=== PATIENT | female | born 1960 | race Caucasian/White ===

== ENCOUNTER 2017-01-19 10:39 | Inpatient (IN) | payer SELFPAY ==
[~2017-01-19] VITALS: Ht 167.6 cm; Wt 91.7 kg
[~2017-01-19 10:39] MED LIST: Z.0.NO CURRENT MEDS
[2017-01-19 10:40] VITALS: BP 148/105; PULSE 121; RESP 20; TEMP 98.6; O2SAT 97
[2017-01-19 11:28] VITALS: PULSE 128; RESP 28; O2SAT 78
[2017-01-19 11:29] VITALS: BP 145/70; PULSE 114; RESP 24; O2SAT 97
[2017-01-19] MEDS ORDERED: VANCOMYCIN INJ 1,000 MG in SODIUM CHLOR 0.9% 250 ML INJ 250 ML IV ONE (11:30)
--- NOTE | 2017-01-19 11:49 | PD ---
HPI Chief Complaint: Edema Time Seen by Provider: 11:43 Travel History International Travel<30 days: No Contact w/Intl Traveler<30days: No Traveled to known affect area: No History of Present Illness HPI 56-year-old female that presents to the ED for evaluation of leg wounds bilaterally. Per patient she's had this wound for about 2 months with her worsening. Patient has been applying antibiotic cream with minimal relief. Patient has yellow oozing especially from the left leg as well as the right leg. More significant infection on the right leg. Patient also has erythema noted on the inner times bilaterally. Per patient is somewhat tender 4 out of 10. She has not seen anybody for this. She states that the only medication she takes is medical marijuana. She somewhat of a poor historian and cannot really give us a good history. She does appear to have a history of smoking and states and some shortness of breath with exertion. She has an allergy to inhalers which she does not know which ones in particular. She denies any chest pain. She states that she's been gaining some weight in the past couple of weeks. Per ED nurse patient was dropped here by some friends were concerned because of her swelling and infection. Patient does have a history of chronic wounds to her legs and she has multiple old wounds that appear to have healed over her legs. PFSH Past Medical History Asthma: Yes Autoimmune Disease: No Cardiovascular Problems: Yes COPD: No Diminished Hearing: No Medical other: Yes (wound BLE) Musculoskeletal: Yes Respiratory: Yes Sleep Apnea: No ?: Not : 4 Para: 4 Past Surgical History Body Medical Devices: BROKE CLAVICLE LAST MONTH Section: Yes Gynecologic Surgery: Yes (C-SECTIONS) Oral Surgery: Yes (JAW SURG) Social History Alcohol Use: Yes (OCCASIONAL) Tobacco Use: Yes (1 PACK/DAY) Substance Use: No (medicinal ,marijuana per pt) Allergies-Medications (Allergen,Severity, Reaction): Uncoded Allergies: SOME ANTI INFLAMMATORY MEDS (Allergy, Severe, Swelling, 05/16/05) INHALERS (Allergy, Intermediate, SOB, 01/07/06) Reported Meds & Prescriptions Reported Meds & Active Scripts Active No Active Prescriptions or Reported Medications Review of Systems Except as stated in HPI: all other systems reviewed are Neg Physical Exam Narrative GENERAL: SKIN: Warm and dry. HEAD: Atraumatic. Normocephalic. EYES: Pupils equal and round. No scleral icterus. No injection or drainage. ENT: No nasal bleeding or discharge. Mucous membranes pink and moist. Tongue is midline. No uvula deviation. NECK: Trachea midline. No JVD. CARDIOVASCULAR: Regular rate and rhythm. No murmurs, S3, S4. RESPIRATORY: No accessory muscle use. Clear to auscultation. Breath sounds equal bilaterally. GASTROINTESTINAL: Abdomen soft, non-tender, nondistended. Hepatic and splenic margins not palpable. MUSCULOSKELETAL: Extremities without clubbing, cyanosis, or edema. No obvious deformities. Full range of motion of the upper and lower extremities bilaterally. Patient does have wounds to both lower legs. 2+ pulses bilaterally. Patient has an oozing wound on the anterior aspect of the left lower leg that is about 20 cm in diameter with yellow crusting and yellow drainage from the wounds. Patient also has a similar wound on the back of the right leg about 10 cm also oozing yellow drainage. Slightly tender. Patient does have an area of erythema on the inner tighs bilaterally. NEUROLOGICAL: Awake and alert. No obvious cranial nerve deficits. Motor grossly within normal limits. Five out of 5 muscle strength in the arms and legs. Normal speech. PSYCHIATRIC: Appropriate mood and affect; insight and judgment normal. Data Data Last Documented VS Vital Signs Date Time Temp Pulse Resp B/P (MAP) Pulse Ox O2 Delivery O2 Flow Rate FiO2 01/19/17 11:29 114 24 145/70 (95) 97 Nasal Cannula 3.00 01/19/17 10:40 98.6 Orders Orders Electrocardiogram (01/19/17 11:28) Complete Blood Count With Diff (01/19/17 11:28) Basic Metabolic Panel (Bmp) (01/19/17 11:28) Prothrombin Time / Inr (Pt) (01/19/17 11:28) Act Partial Throm Time (Ptt) (01/19/17 11:28) Blood Culture (01/19/17 11:28) Magnesium (Mg) (01/19/17 11:28) Wound Culture And Gram Stain (01/19/17 11:28) Chest, Single Ap (01/19/17 11:28) Iv Access Insert/Monitor (01/19/17 11:28) Ecg Monitoring (01/19/17 11:28) Oximetry (01/19/17 11:28) Vancomycin Inj (Vancomycin Inj) (01/19/17 11:30) Us Leg Venous Doppler Bilat (01/19/17 ) B-Type Natriuretic Peptide (01/19/17 11:28) Lactic Acid Sepsis Protocol (01/19/17 11:58) C-Reactive Protein (Crp) (01/19/17 11:58) Tibia/Fibula (Ap/Lat) (01/19/17 ) Sodium Chlorid 0.9% 500 Ml Inj (Ns 500 M (01/19/17 13:00) Piperacil-Tazo 3.375 Gm Premix (Zosyn 3. (01/19/17 13:15) Admit Order (Ed Use Only) (01/19/17 13:24) Labs Laboratory Tests Test 01/19/17 11:35 01/19/17 12:02 White Blood Count 5.7 TH/MM3 Red Blood Count 5.52 MIL/MM3 Hemoglobin 16.5 GM/DL Hematocrit 51.9 % Mean Corpuscular Volume 94.0 FL Mean Corpuscular Hemoglobin 30.0 PG Mean Corpuscular Hemoglobin Concent 31.9 % Red Cell Distribution Width 16.0 % Platelet Count 233 TH/MM3 Mean Platelet Volume 8.4 FL Neutrophils (%) (Auto) 71.2 % Lymphocytes (%) (Auto) 13.5 % Monocytes (%) (Auto) 13.6 % Eosinophils (%) (Auto) 0.9 % Basophils (%) (Auto) 0.8 % Neutrophils # (Auto) 4.1 TH/MM3 Lymphocytes # (Auto) 0.8 TH/MM3 Monocytes # (Auto) 0.8 TH/MM3 Eosinophils # (Auto) 0.1 TH/MM3 Basophils # (Auto) 0.0 TH/MM3 CBC Comment DIFF FINAL Differential Comment Prothrombin Time 12.8 SEC Prothromb Time International Ratio 1.2 RATIO Activated Partial Thromboplast Time 27.5 SEC Blood Urea Nitrogen 16 MG/DL Creatinine 0.67 MG/DL Random Glucose 159 MG/DL Calcium Level 8.8 MG/DL Magnesium Level 1.9 MG/DL Sodium Level 135 MEQ/L Potassium Level 4.0 MEQ/L Chloride Level 97 MEQ/L Carbon Dioxide Level 34.0 MEQ/L Anion Gap 4 MEQ/L Estimat Glomerular Filtration Rate 92 ML/MIN C-Reactive Protein 3.81 MG/DL B-Type Natriuretic Peptide 699 PG/ML Lactic Acid Level 2.5 mmol/L MDM Medical Decision Making Medical Screen Exam Complete: Yes Emergency Medical Condition: Yes Medical Record Reviewed: Yes Interpretation(s) CBC & BMP Diagram 01/19/17 11:35 Calcium Level 8.8, Magnesium Level 1.9 lactic acid of 2.5 CRP elevated BNP elevated Last Impressions Chest X-Ray 01/19/17 1128 Signed Impressions: Service Date/Time: December 11:43 - CONCLUSION: Borderline heart size. No focal infiltrate. Tereso Collier MD Lower Extremity Ultrasound 01/19/17 0000 Signed Impressions: Service Date/Time: , January 19, 2017 11:42 - CONCLUSION: Normal examination. Tereso Collier MD Differential Diagnosis Cellulitis versus wound infection versus impetigo versus osteomyelitis versus COPD Narrative Course 56-year-old female that presents to the ED for evaluation of leg swelling and shortness of breath. Patient was properly examined and was found to have signs and symptoms consistent appears to be some colitis in the lower legs with significant infection especially to the left leg. Labs and imaging were done. Patient is tachycardic on exam but she has no fever. Labs and imaging show elevated CRP, elevated BNP, cardiomegaly, elevated lactic acid. Case discussed in my attending Dr. Champagne who evaluated the patient with me and agrees with plan. Patient was started on antibiotics. Patient was given 500 bolus of fluid secondary to concern for CHF. Patient will require admission for further evaluation and treatment of her symptoms. She agrees and understands this plan. Case discussed with [facility] who recommends admission. Procedures EKG Prior to Arrival: No Sepsis Criteria SIRS Criteria (2 or more): Heart rate over 90 Diagnosis Primary Impression: Cellulitis Qualified Codes: L03.119 - Cellulitis of unspecified part of limb Additional Impressions: CHF (congestive heart failure) Qualified Codes: I50.9 - Heart failure, unspecified Lactic acid acidosis Admitting Information Admitting Physician Requests: Admit Scripts No Active Prescriptions or Reported Meds Amanuel Treadwell Jan 19, 2017 11:49
[2017-01-19 12:08] LABS: AUTOMATED NEUTROPHIL # 4.1 TH/MM3 (1.8-7.7); BASOPHIL % 0.8 % (0.0-2.0); EOSINOPHIL # 0.1 TH/MM3 (0-0.4); EOSINOPHIL % 0.9 % (0.0-4.0); HEMATOCRIT 51.9 % (35.0-46.0); HEMO FLAGS DIFF FINAL; LYMPH % 13.5 % (9.0-44.0); LYMPHOCYTE # 0.8 TH/MM3 (1.0-4.8); MEAN CORPUSCULAR HGB CONC 31.9 % (32.0-36.0); MONO % 13.6 % (0.0-8.0); NEUT % 71.2 % (16.0-70.0); PLATELET COUNT 233 TH/MM3 (150-450); RED BLOOD COUNT 5.52 MIL/MM3 (4.00-5.30); WHITE BLOOD COUNT 5.7 TH/MM3 (4.0-11.0)
--- NOTE | 2017-01-19 12:09 | RADRPT ---
EXAM DATE/TIME: 01/19/2017 11:43 [facility] COMPARISON: No previous studies available for comparison. INDICATIONS : Short of breath MEDICAL HISTORY : None. SURGICAL HISTORY : None. ENCOUNTER: Initial ACUITY: 2 days PAIN SCORE: 0/10 LOCATION: chest FINDINGS: Lungs are focally clear. Cardiac contours are satisfactory with heart size upper limits of normal. Th ere is no evidence of effusion. CONCLUSION: Borderline heart size. No focal infiltrate. Tereso Collier MD on January 19, 2017 at 12:00 Board Certified Radiologist. This report was verified electronically.
[2017-01-19 12:20] LABS: APTT (PATIENT) 27.5 SEC (24.3-30.1); INTERNATIONAL NORMALIZED RATIO 1.2 RATIO; PROTHROMBIN TIME - PATIENT 12.8 SEC (9.8-11.6)
[2017-01-19 12:26] LABS: MAGNESIUM 1.9 MG/DL (1.5-2.5)
--- NOTE | 2017-01-19 12:41 | RADRPT ---
EXAM DATE/TIME: 01/19/2017 11:42 [facility] COMPARISON: No previous studies available for comparison. INDICATIONS : Bilateral leg swelling. MEDICAL HISTORY : Cardiac disorder. Respiratory disorder. SURGICAL HISTORY : section. Jaw surgery. ENCOUNTER: Initial ACUITY: 1 day PAIN SCORE: 6/10 LOCATION: Bilateral legs. .Yes TECHNIQUE: Venous ultrasound of the left and right leg was performed from the inguinal ligament to the proximal calf. Real-time, color Doppler and spectral tracing, compression and augmentation techniques were us ed. FINDINGS: RIGHT LEG: There is normal compressibility of the deep venous system from the inguinal region to the proximal ca lf. No echogenic clot is seen in the lumen of the common femoral, femoral, popliteal, and posterior tibial veins. There is a normal response of the venous system to proximal and distal augmentation an d respiration. LEFT LEG: There is normal compressibility of the deep venous system from the inguinal region to the proximal ca lf. No echogenic clot is seen in the lumen of the common femoral, femoral, popliteal, and posterior tibial veins. There is a normal response of the venous system to proximal and distal augmentation an d respiration. CONCLUSION: Normal examination. Tereso Collier MD on January 19, 2017 at 12:39 Board Certified Radiologist. This report was verified electronically.
[2017-01-19] MEDS ORDERED: SODIUM CHLORID 0.9% 500 ML INJ 500 ML IV ONE (13:00)
[2017-01-19] MEDS ORDERED: NALOXONE HCL 0.4 MG/ML AMP IV PUSH PRN (13:30)
[2017-01-19] MEDS ORDERED: SODIUM CHLORIDE 0.9% FLUSH 10 ML FLUSH IV FLUSH PRN (13:30)
--- NOTE | 2017-01-19 13:32 | RADRPT ---
EXAM DATE/TIME: 01/19/2017 12:43 [facility] COMPARISON: No previous studies available for comparison. INDICATIONS : Left tibia pain, skin abrasion. Denies injury MEDICAL HISTORY : None. Cardiac disorder. Respiratory disorder SURGICAL HISTORY : None. ENCOUNTER: Initial ACUITY: 2 months PAIN SCORE: 8/10 LOCATION: Left Tibia FINDINGS: 3 views of the left tibia and fibula. Bone alignment within normal limits. No evidence of fracture. Anterior soft tissue swelling and focal anterior soft tissue defect or ulceration. CONCLUSION: No evidence of fracture. Ulceration or defect in the anterior soft tissues at the level of the mid ti natalie shaft. Roney Sneed MD on January 19, 2017 at 13:30 Board Certified Radiologist. This report was verified electronically.
[2017-01-19] MEDS ORDERED: ACETAMINOPHEN 325 MG TAB PO PRN (14:00)
[2017-01-19 14:19] LABS: LACTIC ACID GHOST NOT REPORTABLE
[2017-01-19] MEDS ORDERED: Vancomycin Consult Pharmacy 1 EA OTHER SCH (14:30)
--- NOTE | 2017-01-19 14:35 | HHI.HP ---
[facility] No Primary Care Physician Admission Diagnosis lower leg cellulitis bilaterally Diagnoses: Chief Complaint: lower leg infection Travel History International Travel<30 Days: No Contact w/Intl Traveler <30 Da: No Traveled to Known Affected Are: No History of Present Illness This is a 56-year-old homeless female with past medical history of COPD, asthma , and tobacco dependence who presented with bilateral lower extremity edema. Patient is very poor historian. Patient stated that she had a small wound of her lower legs that started about 2-3 months ago and worsened. She stated that she see her because of that. It is very difficult to obtain history from patient. She stated that she is homeless and she does walk barefooted and sometimes worse socks. Patient also smokes filtered cigar cigarettes about 1 pack per day for almost her entire life. Deny any fevers or chills. I also asked patient regards to shortness of breathing since she complained of shortness breathing to the emergency medicine PA. She denied this. She stated that she never complained of shortness of breathing. Denied any chest pain, palpitation, lightheadedness or dizziness. When I asked patient about medication for her COPD/asthma she said that she could not take any inhalers because it increases her shortness of breathing and makes her chest feel tight. When I asked patient what medication that she use if she ever had a COPD or asthma exacerbation. She stated that she just takes deep inspiration it goes away on its own. All other review of system reviewed and negative. Past Family Social History Past Medical History COPD Asthma Past Surgical History jaw surgery Reported Medications Reported Meds & Active Scripts Active No Active Prescriptions or Reported Medications Allergies: Uncoded Allergies: SOME ANTI INFLAMMATORY MEDS (Allergy, Severe, Swelling, 05/16/05) INHALERS (Allergy, Intermediate, SOB, 01/07/06) Active Ordered Medications Current Medications Vancomycin HCl 1000 mg/Sodium Chloride 250 ml @ 250 mls/hr ONCE ONCE IV Last administered on 01/19/17t 12:04; Start 01/19/17 at 11:30; Stop 01/19/17 at 12:29 ; Status DC Sodium Chloride 500 ml @ 500 mls/hr BOLUS ONCE IV Last administered on t 13:05; Start 01/19/17 at 13:00; Stop 01/19/17 at 13:59; Status DC Piperacillin Sod/ Tazobactam Sod 50 ml @ 100 mls/hr ONCE ONCE IV ; Start 01/19 at 15:00; Stop 01/19/17 at 15:29 Sodium Chloride (NS Flush) 2 ml UNSCH PRN IV FLUSH FLUSH AFTER USING IV ACCESS ; Start 01/19/17 at 13:30 Sodium Chloride (NS Flush) 2 ml BID IV FLUSH ; Start 01/19/17 at 21:00 Acetaminophen (Tylenol) 650 mg Q4H PRN PO TEMP > 100.4; Start 01/19/17 at 14:00 Ondansetron HCl (Zofran Inj) 4 mg Q6H PRN IVP NAUSEA OR VOMITING; Start at 15:00 Naloxone HCl (Narcan Inj) 0.4 mg UNSCH PRN IV PUSH SEE LABEL COMMENTS; Start at 13:30 Senna/Docusate Sodium (Mahogany-Colace) 1 tab BID PO ; Start 01/19/17 at 21:00 Magnesium Hydroxide (Milk Of Magnesia Liq) 30 ml Q12HR PRN PO MILD - MODERATE CONSTIPATION; Start 01/19/17 at 21:00 Sennosides (Senokot) 17.2 mg Q12HR PRN PO MODERATE - SEVERE CONSTIPATION; Start 01/19/17 at 15:00 Bisacodyl (Dulcolax Supp) 10 mg DAILY PRN RECTAL SEVERE CONSITIPATION; Start at 15:00 Lactulose (Lactulose Liq) 30 ml DAILY PRN PO SEVERE CONSITIPATION; Start at 15:00 Pharmacy Profile Note 0 ml @ 0 mls/hr UNSCH OTHER ; Start 01/19/17 at 14:30 Piperacillin Sod/ Tazobactam Sod 50 ml @ 100 mls/hr Q6H IV ; Start 01/19/17 at 21:00 Prednisone (Deltasone) 50 mg DAILY PO ; Start 01/19/17 at 14:30; Status UNV Enoxaparin Sodium (Lovenox Inj) 40 mg Q24H SQ ; Start 01/19/17 at 14:30; Status UNV Acetaminophen/ Hydrocodone Bitart ([place] 5-325 Mg) 1 tab Q4H PRN PO pain 1-7; Start 01/19/17 at 14:30; Status UNV Acetaminophen/ Hydrocodone Bitart ([place] 5-325 Mg) 2 tab Q4H PRN PO pain 8-10 ; Start 01/19/17 at 14:30; Status UNV Family History Past family history reviewed and patient stated that she did not know. Social History Patient is homeless. Occasional alcohol use. Positive for tobacco use. Physical Exam Vital Signs Vital Signs Date Time Temp Pulse Resp B/P (MAP) Pulse Ox O2 Delivery O2 Flow Rate FiO2 01/19/17 11:29 114 24 145/70 (95) 97 Nasal Cannula 3.00 01/19/17 11:28 128 28 78 Room Air 01/19/17 10:40 98.6 121 20 148/105 (119) 97 Room Air Physical Exam GENERAL: This is a well-nourished, well-developed patient, in no apparent distress. SKIN: Left Leg Below Knee with ulcering lesions purulent discharge with erythema. right leg + erythema and swelling. bridge of nose with erythematous ulcerating wound. HEAD: Atraumatic. Normocephalic. No temporal or scalp tenderness. EYES: Pupils equal round and reactive. Extraocular motions intact. No scleral icterus. No injection or drainage. ENT: Nose without bleeding, purulent drainage or septal hematoma. Throat without erythema, tonsillar hypertrophy or exudate. Uvula midline. Airway patent. NECK: Trachea midline. No JVD or lymphadenopathy. Supple, nontender, no meningeal signs. CARDIOVASCULAR: Regular rate and rhythm without murmurs, gallops, or rubs. RESPIRATORY: Small amount Bilateral scatter expiratory wheezing. No rhonchi or crackles noted. GASTROINTESTINAL: Abdomen soft, non-tender, nondistended. No hepato-splenomegaly , or palpable masses. No guarding. MUSCULOSKELETAL: Extremities without clubbing, cyanosis, or edema. No joint tenderness, effusion, or edema noted. No calf tenderness. Negative Homans sign bilaterally. faint right DP pulse. difficult to palpate left DP pulse. NEUROLOGICAL: Awake and alert. Cranial nerves II through XII intact. Motor and sensory grossly within normal limits. Five out of 5 muscle strength in all muscle groups. Normal speech. Laboratory Laboratory Tests Test 01/19/17 11:35 01/19/17 12:02 White Blood Count 5.7 Red Blood Count 5.52 Hemoglobin 16.5 Hematocrit 51.9 Mean Corpuscular Volume 94.0 Mean Corpuscular Hemoglobin 30.0 Mean Corpuscular Hemoglobin Concent 31.9 Red Cell Distribution Width 16.0 Platelet Count 233 Mean Platelet Volume 8.4 Neutrophils (%) (Auto) 71.2 Lymphocytes (%) (Auto) 13.5 Monocytes (%) (Auto) 13.6 Eosinophils (%) (Auto) 0.9 Basophils (%) (Auto) 0.8 Neutrophils # (Auto) 4.1 Lymphocytes # (Auto) 0.8 Monocytes # (Auto) 0.8 Eosinophils # (Auto) 0.1 Basophils # (Auto) 0.0 CBC Comment DIFF FINAL Differential Comment Prothrombin Time 12.8 Prothromb Time International Ratio 1.2 Activated Partial Thromboplast Time 27.5 Blood Urea Nitrogen 16 Creatinine 0.67 Random Glucose 159 Calcium Level 8.8 Magnesium Level 1.9 Sodium Level 135 Potassium Level 4.0 Chloride Level 97 Carbon Dioxide Level 34.0 Anion Gap 4 Estimat Glomerular Filtration Rate 92 C-Reactive Protein 3.81 B-Type Natriuretic Peptide 699 Lactic Acid Level 2.5 Date/Time Source Procedure Growth Status 01/19/17 11:50 Blood Peripheral Aerobic Blood Culture Pending Received 01/19/17 11:50 Blood Peripheral Anaerobic Blood Culture Pending Received 01/19/17 11:35 Wound Foot Gram Stain Pending Received 01/19/17 11:35 Wound Foot Wound Culture Pending Received Result Diagram: 01/19/17 1135 01/19/17 1135 Imaging Last Impressions Chest X-Ray 01/19/17 1128 Signed Impressions: Service Date/Time: December 11:43 - CONCLUSION: Borderline heart size. No focal infiltrate. Tereso Collier MD Tibia/Fibula X-Ray 01/19/17 0000 Signed Impressions: Service Date/Time: December 12:43 - CONCLUSION: No evidence of fracture. Ulceration or defect in the anterior soft tissues at the level of the mid tibia shaft. Roney Sneed MD Lower Extremity Ultrasound 01/19/17 0000 Signed Impressions: Service Date/Time: December 11:42 - CONCLUSION: Normal examination. MD Sawyer Domínguez VTE Risk Assessment Caprini VTE Risk Assessment: Mod/High Risk (score >= 2) Caprini Risk Assessment Model Point Value = 1 Point Value = 2 Point Value = 3 Point Value = 5 Age 41-60 Minor surgery BMI > 25 kg/m2 Swollen legs Varicose veins or History of unexplained or recurrent spontaneous Oral contraceptives or hormone replacement Sepsis (< 1 month) Serious lung disease, including pneumonia (< 1 month) Abnormal pulmonary function Acute myocardial infarction Congestive heart failure (< 1 month) History of inflammatory bowel disease Medical patient at bed rest Age 61-74 Arthroscopic surgery Major open surgery (> 45 min) Laparoscopic surgery (> 45 min) Malignancy Confined to bed (> 72 hours) Immobilizing plaster cast Central venous access Age >= 75 History of VTE Family history of VTE Factor V Leiden Prothrombin [id number] Lupus anticoagulant Anticardiolipin antibodies Elevated serum homocysteine Heparin-induced thrombocytopenia Other congenital or acquired thrombophilia Stroke (< 1 month) Elective arthroplasty Hip, pelvis, or leg fracture Acute spinal cord injury (< 1 month) Prophylaxis Regimen Total Risk Factor Score Risk Level Prophylaxis Regimen 0-1 Low Early ambulation 2 Moderate Order ONE of the following: *Sequential Compression Device (SCD) *Heparin 5000 units SQ BID 3-4 Higher Order ONE of the following medications: *Heparin 5000 units SQ TID *Enoxaparin/Lovenox 40 mg SQ daily (WT < 150 kg, CrCl > 30 mL/min) *Enoxaparin/Lovenox 30 mg SQ daily (WT < 150 kg, CrCl > 10-29 mL/min) *Enoxaparin/Lovenox 30 mg SQ BID (WT < 150 kg, CrCl > 30 mL/min) AND/OR *Sequential Compression Device (SCD) 5 or more Highest Order ONE of the following medications: *Heparin 5000 units SQ TID (Preferred with Epidurals) *Enoxaparin/Lovenox 40 mg SQ daily (WT < 150 kg, CrCl > 30 mL/min) *Enoxaparin/Lovenox 30 mg SQ daily (WT < 150 kg, CrCl > 10-29 mL/min) *Enoxaparin/Lovenox 30 mg SQ BID (WT < 150 kg, CrCl > 30 mL/min) AND *Sequential Compression Device (SCD) Assessment and Plan Assessment and Plan This is a 56-year-old homeless female history of COPD, asthma, and tobacco dependence who presented with B/L lower extremity cellulitis Right LL cellulitis and left LL cellulitis/ulcerating wound -Labs obtained reviewed no leukocytosis. X-ray shows defect of left leg soft tissue. Ultrasound negative. Difficult to palpate pulse from the left leg. Positive tobacco use. -Patient given vancomycin and Zosyn in ED. Cultures already obtained in the ED. -Due to severity of infection will need to consult infectious disease. -Will also get a angiogram of her lower extremity to evaluate for circulation. -Continue to monitor clinically pending cultures. -Will also have nurse allow patient to take shower. Respiratory failure with hypoxia -Most likely this is chronic. Patient is homeless and has poor follow-up. She denies clinically that she has any problems breathing. -Chest x-ray negative. BNP mildly elevated. -Patient will be started on steroids. Avoid inhalers secondary to side effects. -Since there is mildly elevated BNP will also get an echo and give Lasix. -Continue to monitor clinically. Supplemental oxygen. COPD/asthma -Patient does have wheezing but she stated that she is asymptomatic. Unable to use inhalers due to worsening of symptoms. -Will try prednisone. -Continue to monitor clinically. Tobacco dependence -Smoking cessation. -Nicotine patch when necessary. DVT prophylaxis -Lovenox. Code Status full Discussed Condition With patient Physician Certification 2 Midnight Certification Type: Admission for Inpatient Services Order for Inpatient Services The services are ordered in accordance with Medicare regulations or non- Medicare payer requirements, as applicable. In the case of services not specified as inpatient-only, they are appropriately provided as inpatient services in accordance with the 2-midnight benchmark. Estimated LOS (days): 5 5 days is the estimated time the patient will need to remain in the hospital, assuming treatment plan goals are met and no additional complications. Post-Hospital Plan: Shayla Bingham MD Jan 19, 2017 14:35
[2017-01-19] MEDS ORDERED: ONDANSETRON HCL 4 MG/2 ML VIAL IVP PRN (15:00)
[2017-01-19] MEDS ORDERED: SENNOSIDES 8.6 MG TAB PO PRN (15:00)
[2017-01-19] MEDS ORDERED: BISACODYL 10 MG SUPP RECTAL PRN (15:00)
[2017-01-19] MEDS ORDERED: PIPERACIL-TAZO 3.375 GM PREMIX 50 ML IV ONE (15:00)
[2017-01-19] MEDS ORDERED: LACTULOSE SYRUP 20 GM/30 ML CUP PO PRN (15:00)
[2017-01-19] MEDS ORDERED: ACETAMINOPHEN/HYDROcodone 325 MG/5 MG TAB PO PRN (16:00)
[2017-01-19] MEDS: ENOXAPARIN SODIUM 40 MG/0.4 ML SYRINGE SQ SCH (17:05)
[2017-01-19] MEDS: FUROSEMIDE 20 MG TAB PO SCH (17:05)
[2017-01-19] MEDS: predniSONE 50 MG TAB PO SCH (17:06)
[2017-01-19 19:06] VITALS: PULSE 90
[2017-01-19 20:00] VITALS: BP 93/56; PULSE 90; RESP 16; TEMP 97.3; O2SAT 92
[2017-01-19] MEDS: PIPERACIL-TAZO 3.375 GM PREMIX 50 ML IV SCH (20:45)
[2017-01-19] MEDS: DOCUSATE SODIUM 50 MG/SENNA 8.6 MG TAB PO SCH ×2 (20:46→21:00)
[2017-01-19] MEDS: SODIUM CHLORIDE 0.9% FLUSH 10 ML FLUSH IV FLUSH SCH (20:51)
[2017-01-19] MEDS ORDERED: MAGNESIUM HYDROXIDE SUSP 30 ML CUP PO PRN (21:00)
[2017-01-19] MEDS ORDERED: IOHEXOL 350 MG/ML 10 ML VIAL (for RAD DIAG) IVCONTRAST ONE (22:05)
[2017-01-19] MEDS: VANCOMYCIN 1,000 MG/NS 250 ML IV SCH ×2 (23:27)
[2017-01-20] VITALS: BP 93/56; PULSE 83; RESP 16; TEMP 97.1; O2SAT 100
[2017-01-20] MEDS: PIPERACIL-TAZO 3.375 GM PREMIX 50 ML IV SCH ×4 (02:10→22:47)
[2017-01-20 08:00] VITALS: BP 96/56; PULSE 98; RESP 16; TEMP 96.7; O2SAT 90
--- NOTE | 2017-01-20 09:20 | RADRPT ---
EXAM DATE/TIME: 01/19/2017 21:49 [place] COMPARISON: No previous studies available for comparison. INDICATIONS : Bilateral lower extremity cellulitis. IV CONTRAST: 99 cc Omnipaque 350 (iohexol) IV RADIATION DOSE: 2.66 CTDIvol (mGy) MEDICAL HISTORY : Cardiovascular disease. SURGICAL HISTORY : section. ENCOUNTER: Initial ACUITY: 1 day PAIN SCALE: 4/10 LOCATION: Bilateral lower extremity TECHNIQUE: Volumetric scanning was performed using a multi-row detector CT scanner. The data was post processed with a variety of visualization algorithms including full volume maximum intensity projection, multi -planar sliding thin slab reformation, curved planar reformation, and surface rendering techniques. Using automated exposure control and adjustment of the mA and/or kV according to patient size, radiat ion dose was kept as low as reasonably achievable to obtain optimal diagnostic quality images. DICO M format image data is available electronically for review and comparison. FINDINGS: AORTA: Moderate distal infrarenal aortic calcified plaque without significant flow-limiting stenosis. No aor tic aneurysm. VISCERAL ARTERIES: Single patent bilateral renal arteries. Severe stenosis of the celiac origin and period SMA and LEXY a re patent. RIGHT LEG: INFLOW: Calcified plaque in the proximal common iliac artery with mild stenosis. Internal and external iliac arteries are patent. Common femoral artery is patent. OUTFLOW: Profunda is patent. Minimal SFA calcified plaque without significant flow-limiting stenosis. Poplitea l artery is patent. RUNOFF: High origin of the anterior tibial artery. Small caliber runoff vessels which appear grossly patent t o the level of the ankles. LEFT LEG: INFLOW: Bulky eccentric calcified plaque throughout the common iliac artery with resultant mild to moderate d iffuse stenosis. Internal iliac artery is patent. External iliac arteries patent. Common femoral adi ry is patent. OUTFLOW: Profunda is patent. SFA is patent. Popliteal artery is patent. RUNOFF: High origin of the anterior tibial artery. Small caliber runoff vessels suboptimally visualized due t o to venous contamination. They appear grossly patent in the proximal calf. GENERAL FINDINGS: Visualized lung bases are clear. Dilation of the abdominal viscera is limited due to arterial phase t echnique. Liver appears slightly heterogeneous with diffusely decreased attenuation. Spleen and adren al glands are grossly unremarkable. Gallbladder is mildly distended but otherwise unremarkable. Pancr eas is grossly unremarkable. There is diffuse anasarca and small amount of ascites. Bowel appears mireille ssly unremarkable. No evidence for obstruction. No gross free air or significant focal drainable flui d collection. Bladder is mildly distended but otherwise unremarkable. Uterus and adnexa are grossly unremarkable. N o abnormal lytic or blastic bony lesions. CONCLUSION: 1. No significant aortic occlusive disease or aortic aneurysm. 2. 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 SMA and LEXY are patent. 3. No significant iliac inflow stenosis on the right. Diffuse mild to moderate stenosis of the left c ommon iliac artery secondary to eccentric calcified plaque. 4. No significant outflow stenosis. 5. Small caliber runoff vessels bilaterally, incompletely evaluated beyond the proximal calf on the l eft. 6. Diffuse soft tissue anasarca and small amount of ascites. Raymond Berry MD on January 20, 2017 at 8:16 Board Certified Radiologist. This report was verified electronically.
--- NOTE | 2017-01-20 10:05 | PD.CONS ---
History of Present Illness Consult Requested By Diagnoses: Past Family Social History Allergies: Uncoded Allergies: SOME ANTI INFLAMMATORY MEDS (Allergy, Severe, Swelling, 05/16/05) INHALERS (Allergy, Intermediate, SOB, 01/07/06) Physical Exam Vital Signs Laboratory Result Diagram: 01/19/17 1135 01/19/17 1135 Assessment and Plan Code Status: Xochilt Long MD Jan 20, 2017 10:05
--- NOTE | 2017-01-20 10:10 | EKG ---
Date Performed: 01/19/2017 Time Performed: 12:19:32 PTAGE: 56 years EKG: SINUS TACHYCARDIA RIGHT ATRIAL ENLARGEMENT LEFT ATRIAL ENLARGEMENT MARKED RIGHT AXIS DEVIAT ION LOW QRS VOLTAGE IN EXTREMITY LEADS INCOMPLETE RIGHT BUNDLE BRANCH BLOCK ABNORMAL ECG PREVIOUS TRACING : 12/07/2005 16.35 Compared to prior tracing no significant change DOCTOR: Jeffry Benítez Interpretating Date/Time 01/20/2017 10:09:06
--- NOTE | 2017-01-20 10:23 | PD.CONS ---
History of Present Illness Service Infectious disease Consult Requested By Dr Jim Moore Reason for Consult Evaluate patient with infected leg wounds Primary Care Physician No Primary Care Physician Diagnoses: History of Present Illness patient seen and examined. Records reviewed. Patient is a very poor historian Patient is a 56-year-old female, reported that she had been homeless in the past , presented to the hospital for further evaluation of her left lower extremity. She stated that she started having wounds in her left leg about a couple months ago. 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 She showed she' s had some fevers but couldn't tell me how high they were. She's had some shortness of breath, and denies any coughing. Denies any chest pain. There's been no nausea or vomiting, diarrhea or any urinary complaints. Patient has not been febrile. Her WBC is normal. She was diagnosed to have some infected wounds in her left leg with cellulitis. Infectious disease consultation has been requested to evaluate the patient. Review of Systems Constitutional: COMPLAINS OF: Fever, Night Sweats Eyes: DENIES: Eye pain Ears, nose, mouth, throat: DENIES: Nasal discharge, Oral lesions, Throat pain, Ear Pain Respiratory: DENIES: Cough, Shortness of breath Cardiovascular: DENIES: Chest pain, Palpitations Gastrointestinal: DENIES: Abdominal pain, Diarrhea, Nausea, Vomiting, Difficulty Swallowing Genitourinary: DENIES: Dysuria Musculoskeletal: COMPLAINS OF: Joint pain, Joint Swelling Integumentary: COMPLAINS OF: Rash Neurologic: DENIES: Headache Psychiatric: DENIES: Hallucinations Past Family Social History Allergies: Uncoded Allergies: SOME ANTI INFLAMMATORY MEDS (Allergy, Severe, Swelling, 05/16/05) INHALERS (Allergy, Intermediate, SOB, 01/07/06) Past Medical History COPD Asthma Past Surgical History jaw surgery Reported Medications Reported Meds & Active Scripts Active No Active Prescriptions or Reported Medications Active Ordered Medications Tylenol prn [place] prn Dulcolax prn Lovenox Lasix Lactulose prn MOM prn Zofran prn Zosyn Prednisone Pericolace Senokot vancomycin Family History Not known Social History Patient is homeless. Though she said she has been staying in a friend's place Occasional alcohol use. Positive for tobacco use, 1 ppd Denies illicit drugs Physical Exam Vital Signs Vital Signs Date Time Temp Pulse Resp B/P (MAP) Pulse Ox O2 Delivery O2 Flow Rate FiO2 01/20/17 08:00 96.7 98 16 96/56 (69) 90 01/20/17 00:00 97.1 83 16 93/56 (68) 100 01/19/17 20:43 92 Nasal Cannula 3.00 01/19/17 20:00 97.3 90 16 93/56 (68) 92 01/19/17 19:06 90 01/19/17 15:58 01/19/17 11:29 114 24 145/70 (95) 97 Nasal Cannula 3.00 01/19/17 11:28 128 28 78 Room Air 01/19/17 10:40 98.6 121 20 148/105 (119) 97 Room Air Physical Exam GENERAL: Patient is a well-nourished, well-developed female, unkempt, not in respiratory distress. SKIN: Warm and dry. No generalized rash, no ecchymoses and no evidence of embolic lesions. Has some superficial dry wound on nose and forehead and one pustular lesion on the R of her forehead. HEAD: Atraumatic. Normocephalic. No temporal wasting, or tenderness. EYES: [place] conjunctiva. No petechia or hemorrhage. Pupils equal, round and reactive to light. Extraocular movements full and intact. No scleral icterus. No injection or drainage. EARS, NOSE AND THROAT: Nose without bleeding or purulent nasal discharge. No sinus tenderness. Mucous membranes dry, and has poor dentition. No oral lesions noted. No exudate. No oral thrush. NECK: Trachea midline. Supple and not tender, no meningeal signs CARDIOVASCULAR: Regular rate and rhythm. No murmurs, rubs or gallops heard RESPIRATORY: Equal breath sounds and has few scattered wheezing. ABDOMEN: Soft, non-tender, nondistended. Bowel sounds present and normoactive. No guarding. No rebound. No organomegaly. EXTREMITIES: No clubbing, cyanosis in BLE. Skin tight in both feet, has some edema. LLE: has superficial ulcers in her L leg down to ankle with some crusting and some odor, and also has cellulitis. LLE is slightly larger compared to her LLE. No calf tenderness. Well perfused and warm. NEUROLOGICAL: Awake and alert. Cranial nerves grossly intact. Motor grossly within normal limits. PSYCHIATRIC: Normal affect, calm and cooperative. LINE: No evidence of infection Laboratory Laboratory Tests Test 01/19/17 11:35 01/19/17 12:02 01/19/17 17:01 01/19/17 21:00 White Blood Count 5.7 Red Blood Count 5.52 Hemoglobin 16.5 Hematocrit 51.9 Mean Corpuscular Volume 94.0 Mean Corpuscular Hemoglobin 30.0 Mean Corpuscular Hemoglobin Concent 31.9 Red Cell Distribution Width 16.0 Platelet Count 233 Mean Platelet Volume 8.4 Neutrophils (%) (Auto) 71.2 Lymphocytes (%) (Auto) 13.5 Monocytes (%) (Auto) 13.6 Eosinophils (%) (Auto) 0.9 Basophils (%) (Auto) 0.8 Neutrophils # (Auto) 4.1 Lymphocytes # (Auto) 0.8 Monocytes # (Auto) 0.8 Eosinophils # (Auto) 0.1 Basophils # (Auto) 0.0 CBC Comment DIFF FINAL Differential Comment Prothrombin Time 12.8 Prothromb Time International Ratio 1.2 Activated Partial Thromboplast Time 27.5 Blood Urea Nitrogen 16 Creatinine 0.67 Random Glucose 159 Calcium Level 8.8 Magnesium Level 1.9 Sodium Level 135 Potassium Level 4.0 Chloride Level 97 Carbon Dioxide Level 34.0 Anion Gap 4 Estimat Glomerular Filtration Rate 92 Troponin I 0.03 0.09 C-Reactive Protein 3.81 B-Type Natriuretic Peptide 699 Lactic Acid Level 2.5 1.3 Test 01/20/17 03:48 Troponin I 0.08 Date/Time Source Procedure Growth Status 01/19/17 11:50 Blood Peripheral Aerobic Blood Culture Pending Received 01/19/17 11:50 Blood Peripheral Anaerobic Blood Culture Pending Received 01/19/17 11:35 Wound Foot Gram Stain - Final Resulted 01/19/17 11:35 Wound Foot Wound Culture Pending Resulted Result Diagram: 01/19/17 1135 01/19/17 1135 Imaging RADIOLOGY STUDIES/FILMS REVIEWED Chest X-Ray 01/19/17 1128 Signed Impressions: Service Date/Time: December 11:43 - CONCLUSION: Borderline heart size. No focal infiltrate. Tereso Collier MD Tibia/Fibula X-Ray 01/19/17 0000 Signed Impressions: Service Date/Time: December 12:43 - CONCLUSION: No evidence of fracture. Ulceration or defect in the anterior soft tissues at the level of the mid tibia shaft. Roney Sneed MD Lower Extremity Ultrasound 01/19/17 Signed Impressions: Service Date/Time: December 11:42 - CONCLUSION: Normal examination. Tereso Collier MD Aorta w/Runoff CTA 01/19/17 Signed Impressions: Service Date/Time: December 21:49 - CONCLUSION: 1. No significant aortic occlusive disease or aortic aneurysm. 2. 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 SMA and LEXY are patent. 3. No significant iliac inflow stenosis on the right. Diffuse mild to moderate stenosis of the left common iliac artery secondary to eccentric calcified plaque. 4. No significant outflow stenosis. 5. Small caliber runoff vessels bilaterally, incompletely evaluated beyond the proximal calf on the left. 6. Diffuse soft tissue anasarca and small amount of ascites. Raymond Berry MD Assessment and Plan Assessment and Plan IMPRESSION Known BLE edema, likely due to venous insufficiency, and has stasis ulcers LLE cellulitis with stasis ulcers Prob has underlying COPD, smoker Homelessness RECOMMENDATION Will consult wound care Continue current empiric Abx: vanco and Zosyn Follow C/S and adjust Abx Monitor progress Will choose oral Abx on D/C when C/S finalized I will follow along with you Thank you for this consultation Discussed Condition With D/W Xochilt Evangelista MD Jan 20, 2017 10:23
[2017-01-20] MEDS: FUROSEMIDE 20 MG TAB PO SCH (10:49)
[2017-01-20] MEDS: DOCUSATE SODIUM 50 MG/SENNA 8.6 MG TAB PO SCH ×2 (10:49→20:12)
[2017-01-20] MEDS: predniSONE 50 MG TAB PO SCH (10:49)
[2017-01-20] MEDS: SODIUM CHLORIDE 0.9% FLUSH 10 ML FLUSH IV FLUSH SCH ×2 (10:50→21:31)
[2017-01-20] MEDS ORDERED: CHLORHEXIDINE GLUCONATE 4% SOLN 120 ML BTL TOPICAL ONE (11:00)
--- NOTE | 2017-01-20 11:05 | HHI.PR ---
Subjective Remarks Follow-up for infection Patient no complaints. She is asking eat. Deny any shortness of breathing or cough. Objective Vitals Vital Signs Date Time Temp Pulse Resp B/P (MAP) Pulse Ox O2 Delivery O2 Flow Rate FiO2 01/20/17 08:00 96.7 98 16 96/56 (69) 90 01/20/17 00:00 97.1 83 16 93/56 (68) 100 01/19/17 20:43 92 Nasal Cannula 3.00 01/19/17 20:00 97.3 90 16 93/56 (68) 92 01/19/17 19:06 90 01/19/17 15:58 01/19/17 11:29 114 24 145/70 (95) 97 Nasal Cannula 3.00 01/19/17 11:28 128 28 78 Room Air I/O 01/19/17 01/19/17 01/19/17 01/20/17 01/20/17 01/20/17 07:00 15:00 23:00 07:00 15:00 23:00 Intake Total 750 ml 100 ml 300 ml Balance 750 ml 100 ml 300 ml Intake IV Total 750 ml 100 ml 300 ml # Voids 3 Result Diagram: 01/19/17 1135 01/19/17 1135 Objective Remarks GENERAL: This is a well-nourished, well-developed patient, in no apparent distress. SKIN: Left Leg Below Knee with ulcering lesions purulent discharge with erythema. right leg + erythema and swelling. bridge of nose with erythematous ulcerating wound. Faint bilateral DP pulses. CARDIOVASCULAR: Regular rate and rhythm without murmurs, gallops, or rubs. RESPIRATORY: Small amount Bilateral scatter expiratory wheezing. No rhonchi or crackles noted. GASTROINTESTINAL: Abdomen soft, non-tender, nondistended. No hepato-splenomegaly , or palpable masses. No guarding. Medications and IVs Current Medications Vancomycin HCl 1000 mg/Sodium Chloride 250 ml @ 250 mls/hr ONCE ONCE IV Last administered on 01/19/17 12:04; Start 01/19/17 at 11:30; Stop 01/19/17 at 12:29 ; Status DC Sodium Chloride 500 ml @ 500 mls/hr BOLUS ONCE IV Last administered on 13:05; Start 01/19/17 at 13:00; Stop 01/19/17 at 13:59; Status DC Piperacillin Sod/ Tazobactam Sod 50 ml @ 100 mls/hr ONCE ONCE IV Last administered on 01/19/17 15:18; Start 01/19/17 at 15:00; Stop 01/19/17 at 15:29 ; Status DC Sodium Chloride (NS Flush) 2 ml UNSCH PRN IV FLUSH FLUSH AFTER USING IV ACCESS ; Start 01/19/17 at 13:30 Sodium Chloride (NS Flush) 2 ml BID IV FLUSH Last administered on 01/20/17 10: 50; Start 01/19/17 at 21:00 Acetaminophen (Tylenol) 650 mg Q4H PRN PO TEMP > 100.4; Start 01/19/17 at 14:00 Ondansetron HCl (Zofran Inj) 4 mg Q6H PRN IVP NAUSEA OR VOMITING; Start at 15:00 Naloxone HCl (Narcan Inj) 0.4 mg UNSCH PRN IV PUSH SEE LABEL COMMENTS; Start at 13:30 Senna/Docusate Sodium ([place]-Colace) 1 tab BID PO Last administered on 10:49; Start 01/19/17 at 21:00 Magnesium Hydroxide (Milk Of Magnesia Liq) 30 ml Q12HR PRN PO MILD - MODERATE CONSTIPATION; Start 01/19/17 at 21:00 Sennosides (Senokot) 17.2 mg Q12HR PRN PO MODERATE - SEVERE CONSTIPATION; Start 01/19/17 at 15:00 Bisacodyl (Dulcolax Supp) 10 mg DAILY PRN RECTAL SEVERE CONSITIPATION; Start at 15:00 Lactulose (Lactulose Liq) 30 ml DAILY PRN PO SEVERE CONSITIPATION; Start at 15:00 Pharmacy Profile Note 0 ml @ 0 mls/hr UNSCH OTHER ; Start 01/19/17 at 14:30 Piperacillin Sod/ Tazobactam Sod 50 ml @ 100 mls/hr Q6H IV Last administered on 01/20/17 10:50; Start 01/19/17 at 21:00 Prednisone (Deltasone) 50 mg DAILY PO Last administered on 01/20/17 10:49; Start 01/19/17 at 16:00 Enoxaparin Sodium (Lovenox Inj) 40 mg Q24H SQ Last administered on 01/19/17 17 :05; Start 01/19/17 at 16:00 Acetaminophen/ Hydrocodone Bitart ([place] 5-325 Mg) 1 tab Q4H PRN PO pain 1-7 Last administered on 01/19/17 17:28; Start 01/19/17 at 16:00 Acetaminophen/ Hydrocodone Bitart ([place] 5-325 Mg) 2 tab Q4H PRN PO pain 8-10 ; Start 01/19/17 at 16:00 Vancomycin HCl 1000 mg/Sodium Chloride 250 ml @ 250 mls/hr Q12H IV Last administered on 01/19/17 23:27; Start 01/20/17 at 00:00 Miscellaneous Information SPECIFIC LAB TO BE ... ONCE ONCE .XX ; Start 01/20 at 23:45; Stop 01/20/17 at 23:46 Furosemide (Lasix) 20 mg DAILY PO Last administered on 01/20/17 10:49; Start 01/19/17 at 16:00 Iohexol (Omnipaque 350 Inj) 99 ml STK-MED ONCE IVCONTRAST Last administered on 01/19/17 22:05; Start 01/19/17 at 22:05; Stop 01/19/17 at 22:06; Status DC Chlorhexidine Gluconate (Hibiclens 4% Top Soln) 1 applic ONCE ONCE TOPICAL ; Start 01/20/17 at 11:00; Stop 01/20/17 at 11:01 A/P Assessment and Plan This is a 56-year-old homeless female history of COPD, asthma, and tobacco dependence who presented with B/L lower extremity cellulitis Right LL cellulitis and left LL cellulitis/ulcerating wound -Labs obtained reviewed no leukocytosis. X-ray shows defect of left leg soft tissue. Ultrasound negative. Positive tobacco use. -Continue vancomycin and Zosyn pending cultures. -Appreciate infectious disease recommendation continue management per infectious disease. -CTA of lower extremity shows peripheral vascular disease no occlusion. Peripheral vascular disease -Education given on smoking cessation. -Start aspirin. Respiratory failure with hypoxia -Most likely this is chronic. Patient is homeless and has poor follow-up. She denies clinically that she has any problems breathing. -Chest x-ray negative. BNP mildly elevated. -Patient will be started on steroids. Avoid inhalers secondary to side effects. -Pending echo and continue with Lasix. -Continue to monitor clinically. Supplemental oxygen. COPD/asthma -Patient does have wheezing but she stated that she is asymptomatic. Unable to use inhalers due to worsening of symptoms. -Continue prednisone. -Continue to monitor clinically. Tobacco dependence -Smoking cessation. -Nicotine patch when necessary. DVT prophylaxis -Lovenox. Shayla Moore MD Jan 20, 2017 11:05
[2017-01-20 12:00] VITALS: BP 100/63; PULSE 91; RESP 16; TEMP 95.3; O2SAT 96
--- NOTE | 2017-01-20 12:40 | ECHRPT ---
Indication: heart failure CONCLUSIONS Normal left ventricular size. Wall thickness is measured at the upper limits of normal. The left ventricular systolic function is low normal with an estimated ejection fraction of 50%. There is a flattened septum in systole and diastole consistent with right ventricle pressure and vol ume overload. The right ventricle is moderately to severely dilated with moderately reduced systolic function. The right atrial size is moderately dilated. Structurally normal mitral valve. Trace mitral valve regurgitation. There is mild to moderate tricuspid valve regurgitation. Questionable small, mobile, 1 x 4 mm echodensity on ventricular surface of the tricuspid leaflet, difficult to rule out a vegetation. BP: / HR: Rhythm: MEASUREMENTS (Male / Female) Normal Values Technical Quality: 2D ECHO LV Diastolic Diameter PLAX 4.3 cm 4.2 - 5.9 / 3.9 - 5.3 cm LV Systolic Diameter PLAX 3.6 cm IVS Diastolic Thickness 1.0 cm 0.6 - 1.0 / 0.6 - 0.9 cm LVPW Diastolic Thickness 0.9 cm 0.6 - 1.0 / 0.6 - 0.9 cm LV Relative Wall Thickness 0.4 RV Internal Dim ED PLAX 3.8 cm M-MODE Aortic Root Diameter MM 2.7 cm LA Systolic Diameter MM 3.2 cm LA Ao Ratio MM 1.2 AV Cusp Separation MM 1.4 cm DOPPLER Mitral E Point Velocity 42.0 cm/s Mitral A Point Velocity 62.7 cm/s Mitral E to A Ratio 0.7 LV E' Lateral Velocity 6.7 cm/s Mitral E to LV E' Lateral Ratio 6.2 LV E' Septal Velocity 9.6 cm/s Mitral E to LV E' Septal Ratio 4.4 TR Peak Velocity 269.0 cm/s TR Peak Gradient 28.9 mmHg Right Atrial Pressure 10.0 mmHg Pulmonary Artery Systolic Pressu 38.9 mmHg Right Ventricular Systolic Press 38.9 mmHg FINDINGS LEFT VENTRICLE Normal left ventricular size. Wall thickness is measured at the upper limits of normal. The left ventricular systolic function is low normal with an estimated ejection fraction of 50%. There is a flattened septum in systole and diastole consistent with right ventricle pressure and vol ume overload. RIGHT VENTRICLE The right ventricle is moderately to severely dilated with moderately reduced systolic function. LEFT ATRIUM The left atrial size is normal. RIGHT ATRIUM The right atrial size is moderately dilated. ATRIAL SEPTUM Normal atrial septal thickness without atrial level shunting by limited color doppler interrogation. AORTA The aortic root and proximal ascending aorta are normal in size on limited imaging. MITRAL VALVE Structurally normal mitral valve. Trace mitral valve regurgitation. AORTIC VALVE Trileaflet aortic valve. No aortic valve regurgitation. No aortic valve stenosis. TRICUSPID VALVE There is mild to moderate tricuspid valve regurgitation. Questionable small, mobile, 1 x 4 mm echodensity on ventricular surface of the tricuspid leaflet, difficult to rule out a vegetation. PULMONARY VALVE No pulmonary valve regurgitation or stenosis. VESSELS The inferior vena cava is normal in size. PERICARDIUM No pericardial effusion. Ronnell Vences MD (Electronically Signed) Final Date:20 January 2017 12:39
[2017-01-20] MEDS: VANCOMYCIN 1,000 MG/NS 250 ML IV SCH ×2 (13:28)
[2017-01-20] MEDS: NICOTINE 14 MG/24 HR PATCH T-DERMAL SCH (13:29)
--- NOTE | 2017-01-20 14:51 | PD.WCN.NOT ---
Wound Consult Description: Received consult for wound management of LLE from Doctor Canales Communicated with: [facility] [address] [place] [address] and Call placed to Shayla Moore for orders Recommendation: Please cleanse LLE wound with normal saline or wound cleanser and pat dry. Cover wound with Optifoam [employer] gentle and secure with rolled gauze and tape. Change dressing every other day or PRN if saturated or dislodged. Additional Information: Patient seen on for evaluation of wound LLE. Patient is a homeless female and poor historian. Patient states,"I scratched my leg and it it got bigger". Removed rolled gauze and ABD pads in place on LLE to reveal wound. Wound presents with ~60% pink tissue and ~40% thin yellow tissue. Wound is draining yellow/sero-sanguinous drainage is that moderate and with out foul odor. Wound has uneven and poorly defined wound margins and measures ~20cm x~ 10cm Covers all of the anterior aspect of L joyner . Cleansed wound with normal saline and applied two ABD pads secured with rolled gauze and tape. BLE with with trace non pitting edema. RLE presents with dry intact scaly skin. Nia Sanchez [facility] Jan 20, 2017 14:51
[2017-01-20 16:00] VITALS: BP 99/57; PULSE 107; RESP 16; TEMP 98.2; O2SAT 91
[2017-01-20] MEDS: ENOXAPARIN SODIUM 40 MG/0.4 ML SYRINGE SQ SCH (18:13)
[2017-01-20 20:00] VITALS: BP 110/64; PULSE 112; RESP 22; TEMP 97.8; O2SAT 91
[2017-01-20] MEDS: ACETAMINOPHEN/HYDROcodone 325 MG/5 MG TAB PO PRN (20:26)
[2017-01-20 21:00] VITALS: PULSE 99
[2017-01-20] MEDS: REMOVE OLD PATCH T-DERMAL SCH (21:00)
[2017-01-20] MEDS ORDERED: PHARMACY ORDERED LAB ONE (23:45)
[2017-01-21] VITALS: BP 101/59; PULSE 103; RESP 18; TEMP 98.1; O2SAT 92
[2017-01-21] MEDS: VANCOMYCIN 1,000 MG/NS 250 ML IV SCH ×6 (00:06→23:53)
[2017-01-21] MEDS: PIPERACIL-TAZO 3.375 GM PREMIX 50 ML IV SCH ×4 (03:03→21:14)
[2017-01-21 04:00] VITALS: BP 94/55; PULSE 93; RESP 16; TEMP 98.4; O2SAT 92
[2017-01-21 06:54] LABS: HEMATOCRIT 41.8 % (35.0-46.0); MEAN CELL VOLUME 93.2 FL (80.0-100.0); MEAN CORPUSCULAR HEMOGLOBIN 29.6 PG (27.0-34.0); MEAN CORPUSCULAR HGB CONC 31.8 % (32.0-36.0); PLATELET COUNT 192 TH/MM3 (150-450); RED BLOOD COUNT 4.49 MIL/MM3 (4.00-5.30); RED CELL DISTRIBUTION WIDTH 15.5 % (11.6-17.2); REVIEW FLAG FINAL
[2017-01-21 07:18] LABS: BICARBONATE 35.7 MEQ/L (21.0-32.0)
[2017-01-21 07:20] LABS: POTASSIUM 4.9 MEQ/L (3.5-5.1)
[2017-01-21 08:00] VITALS: BP 101/55; PULSE 96; RESP 17; TEMP 96.1; O2SAT 92
[2017-01-21] MEDS: ASPIRIN EC 81 MG TABEC PO SCH (09:03)
[2017-01-21] MEDS: DOCUSATE SODIUM 50 MG/SENNA 8.6 MG TAB PO SCH ×2 (09:03→21:00)
[2017-01-21] MEDS: SODIUM CHLORIDE 0.9% FLUSH 10 ML FLUSH IV FLUSH SCH ×2 (09:03→21:00)
[2017-01-21] MEDS: FUROSEMIDE 20 MG TAB PO SCH (09:03)
[2017-01-21] MEDS: predniSONE 50 MG TAB PO SCH (09:03)
[2017-01-21] MEDS: NICOTINE 14 MG/24 HR PATCH T-DERMAL SCH (09:04)
[2017-01-21] MEDS: ACETAMINOPHEN/HYDROcodone 325 MG/5 MG TAB PO PRN (09:10)
[2017-01-21 12:00] VITALS: BP 116/59; PULSE 60; RESP 16; TEMP 97.1; O2SAT 96
--- NOTE | 2017-01-21 13:12 | HHI.PR ---
Subjective Remarks Follow-up for infection Patient complaining about having decaf coffee and wants to know if she can have caffeinated coffee. Otherwise denies any shortness of breathing, chest pain, palpitation, lightheadedness or dizziness. Patient remains afebrile. Objective Vitals Vital Signs Date Time Temp Pulse Resp B/P (MAP) Pulse Ox O2 Delivery O2 Flow Rate FiO2 01/21/17 08:00 96.1 96 17 101/55 (70) 92 01/21/17 08:00 96 01/21/17 04:00 98.4 93 16 94/55 (68) 92 01/21/17 00:00 98.1 103 18 101/59 (73) 92 01/20/17 21:00 99 01/20/17 20:12 91 Nasal Cannula 3.00 01/20/17 20:00 97.8 112 22 110/64 (79) 91 01/20/17 16:00 98.2 107 16 99/57 (71) 91 I/O 01/20/17 01/20/17 01/20/17 01/21/17 01/21/17 01/21/17 07:00 15:00 23:00 07:00 15:00 23:00 Intake Total 300 ml 400 ml 300 ml 470 ml 50 ml Balance 300 ml 400 ml 300 ml 470 ml 50 ml Intake Oral 300 ml 120 ml IV Total 300 ml 400 ml 350 ml 50 ml # Voids 3 4 1 # Bowel Movements 0 0 Result Diagram: 01/21/17 0617 01/21/17 0617 Objective Remarks GENERAL: This is a well-nourished, well-developed patient, in no apparent distress. SKIN: Left Leg Below Knee with ulcering lesions purulent discharge with erythema. right leg + erythema and swelling. bridge of nose with erythematous ulcerating wound. Faint bilateral DP pulses. CARDIOVASCULAR: Regular rate and rhythm without murmurs, gallops, or rubs. RESPIRATORY: Small amount Bilateral scatter expiratory wheezing. No rhonchi or crackles noted. GASTROINTESTINAL: Abdomen soft, non-tender, nondistended. No hepato-splenomegaly , or palpable masses. No guarding. Medications and IVs Current Medications Vancomycin HCl 1000 mg/Sodium Chloride 250 ml @ 250 mls/hr ONCE ONCE IV Last administered on 01/19/17t 12:04; Start 01/19/17 at 11:30; Stop 01/19/17 at 12:29 ; Status DC Sodium Chloride 500 ml @ 500 mls/hr BOLUS ONCE IV Last administered on 13:05; Start 01/19/17 at 13:00; Stop 01/19/17 at 13:59; Status DC Piperacillin Sod/ Tazobactam Sod 50 ml @ 100 mls/hr ONCE ONCE IV Last administered on 01/19/17 15:18; Start 01/19/17 at 15:00; Stop 01/19/17 at 15:29 ; Status DC Sodium Chloride (NS Flush) 2 ml UNSCH PRN IV FLUSH FLUSH AFTER USING IV ACCESS ; Start 01/19/17 at 13:30 Sodium Chloride (NS Flush) 2 ml BID IV FLUSH Last administered on 01/21/17 09: 03; Start 01/19/17 at 21:00 Acetaminophen (Tylenol) 650 mg Q4H PRN PO TEMP > 100.4; Start 01/19/17 at 14:00 Ondansetron HCl (Zofran Inj) 4 mg Q6H PRN IVP NAUSEA OR VOMITING; Start at 15:00 Naloxone HCl (Narcan Inj) 0.4 mg UNSCH PRN IV PUSH SEE LABEL COMMENTS; Start at 13:30 Senna/Docusate Sodium ([place]-Colace) 1 tab BID PO Last administered on 09:03; Start 01/19/17 at 21:00 Magnesium Hydroxide (Milk Of Magnesia Liq) 30 ml Q12HR PRN PO MILD - MODERATE CONSTIPATION; Start 01/19/17 at 21:00 Sennosides (Senokot) 17.2 mg Q12HR PRN PO MODERATE - SEVERE CONSTIPATION; Start 01/19/17 at 15:00 Bisacodyl (Dulcolax Supp) 10 mg DAILY PRN RECTAL SEVERE CONSITIPATION; Start at 15:00 Lactulose (Lactulose Liq) 30 ml DAILY PRN PO SEVERE CONSITIPATION; Start at 15:00 Pharmacy Profile Note 0 ml @ 0 mls/hr UNSCH OTHER ; Start 01/19/17 at 14:30 Piperacillin Sod/ Tazobactam Sod 50 ml @ 100 mls/hr Q6H IV Last administered on 01/21/17 09:03; Start 01/19/17 at 21:00 Prednisone (Deltasone) 50 mg DAILY PO Last administered on 01/21/17 09:03; Start 01/19/17 at 16:00 Enoxaparin Sodium (Lovenox Inj) 40 mg Q24H SQ Last administered on 01/20/17 18 :13; Start 01/19/17 at 16:00 Acetaminophen/ Hydrocodone Bitart ([place] 5-325 Mg) 1 tab Q4H PRN PO pain 1-7 Last administered on 01/19/17 17:28; Start 01/19/17 at 16:00 Acetaminophen/ Hydrocodone Bitart ([place] 5-325 Mg) 2 tab Q4H PRN PO pain 8-10 Last administered on 01/21/17 09:10; Start 01/19/17 at 16:00 Vancomycin HCl 1000 mg/Sodium Chloride 250 ml @ 250 mls/hr Q12H IV Last administered on 01/21/17 12:56; Start 01/20/17 at 00:00 Miscellaneous Information SPECIFIC LAB TO BE ... ONCE ONCE .XX Last administered on 01/20/17 23:45; Start 01/20/17 at 23:45; Stop 01/20/17 at 23:46 ; Status DC Furosemide (Lasix) 20 mg DAILY PO Last administered on 01/21/17 09:03; Start 01/19/17 at 16:00 Iohexol (Omnipaque 350 Inj) 99 ml STK-MED ONCE IVCONTRAST Last administered on 01/19/17 22:05; Start 01/19/17 at 22:05; Stop 01/19/17 at 22:06; Status DC Chlorhexidine Gluconate (Hibiclens 4% Top Soln) 1 applic ONCE ONCE TOPICAL ; Start 01/20/17 at 11:00; Stop 01/20/17 at 11:01; Status DC Aspirin (Ecotrin Ec) 81 mg DAILY PO Last administered on 01/21/17 09:03; Start 01/21/17 at 09:00 Nicotine (Habitrol 14 Mg Patch.24 Hr) 1 patch DAILY T-DERMAL Last administered on 01/21/17 09:04; Start 9/29/17 at 12:00 Miscellaneous Information 1 HS T-DERMAL Last administered on 01/20/17t 21:00; Start 01/20/17 at 21:00 A/P Assessment and Plan This is a 56-year-old homeless female history of COPD, asthma, and tobacco dependence who presented with B/L lower extremity cellulitis Right LL cellulitis and left LL cellulitis/ulcerating wound -Labs obtained reviewed no leukocytosis. X-ray shows defect of left leg soft tissue. Ultrasound negative. Positive tobacco use. -CTA of lower extremity shows peripheral vascular disease no occlusion. -Wound cultures grew MRSA and Pseudomonas pending sensitivity. Continue with vancomycin and Zosyn. -Appreciate infectious disease recommendations. -Wound care also consulted appreciate recommendation. Peripheral vascular disease -Education given on smoking cessation. -on aspirin. Respiratory failure with hypoxia -Most likely this is chronic. Patient is homeless and has poor follow-up. She denies clinically that she has any problems breathing. -Chest x-ray negative. BNP mildly elevated. -Avoid inhalers secondary to side effects. -continue with Lasix. -Echo reviewed and significant for EF of 50% and possible vegetation. Will consult payable representative for MAXWELL to rule out vegetation. -Continue to monitor clinically. Supplemental oxygen. COPD/asthma -Unable to use inhalers due to worsening of symptoms. -Wheezing has resolved. Only give a burst of prednisone 5 days. -Continue to monitor clinically. Tobacco dependence -Smoking cessation. -Nicotine patch when necessary. DVT prophylaxis -Lovenox. Shayla Moore MD Jan 21, 2017 13:12
[2017-01-21] MEDS: ENOXAPARIN SODIUM 40 MG/0.4 ML SYRINGE SQ SCH (15:47)
--- NOTE | 2017-01-21 15:59 | MB ---
cc: FREEDOM DAO MD DATE OF CONSULTATION: 01/21/2017. REASON FOR CONSULTATION: For MAXWELL/ possible endocarditis. HISTORY OF PRESENT ILLNESS: The patient is a pleasant 56-year-old woman who is homeless and presented with a foot infection. She is a very poor historian and has a small wound on her lower legs which has worsened. Her history is very difficult. She had Pseudomonas and MRSA from the wound grown. Thus far, blood cultures are negative. An echocardiogram could not exclude a small tricuspid valve vegetation; thus I was consulted for a transesophageal echocardiogram. The patient denies any cardiac symptoms such as chest pain, shortness of breath, lightheadedness, dizziness or syncope but again she is vague and difficult to get answers from. She does admit to marijuana use but denies any IV drug use or amphetamine use. PAST MEDICAL HISTORY: 1. COPD. 2. Asthma. 3. Tobacco abuse. CURRENT MEDICATIONS: 1. Aspirin 81 milligrams daily. 2. Nicotine patch. 3. Vancomycin. 4. Lovenox 40 milligrams subcutaneous q. 24. 5. Prednisone. 6. Zosyn. ALLERGIES: 1. INHALERS. 2. "SOME ANTIINFLAMMATORY MEDICATIONS". PHYSICAL EXAMINATION: VITAL SIGNS: Afebrile, pulse 60, respiratory rate 16, blood pressure 115/59, satting 96% on room air. GENERAL: A pleasant disheveled woman appearing much older than her stated age. NECK: No jugular venous distention. LUNGS: Clear to auscultation bilaterally. CARDIOVASCULAR: Regular rate and rhythm. No murmurs appreciated. ABDOMEN: Benign. EXTREMITIES: No edema. LABORATORY DATA: White count 5.0, hematocrit 41.8, platelets 192,000. Sodium 136, potassium 4.9, chloride 100, bicarbonate 35.7, BUN 20, creatinine 0.5. Troponins are 0.09, 0.08. BNP was slightly elevated at 699. Echocardiogram shows a low normal ejection fraction of 50% with mild to moderate tricuspid regurgitation with small echo density on the tricuspid valve and vegetation was not excluded. EKG shows sinus tachycardia with nonspecific S-T changes. IMPRESSION: 1. Abnormal echocardiogram. The patient's echocardiogram could not exclude a subtle vegetation on tricuspid valve. I think it is fairly low-risk for endocarditis given her blood cultures have thus far been negative. However, I did offer a transesophageal echocardiogram to exclude this more formally. The patient has a very difficult time providing an answer one way or the other. I am tentatively scheduling the procedure for tomorrow and provided all the information I could regarding the procedure but the patient still has not made a decision. She will make a final decision when the nurse attempts to obtain consent. I will keep her NPO past midnight on the presumption that she will end up agreeing to the procedure; if not, then it will be cancelled. 2. Indeterminate troponins. The patient's troponins are at an indeterminate level and not consistent with acute coronary syndrome. Her EKG is nonischemic. I will have her undergo a nuclear stress test to exclude ischemia but unless major ischemia is seen, I think medical management will be most appropriate. Thus I do not feel that an ischemic work up is warranted at this time primarily due to her lack of ischemic symptoms and lack of an ischemic EKG. Furthermore, it is unclear why troponins were drawn to begin with. Further recommendations will be based on her clinical course and presumptively her transesophageal echocardiogram tomorrow, if she agrees to proceed with it. Thank you again for the opportunity to participate in this patient's care. MD CASSIDY Olsen/SLIME /2:42 PM /3:38 PM
[2017-01-21 16:00] VITALS: BP 102/65; PULSE 83; RESP 17; TEMP 97.5; O2SAT 94
[2017-01-21 20:22] VITALS: BP 112/60; PULSE 69; RESP 17; TEMP 97.6; O2SAT 96
[2017-01-21] MEDS: REMOVE OLD PATCH T-DERMAL SCH (21:00)
[2017-01-22] VITALS (8 sets, daily range): BP systolic 103–119; BP diastolic 61–72; PULSE 64–82; RESP 16–18; TEMP 96.5–98.4; O2SAT 92–100
[2017-01-22] MEDS: PIPERACIL-TAZO 3.375 GM PREMIX 50 ML IV SCH ×4 (03:09→20:51)
[2017-01-22] MEDS: predniSONE 50 MG TAB PO SCH (08:57)
[2017-01-22] MEDS: FUROSEMIDE 20 MG TAB PO SCH (08:57)
[2017-01-22] MEDS: ASPIRIN EC 81 MG TABEC PO SCH (08:57)
[2017-01-22] MEDS: DOCUSATE SODIUM 50 MG/SENNA 8.6 MG TAB PO SCH ×2 (08:57→20:52)
[2017-01-22] MEDS: NICOTINE 14 MG/24 HR PATCH T-DERMAL SCH (08:57)
[2017-01-22] MEDS: SODIUM CHLORIDE 0.9% FLUSH 10 ML FLUSH IV FLUSH SCH ×2 (08:58→20:51)
[2017-01-22] MEDS ORDERED: REGADENOSON INJ 0.4 MG/5 ML SYR ONE (12:34)
[2017-01-22] MEDS: VANCOMYCIN 1,000 MG/NS 250 ML IV SCH ×2 (13:32)
--- NOTE | 2017-01-22 13:32 | RADRPT ---
EXAM DATE/TIME: 01/22/2017 11:23 [facility] COMPARISON: No previous studies available for comparison. INDICATIONS : Midsternal chest pain. Angina. DOSE: 25.9 mCi Tc99m Myoview at stress. 8.2 mCi Tc99m Myoview at rest. 0.4 mg Lexiscan STRESS SYMPTOMS: Short of breath. EJECTION FRACTION: 43% MEDICAL HISTORY : Chronic obstructive pulmonary disease. Hypertension. SURGICAL HISTORY : section. ENCOUNTER: Initial ACUITY: 1 day PAIN SCALE: 2/10 LOCATION: Midsternal chest TECHNIQUE: The patient underwent pharmacologic stress with infusion of prescribed dose. Continuous ECG tracing was monitored during stress. Gated SPECT imaging was performed after stress and conventional SPECT i maging was performed at rest. The examination was performed on a SPECT/CT scanner, both attenuation and non-corrected datasets were reviewed. FINDINGS: DISTRIBUTION: The maximum perfused segment at stress is in the <mid anterolateral> wall. PERFUSION STUDY: The pattern of perfusion at stress shows decreased perfusion to the septum. GATED STUDY: There is thickening without dyskinetic segments. Some hypokinesis of the septum CONCLUSION: Overall decreased perfusion to the septum with a low EF of 43%. No definite ischemia but overall decr eased perfusion. RISK CATEGORY: Intermediate (1-3% Annual Mortality Rate) Edu Olivier MD on January 22, 2017 at 13:28 Board Certified Radiologist. This report was verified electronically.
[2017-01-22] MEDS: ENOXAPARIN SODIUM 40 MG/0.4 ML SYRINGE SQ SCH (15:34)
--- NOTE | 2017-01-22 19:42 | HHI.PR ---
Subjective Remarks She denies chest pain or short of breath Denies fevers or chills Feels sore in the lower extremities Denies diarrhea. Objective Vitals Vital Signs Date Time Temp Pulse Resp B/P (MAP) Pulse Ox O2 Delivery O2 Flow Rate FiO2 01/22/17 16:00 96.9 82 17 118/72 (87) 94 01/22/17 15:49 92 Nasal Cannula 3.00 01/22/17 12:00 97.2 78 16 115/70 (85) 94 01/22/17 08:00 92 Nasal Cannula 2.00 01/22/17 08:00 98.4 64 16 119/61 (80) 100 01/22/17 08:00 64 01/22/17 04:00 96.5 79 18 103/62 (76) 96 01/22/17 00:23 97.5 81 18 104/63 (77) 97 01/21/17 20:22 97.6 69 17 112/60 (77) 96 I/O 01/21/17 01/21/17 01/21/17 01/22/17 01/22/17 01/22/17 07:00 15:00 23:00 07:00 15:00 23:00 Intake Total 470 ml 50 ml 1500 ml 1060 ml 1200 ml Output Total 500 ml Balance 470 ml 50 ml 1500 ml 1060 ml 700 ml Intake Oral 120 ml 1200 ml 760 ml 1200 ml IV Total 350 ml 50 ml 300 ml 300 ml Output Urine Total 500 ml # Voids 1 3 4 # Bowel Movements 0 2 2 2 Result Diagram: 01/21/17 0617 01/21/17 0617 Imaging Last Impressions Chest X-Ray 01/19/17 1128 Signed Impressions: Service Date/Time: December 11:43 - CONCLUSION: Borderline heart size. No focal infiltrate. Tereso Collier MD Tibia/Fibula X-Ray 01/19/17 0000 Signed Impressions: Service Date/Time: December 12:43 - CONCLUSION: No evidence of fracture. Ulceration or defect in the anterior soft tissues at the level of the mid tibia shaft. Roney Sneed MD Lower Extremity Ultrasound 01/19/17 0000 Signed Impressions: Service Date/Time: December 11:42 - CONCLUSION: Normal examination. Tereso Collier MD Aorta w/Runoff CTA 01/19/17 0000 Signed Impressions: Service Date/Time: December 21:49 - CONCLUSION: 1. No significant aortic occlusive disease or aortic aneurysm. 2. 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 SMA and LEXY are patent. 3. No significant iliac inflow stenosis on the right. Diffuse mild to moderate stenosis of the left common iliac artery secondary to eccentric calcified plaque. 4. No significant outflow stenosis. 5. Small caliber runoff vessels bilaterally, incompletely evaluated beyond the proximal calf on the left. 6. Diffuse soft tissue anasarca and small amount of ascites. Raymond Berry MD Objective Remarks GENERAL: This is a well-nourished, well-developed patient, in no apparent distress. SKIN: Left leg and right leg are covered by dressing which is C/D/I. bridge of nose with erythematous ulcerating wound. Faint bilateral DP pulses. CARDIOVASCULAR: Regular rate and rhythm without murmurs, gallops, or rubs. RESPIRATORY: Small amount Bilateral scatter expiratory wheezing. No rhonchi or crackles noted. GASTROINTESTINAL: Abdomen soft, non-tender, nondistended. No hepato-splenomegaly , or palpable masses. No guarding. Medications and IVs Current Medications Medications (Trade) Dose Ordered Sig/Dianelys Route Start Time Stop Time Status Last Admin (NS Flush) 2 ml UNSCH PRN IV FLUSH 01/19/17 13:30 (NS Flush) 2 ml BID IV FLUSH 01/19/17 21:00 01/22/17 08:58 (Tylenol) 650 mg Q4H PRN PO 01/19/17 14:00 (Zofran Inj) 4 mg Q6H PRN IVP 01/19/17 15:00 (Narcan Inj) 0.4 mg UNSCH PRN IV PUSH 01/19/17 13:30 (Mahogany-Colace) 1 tab BID PO 01/19/17 21:00 01/21/17 09:03 (Milk Of Magnesia Liq) 30 ml Q12HR PRN PO 01/19/17 21:00 (Senokot) 17.2 mg Q12HR PRN PO 01/19/17 15:00 (Dulcolax Supp) 10 mg DAILY PRN RECTAL 01/19/17 15:00 (Lactulose Liq) 30 ml DAILY PRN PO 01/19/17 15:00 Pharmacy Profile Note 0 ml @ 0 mls/hr UNSCH OTHER 01/19/17 14:30 Piperacillin Sod/ Tazobactam Sod 50 ml @ 100 mls/hr Q6H IV 01/19/17 21:00 01/22/17 15:34 (Deltasone) 50 mg DAILY PO 01/19/17 16:00 01/22/17 08:57 (Lovenox Inj) 40 mg Q24H SQ 01/19/17 16:00 01/22/17 15:34 ([place] 5-325 Mg) 1 tab Q4H PRN PO 01/19/17 16:00 01/19/17 17:28 ([place] 5-325 Mg) 2 tab Q4H PRN PO 01/19/17 16:00 01/21/17 09:10 Vancomycin HCl 1000 mg/Sodium Chloride 250 ml @ 250 mls/hr Q12H IV 01/20/17 00:00 01/22/17 13:32 (Lasix) 20 mg DAILY PO 01/19/17 16:00 01/22/17 08:57 (Ecotrin Ec) 81 mg DAILY PO 01/21/17 09:00 01/21/17 09:03 (Habitrol 14 Mg Patch.24 Hr) 1 patch DAILY T-DERMAL 01/20/17 12:00 01/22/17 08:57 Miscellaneous Information 1 HS T-DERMAL 01/20/17 21:00 01/21/17 21:00 Urinary Catheter: No Vascular Central Line Catheter: No A/P Problem List: (1) Cellulitis ICD Code: L03.90 - Cellulitis, unspecified Status: Acute Plan: Patient with right and left lower extremity cellulitis/ulcerating wound. X-ray show defect of left leg soft tissue. Ultrasound negative. Positive tobacco use. CT of the lower extremity shows peripheral vascular disease but no occlusion. Wound cultures grew MRSA and Pseudomonas pending sensitivities. Patient started on IV Zosyn and IV vancomycin. Continue antibiotics per infectious disease. Continue wound care. (2) Acute hypoxemic respiratory failure ICD Code: J96.01 - Acute respiratory failure with hypoxia Status: Acute Plan: Possibly chronic restored failure. The patient is homeless and has poor follow-up. Chest x-ray negative. BNP mildly elevated. I would inhaler secondary to side effects. Continue with Lasix as patient has an echocardiogram with an EF of 50% a possible vegetation. Etiology was consulted for MAXWELL, possible MAXWELL in a.m. Continue supplemental oxygen to keep oxygen saturation more than 92%. (3) Acute diastolic (congestive) heart failure ICD Code: I50.31 - Acute diastolic (congestive) heart failure Plan: EF of 50%. Patient with shortness of breath and mildly elevated BNP. Continue diuretics and continue to provide supplemental oxygen to keep oxygen saturation more than 92%. (4) COPD (chronic obstructive pulmonary disease) ICD Code: J44.9 - Chronic obstructive pulmonary disease, unspecified Plan: Patient is unable to use inhalers due to worsening of symptoms. Seems to be stable. On prednisone 5 days. (5) Tobacco dependence ICD Code: F17.200 - Nicotine dependence, unspecified, uncomplicated Plan: Advised smoking cessation. Nicotine patch when necessary. Assessment and Plan DVT prophylaxis: Lovenox. Problem Qualifiers (1) Cellulitis: Qualified Codes: L03.119 - Cellulitis of unspecified part of limb (2) COPD (chronic obstructive pulmonary disease): Qualified Codes: J42 - Unspecified chronic bronchitis Elijah Young MD Jan 22, 2017 19:41
[2017-01-22] MEDS: REMOVE OLD PATCH T-DERMAL SCH (20:52)
[2017-01-23] VITALS (7 sets, daily range): BP systolic 101–118; BP diastolic 55–72; PULSE 78–87; RESP 16–20; TEMP 97.1–97.9; O2SAT 92–96
[2017-01-23] MEDS: VANCOMYCIN 1,000 MG/NS 250 ML IV SCH ×2 (00:07)
[2017-01-23] MEDS: PIPERACIL-TAZO 3.375 GM PREMIX 50 ML IV SCH ×2 (03:31→09:56)
[2017-01-23] MEDS: ASPIRIN EC 81 MG TABEC PO SCH (09:57)
[2017-01-23] MEDS: NICOTINE 14 MG/24 HR PATCH T-DERMAL SCH (09:57)
[2017-01-23] MEDS: SODIUM CHLORIDE 0.9% FLUSH 10 ML FLUSH IV FLUSH SCH ×2 (09:57→20:16)
[2017-01-23] MEDS: FUROSEMIDE 20 MG TAB PO SCH (09:57)
[2017-01-23] MEDS: DOCUSATE SODIUM 50 MG/SENNA 8.6 MG TAB PO SCH ×2 (09:57→20:19)
[2017-01-23] MEDS: predniSONE 50 MG TAB PO SCH (09:57)
--- NOTE | 2017-01-23 12:44 | HHI.IDPN ---
Subjective Subjective Remarks Patient is a 56-year-old female, reported that she had been homeless in the past , presented to the hospital for further evaluation of her left lower extremity. She stated that she started having wounds in her left leg about a couple months ago. 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 She showed she' s had some fevers but couldn't tell me how high they were. She's had some shortness of breath, and denies any coughing. Denies any chest pain. There's been no nausea or vomiting, diarrhea or any urinary complaints. Patient has not been febrile. Her WBC is normal. She was diagnosed to have some infected wounds in her left leg with cellulitis. Infectious disease consultation has been requested to evaluate the patient. Notes reviewed Temps ok Wound C/S with PSAE and MRSA WBC normal TTE with ?vegetation in TV Refused MAXWELL BC are negative Antibiotics Vancomycin Zosyn Lines PIV Past Medical History COPD Asthma jaw surgery Allergies: Uncoded Allergies: SOME ANTI INFLAMMATORY MEDS (Allergy, Severe, Swelling, 05/16/05) INHALERS (Allergy, Intermediate, SOB, 01/07/06) Objective . Vital Signs Date Time Temp Pulse Resp B/P (MAP) Pulse Ox O2 Delivery O2 Flow Rate FiO2 01/23/17 11:10 92 Room Air 01/23/17 09:55 78 01/23/17 09:55 Nasal Cannula 2.00 95 01/23/17 08:00 97.7 78 19 109/69 (82) 95 01/23/17 04:56 97.2 80 16 104/55 (71) 96 01/23/17 00:17 97.5 85 16 104/65 (78) 96 01/22/17 20:39 98.3 74 17 108/68 (81) 94 01/22/17 20:00 Nasal Cannula 2.00 01/22/17 20:00 80 01/22/17 16:00 96.9 82 17 118/72 (87) 94 01/22/17 15:49 92 Nasal Cannula 3.00 01/23/17 01/23/17 01/24/17 15:00 23:00 07:00 Intake Total 120 ml Balance 120 ml Intake Oral 120 ml . Laboratory Tests Test 01/23/17 06:50 Creatinine 0.50 MG/DL Estimat Glomerular Filtration Rate 129 ML/MIN Imaging Myocardial Perfusion Scan Nuc Med 01/22/17 0000 Signed Impressions: Service Date/Time: Sunday, January 22, 2017 11:23 - CONCLUSION: Overall decreased perfusion to the septum with a low EF of 43%%. No definite ischemia but overall decreased perfusion. RISK CATEGORY: Intermediate (1-3%% Annual Mortality Rate) Edu Olivier MD Chest X-Ray 01/19/17 1128 Signed Impressions: Service Date/Time: December 11:43 - CONCLUSION: Borderline heart size. No focal infiltrate. Tereso Collier MD Tibia/Fibula X-Ray 01/19/17 0000 Signed Impressions: Service Date/Time: December 12:43 - CONCLUSION: No evidence of fracture. Ulceration or defect in the anterior soft tissues at the level of the mid tibia shaft. Roney Sneed MD Lower Extremity Ultrasound 01/19/17 0000 Signed Impressions: Service Date/Time: December 11:42 - CONCLUSION: Normal examination. Tereso Collier MD Aorta w/Runoff CTA 01/19/17 0000 Signed Impressions: Service Date/Time: December 21:49 - CONCLUSION: 1. No significant aortic occlusive disease or aortic aneurysm. 2. 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 SMA and LEXY are patent. 3. No significant iliac inflow stenosis on the right. Diffuse mild to moderate stenosis of the left common iliac artery secondary to eccentric calcified plaque. 4. No significant outflow stenosis. 5. Small caliber runoff vessels bilaterally, incompletely evaluated beyond the proximal calf on the left. 6. Diffuse soft tissue anasarca and small amount of ascites. Raymond Berry MD Physical Exam GENERAL: Awake and alert, not in respiratory distress. SKIN: Warm and dry. No generalized rash. Has healing superficial dry wound on nose and forehead and one pustular lesion on the R of her forehead. HEAD: Atraumatic. Normocephalic. No temporal wasting, or tenderness. EYES: [place] conjunctiva. No petechia or hemorrhage. Pupils equal, round and reactive to light. Extraocular movements full and intact. No scleral icterus. No injection or drainage. EARS, NOSE AND THROAT: Nose without bleeding or purulent nasal discharge. No sinus tenderness. Mucous membranes dry, and has poor dentition. No oral lesions noted. No exudate. No oral thrush. NECK: Trachea midline. Supple and not tender, no meningeal signs CARDIOVASCULAR: Regular rate and rhythm. No murmurs, rubs or gallops heard RESPIRATORY: Equal breath sounds and has few scattered wheezing. ABDOMEN: Soft, non-tender, nondistended. Bowel sounds present and normoactive. No guarding. No rebound. No organomegaly. EXTREMITIES: No clubbing, cyanosis in BLE. Skin tight in both feet, has some edema. LLE: has superficial ulcers in her L leg down to ankle with some crusting and some odor, and improving cellulitis. No calf tenderness. Well perfused and warm. NEUROLOGICAL: Non-focal PSYCHIATRIC: Normal affect, calm and cooperative. LINE: No evidence of infection Assessment & Plan Remarks IMPRESSION Known BLE edema, likely due to venous insufficiency, and has stasis ulcers LLE cellulitis with stasis ulcers, improving - C/S MRSA and PSAE (+) TTE - clinically has no evidence of endocarditis Prob has underlying COPD, smoker Homelessness RECOMMENDATION Continue wound care Change to oral Abx - Doxycycline and Cipro - will need CM assistance to obtain her Abx on D/S She is clinically stable from ID standpoint for D/C I will be available prn Please reconsult if with any new ID issue or question Xochilt Canales MD Jan 23, 2017 12:44
--- NOTE | 2017-01-23 15:56 | HHI.PR ---
Subjective Remarks patient c/o of sob denies fevers or chills denies cp 02 sat lower Objective Vitals Vital Signs Date Time Temp Pulse Resp B/P (MAP) Pulse Ox O2 Delivery O2 Flow Rate FiO2 01/23/17 12:00 97.4 80 20 108/60 (76) 92 01/23/17 11:10 92 Room Air 01/23/17 09:55 78 01/23/17 09:55 Nasal Cannula 2.00 95 01/23/17 08:00 97.7 78 19 109/69 (82) 95 01/23/17 04:56 97.2 80 16 104/55 (71) 96 01/23/17 00:17 97.5 85 16 104/65 (78) 96 01/22/17 20:39 98.3 74 17 108/68 (81) 94 01/22/17 20:00 Nasal Cannula 2.00 01/22/17 20:00 80 01/22/17 16:00 96.9 82 17 118/72 (87) 94 01/22/17 15:49 92 Nasal Cannula 3.00 I/O 01/22/17 01/22/17 01/22/17 01/23/17 01/23/17 01/23/17 07:00 15:00 23:00 07:00 15:00 23:00 Intake Total 1060 ml 1250 ml 1080 ml 120 ml Output Total 500 ml Balance 1060 ml 750 ml 1080 ml 120 ml Intake Oral 760 ml 1200 ml 780 ml 120 ml IV Total 300 ml 50 ml 300 ml Output Urine Total 500 ml # Voids 4 3 # Bowel Movements 2 2 Result Diagram: 01/21/17 0617 01/23/17 0650 Imaging Last Impressions Myocardial Perfusion Scan Nuc Med 01/22/17 0000 Signed Impressions: Service Date/Time: Sunday, January 22, 2017 11:23 - CONCLUSION: Overall decreased perfusion to the septum with a low EF of 43%%. No definite ischemia but overall decreased perfusion. RISK CATEGORY: Intermediate (1-3%% Annual Mortality Rate) Edu Olivier MD Chest X-Ray 01/19/17 1128 Signed Impressions: Service Date/Time: December 11:43 - CONCLUSION: Borderline heart size. No focal infiltrate. Tereso Collier MD Tibia/Fibula X-Ray 01/19/17 0000 Signed Impressions: Service Date/Time: December 12:43 - CONCLUSION: No evidence of fracture. Ulceration or defect in the anterior soft tissues at the level of the mid tibia shaft. Roney Sneed MD Lower Extremity Ultrasound 01/19/17 0000 Signed Impressions: Service Date/Time: December 11:42 - CONCLUSION: Normal examination. Tereso Collier MD Aorta w/Runoff CTA 01/19/17 0000 Signed Impressions: Service Date/Time: December 21:49 - CONCLUSION: 1. No significant aortic occlusive disease or aortic aneurysm. 2. 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 SMA and LEXY are patent. 3. No significant iliac inflow stenosis on the right. Diffuse mild to moderate stenosis of the left common iliac artery secondary to eccentric calcified plaque. 4. No significant outflow stenosis. 5. Small caliber runoff vessels bilaterally, incompletely evaluated beyond the proximal calf on the left. 6. Diffuse soft tissue anasarca and small amount of ascites. Raymond Berry MD Objective Remarks GENERAL: This is a well-nourished, well-developed patient, in no apparent distress. SKIN: Left leg and right leg are covered by dressing which is C/D/I. bridge of nose with erythematous ulcerating wound. Faint bilateral DP pulses. CARDIOVASCULAR: Regular rate and rhythm without murmurs, gallops, or rubs. RESPIRATORY: Small amount Bilateral scatter expiratory wheezing. No rhonchi or crackles noted. GASTROINTESTINAL: Abdomen soft, non-tender, nondistended. No hepato-splenomegaly , or palpable masses. No guarding. Medications and IVs Current Medications Medications (Trade) Dose Ordered Sig/Dianelys Route Start Time Stop Time Status Last Admin (NS Flush) 2 ml UNSCH PRN IV FLUSH 01/19/17 13:30 (NS Flush) 2 ml BID IV FLUSH 01/19/17 21:00 01/23/17 09:57 (Tylenol) 650 mg Q4H PRN PO 01/19/17 14:00 (Zofran Inj) 4 mg Q6H PRN IVP 01/19/17 15:00 (Narcan Inj) 0.4 mg UNSCH PRN IV PUSH 01/19/17 13:30 ([place]ogany-Colace) 1 tab BID PO 01/19/17 21:00 01/23/17 09:57 (Milk Of Magnesia Liq) 30 ml Q12HR PRN PO 01/19/17 21:00 (Senokot) 17.2 mg Q12HR PRN PO 01/19/17 15:00 (Dulcolax Supp) 10 mg DAILY PRN RECTAL 01/19/17 15:00 (Lactulose Liq) 30 ml DAILY PRN PO 01/19/17 15:00 (Deltasone) 50 mg DAILY PO 01/19/17 16:00 01/23/17 09:57 (Lovenox Inj) 40 mg Q24H SQ 01/19/17 16:00 01/22/17 15:34 ([place] 5-325 Mg) 1 tab Q4H PRN PO 01/19/17 16:00 01/19/17 17:28 ([place] 5-325 Mg) 2 tab Q4H PRN PO 01/19/17 16:00 01/21/17 09:10 (Lasix) 20 mg DAILY PO 01/19/17 16:00 01/23/17 09:57 (Ecotrin Ec) 81 mg DAILY PO 01/21/17 09:00 01/23/17 09:57 (Habitrol 14 Mg Patch.24 Hr) 1 patch DAILY T-DERMAL 01/20/17 12:00 01/23/17 09:57 Miscellaneous Information 1 HS T-DERMAL 01/20/17 21:00 01/22/17 20:52 (Vibratab) 100 mg Q12HR PO 01/23/17 12:45 01/30/17 12:44 A/P Problem List: (1) Cellulitis ICD Code: L03.90 - Cellulitis, unspecified Status: Acute Plan: Patient with right and left lower extremity cellulitis/ulcerating wound. X-ray show defect of left leg soft tissue. Ultrasound negative. Positive tobacco use. CT of the lower extremity shows peripheral vascular disease but no occlusion. Wound cultures grew MRSA and Pseudomonas pending sensitivities. Patient started on IV Zosyn and IV vancomycin. Continue wound care. 01/23 antibiotics changed to oral. Doxycycline and ciprofloxacin. Cleared to be discharged by ID. (2) Acute hypoxemic respiratory failure ICD Code: J96.01 - Acute respiratory failure with hypoxia Status: Acute Plan: Possibly chronic restored failure. The patient is homeless and has poor follow-up. Chest x-ray negative. BNP mildly elevated. I would inhaler secondary to side effects. Continue with Lasix as patient has an echocardiogram with an EF of 50% a possible vegetation. Cardiology consulted for MAXWELL. Patient refused MAXWELL. Continue supplemental oxygen to keep oxygen saturation more than 92%. 01/23 the patient has mild wheezing on exam. Suspect COPD exacerbation. Continue prednisone. (3) Acute diastolic (congestive) heart failure ICD Code: I50.31 - Acute diastolic (congestive) heart failure Plan: EF of 50%. Patient with shortness of breath and mildly elevated BNP. Continue diuretics and continue to provide supplemental oxygen to keep oxygen saturation more than 92%. Etiology consulted. Patient underwent a nuclear stress test which shows an overall decreased perfusion to the septum with a low EF of 40%. No definite ischemia but overall decreased perfusion. (4) COPD (chronic obstructive pulmonary disease) ICD Code: J44.9 - Chronic obstructive pulmonary disease, unspecified Plan: Patient is unable to use inhalers due to worsening of symptoms. Seems to be stable. Prednisone 50 minutes by mouth daily. I will discharge on a taper. I will order a respiratory walk test physical therapy consultation. (5) Tobacco dependence ICD Code: F17.200 - Nicotine dependence, unspecified, uncomplicated Plan: Advised smoking cessation. Nicotine patch when necessary. Assessment and Plan DVT prophylaxis: Lovenox. Discharge Planning Pending PT evaluation and respiratory walk test. Also pending cardiology clearance. Problem Qualifiers (1) Cellulitis: Qualified Codes: L03.119 - Cellulitis of unspecified part of limb (2) COPD (chronic obstructive pulmonary disease): Qualified Codes: J42 - Unspecified chronic bronchitis Elijah Young MD Jan 23, 2017 15:55
[2017-01-23] MEDS: ENOXAPARIN SODIUM 40 MG/0.4 ML SYRINGE SQ SCH (18:09)
[2017-01-23] MEDS: DOXYCYCLINE HYCLATE 100 MG TAB PO SCH ×2 (18:11→20:18)
[2017-01-23] MEDS: REMOVE OLD PATCH T-DERMAL SCH (20:20)
[2017-01-24] VITALS (9 sets, daily range): BP systolic 97–121; BP diastolic 55–71; PULSE 72–86; RESP 16–20; TEMP 96.8–98.7; O2SAT 93–97
[2017-01-24] MEDS: DOXYCYCLINE HYCLATE 100 MG TAB PO SCH ×2 (09:15→21:01)
[2017-01-24] MEDS: NICOTINE 14 MG/24 HR PATCH T-DERMAL SCH (09:15)
[2017-01-24] MEDS: DOCUSATE SODIUM 50 MG/SENNA 8.6 MG TAB PO SCH ×2 (09:16→21:00)
[2017-01-24] MEDS: FUROSEMIDE 20 MG TAB PO SCH (09:16)
[2017-01-24] MEDS: SODIUM CHLORIDE 0.9% FLUSH 10 ML FLUSH IV FLUSH SCH ×2 (09:16→21:01)
[2017-01-24] MEDS: ASPIRIN EC 81 MG TABEC PO SCH (09:16)
[2017-01-24] MEDS: predniSONE 50 MG TAB PO SCH (09:23)
--- NOTE | 2017-01-24 16:14 | HHI.PR ---
Subjective Remarks Patient is wondering when she could be discharged. denies cp/sob Objective Vitals Vital Signs Date Time Temp Pulse Resp B/P (MAP) Pulse Ox O2 Delivery O2 Flow Rate FiO2 01/24/17 12:00 98.7 75 20 113/69 (84) 96 01/24/17 11:00 3.00 01/24/17 08:00 97.7 78 19 107/68 (81) 95 01/24/17 04:00 98.4 80 17 97/63 (74) 96 01/24/17 01:48 93 Nasal Cannula 3.00 01/24/17 00:00 96.8 82 17 116/71 (86) 93 01/23/17 20:09 Nasal Cannula 2.00 01/23/17 20:00 97.1 87 17 118/72 (87) 92 I/O 01/23/17 01/23/17 01/23/17 01/24/17 01/24/17 01/24/17 06:59 14:59 22:59 06:59 14:59 22:59 Intake Total 1080 ml 170 ml 1200 ml 240 ml Output Total 1300 ml 2 ml Balance 1080 ml 170 ml -100 ml -2 ml 240 ml Intake Oral 780 ml 120 ml 1200 ml 240 ml IV Total 300 ml 50 ml Output Urine Total 1300 ml Stool Total 2 ml # Voids 3 2 # Bowel Movements 3 Result Diagram: 01/21/17 0617 01/23/17 0650 Objective Remarks GENERAL: This is a well-nourished, well-developed patient, in no apparent distress. SKIN: Left leg and right leg are covered by dressing which is C/D/I. bridge of nose with erythematous ulcerating wound. Faint bilateral DP pulses. CARDIOVASCULAR: Regular rate and rhythm without murmurs, gallops, or rubs. RESPIRATORY: Decreased breath sounds on BL lung chaves. No rhonchi or crackles noted. GASTROINTESTINAL: Abdomen soft, non-tender, nondistended. No hepato-splenomegaly , or palpable masses. No guarding. A/P Problem List: (1) Cellulitis ICD Code: L03.90 - Cellulitis, unspecified Status: Acute Plan: Patient with right and left lower extremity cellulitis/ulcerating wound. X-ray show defect of left leg soft tissue. Ultrasound negative. Positive tobacco use. CT of the lower extremity shows peripheral vascular disease but no occlusion. Wound cultures grew MRSA and Pseudomonas pending sensitivities. Patient started on IV Zosyn and IV vancomycin. Continue wound care. 01/23 antibiotics changed to oral. Doxycycline and ciprofloxacin. Cleared to be discharged by ID. (2) Acute hypoxemic respiratory failure ICD Code: J96.01 - Acute respiratory failure with hypoxia Status: Acute Plan: Possibly chronic restored failure. The patient is homeless and has poor follow-up. Chest x-ray negative. BNP mildly elevated. I would inhaler secondary to side effects. Continue with Lasix as patient has an echocardiogram with an EF of 50% a possible vegetation. Cardiology consulted for MAXWELL. Patient refused MAXWELL. Continue supplemental oxygen to keep oxygen saturation more than 92%. 01/23 the patient has mild wheezing on exam. Suspect COPD exacerbation. Continue prednisone. 01/24 Needs home o2, COPD exacerbation improving slowly. (3) Acute diastolic (congestive) heart failure ICD Code: I50.31 - Acute diastolic (congestive) heart failure Plan: EF of 50%. Patient with shortness of breath and mildly elevated BNP. Continue diuretics and continue to provide supplemental oxygen to keep oxygen saturation more than 92%. Etiology consulted. Patient underwent a nuclear stress test which shows an overall decreased perfusion to the septum with a low EF of 40%. No definite ischemia but overall decreased perfusion. (4) COPD (chronic obstructive pulmonary disease) ICD Code: J44.9 - Chronic obstructive pulmonary disease, unspecified Plan: Patient is unable to use inhalers due to worsening of symptoms. Seems to be stable. Prednisone 50 minutes by mouth daily. I will discharge on a taper. PT evaluated patient - no home PT recommended. (5) Tobacco dependence ICD Code: F17.200 - Nicotine dependence, unspecified, uncomplicated Plan: Advised smoking cessation. Nicotine patch when necessary. Assessment and Plan DVT prophylaxis: Lovenox. Discharge Planning Not a safe discharge - patient needs home o2 and is self pay. Continue to monitor in the medical floor. Problem Qualifiers (1) Cellulitis: Qualified Codes: L03.119 - Cellulitis of unspecified part of limb (2) COPD (chronic obstructive pulmonary disease): Qualified Codes: J42 - Unspecified chronic bronchitis Elijah Young MD Jan 24, 2017 16:13
[2017-01-24] MEDS: ENOXAPARIN SODIUM 40 MG/0.4 ML SYRINGE SQ SCH (16:26)
[2017-01-24] MEDS: REMOVE OLD PATCH T-DERMAL SCH (21:00)
[2017-01-25] VITALS (8 sets, daily range): BP systolic 113–124; BP diastolic 61–72; PULSE 73–85; RESP 16–18; TEMP 97.1–98.8; O2SAT 94–98
[2017-01-25] MEDS: predniSONE 50 MG TAB PO SCH (10:19)
[2017-01-25] MEDS: DOXYCYCLINE HYCLATE 100 MG TAB PO SCH ×2 (10:19→21:34)
[2017-01-25] MEDS: ASPIRIN EC 81 MG TABEC PO SCH (10:19)
[2017-01-25] MEDS: DOCUSATE SODIUM 50 MG/SENNA 8.6 MG TAB PO SCH ×2 (10:19→21:00)
[2017-01-25] MEDS: NICOTINE 14 MG/24 HR PATCH T-DERMAL SCH (10:20)
[2017-01-25] MEDS: FUROSEMIDE 20 MG TAB PO SCH (10:20)
[2017-01-25] MEDS: SODIUM CHLORIDE 0.9% FLUSH 10 ML FLUSH IV FLUSH SCH ×2 (10:20→21:38)
--- NOTE | 2017-01-25 13:19 | HHI.PR ---
Subjective Remarks patient states sob is much improved denies cough denies cp 02 sats improving - down to 2 liters nasal canula Objective Vitals Vital Signs Date Time Temp Pulse Resp B/P (MAP) Pulse Ox O2 Delivery O2 Flow Rate FiO2 01/25/17 12:00 97.6 75 18 117/69 (85) 98 01/25/17 08:00 98.5 73 18 113/72 (86) 97 01/25/17 04:00 98.8 77 16 124/71 (88) 96 01/25/17 00:35 97.7 85 16 118/71 (87) 96 01/24/17 20:57 74 01/24/17 20:57 Nasal Cannula 2.00 01/24/17 20:47 97 Nasal Cannula 3.00 01/24/17 20:00 96.9 78 16 107/55 (72) 95 01/24/17 16:00 98.6 86 19 121/68 (85) 95 I/O 01/24/17 01/24/17 01/24/17 01/25/17 01/25/17 01/25/17 07:00 15:00 23:00 07:00 15:00 23:00 Intake Total 240 ml 1200 ml Output Total 2 ml 900 ml Balance -2 ml 240 ml 300 ml Intake Oral 240 ml 1200 ml Output Urine Total 900 ml Stool Total 2 ml # Voids 2 3 # Bowel Movements 6 3 Result Diagram: 01/21/17 0617 01/23/17 0650 Imaging Last Impressions Myocardial Perfusion Scan Nuc Med 01/22/17 0000 Signed Impressions: Service Date/Time: Sunday, January 22, 2017 11:23 - CONCLUSION: Overall decreased perfusion to the septum with a low EF of 43%%. No definite ischemia but overall decreased perfusion. RISK CATEGORY: Intermediate (1-3%% Annual Mortality Rate) Edu Olivier MD Chest X-Ray 01/19/17 1128 Signed Impressions: Service Date/Time: December 11:43 - CONCLUSION: Borderline heart size. No focal infiltrate. Tereso Collier MD Tibia/Fibula X-Ray 01/19/17 0000 Signed Impressions: Service Date/Time: December 12:43 - CONCLUSION: No evidence of fracture. Ulceration or defect in the anterior soft tissues at the level of the mid tibia shaft. Roney Sneed MD Lower Extremity Ultrasound 01/19/17 0000 Signed Impressions: Service Date/Time: December 11:42 - CONCLUSION: Normal examination. Tereso Collier MD Aorta w/Runoff CTA 01/19/17 0000 Signed Impressions: Service Date/Time: December 21:49 - CONCLUSION: 1. No significant aortic occlusive disease or aortic aneurysm. 2. 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 SMA and LEXY are patent. 3. No significant iliac inflow stenosis on the right. Diffuse mild to moderate stenosis of the left common iliac artery secondary to eccentric calcified plaque. 4. No significant outflow stenosis. 5. Small caliber runoff vessels bilaterally, incompletely evaluated beyond the proximal calf on the left. 6. Diffuse soft tissue anasarca and small amount of ascites. Raymond Berry MD Objective Remarks GENERAL: This is a well-nourished, well-developed patient, in no apparent distress. SKIN: Left leg and right leg are covered by dressing which is C/D/I. bridge of nose with erythematous ulcerating wound. Faint bilateral DP pulses. CARDIOVASCULAR: Regular rate and rhythm without murmurs, gallops, or rubs. RESPIRATORY: Decreased breath sounds on BL lung chaves. No rhonchi or crackles noted. GASTROINTESTINAL: Abdomen soft, non-tender, nondistended. No hepato-splenomegaly , or palpable masses. No guarding. Medications and IVs Current Medications Medications (Trade) Dose Ordered Sig/Dianelys Route Start Time Stop Time Status Last Admin (NS Flush) 2 ml UNSCH PRN IV FLUSH 01/19/17 13:30 (NS Flush) 2 ml BID IV FLUSH 01/19/17 21:00 01/25/17 10:20 (Tylenol) 650 mg Q4H PRN PO 01/19/17 14:00 (Zofran Inj) 4 mg Q6H PRN IVP 01/19/17 15:00 (Narcan Inj) 0.4 mg UNSCH PRN IV PUSH 01/19/17 13:30 ([place]-Colace) 1 tab BID PO 01/19/17 21:00 01/25/17 10:19 (Milk Of Magnesia Liq) 30 ml Q12HR PRN PO 01/19/17 21:00 (Senokot) 17.2 mg Q12HR PRN PO 01/19/17 15:00 (Dulcolax Supp) 10 mg DAILY PRN RECTAL 01/19/17 15:00 (Lactulose Liq) 30 ml DAILY PRN PO 01/19/17 15:00 (Deltasone) 50 mg DAILY PO 01/19/17 16:00 01/25/17 10:19 (Lovenox Inj) 40 mg Q24H SQ 01/19/17 16:00 01/25/17 15:27 ([place] 5-325 Mg) 1 tab Q4H PRN PO 01/19/17 16:00 01/19/17 17:28 ([place] 5-325 Mg) 2 tab Q4H PRN PO 01/19/17 16:00 01/21/17 09:10 (Lasix) 20 mg DAILY PO 01/19/17 16:00 01/25/17 10:20 (Ecotrin Ec) 81 mg DAILY PO 01/21/17 09:00 01/25/17 10:19 (Habitrol 14 Mg Patch.24 Hr) 1 patch DAILY T-DERMAL 01/20/17 12:00 01/25/17 10:20 Miscellaneous Information 1 HS T-DERMAL 01/20/17 21:00 01/24/17 21:00 (Vibratab) 100 mg Q12HR PO 01/23/17 12:45 01/30/17 12:44 01/25/17 10:19 A/P Problem List: (1) Cellulitis ICD Code: L03.90 - Cellulitis, unspecified Status: Acute Plan: Patient with right and left lower extremity cellulitis/ulcerating wound. X-ray show defect of left leg soft tissue. Ultrasound negative. Positive tobacco use. CT of the lower extremity shows peripheral vascular disease but no occlusion. Wound cultures grew MRSA and Pseudomonas pending sensitivities. Patient started on IV Zosyn and IV vancomycin. Continue wound care. 01/23 antibiotics changed to oral. Doxycycline and ciprofloxacin. Cleared to be discharged by ID. (2) Acute hypoxemic respiratory failure ICD Code: J96.01 - Acute respiratory failure with hypoxia Status: Acute Plan: Possibly chronic restored failure. The patient is homeless and has poor follow-up. Chest x-ray negative. BNP mildly elevated. I would inhaler secondary to side effects. Continue with Lasix as patient has an echocardiogram with an EF of 50% a possible vegetation. Cardiology consulted for MAXWELL. Patient refused MAXWELL. Continue supplemental oxygen to keep oxygen saturation more than 92%. 01/23 the patient has mild wheezing on exam. Suspect COPD exacerbation. Continue prednisone. 01/24 Needs home o2, COPD exacerbation improving slowly. (3) Acute diastolic (congestive) heart failure ICD Code: I50.31 - Acute diastolic (congestive) heart failure Plan: EF of 50%. Patient with shortness of breath and mildly elevated BNP. Continue diuretics and continue to provide supplemental oxygen to keep oxygen saturation more than 92%. Etiology consulted. Patient underwent a nuclear stress test which shows an overall decreased perfusion to the septum with a low EF of 40%. No definite ischemia but overall decreased perfusion. (4) COPD (chronic obstructive pulmonary disease) ICD Code: J44.9 - Chronic obstructive pulmonary disease, unspecified Plan: Patient is unable to use inhalers due to worsening of symptoms. Seems to be stable. Prednisone 50 minutes by mouth daily. I will discharge on a taper. PT evaluated patient - no home PT recommended. 01/25 repeat walk test. (5) Tobacco dependence ICD Code: F17.200 - Nicotine dependence, unspecified, uncomplicated Plan: Advised smoking cessation. Nicotine patch when necessary. Assessment and Plan DVT prophylaxis: Lovenox. Discharge Planning Not a safe discharge - patient needs home o2 and is self pay. Continue to monitor in the medical floor. Problem Qualifiers (1) Cellulitis: Qualified Codes: L03.119 - Cellulitis of unspecified part of limb (2) COPD (chronic obstructive pulmonary disease): Qualified Codes: J42 - Unspecified chronic bronchitis Elijah Young MD Jan 25, 2017 13:19
[2017-01-25] MEDS: ENOXAPARIN SODIUM 40 MG/0.4 ML SYRINGE SQ SCH (15:27)
[2017-01-25] MEDS: REMOVE OLD PATCH T-DERMAL SCH (21:00)
[2017-01-26] VITALS (8 sets, daily range): BP systolic 105–119; BP diastolic 56–72; PULSE 70–93; RESP 17–24; TEMP 96.4–98.2; O2SAT 90–98
[2017-01-26] MEDS: DOCUSATE SODIUM 50 MG/SENNA 8.6 MG TAB PO SCH ×2 (09:00→21:00)
[2017-01-26] MEDS: SODIUM CHLORIDE 0.9% FLUSH 10 ML FLUSH IV FLUSH SCH ×2 (11:13→21:34)
[2017-01-26] MEDS: DOXYCYCLINE HYCLATE 100 MG TAB PO SCH ×2 (11:14→21:33)
[2017-01-26] MEDS: predniSONE 50 MG TAB PO SCH (11:14)
[2017-01-26] MEDS: FUROSEMIDE 20 MG TAB PO SCH (11:14)
[2017-01-26] MEDS: ASPIRIN EC 81 MG TABEC PO SCH (11:14)
[2017-01-26] MEDS: NICOTINE 14 MG/24 HR PATCH T-DERMAL SCH (11:19)
--- NOTE | 2017-01-26 13:01 | HHI.PR ---
Subjective Remarks patient states breathing is slowly improving denies cough, cp sating 96% on 2 liters Objective Vitals Vital Signs Date Time Temp Pulse Resp B/P (MAP) Pulse Ox O2 Delivery O2 Flow Rate FiO2 01/26/17 12:00 96.6 93 19 115/61 (79) 91 01/26/17 08:00 98.2 75 19 115/68 (84) 96 01/26/17 04:39 97.2 72 18 119/69 (86) 97 01/26/17 01:39 75 01/26/17 01:34 Nasal Cannula 2.00 01/26/17 00:41 97.5 70 18 118/68 (85) 98 01/25/17 21:25 94 Nasal Cannula 2.00 01/25/17 20:00 97.1 80 18 122/61 (81) 94 01/25/17 17:46 3.00 01/25/17 16:00 98.2 76 18 119/70 (86) 94 I/O 01/25/17 01/25/17 01/25/17 01/26/17 01/26/17 01/26/17 07:00 15:00 23:00 07:00 15:00 23:00 Intake Total 1266 ml Balance 1266 ml Intake Oral 1266 ml # Voids 3 5 3 # Bowel Movements 3 4 1 Result Diagram: 01/23/17 0650 Objective Remarks GENERAL: This is a well-nourished, well-developed patient, in no apparent distress. SKIN: Left leg and right leg are covered by dressing which is C/D/I. bridge of nose with erythematous ulcerating wound. Faint bilateral DP pulses. CARDIOVASCULAR: Regular rate and rhythm without murmurs, gallops, or rubs. RESPIRATORY: Decreased breath sounds on BL lung chaves. No rhonchi or crackles noted. GASTROINTESTINAL: Abdomen soft, non-tender, nondistended. No hepato-splenomegaly , or palpable masses. No guarding. A/P Problem List: (1) Cellulitis ICD Code: L03.90 - Cellulitis, unspecified Status: Acute (2) Acute hypoxemic respiratory failure ICD Code: J96.01 - Acute respiratory failure with hypoxia Status: Acute (3) Acute diastolic (congestive) heart failure ICD Code: I50.31 - Acute diastolic (congestive) heart failure (4) COPD (chronic obstructive pulmonary disease) ICD Code: J44.9 - Chronic obstructive pulmonary disease, unspecified (5) Tobacco dependence ICD Code: F17.200 - Nicotine dependence, unspecified, uncomplicated Assessment and Plan (1) Cellulitis Plan: Patient with right and left lower extremity cellulitis/ulcerating wound. X-ray show defect of left leg soft tissue. Ultrasound negative. Positive tobacco use. CT of the lower extremity shows peripheral vascular disease but no occlusion. Wound cultures grew MRSA and Pseudomonas pending sensitivities. Patient started on IV Zosyn and IV vancomycin. Continue wound care. 01/23 antibiotics changed to oral. Doxycycline and ciprofloxacin. Cleared to be discharged by ID. (2) Acute hypoxemic respiratory failure Plan: Possibly chronic restored failure. The patient is homeless and has poor follow-up. Chest x-ray negative. BNP mildly elevated. I would inhaler secondary to side effects. Continue with Lasix as patient has an echocardiogram with an EF of 50% a possible vegetation. Cardiology consulted for MAXWELL. Patient refused MAXWELL. Continue supplemental oxygen to keep oxygen saturation more than 92%. 01/23 the patient has mild wheezing on exam. Suspect COPD exacerbation. Continue prednisone. 01/24 Needs home o2, COPD exacerbation improving slowly. 01/26 Will Dc prednisone and start on IV Solumedroi and oral lasix. (3) Acute diastolic (congestive) heart failure Plan: EF of 50%. Patient with shortness of breath and mildly elevated BNP. Continue diuretics and continue to provide supplemental oxygen to keep oxygen saturation more than 92%. Etiology consulted. Patient underwent a nuclear stress test which shows an overall decreased perfusion to the septum with a low EF of 40%. No definite ischemia but overall decreased perfusion. 01/26 increase lasix dose to 40 mg. (4) COPD (chronic obstructive pulmonary disease) ICD Code: J44.9 - Chronic obstructive pulmonary disease, unspecified Plan: Patient is unable to use inhalers due to worsening of symptoms. Seems to be stable. Prednisone 50 minutes by mouth daily. I will discharge on a taper. PT evaluated patient - no home PT recommended. 01/25 repeat walk test. 04/28 failed repeat O2 test - still needs home O2 (5) Tobacco dependence ICD Code: F17.200 - Nicotine dependence, unspecified, uncomplicated Plan: Advised smoking cessation. Nicotine patch when necessary. DVT prophylaxis: Lovenox. Discharge Planning Not a safe discharge - patient needs home o2 and is self pay. Continue to monitor in the medical floor. Problem Qualifiers (1) Cellulitis: Qualified Codes: L03.119 - Cellulitis of unspecified part of limb (2) COPD (chronic obstructive pulmonary disease): Qualified Codes: J42 - Unspecified chronic bronchitis Elijah Young MD Jan 26, 2017 13:01
[2017-01-26] MEDS: ENOXAPARIN SODIUM 40 MG/0.4 ML SYRINGE SQ SCH (18:10)
[2017-01-26] MEDS: methylPREDNISolone SOD SUCC 40 MG/1 ML VIAL IV PUSH SCH (18:11)
[2017-01-26] MEDS: REMOVE OLD PATCH T-DERMAL SCH (21:00)
[2017-01-27] VITALS (8 sets, daily range): BP systolic 109–125; BP diastolic 63–76; PULSE 67–87; RESP 16–22; TEMP 96.4–97.6; O2SAT 93–96
[2017-01-27] MEDS: methylPREDNISolone SOD SUCC 40 MG/1 ML VIAL IV PUSH SCH ×4 (00:20→17:27)
[2017-01-27] MEDS: ASPIRIN EC 81 MG TABEC PO SCH (08:25)
[2017-01-27] MEDS: SODIUM CHLORIDE 0.9% FLUSH 10 ML FLUSH IV FLUSH SCH ×2 (08:25→21:13)
[2017-01-27] MEDS: DOXYCYCLINE HYCLATE 100 MG TAB PO SCH ×2 (08:25→21:14)
[2017-01-27] MEDS: FUROSEMIDE 20 MG TAB PO SCH (08:26)
[2017-01-27] MEDS: NICOTINE 14 MG/24 HR PATCH T-DERMAL SCH (08:26)
[2017-01-27] MEDS: DOCUSATE SODIUM 50 MG/SENNA 8.6 MG TAB PO SCH ×2 (08:26→21:00)
[2017-01-27] MEDS: ENOXAPARIN SODIUM 40 MG/0.4 ML SYRINGE SQ SCH (16:00)
[2017-01-27] MEDS: REMOVE OLD PATCH T-DERMAL SCH (21:16)
[2017-01-28] VITALS: BP 118/67; PULSE 70; RESP 22; TEMP 96.1; O2SAT 95
[2017-01-28] MEDS: methylPREDNISolone SOD SUCC 40 MG/1 ML VIAL IV PUSH SCH
--- NOTE | 2017-01-28 03:15 | HHI.PR ---
Subjective Remarks late entry - patient seen on 01/27/17 at 14:20 Patient is concerned about getting Solumedrol denies cp, states sob is better Patient prefers not to get steroids Objective Vitals Vital Signs Date Time Temp Pulse Resp B/P (MAP) Pulse Ox O2 Delivery O2 Flow Rate FiO2 01/28/17 00:00 96.1 70 22 118/67 (84) 95 01/27/17 21:02 87 01/27/17 21:02 Nasal Cannula 1.00 01/27/17 20:00 96.4 80 22 125/73 (90) 93 01/27/17 16:00 97.3 77 18 124/69 (87) 94 01/27/17 12:00 96.9 79 16 109/66 (80) 93 01/27/17 10:00 77 01/27/17 08:25 Nasal Cannula 2.00 01/27/17 08:00 97.6 70 17 121/63 (82) 95 01/27/17 04:00 96.8 70 22 117/76 (90) 96 I/O 01/27/17 01/27/17 01/27/17 01/28/17 01/28/17 01/28/17 06:59 14:59 22:59 06:59 14:59 22:59 Intake Total 680 ml 1015 ml Balance 680 ml 1015 ml Intake Oral 680 ml 1015 ml # Voids 3 7 # Bowel Movements 1 2 Objective Remarks GENERAL: This is a well-nourished, well-developed patient, in no apparent distress. SKIN: Left leg and right leg are covered by dressing which is C/D/I. bridge of nose with erythematous ulcerating wound. Faint bilateral DP pulses. CARDIOVASCULAR: Regular rate and rhythm without murmurs, gallops, or rubs. RESPIRATORY: Decreased breath sounds on BL lung chaves. No rhonchi or crackles noted. GASTROINTESTINAL: Abdomen soft, non-tender, nondistended. No hepato-splenomegaly , or palpable masses. No guarding. A/P Problem List: (1) Cellulitis ICD Code: L03.90 - Cellulitis, unspecified Status: Acute (2) Acute hypoxemic respiratory failure ICD Code: J96.01 - Acute respiratory failure with hypoxia Status: Acute (3) Acute diastolic (congestive) heart failure ICD Code: I50.31 - Acute diastolic (congestive) heart failure (4) COPD (chronic obstructive pulmonary disease) ICD Code: J44.9 - Chronic obstructive pulmonary disease, unspecified (5) Tobacco dependence ICD Code: F17.200 - Nicotine dependence, unspecified, uncomplicated Assessment and Plan (1) Cellulitis Plan: Patient with right and left lower extremity cellulitis/ulcerating wound. X-ray show defect of left leg soft tissue. Ultrasound negative. Positive tobacco use. CT of the lower extremity shows peripheral vascular disease but no occlusion. Wound cultures grew MRSA and Pseudomonas pending sensitivities. Patient started on IV Zosyn and IV vancomycin. Continue wound care. 01/23 antibiotics changed to oral. Doxycycline and ciprofloxacin. Cleared to be discharged by ID. (2) Acute hypoxemic respiratory failure Plan: Possibly chronic restored failure. The patient is homeless and has poor follow-up. Chest x-ray negative. BNP mildly elevated. I would inhaler secondary to side effects. Continue with Lasix as patient has an echocardiogram with an EF of 50% a possible vegetation. Cardiology consulted for MAXWELL. Patient refused MAXWELL. Continue supplemental oxygen to keep oxygen saturation more than 92%. 01/23 the patient has mild wheezing on exam. Suspect COPD exacerbation. Continue prednisone. 01/24 Needs home o2, COPD exacerbation improving slowly. 01/26 Will Dc prednisone and start on IV Solumedroi and oral lasix. 01/27 Will Dc solumedrol as patient concerned and start prednisone. Seems to have improved air movement. (3) Acute diastolic (congestive) heart failure Plan: EF of 50%. Patient with shortness of breath and mildly elevated BNP. Continue diuretics and continue to provide supplemental oxygen to keep oxygen saturation more than 92%. Etiology consulted. Patient underwent a nuclear stress test which shows an overall decreased perfusion to the septum with a low EF of 40%. No definite ischemia but overall decreased perfusion. 01/26 increase lasix dose to 40 mg. 01/27 Continue Lasix 40 mg po daily. (4) COPD (chronic obstructive pulmonary disease) ICD Code: J44.9 - Chronic obstructive pulmonary disease, unspecified Plan: Patient is unable to use inhalers due to worsening of symptoms. Seems to be stable. Prednisone 50 minutes by mouth daily. I will discharge on a taper. PT evaluated patient - no home PT recommended. 01/25 repeat walk test. 01/26 failed repeat O2 test - still needs home O2 10/6 repeat walk test in am. (5) Tobacco dependence ICD Code: F17.200 - Nicotine dependence, unspecified, uncomplicated Plan: Advised smoking cessation. Nicotine patch when necessary. DVT prophylaxis: Lovenox. Discharge Planning Not a safe discharge - patient needs home o2 and is self pay. Continue to monitor in the medical floor. Dc in am if patient passes walk test and clinically stable. Problem Qualifiers (1) Cellulitis: Qualified Codes: L03.119 - Cellulitis of unspecified part of limb (2) COPD (chronic obstructive pulmonary disease): Qualified Codes: J42 - Unspecified chronic bronchitis Elijah Young MD Jan 28, 2017 03:15
[2017-01-28 04:00] VITALS: BP 118/64; PULSE 77; RESP 22; TEMP 96.1; O2SAT 95
[2017-01-28 06:05] LABS: AUTOMATED NEUTROPHIL # 7.9 TH/MM3 (1.8-7.7); BASOPHIL % 0.2 % (0.0-2.0); HEMATOCRIT 47.5 % (35.0-46.0); HEMO FLAGS DIFF FINAL; LYMPH % 7.7 % (9.0-44.0); LYMPHOCYTE # 0.7 TH/MM3 (1.0-4.8); MEAN CELL VOLUME 92.6 FL (80.0-100.0); MEAN CORPUSCULAR HEMOGLOBIN 29.3 PG (27.0-34.0); MEAN CORPUSCULAR HGB CONC 31.7 % (32.0-36.0); MONO % 7.7 % (0.0-8.0); NEUT % 84.4 % (16.0-70.0); PLATELET COUNT 231 TH/MM3 (150-450); RED BLOOD COUNT 5.12 MIL/MM3 (4.00-5.30); RED CELL DISTRIBUTION WIDTH 15.4 % (11.6-17.2); WHITE BLOOD COUNT 9.3 TH/MM3 (4.0-11.0)
[2017-01-28 06:16] LABS: ANION GAP 2 MEQ/L (5-15); AST (GOT) 43 U/L (15-37); BICARBONATE 38.2 MEQ/L (21.0-32.0); BLOOD UREA NITROGEN 19 MG/DL (7-18); CHLORIDE 95 MEQ/L (98-107); GLOMERULAR FILTRATION RATE 132 ML/MIN (>89); MAGNESIUM 1.9 MG/DL (1.5-2.5); POTASSIUM 4.2 MEQ/L (3.5-5.1); SODIUM (NA) 135 MEQ/L (136-145)
[2017-01-28 06:18] LABS: ALT (GPT) 48 U/L (10-53)
[2017-01-28 06:20] LABS: ALKALINE PHOSPHATASE 95 U/L (45-117); TOTAL BILIRUBIN ADULT 0.5 MG/DL (0.2-1.0)
[2017-01-28 08:00] VITALS: BP 113/62; PULSE 70; RESP 16; TEMP 97.4; O2SAT 94
--- NOTE | 2017-01-28 08:32 | HHI.PR ---
Subjective Remarks This is a pleasant 56 y/o Female, Homeless in the past, who came to ER with left lower extremity wounds for the last two months, complaint of some Fever, SOB, WBC normal, diagnosed with left leg cellulitis, Seen by ID specialist recommended Wound care, and oral antibiotics, Doxycycline and Cipro, she has stasis ulcers, Culture MRSA and PSAE TTE clinically has no evidence of Endocarditis. 01/28: Seen in her bedroom in the presence of nurse Miss Taylor, no nausea, vomit or diarrhea. on no oxygen and having a BM at this time. Objective Vital Signs Date Time Temp Pulse Resp B/P (MAP) Pulse Ox O2 Delivery O2 Flow Rate FiO2 01/28/17 04:00 96.1 77 22 118/64 (82) 95 01/28/17 00:00 96.1 70 22 118/67 (84) 95 01/27/17 21:02 87 01/27/17 21:02 Nasal Cannula 1.00 01/27/17 20:00 96.4 80 22 125/73 (90) 93 01/27/17 16:00 97.3 77 18 124/69 (87) 94 01/27/17 12:00 96.9 79 16 109/66 (80) 93 01/27/17 10:00 77 I/O 01/27/17 01/27/17 01/27/17 01/28/17 01/28/17 01/28/17 07:00 15:00 23:00 07:00 15:00 23:00 Intake Total 680 ml 1015 ml 480 ml Balance 680 ml 1015 ml 480 ml Intake Oral 680 ml 1015 ml 480 ml # Voids 3 7 4 # Bowel Movements 1 2 2 Result Diagram: 01/28/17 0530 01/28/17 0530 Imaging Last Impressions Myocardial Perfusion Scan Nuc Med 01/22/17 0000 Signed Impressions: Service Date/Time: Sunday, January 22, 2017 11:23 - CONCLUSION: Overall decreased perfusion to the septum with a low EF of 43%%. No definite ischemia but overall decreased perfusion. RISK CATEGORY: Intermediate (1-3%% Annual Mortality Rate) Edu Olivier MD Chest X-Ray 01/19/17 1128 Signed Impressions: Service Date/Time: December 11:43 - CONCLUSION: Borderline heart size. No focal infiltrate. Tereso Collier MD Tibia/Fibula X-Ray 01/19/17 0000 Signed Impressions: Service Date/Time: December 12:43 - CONCLUSION: No evidence of fracture. Ulceration or defect in the anterior soft tissues at the level of the mid tibia shaft. Roney Sneed MD Lower Extremity Ultrasound 01/19/17 0000 Signed Impressions: Service Date/Time: December 11:42 - CONCLUSION: Normal examination. Tereso Collier MD Aorta w/Runoff CTA 01/19/17 0000 Signed Impressions: Service Date/Time: December 21:49 - CONCLUSION: 1. No significant aortic occlusive disease or aortic aneurysm. 2. 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 SMA and LEXY are patent. 3. No significant iliac inflow stenosis on the right. Diffuse mild to moderate stenosis of the left common iliac artery secondary to eccentric calcified plaque. 4. No significant outflow stenosis. 5. Small caliber runoff vessels bilaterally, incompletely evaluated beyond the proximal calf on the left. 6. Diffuse soft tissue anasarca and small amount of ascites. Raymond Berry MD Procedures None Other Results Laboratory Tests Test 01/19/17 11:35 01/19/17 17:01 01/20/17 03:48 01/20/17 23:45 Prothrombin Time 12.8 SEC Prothromb Time International Ratio 1.2 RATIO Activated Partial Thromboplast Time 27.5 SEC C-Reactive Protein 3.81 MG/DL B-Type Natriuretic Peptide 699 PG/ML Lactic Acid Level 1.3 mmol/L Troponin I 0.08 NG/ML Vancomycin Level Trough 11.2 MCG/ML Test 01/28/17 05:30 White Blood Count 9.3 TH/MM3 Red Blood Count 5.12 MIL/MM3 Hemoglobin 15.0 GM/DL Hematocrit 47.5 % Mean Corpuscular Volume 92.6 FL Mean Corpuscular Hemoglobin 29.3 PG Mean Corpuscular Hemoglobin Concent 31.7 % Red Cell Distribution Width 15.4 % Platelet Count 231 TH/MM3 Mean Platelet Volume 8.3 FL Neutrophils (%) (Auto) 84.4 % Lymphocytes (%) (Auto) 7.7 % Monocytes (%) (Auto) 7.7 % Eosinophils (%) (Auto) 0.0 % Basophils (%) (Auto) 0.2 % Neutrophils # (Auto) 7.9 TH/MM3 Lymphocytes # (Auto) 0.7 TH/MM3 Monocytes # (Auto) 0.7 TH/MM3 Eosinophils # (Auto) 0.0 TH/MM3 Basophils # (Auto) 0.0 TH/MM3 CBC Comment DIFF FINAL Differential Comment Blood Urea Nitrogen 19 MG/DL Creatinine 0.49 MG/DL Random Glucose 141 MG/DL Total Protein 7.0 GM/DL Albumin 2.7 GM/DL Calcium Level 9.0 MG/DL Phosphorus Level 2.3 MG/DL Magnesium Level 1.9 MG/DL Alkaline Phosphatase 95 U/L Aspartate Amino Transf (AST/SGOT) 43 U/L Alanine Aminotransferase (ALT/SGPT) 48 U/L Total Bilirubin 0.5 MG/DL Sodium Level 135 MEQ/L Potassium Level 4.2 MEQ/L Chloride Level 95 MEQ/L Carbon Dioxide Level 38.2 MEQ/L Anion Gap 2 MEQ/L Estimat Glomerular Filtration Rate 132 ML/MIN Objective Remarks GENERAL: Well developed in no acute distress. SKIN: Left leg and right leg are covered by dressing which is C/D/I. bridge of nose with erythematous ulcerating wound. Faint bilateral DP pulses. HEAD: Atraumatic. Normocephalic. EYES: Pupils equal and round. No scleral icterus. No injection or drainage. ENT: No nasal bleeding or discharge. Mucous membranes pink and moist. NECK: Trachea midline. No JVD. CARDIOVASCULAR: Regular rate and rhythm. RESPIRATORY: Decreased breath sounds, no wheezing or crackles. GASTROINTESTINAL: Abdomen soft, non-tender, nondistended. Hepatic and splenic margins not palpable. MUSCULOSKELETAL: Extremities without clubbing, cyanosis, or edema. No obvious deformities. NEUROLOGICAL: Awake and alert. No obvious cranial nerve deficits. PSYCHIATRIC: Appropriate mood and affect; insight and judgment normal. Medications and IVs Current Medications Medications (Trade) Dose Ordered Sig/Dianelys Route Start Time Stop Time Status Last Admin (NS Flush) 2 ml UNSCH PRN IV FLUSH 01/19/17 13:30 (NS Flush) 2 ml BID IV FLUSH 01/19/17 21:00 01/27/17 21:13 (Tylenol) 650 mg Q4H PRN PO 01/19/17 14:00 (Zofran Inj) 4 mg Q6H PRN IVP 01/19/17 15:00 (Narcan Inj) 0.4 mg UNSCH PRN IV PUSH 01/19/17 13:30 (Mahogany-Colace) 1 tab BID PO 01/19/17 21:00 01/27/17 08:26 (Milk Of Magnesia Liq) 30 ml Q12HR PRN PO 01/19/17 21:00 (Senokot) 17.2 mg Q12HR PRN PO 01/19/17 15:00 (Dulcolax Supp) 10 mg DAILY PRN RECTAL 01/19/17 15:00 (Lactulose Liq) 30 ml DAILY PRN PO 01/19/17 15:00 (Lovenox Inj) 40 mg Q24H SQ 01/19/17 16:00 01/26/17 18:10 ([place] 5-325 Mg) 1 tab Q4H PRN PO 01/19/17 16:00 01/19/17 17:28 ([place] 5-325 Mg) 2 tab Q4H PRN PO 01/19/17 16:00 01/21/17 09:10 (Ecotrin Ec) 81 mg DAILY PO 01/21/17 09:00 01/27/17 08:25 (Habitrol 14 Mg Patch.24 Hr) 1 patch DAILY T-DERMAL 01/20/17 12:00 01/27/17 08:26 Miscellaneous Information 1 HS T-DERMAL 01/20/17 21:00 01/27/17 21:16 (Vibratab) 100 mg Q12HR PO 01/23/17 12:45 01/30/17 12:44 01/27/17 21:14 (Lasix) 40 mg DAILY PO 01/27/17 09:00 01/27/17 08:26 (Deltasone) 20 mg BID PO 01/28/17 09:00 A/P Assessment and Plan 1. Cellulitis, Right and left lower extremity cellulitis ulcerating wound, X ray showed defect on left leg soft tissue, Ultrasound negative, CT of the lower extremity shows peripheral vascular disease but no occlusion. Wound cultures grew MRSA and Pseudomonas pending sensitivities. Patient started on IV Zosyn and IV vancomycin. Continue wound care. 01/23 antibiotics changed to oral. Doxycycline and ciprofloxacin. Cleared to be discharged by ID. 2. Acute Hypoxemic respiratory failure, Chest x-ray negative. BNP mildly elevated. on Diuretics, Echocardiogram showed EF 50% and possible vegetation Cardiology consulted for MAXWELL. Patient refused MAXWELL. Continue supplemental oxygen to keep oxygen saturation more than 92%. 01/23 the patient has mild wheezing on exam. Suspect COPD exacerbation. Continue prednisone. 01/24 Needs home o2, COPD exacerbation improving slowly. 01/26 Will Dc prednisone and start on IV Solumedroi and oral lasix. 01/27 Will Dc solumedrol as patient concerned and start prednisone and continue 20 mg daily for five days. 3. Acute Diastolic heart failure EF of 50%. Patient with shortness of breath and mildly elevated BNP. Continue diuretics and continue to provide supplemental oxygen to keep oxygen saturation more than 92%. Etiology consulted. Patient underwent a nuclear stress test which shows an overall decreased perfusion to the septum with a low EF of 40%. 01/26 increase lasix dose to 40 mg. 01/27 Continue Lasix 40 mg po daily. will continue as outpatient. 4. Chronic obstructive pulmonary disease, unspecified Patient is unable to use inhalers due to worsening of symptoms. PT evaluated patient - no home PT recommended. 01/25 repeat walk test. 01/26 failed repeat O2 test - still needs home O2 01/27 repeat walk test in am. 5. Tobacco dependence strongly recommended to stop smoking. Awaiting for Walk test for discharge. Discussed with Patient and nurse Miss Taylor in the room all questions answered to the best of my abilities. DVT prophylaxis: Lovenox. Discharge Planning Discharge after Walk test today patient stable. Bill Sharma MD Jan 28, 2017 08:32
[2017-01-28] MEDS: FUROSEMIDE 20 MG TAB PO SCH (08:55)
[2017-01-28] MEDS: SODIUM CHLORIDE 0.9% FLUSH 10 ML FLUSH IV FLUSH SCH (08:56)
[2017-01-28] MEDS: NICOTINE 14 MG/24 HR PATCH T-DERMAL SCH (08:56)
[2017-01-28] MEDS: DOCUSATE SODIUM 50 MG/SENNA 8.6 MG TAB PO SCH (08:56)
[2017-01-28] MEDS: DOXYCYCLINE HYCLATE 100 MG TAB PO SCH (08:56)
[2017-01-28] MEDS: ASPIRIN EC 81 MG TABEC PO SCH (08:56)
[2017-01-28] MEDS ORDERED: predniSONE 20 MG TAB PO SCH (09:00)
[2017-01-28 10:35] VITALS: O2SAT 94
[2017-01-28] MEDS ORDERED: NICO14DI23 T-DERMAL (11:19)
[2017-01-28] MEDS ORDERED: FURO20TA PO (11:19)
[2017-01-28] MEDS ORDERED: PRED20 PO (11:19)
[2017-01-28] MEDS ORDERED: DOXY100T PO (11:19)
[2017-01-28] MEDS ORDERED: ASPI-99 PO (11:19)
--- NOTE | 2017-01-28 11:21 | HHI.DS ---
Discharge Summary Admission Date Jan 19, 2017 at 13:26 Discharge Date: Jan 28, 2017 Admitting Diagnosis lower leg cellulitis bilaterally (1) Cellulitis ICD Code: L03.90 - Cellulitis, unspecified Diagnosis: Principal Status: Acute (2) Acute hypoxemic respiratory failure ICD Code: J96.01 - Acute respiratory failure with hypoxia Diagnosis: Principal Status: Acute (3) Acute diastolic (congestive) heart failure ICD Code: I50.31 - Acute diastolic (congestive) heart failure Diagnosis: Principal (4) COPD (chronic obstructive pulmonary disease) ICD Code: J44.9 - Chronic obstructive pulmonary disease, unspecified Diagnosis: Principal (5) Tobacco dependence ICD Code: F17.200 - Nicotine dependence, unspecified, uncomplicated Diagnosis: Principal Procedures None Brief History - From Admission This is a 56-year-old homeless female with past medical history of COPD, asthma , and tobacco dependence who presented with bilateral lower extremity edema. Patient is very poor historian. Patient stated that she had a small wound of her lower legs that started about 2-3 months ago and worsened. She stated that she see her because of that. It is very difficult to obtain history from patient. She stated that she is homeless and she does walk barefooted and sometimes worse socks. Patient also smokes filtered cigar cigarettes about 1 pack per day for almost her entire life. Deny any fevers or chills. I also asked patient regards to shortness of breathing since she complained of shortness breathing to the emergency medicine PA. She denied this. She stated that she never complained of shortness of breathing. Denied any chest pain, palpitation, lightheadedness or dizziness. When I asked patient about medication for her COPD/asthma she said that she could not take any inhalers because it increases her shortness of breathing and makes her chest feel tight. When I asked patient what medication that she use if she ever had a COPD or asthma exacerbation. She stated that she just takes deep inspiration it goes away on its own. All other review of system reviewed and negative. CBC/BMP: 01/28/17 0530 01/28/17 0530 Significant Findings Laboratory Tests Test 01/28/17 05:30 Hematocrit 47.5 % (35.0-46.0) Mean Corpuscular Hemoglobin Concent 31.7 % (32.0-36.0) Neutrophils (%) (Auto) 84.4 % (16.0-70.0) Lymphocytes (%) (Auto) 7.7 % (9.0-44.0) Neutrophils # (Auto) 7.9 TH/MM3 (1.8-7.7) Lymphocytes # (Auto) 0.7 TH/MM3 (1.0-4.8) Blood Urea Nitrogen 19 MG/DL (7-18) Creatinine 0.49 MG/DL (0.50-1.00) Random Glucose 141 MG/DL (74-106) Albumin 2.7 GM/DL (3.4-5.0) Phosphorus Level 2.3 MG/DL (2.5-4.9) Aspartate Amino Transf (AST/SGOT) 43 U/L (15-37) Sodium Level 135 MEQ/L (136-145) Chloride Level 95 MEQ/L (98-107) Carbon Dioxide Level 38.2 MEQ/L (21.0-32.0) Anion Gap 2 MEQ/L (5-15) Imaging Last Impressions Myocardial Perfusion Scan Nuc Med 01/22/17 0000 Signed Impressions: Service Date/Time: Sunday, January 22, 2017 11:23 - CONCLUSION: Overall decreased perfusion to the septum with a low EF of 43%%. No definite ischemia but overall decreased perfusion. RISK CATEGORY: Intermediate (1-3%% Annual Mortality Rate) Edu Olivier MD Chest X-Ray 01/19/17 1128 Signed Impressions: Service Date/Time: December 11:43 - CONCLUSION: Borderline heart size. No focal infiltrate. Tereso Collier MD Tibia/Fibula X-Ray 01/19/17 0000 Signed Impressions: Service Date/Time: December 12:43 - CONCLUSION: No evidence of fracture. Ulceration or defect in the anterior soft tissues at the level of the mid tibia shaft. Roney Sneed MD Lower Extremity Ultrasound 01/19/17 0000 Signed Impressions: Service Date/Time: December 11:42 - CONCLUSION: Normal examination. Tereso Collier MD Aorta w/Runoff CTA 01/19/17 0000 Signed Impressions: Service Date/Time: December 21:49 - CONCLUSION: 1. No significant aortic occlusive disease or aortic aneurysm. 2. 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 SMA and LEXY are patent. 3. No significant iliac inflow stenosis on the right. Diffuse mild to moderate stenosis of the left common iliac artery secondary to eccentric calcified plaque. 4. No significant outflow stenosis. 5. Small caliber runoff vessels bilaterally, incompletely evaluated beyond the proximal calf on the left. 6. Diffuse soft tissue anasarca and small amount of ascites. Raymond Berry MD PE at Discharge GENERAL: Well developed in no acute distress. SKIN: Left leg and right leg are covered by dressing which is C/D/I. bridge of nose with erythematous ulcerating wound. Faint bilateral DP pulses. HEAD: Atraumatic. Normocephalic. EYES: Pupils equal and round. No scleral icterus. No injection or drainage. ENT: No nasal bleeding or discharge. Mucous membranes pink and moist. NECK: Trachea midline. No JVD. CARDIOVASCULAR: Regular rate and rhythm. RESPIRATORY: Decreased breath sounds, no wheezing or crackles. GASTROINTESTINAL: Abdomen soft, non-tender, nondistended. Hepatic and splenic margins not palpable. MUSCULOSKELETAL: Extremities without clubbing, cyanosis, or edema. No obvious deformities. NEUROLOGICAL: Awake and alert. No obvious cranial nerve deficits. PSYCHIATRIC: Appropriate mood and affect; insight and judgment normal. Hospital Course This is a pleasant 56 y/o Female, Homeless in the past, who came to ER with left lower extremity wounds for the last two months, complaint of some Fever, SOB, WBC normal, diagnosed with left leg cellulitis, Seen by ID specialist recommended Wound care, and oral antibiotics, Doxycycline and Cipro, she has stasis ulcers, Culture MRSA and PSAE TTE clinically has no evidence of Endocarditis. 01/28: Seen in her bedroom in the presence of nurse Miss Taylor, no nausea, vomit or diarrhea. on no oxygen and having a BM at this time. Assessment and Plan 1. Cellulitis, Right and left lower extremity cellulitis ulcerating wound, X ray showed defect on left leg soft tissue, Ultrasound negative, CT of the lower extremity shows peripheral vascular disease but no occlusion. Wound cultures grew MRSA and Pseudomonas pending sensitivities. Patient started on IV Zosyn and IV vancomycin. Continue wound care. 01/23 antibiotics changed to oral. Doxycycline and ciprofloxacin. Cleared to be discharged by ID. 2. Acute Hypoxemic respiratory failure, Chest x-ray negative. BNP mildly elevated. on Diuretics, Echocardiogram showed EF 50% and possible vegetation Cardiology consulted for MAXWELL. Patient refused MAXWELL. Continue supplemental oxygen to keep oxygen saturation more than 92%. 01/23 the patient has mild wheezing on exam. Suspect COPD exacerbation. Continue prednisone. 01/24 Needs home o2, COPD exacerbation improving slowly. 01/26 Will Dc prednisone and start on IV Solumedroi and oral lasix. 01/27 Will Dc solumedrol as patient concerned and start prednisone and continue 20 mg daily for five days. 3. Acute Diastolic heart failure EF of 50%. Patient with shortness of breath and mildly elevated BNP. Continue diuretics and continue to provide supplemental oxygen to keep oxygen saturation more than 92%. Etiology consulted. Patient underwent a nuclear stress test which shows an overall decreased perfusion to the septum with a low EF of 40%. 01/26 increase lasix dose to 40 mg. 01/27 Continue Lasix 40 mg po daily. will continue as outpatient. 4. Chronic obstructive pulmonary disease, unspecified Patient is unable to use inhalers due to worsening of symptoms. PT evaluated patient - no home PT recommended. 01/25 repeat walk test. 01/26 failed repeat O2 test - still needs home O2 01/27 repeat walk test in am. 5. Tobacco dependence strongly recommended to stop smoking. Awaiting for Walk test for discharge. Discussed with Patient and nurse Miss Taylor in the room all questions answered to the best of my abilities. DVT prophylaxis: Lovenox. Discharge Planning Walk test negative no need for oxygen. Pt Condition on Discharge: Good Discharge Disposition: Discharge Home Discharge Time: > 30 minutes Discharge Instructions DIET: Follow Instructions for: Heart Healthy Diet Activities you can perform: Regular-No Restrictions Bill Sharma MD Jan 28, 2017 11:21
[2017-01-28 12:00] VITALS: BP 119/68; PULSE 99; RESP 16; TEMP 98.5; O2SAT 94
[2017-01-28] MEDS: ENOXAPARIN SODIUM 40 MG/0.4 ML SYRINGE SQ SCH (16:00)
[2017-01-29] MEDS ORDERED: predniSONE 20 MG TAB PO SCH (09:00)
== END 2017-01-28 18:07 | disposition home or self-care (01) | DRG 291 ==
LOC: NEPC 10:39 → NEDA 13:26 → N07B 15:40
PROVIDERS: ADMIT Internal Medicine; ATTEND Internal Medicine
DX: I50.31 Acute diastolic (congestive) heart failure (principal); J96.21 Acute and chronic respiratory failure with hypoxia; E87.2 Acidosis; L03.115 Cellulitis of right lower limb; J44.1 Chronic obstructive pulmonary disease with (acute) exacerbation; L03.116 Cellulitis of left lower limb; L97.819 Non-pressure chronic ulcer of other part of right lower leg with unspecified severity; L97.829 Non-pressure chronic ulcer of other part of left lower leg with unspecified severity; F17.210 Nicotine dependence, cigarettes, uncomplicated; I07.1 Rheumatic tricuspid insufficiency; I87.2 Venous insufficiency (chronic) (peripheral); B96.5 Pseudomonas (aeruginosa) (mallei) (pseudomallei) as the cause of diseases classified elsewhere; I73.9 Peripheral vascular disease, unspecified; Z22.322 Carrier or suspected carrier of Methicillin resistant Staphylococcus aureus; Z59.0 Homelessness
CPT/HCPCS: 71010; 73590; 75635; 78452; 80048; 80053; 80202; 82565; 83605; 83735; 83880; 84100; 84484; 85025; 85027; 85610; 85730; 86140; 86403; 87040; 87070; 87077; 87147; 87186; 87205; 93005; 93017; 93306; 93970; 94620; 96365; A9502; J1650; J2543; J2785; J2920; J3370; J7040; J7050; J7512; Q9967

== ENCOUNTER 2017-08-06 14:15 | Inpatient (IN) | payer OTHER ==
[~2017-08-06] VITALS: Ht 167.6 cm; Wt 58.4 kg
[2017-08-06] VITALS (8 sets, daily range): BP systolic 116–122; BP diastolic 67–79; PULSE 77–101; RESP 18–22; TEMP 98.2–98.6; O2SAT 62–97
[~2017-08-06 14:15] MED LIST changes: +ASPI1TAB56 PO; +DOXY100T PO; +FURO20TA PO; +NICO14DI23 T-DERMAL; +PRED20 PO; -Z.0.NO CURRENT MEDS
[2017-08-06] MEDS: RESP: ALBUTEROL 2.5 MG/IPRATROPIUM 0.5 MG NEB (SCH) INH ×2 (14:45→15:00)
--- NOTE | 2017-08-06 15:00 | RADRPT ---
EXAM DATE/TIME: 08/06/2017 14:44 [facility] COMPARISON: CHEST SINGLE AP, January 19, 2017, 11:43. INDICATIONS : Shortness of breath. MEDICAL HISTORY : None. SURGICAL HISTORY : None. ENCOUNTER: Initial ACUITY: 1 day PAIN SCORE: 0/10 LOCATION: Bilateral chest FINDINGS: There is a irregular radiodensity overlying the lateral left midlung region which may be external to the patient. Parenchymal nodule is not entirely excluded. CONCLUSION: Nodular density overlying the lateral left chest Tereso Collier MD on August 06, 2017 at 14:57 Board Certified Radiologist. This report was verified electronically.
--- NOTE | 2017-08-06 15:27 | PD ---
HPI Chief Complaint: Respiratory Symptoms Time Seen by Provider: 14:20 Travel History International Travel<30 days: No Contact w/Intl Traveler<30days: No Traveled to known affect area: No History of Present Illness HPI 57-year-old female who presents to the ED for evaluation of shortness of breath. History is very difficult to obtain from the patient as she is not really a good historian. She has a history of this in the past. Apparently [facility] was contacted because patient had diarrhea. She also had weakness. She was found to be very hypoxic per ambulance she had an O2 sat of 60s and 70s. She does not complain of shortness of breath until the ambulance showed up. She was put on oxygen and her O2 came back to the 80s and 90s. She states that she takes no medications and she is currently homeless. During my examination she appears to be more concerned about the bags that she came with right to her medical illness. She denies any diarrhea. Per patient she does feel short of breath. She continues to smoke. When asked if she takes any medications she tells me that they were stolen. She does appear to have lower leg edema and edema to the cheeks bilaterally. She denies any chest pain. PFSH Past Medical History Asthma: Yes Autoimmune Disease: No Cardiovascular Problems: Yes COPD: Yes (unknown if o2 dependent) Diminished Hearing: No Musculoskeletal: Yes Respiratory: Yes Sleep Apnea: No ?: Not : 4 Para: 4 Past Surgical History Body Medical Devices: BROKE CLAVICLE LAST MONTH Section: Yes Gynecologic Surgery: Yes (C-SECTIONS) Oral Surgery: Yes (jaw surgery) Other Surgery: Yes Social History Alcohol Use: Yes (OCCASIONAL) Tobacco Use: Yes (1 PACK/DAY) Substance Use: Yes (medical marijuana) Allergies-Medications (Allergen,Severity, Reaction): Uncoded Allergies: SOME ANTI INFLAMMATORY MEDS (Allergy, Severe, Swelling, 05/16/05) INHALERS (Allergy, Intermediate, SOB, 01/07/06) Reported Meds & Prescriptions Reported Meds & Active Scripts Active Review of Systems ROS Limitations: Poor Historian Except as stated in HPI: all other systems reviewed are Neg Physical Exam Exam Limitations: Poor Historian Narrative GENERAL: SKIN: Warm and dry. HEAD: Atraumatic. Normocephalic. EYES: Pupils equal and round. No scleral icterus. No injection or drainage. ENT: No nasal bleeding or discharge. Mucous membranes pink and moist. Tongue is midline. no uvula deviation. NECK: Trachea midline. No JVD. CARDIOVASCULAR: Regular rate and rhythm. No murmurs, S3, S4. RESPIRATORY: No accessory muscle use. Clear to auscultation. Breath sounds equal bilaterally. GASTROINTESTINAL: Abdomen soft, non-tender, nondistended. Hepatic and splenic margins not palpable. MUSCULOSKELETAL: Extremities without clubbing, cyanosis, or edema. No obvious deformities. Full range of motion of the upper and lower extremities bilaterally. 2+ pulses bilaterally. Patient does have what appears to be 1+ pitting edema in the lower extremities. Patient also has what appears to be edema to the lower eyelids bilaterally. NEUROLOGICAL: Awake and alert. No obvious cranial nerve deficits. Motor grossly within normal limits. Five out of 5 muscle strength in the arms and legs. Normal speech. PSYCHIATRIC: Appropriate mood and affect; insight and judgment normal. Data Data Last Documented VS Vital Signs Date Time Temp Pulse Resp B/P (MAP) Pulse Ox O2 Delivery O2 Flow Rate FiO2 08/06/17 16:47 90 18 116/79 (91) 96 Nasal Cannula 4.00 08/06/17 14:31 98.6 Orders Orders Electrocardiogram (08/06/17 14:38) Complete Blood Count With Diff (08/06/17 14:38) Comprehensive Metabolic Panel (08/06/17 14:38) Ckmb (Isoenzyme) Profile (08/06/17 14:38) Troponin I (08/06/17 14:38) B-Type Natriuretic Peptide (08/06/17 14:38) Prothrombin Time / Inr (Pt) (08/06/17 14:38) Act Partial Throm Time (Ptt) (08/06/17 14:38) Urinalysis - C+S If Indicated (08/06/17 14:38) Magnesium (Mg) (08/06/17 14:38) Thyroid Stimulating Hormone (08/06/17 14:38) Chest, Single Ap (08/06/17 14:38) Iv Access Insert/Monitor (08/06/17 14:38) Ecg Monitoring (08/06/17 14:38) Oxygen Administration (08/06/17 14:38) Oximetry (08/06/17 14:38) Albuterol-Ipratropium Neb (Duoneb Neb) (08/06/17 14:45) Furosemide Inj (Lasix Inj) (08/06/17 16:45) CKMB (08/06/17 15:55) CKMB% (08/06/17 15:55) Aspirin (Aspirin) (08/06/17 16:45) Nitroglycerin 2% Oint (Nitroglycerin 2% (08/06/17 17:00) Heparin-D5w 25,000 U/250 Ml (Heparin-D5w (08/06/17 17:00) Act Partial Throm Time (Ptt) (08/06/17 16:53) Prothrombin Time / Inr (Pt) (08/06/17 16:53) Cbc No Diff, Includes Plts (08/06/17 16:53) Cbc No Diff, Includes Plts (08/09/17 06:00) Act Partial Throm Time (Ptt) (08/06/17 23:53) Occult Blood (Hemoccult) Stool (08/06/17 16:53) Admit Order (Ed Use Only) (08/06/17 17:05) Labs Laboratory Tests Test 08/06/17 15:55 08/06/17 16:13 White Blood Count 4.4 TH/MM3 Red Blood Count 5.24 MIL/MM3 Hemoglobin 16.2 GM/DL Hematocrit 49.8 % Mean Corpuscular Volume 95.0 FL Mean Corpuscular Hemoglobin 30.8 PG Mean Corpuscular Hemoglobin Concent 32.4 % Red Cell Distribution Width 14.7 % Platelet Count 164 TH/MM3 Mean Platelet Volume 9.2 FL CBC Comment AUTO DIFF Prothrombin Time 12.1 SEC Prothromb Time International Ratio 1.2 RATIO Activated Partial Thromboplast Time 25.0 SEC Blood Urea Nitrogen 24 MG/DL Creatinine 0.72 MG/DL Random Glucose 142 MG/DL Total Protein 6.8 GM/DL Albumin 2.9 GM/DL Calcium Level 8.3 MG/DL Magnesium Level 2.0 MG/DL Alkaline Phosphatase 95 U/L Aspartate Amino Transf (AST/SGOT) 42 U/L Alanine Aminotransferase (ALT/SGPT) 22 U/L Total Bilirubin 0.9 MG/DL Sodium Level 142 MEQ/L Potassium Level 4.5 MEQ/L Chloride Level 100 MEQ/L Carbon Dioxide Level 36.5 MEQ/L Anion Gap 6 MEQ/L Estimat Glomerular Filtration Rate 84 ML/MIN Total Creatine Kinase 121 U/L Creatine Kinase MB 9.5 NG/ML Troponin I 1.17 NG/ML B-Type Natriuretic Peptide 1705 PG/ML Thyroid Stimulating Hormone 3rd Gen 1.370 uIU/ML Urine Color DARK-YELLOW Urine Turbidity CLEAR Urine pH 6.0 Urine Specific [place] 1.028 Urine Protein 300 mg/dL Urine Glucose (UA) NEG mg/dL Urine Ketones NEG mg/dL Urine Occult Blood TRACE Urine Nitrite NEG Urine Bilirubin NEG Urine Urobilinogen 4.0 MG/DL Urine Leukocyte Esterase NEG Urine RBC 2 /hpf Urine WBC 2 /hpf Urine Squamous Epithelial Cells 3 /hpf Urine Hyaline Casts 13 /lpf Urine Mucus FEW /lpf Microscopic Urinalysis Comment CULT NOT INDICATED MDM Medical Decision Making Medical Screen Exam Complete: Yes Emergency Medical Condition: Yes Medical Record Reviewed: Yes Interpretation(s) CBC & BMP Diagram 08/06/17 15:55 Total Protein 6.8, Albumin 2.9 L, Calcium Level 8.3 L, Magnesium Level 2.0, Alkaline Phosphatase 95, Aspartate Amino Transf (AST/SGOT) 42 H, Alanine Aminotransferase (ALT/SGPT) 22, Total Bilirubin 0.9 troponin elevated of 1.17 BNP in the 1700s Last Impressions Chest X-Ray 08/06/17 1438 Signed Impressions: Service Date/Time: Sunday, August 06, 2017 14:44 - CONCLUSION: Nodular density overlying the lateral left chest Tereso Collier MD EKG shows sinus rhythm with no sign of acute ischemia or arrhythmia and attending. Differential Diagnosis CHF exacerbation versus COPD versus sepsis versus cellulitis versus respiratory failure Narrative Course 57-year-old female that presents to the ED for evaluation of shortness of breath. Patient was properly examined and was found to have signs and symptoms consistent appears to be likely CHF exacerbation of COPD. Labs and imaging order. He actually him familiar with this patient as I evaluated her last year. She has similar presentation to last time. She was a poor historian that she appears to be a poor historian now. She appears to be more concerned about her belongings rather than her medical illness. She does appear to be severely hypoxic without oxygen. Breathing treatments were recommended but patient refused. Labs and imaging showed positive troponin, elevated BNP. This time this appears to be more CHF exacerbation but this patient is not a good historian and cannot really get a good history as well as she is noncompliant with admission for further eval. She is also hypoxic without oxygen. He will likely need placement. Patient was started on heparin drip. Case discussed with Dr. Espinoza who evaluated the patient and agrees with plan. Case was discussed with Dr. Drake who agrees to admission. Diagnosis Primary Impression: CHF (congestive heart failure) Qualified Codes: I50.9 - Heart failure, unspecified Additional Impressions: NSTEMI (non-ST elevated myocardial infarction) Hypoxia Admitting Information Admitting Physician Requests: Admit Amanuel Treadwell Aug 06, 2017 15:27
[2017-08-06 16:17] LABS: INTERNATIONAL NORMALIZED RATIO 1.2 RATIO; PROTHROMBIN TIME - PATIENT 12.1 SEC (9.8-11.6)
[2017-08-06 16:18] LABS: HEMATOCRIT 49.8 % (35.0-46.0); HEMOGLOBIN 16.2 GM/DL (11.6-15.3); MEAN CORPUSCULAR HEMOGLOBIN 30.8 PG (27.0-34.0); MEAN CORPUSCULAR HGB CONC 32.4 % (32.0-36.0); MEAN PLATELET VOLUME 9.2 FL (7.0-11.0); PLATELET COUNT 164 TH/MM3 (150-450); RED BLOOD COUNT 5.24 MIL/MM3 (4.00-5.30); RED CELL DISTRIBUTION WIDTH 14.7 % (11.6-17.2); WHITE BLOOD COUNT 4.4 TH/MM3 (4.0-11.0)
[2017-08-06 16:38] LABS: ALBUMIN 2.9 GM/DL (3.4-5.0); ALKALINE PHOSPHATASE 95 U/L (45-117); ALT (GPT) 22 U/L (10-53); AST (GOT) 42 U/L (15-37); BICARBONATE 36.5 MEQ/L (21.0-32.0); BLOOD UREA NITROGEN 24 MG/DL (7-18); CALCIUM 8.3 MG/DL (8.5-10.1); CHLORIDE 100 MEQ/L (98-107); CREATININE 0.72 MG/DL (0.50-1.00); GLOMERULAR FILTRATION RATE 84 ML/MIN (>89); GLUCOSE,RANDOM 142 MG/DL (74-106); SODIUM (NA) 142 MEQ/L (136-145); TOTAL BILIRUBIN ADULT 0.9 MG/DL (0.2-1.0); TOTAL PROTEIN 6.8 GM/DL (6.4-8.2)
[2017-08-06 16:41] LABS: BLOOD, URINE TRACE (NEG); GLUCOSE,URINE NEG (NEG); HYALINE CAST, URINE 13 /lpf (RARE); KETONE, URINE NEG (NEG); MUCUS URINE FEW /lpf (OCC); NITRITE,URINE NEG (NEG); SQUAMOUS EPITHELIAL CELL URINE 3 /hpf (0-5); URINE COLOR DARK-YELLOW (YELLW/STRAW); URINE LEUKOCYTE ESTERASE NEG (NEG)
[2017-08-06 16:42] LABS: TROPONIN I 1.17 NG/ML (0.02-0.05)
[2017-08-06 16:43] LABS: BILIRUBIN, URINE NEG (NEG)
[2017-08-06] MEDS ORDERED: ASPIRIN 325 MG TAB PO ONE (16:45)
[2017-08-06] MEDS ORDERED: FUROSEMIDE 40 MG/4 ML VIAL IV PUSH ONE (16:45)
--- NOTE | 2017-08-06 16:59 | PD ---
Physical Exam Narrative I, Dr. Espinoza, have reviewed the advance practice practitioner's documentation and am in agreement, met with the patient face to face, made the diagnosis, and the medical decision making was done by me. *My assessment and Findings: Patient is a 57 year old female who is brought in for SOB. She is a poor historian and offers very little history. She at first refused treatment, but was eventually convinced to allow us to treat her. Lungs show diffuse wheezing and she is hypoxic on room air. Data Data Last Documented VS Orders Orders Electrocardiogram (08/06/17 14:38) Complete Blood Count With Diff (08/06/17 14:38) Comprehensive Metabolic Panel (08/06/17 14:38) Ckmb (Isoenzyme) Profile (08/06/17 14:38) Troponin I (08/06/17 14:38) B-Type Natriuretic Peptide (08/06/17 14:38) Prothrombin Time / Inr (Pt) (08/06/17 14:38) Act Partial Throm Time (Ptt) (08/06/17 14:38) Urinalysis - C+S If Indicated (08/06/17 14:38) Magnesium (Mg) (08/06/17 14:38) Thyroid Stimulating Hormone (08/06/17 14:38) Chest, Single Ap (08/06/17 14:38) Iv Access Insert/Monitor (08/06/17 14:38) Ecg Monitoring (08/06/17 14:38) Oxygen Administration (08/06/17 14:38) Oximetry (08/06/17 14:38) Albuterol-Ipratropium Neb (Duoneb Neb) (08/06/17 14:45) Furosemide Inj (Lasix Inj) (08/06/17 16:45) CKMB (08/06/17 15:55) CKMB% (08/06/17 15:55) Aspirin (Aspirin) (08/06/17 16:45) Nitroglycerin 2% Oint (Nitroglycerin 2% (08/06/17 17:00) Heparin-D5w 25,000 U/250 Ml (Heparin-D5w (08/06/17 17:00) Act Partial Throm Time (Ptt) (08/06/17 23:53) Admit Order (Ed Use Only) (08/06/17 17:05) Labs Laboratory Tests Test 08/06/17 15:55 08/06/17 16:13 White Blood Count 4.4 TH/MM3 Red Blood Count 5.24 MIL/MM3 Hemoglobin 16.2 GM/DL Hematocrit 49.8 % Mean Corpuscular Volume 95.0 FL Mean Corpuscular Hemoglobin 30.8 PG Mean Corpuscular Hemoglobin Concent 32.4 % Red Cell Distribution Width 14.7 % Platelet Count 164 TH/MM3 Mean Platelet Volume 9.2 FL CBC Comment AUTO DIFF Differential Total Cells Counted 100 Neutrophils % (Manual) 66 % Band Neutrophils % 1 % Lymphocytes % 18 % Monocytes % 11 % Eosinophils % 1 % Basophils % 1 % Neutrophils # (Manual) 3.0 TH/MM3 Metamyelocytes 2 % Differential Comment FINAL DIFF MANUAL Platelet Estimate NORMAL Platelet Morphology Comment ENLARGED Prothrombin Time 12.1 SEC Prothromb Time International Ratio 1.2 RATIO Activated Partial Thromboplast Time 25.0 SEC Blood Urea Nitrogen 24 MG/DL Creatinine 0.72 MG/DL Random Glucose 142 MG/DL Total Protein 6.8 GM/DL Albumin 2.9 GM/DL Calcium Level 8.3 MG/DL Magnesium Level 2.0 MG/DL Alkaline Phosphatase 95 U/L Aspartate Amino Transf (AST/SGOT) 42 U/L Alanine Aminotransferase (ALT/SGPT) 22 U/L Total Bilirubin 0.9 MG/DL Sodium Level 142 MEQ/L Potassium Level 4.5 MEQ/L Chloride Level 100 MEQ/L Carbon Dioxide Level 36.5 MEQ/L Anion Gap 6 MEQ/L Estimat Glomerular Filtration Rate 84 ML/MIN Total Creatine Kinase 121 U/L Creatine Kinase MB 9.5 NG/ML Troponin I 1.17 NG/ML B-Type Natriuretic Peptide 1705 PG/ML Thyroid Stimulating Hormone 3rd Gen 1.370 uIU/ML Urine Color DARK-YELLOW Urine Turbidity CLEAR Urine pH 6.0 Urine Specific [place] 1.028 Urine Protein 300 mg/dL Urine Glucose (UA) NEG mg/dL Urine Ketones NEG mg/dL Urine Occult Blood TRACE Urine Nitrite NEG Urine Bilirubin NEG Urine Urobilinogen 4.0 MG/DL Urine Leukocyte Esterase NEG Urine RBC 2 /hpf Urine WBC 2 /hpf Urine Squamous Epithelial Cells 3 /hpf Urine Hyaline Casts 13 /lpf Urine Mucus FEW /lpf Microscopic Urinalysis Comment CULT NOT INDICATED Urine Opiates Screen NEG Urine Barbiturates Screen NEG Urine Amphetamines Screen NEG Urine Benzodiazepines Screen NEG Urine Cocaine Screen NEG Urine Cannabinoids Screen POS MDM Supervised Visit with JOHN: Yes Narrative Course Troponin found to be elevated. She was started on a Heparin drip and admitted for further management. Diagnosis Primary Impression: NSTEMI (non-ST elevated myocardial infarction) Additional Impression: Acute hypoxemic respiratory failure Admitting Information Admitting Physician Requests: Admit Kenia Espinoza MD Aug 06, 2017 16:59
[2017-08-06] MEDS ORDERED: NITROGLYCERIN 2% OINT 1 GM PACKET TOPICAL ONE (17:00)
[2017-08-06] MEDS: HEPARIN-D5W 25,000 U/250 ML 250 ML IV PRN (17:07)
[2017-08-06 17:20] LABS: BANDS 1 % (0-6); BASOPHILS 1 % (0-2); LYMPHOCYTES 18 % (9-44); METAMYELOCYTES 2 % (0-1); MONOCYTES 11 % (0-8); POLYS (SEG NEUTROPHILS) 66 % (16-70)
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
[2017-08-06] MEDS ORDERED: ONDANSETRON HCL 4 MG/2 ML VIAL IVP PRN (17:45)
[2017-08-06] MEDS ORDERED: NALOXONE HCL 0.4 MG/ML AMP IV PUSH PRN (17:45)
[2017-08-06] MEDS ORDERED: BISACODYL 10 MG SUPP RECTAL PRN (17:45)
[2017-08-06] MEDS ORDERED: LACTULOSE SYRUP 20 GM/30 ML CUP PO PRN (17:45)
[2017-08-06] MEDS ORDERED: SODIUM CHLORIDE 0.9% FLUSH 10 ML FLUSH IV FLUSH PRN (17:45)
[2017-08-06] MEDS ORDERED: ACETAMINOPHEN 325 MG TAB PO PRN (17:45)
[2017-08-06] MEDS ORDERED: SENNOSIDES 8.6 MG TAB PO PRN (17:45)
[2017-08-06] MEDS: FUROSEMIDE 40 MG/4 ML VIAL IV PUSH SCH (18:00)
[2017-08-06] MEDS ORDERED: GLUCAGON 1 MG/ML VIAL OTHER PRN (18:00)
[2017-08-06] MEDS ORDERED: DEXTROSE 50% IN WATER 50 ML VIAL(D50) IV PUSH PRN (18:00)
[2017-08-06] MEDS: methylPREDNISolone SOD SUCC 40 MG/1 ML VIAL IV PUSH SCH (18:44)
[2017-08-06] MEDS ORDERED: IOHEXOL 350 MG/ML 10 ML VIAL (for RAD DIAG) IVCONTRAST ONE (19:10)
--- NOTE | 2017-08-06 19:47 | RADRPT ---
EXAM DATE/TIME: 08/06/2017 19:07 [place] COMPARISON: CHEST SINGLE AP, August 06, 2017, 14:44. MYOCARDIAL PERF PHARM SPECT, GATED W/EF, January 22, 2017, 1 1:23. INDICATIONS : Abnormal chest x-ray. RADIATION DOSE: 5.4 CTDIvol (mGy) MEDICAL HISTORY : Cardiovascular disease. SURGICAL HISTORY : jaw surgery ENCOUNTER: Initial ACUITY: 1 day PAIN SCALE: 0/10 LOCATION: Bilateral chest TECHNIQUE: Volumetric scanning of the chest was performed. Using automated exposure control and adjustment of t he mA and/or kV according to patient size, radiation dose was kept as low as reasonably achievable to obtain optimal diagnostic quality images. DICOM format image data is available electronically for review and comparison. Follow-up recommendations for detected pulmonary nodules are based at a minimum on nodule size and pa tient risk factors according to Fleischner Society Guidelines. FINDINGS: LUNGS: There is minimal increased density at the right middle lobe and left lingula likely related to minima l atelectasis or consolidation. There is interstitial disease seen in the upper lungs bilaterally. PLEURA: There is no pleural thickening or pleural effusion. MEDIASTINUM: The heart and great vessels demonstrate no acute abnormality. There is no mediastinal or hilar lymph adenopathy. AXILLAE: Within normal limits. No lymphadenopathy. SKELETAL: Within normal limits for patient age. MISCELLANEOUS: The visualized upper abdominal organs demonstrate no acute abnormality. The density seen on the chest x-ray is not identified. It may represent something on the patient. CONCLUSION: 1. No lung mass is seen. 2. Interstitial disease in the upper lungs. 3. Minimal atelectasis or consolidation the right middle lobe and left lingula. Tereso Baez MD on August 06, 2017 at 19:41 Board Certified Radiologist. This report was verified electronically.
[2017-08-06] MEDS: RESP: ALBUTEROL 2.5 MG/IPRATROPIUM 0.5 MG NEB (SCH) NEB ×2 (20:00→21:03)
[2017-08-06] MEDS: SODIUM CHLORIDE 0.9% FLUSH 10 ML FLUSH IV FLUSH SCH (20:11)
[2017-08-06] MEDS: DOCUSATE SODIUM 50 MG/SENNA 8.6 MG TAB PO SCH (21:31)
[2017-08-06] MEDS: INSULIN ASPART SUPPLEMENTAL SCALE SQ SCH (21:41)
[2017-08-07] VITALS (28 sets, daily range): BP systolic 100–127; BP diastolic 64–76; PULSE 68–94; RESP 16–18; TEMP 97.5–98.8; O2SAT 93–97
[2017-08-07] MEDS: methylPREDNISolone SOD SUCC 40 MG/1 ML VIAL IV PUSH SCH ×4 (00:23→17:55)
[2017-08-07 00:56] LABS: TROPONIN I 1.74 NG/ML (0.02-0.05)
[2017-08-07 06:22] LABS: AUTOMATED NEUTROPHIL # 2.7 TH/MM3 (1.8-7.7); BASOPHIL % 0.3 % (0.0-2.0); HEMATOCRIT 53.5 % (35.0-46.0); HEMOGLOBIN 16.9 GM/DL (11.6-15.3); LYMPH % 10.3 % (9.0-44.0); LYMPHOCYTE # 0.3 TH/MM3 (1.0-4.8); MEAN CELL VOLUME 96.3 FL (80.0-100.0); MEAN CORPUSCULAR HEMOGLOBIN 30.4 PG (27.0-34.0); MEAN CORPUSCULAR HGB CONC 31.6 % (32.0-36.0); MONO % 2.3 % (0.0-8.0); MONOCYTE # 0.1 TH/MM3 (0-0.9); NEUT % 87.1 % (16.0-70.0); PLATELET COUNT 159 TH/MM3 (150-450); RED BLOOD COUNT 5.56 MIL/MM3 (4.00-5.30); RED CELL DISTRIBUTION WIDTH 14.1 % (11.6-17.2); WHITE BLOOD COUNT 3.1 TH/MM3 (4.0-11.0)
[2017-08-07 06:48] LABS: ALBUMIN 2.6 GM/DL (3.4-5.0); ALT (GPT) 20 U/L (10-53); AST (GOT) 42 U/L (15-37); BICARBONATE 38.7 MEQ/L (21.0-32.0); BLOOD UREA NITROGEN 24 MG/DL (7-18); CALCIUM 8.2 MG/DL (8.5-10.1); CHLORIDE 95 MEQ/L (98-107); CHOLESTEROL 137 MG/DL (120-200); GLOMERULAR FILTRATION RATE 74 ML/MIN (>89); GLUCOSE,RANDOM 142 MG/DL (74-106); SODIUM (NA) 140 MEQ/L (136-145); TRIGLYCERIDES 68 MG/DL (42-150)
[2017-08-07 06:53] LABS: ALKALINE PHOSPHATASE 91 U/L (45-117); CHOLESTEROL/ HDL RATIO 4.17 RATIO; HDL CHOLESTEROL 32.8 MG/DL (40.0-60.0); LDL CHOLESTEROL 91 MG/DL (0-99); TOTAL BILIRUBIN ADULT 0.8 MG/DL (0.2-1.0); TOTAL PROTEIN 6.3 GM/DL (6.4-8.2)
[2017-08-07 06:59] LABS: TROPONIN I 1.51 NG/ML (0.02-0.05)
[2017-08-07] MEDS: RESP: ALBUTEROL 2.5 MG/IPRATROPIUM 0.5 MG NEB (SCH) NEB ×4 (08:00→20:00)
[2017-08-07] MEDS: INSULIN ASPART SUPPLEMENTAL SCALE SQ SCH ×4 (08:00→20:42)
[2017-08-07] MEDS: DOCUSATE SODIUM 50 MG/SENNA 8.6 MG TAB PO SCH ×2 (09:00→20:41)
[2017-08-07] MEDS: FUROSEMIDE 40 MG/4 ML VIAL IV PUSH SCH ×2 (10:19→17:55)
[2017-08-07] MEDS: SODIUM CHLORIDE 0.9% FLUSH 10 ML FLUSH IV FLUSH SCH ×2 (10:20→20:41)
[2017-08-07] MEDS ORDERED: RESP: ALBUTEROL 2.5 MG/IPRATROPIUM 0.5 MG NEB (PRN) NEB (10:30)
[2017-08-07 15:21] LABS: HEMOGLOBIN A1C 7.2 % (4.3-6.0)
--- NOTE | 2017-08-07 17:12 | EKG ---
Date Performed: 08/07/2017 Time Performed: 03:55:00 PTAGE: 57 years EKG: Sinus rhythm Possible left atrial abnormality Severe right axis deviation rSr'(V1) - probable normal variant Poor R wave progression - cannot rule out anteroseptal infarct Lateral T wave changes may be due to myoca rdial ischemia Low QRS voltages in limb leads Since the previous tracing, no significant change noted Abnormal ECG PREVIOUS TRACING : 08/06/2017 21.19 DOCTOR: Jeffry Benítez Interpretating Date/Time 08/07/2017 17:10:35
--- NOTE | 2017-08-07 17:12 | EKG ---
Date Performed: 08/06/2017 Time Performed: 21:19:15 PTAGE: 57 years EKG: Sinus rhythm POSSIBLE RIGHT ATRIAL ENLARGEMENT LEFT ATRIAL ENLARGEMENT PATTERN CONSISTENT WITH PULMONARY DISEASE INCOMPLETE RIGHT BUNDLE BRANCH BLOCK RIGHT VENTRICULAR HYPERTROPHY NONSPECIFIC ST & T-WAVE ABNORMALIT Y Since the previous tracing, no significant change noted ABNORMAL ECG PREVIOUS TRACING : 08/06/2017 16.04 DOCTOR: Jeffry Benítez Interpretating Date/Time 08/07/2017 17:10:52
--- NOTE | 2017-08-07 17:13 | EKG ---
Date Performed: 08/06/2017 Time Performed: 16:04:39 PTAGE: 57 years EKG: Sinus rhythm POSSIBLE RIGHT ATRIAL ENLARGEMENT LEFT ATRIAL ENLARGEMENT PATTERN CONSISTENT WITH PULMONARY DISEASE INCOMPLETE RIGHT BUNDLE BRANCH BLOCK RIGHT VENTRICULAR HYPERTROPHY Since the previous tracing, no sig nificant change noted ABNORMAL ECG PREVIOUS TRACING : 01/19/2017 12.19 DOCTOR: Jeffry Benítez Interpretating Date/Time 08/07/2017 17:11:01
[2017-08-07] MEDS: HEPARIN-D5W 25,000 U/250 ML 250 ML IV PRN (19:29)
--- NOTE | 2017-08-07 19:44 | ECHRPT ---
Indication: HEART FAILURE CONCLUSIONS The left ventricular systolic function is normal with an estimated ejection fraction in the range of 60-65%. There is a flattened septum in diastole consistent with right ventricle volume overload. The right ventricle is severely dilated. Trace mitral valve regurgitation. There is mild tricuspid valve regurgitation. There is estimated mild pulmonary hypertension present (range 40-50 mmHg). BP: 106 / 67 HR: 72 Rhythm: Sinus MEASUREMENTS (Male / Female) Normal Values Technical Quality:Fair 2D ECHO LV Diastolic Diameter PLAX 4.3 cm 4.2 - 5.9 / 3.9 - 5.3 cm LV Systolic Diameter PLAX 3.0 cm IVS Diastolic Thickness 0.7 cm 0.6 - 1.0 / 0.6 - 0.9 cm LVPW Diastolic Thickness 0.7 cm 0.6 - 1.0 / 0.6 - 0.9 cm LV Relative Wall Thickness 0.3 RV Internal Dim ED PLAX 4.4 cm LVOT Diameter 1.6 cm Aortic Root Diameter 3.1 cm LA Systolic Diameter LX 3.5 cm 3.0 - 4.0 / 2.7 - 3.8 cm M-MODE AV Cusp Separation MM 2.0 cm DOPPLER AV Peak Velocity 100.0 cm/s AV Peak Gradient 4.0 mmHg AV Mean Gradient 2.0 mmHg AV Velocity Time Integral 17.4 cm LVOT Peak Velocity 68.4 cm/s LVOT Peak Gradient 1.9 mmHg LVOT Velocity Time Integral 12.2 cm AV Area Cont Eq vti 1.4 cm AV Area Cont Eq pk 1.4 cm Mitral E Point Velocity 35.0 cm/s Mitral A Point Velocity 68.1 cm/s Mitral E to A Ratio 0.5 LV E' Lateral Velocity 5.4 cm/s Mitral E to LV E' Lateral Ratio 6.5 LV E' Septal Velocity 3.5 cm/s Mitral E to LV E' Septal Ratio 10.0 TR Peak Velocity 315.0 cm/s TR Peak Gradient 39.7 mmHg Right Atrial Pressure 20.0 mmHg Pulmonary Artery Systolic Pressu 59.7 mmHg Right Ventricular Systolic Press 59.7 mmHg PV Peak Velocity 54.9 cm/s PV Peak Gradient 1.2 mmHg FINDINGS LEFT VENTRICLE Normal left ventricular size. Wall thickness is normal. The left ventricular systolic function is normal with an estimated ejection fraction in the range of 60-65%. There is a flattened septum in diastole consistent with right ventricle volume overload. RIGHT VENTRICLE The right ventricle is severely dilated. The right ventricular systoilc function is mildly decreased. LEFT ATRIUM The left atrial size is mildly dilated. RIGHT ATRIUM The right atrial size is [id number] dilated. ATRIAL SEPTUM No atrial level shunt is demonstrated by color flow Doppler interrogation. AORTA The aortic root and proximal ascending aorta are normal in size on limited imaging. MITRAL VALVE Structurally normal mitral valve. No mitral valve stenosis. Trace mitral valve regurgitation. AORTIC VALVE Trileaflet aortic valve. No aortic valve stenosis or regurgitation. TRICUSPID VALVE Structurally normal tricuspid valve. There is mild tricuspid valve regurgitation. The estimated pulmonary arterial pressure is 59.7 mmHg. There is estimated mild pulmonary hypertension present (range 40-50 mmHg). PULMONARY VALVE No pulmonary valve regurgitation or stenosis. VESSELS The inferior vena cava is normal in size. PERICARDIUM There is no pericardial effusion. Pasha Champagne DO (Electronically Signed) Final Date:07 August 2017 19:43
--- NOTE | 2017-08-07 20:15 | HHI.PR ---
Subjective Remarks Patient states that she is feeling a little better, breathing a little better. She denies chest pain. Her affect is overall flat and she remains a fairly poor historian. Objective Vitals Vital Signs Date Time Temp Pulse Resp B/P (MAP) Pulse Ox O2 Delivery O2 Flow Rate FiO2 08/07/17 18:00 88 08/07/17 17:00 86 08/07/17 16:00 88 08/07/17 15:00 90 08/07/17 15:00 98.8 92 18 127/74 (91) 95 08/07/17 14:00 90 08/07/17 13:00 82 08/07/17 11:30 97.6 88 18 111/76 (88) 93 08/07/17 11:00 86 08/07/17 10:00 80 08/07/17 09:00 78 08/07/17 08:41 97 Nasal Cannula 4.00 08/07/17 08:00 74 08/07/17 07:30 97.5 78 16 100/66 (77) 95 08/07/17 07:00 86 08/07/17 06:02 72 08/07/17 05:18 71 08/07/17 04:16 79 08/07/17 03:02 97.6 73 18 106/67 (80) 96 08/07/17 03:00 74 08/07/17 02:28 70 08/07/17 01:00 76 08/07/17 00:00 78 08/06/17 23:22 77 08/06/17 23:00 98.2 82 20 122/79 (93) 93 08/06/17 22:29 I/O 08/06/17 08/06/17 08/06/17 08/07/17 08/07/17 08/07/17 07:00 15:00 23:00 07:00 15:00 23:00 Intake Total 460 ml 740 ml Output Total 900 ml Balance 460 ml -160 ml Intake Oral 460 ml 740 ml Output Urine Total 900 ml # Voids 1 # Bowel Movements 2 Result Diagram: 08/07/17 0455 08/07/17 0455 Objective Remarks GENERAL: Well-nourished, flat affect, poor historian SKIN: Warm and dry. HEAD: Normocephalic. EYES: No scleral icterus. No injection or drainage. NECK: Supple, trachea midline. No JVD or lymphadenopathy. CARDIOVASCULAR: Regular rate and rhythm without murmurs, gallops, or rubs. RESPIRATORY: Breath sounds equal bilaterally. No accessory muscle use. GASTROINTESTINAL: Abdomen soft, non-tender, nondistended. EXTREMITIES: No cyanosis, or edema. NEUROLOGICAL: Awake, alert, and oriented x 3. Non-focal. A/P Assessment and Plan 57-year-old female with past medical history significant for COPD, ongoing tobaccoism and congestive heart failure admitted with CHF exacerbation and elevated troponins. NSTEMI Troponin on arrival was 1.1 thousand and elevated to 1.74 overnight Continue on telemetry Continue heparin drip Appreciate cardiology consult Hypoxemia with respiratory distress Secondary to NSTEMI, CHF and COPD exacerbation Maintaining the 90s on supplemental oxygen Systolic and diastolic CHF exacerbation Echocardiogram 01/08 showed EF 50%, 1 x 4 mm echodensity on ventricular surface of the tricuspid leaflet, difficult to rule out a vegetation. - review of the medical record that patient was seen in consultation by Dr. Rivera who offered the patient a MAXWELL but appears patient did not consent for procedure. BNP 1705 COPD exacerbation Ongoing tobaccoism Continue IV Solu-Medrol Anemia DuoNeb as needed Nasal cannula oxygen Recommend smoking cessation AMS/hypoxic encephalopathy Toxicology screen only revealed marijuana Patient uses medical marijuana Hyperglycemia Hemoglobin A1c was 7.2 Accu-Cheks and sliding scale insulin coverage DVT prophylaxis Heparin Felix Holder MD Aug 07, 2017 20:15
[2017-08-08] VITALS (22 sets, daily range): BP systolic 104–123; BP diastolic 62–74; PULSE 73–96; RESP 14–19; TEMP 97.6–98.6; O2SAT 94–99
[2017-08-08] MEDS: methylPREDNISolone SOD SUCC 40 MG/1 ML VIAL IV PUSH SCH ×4 (00:45→18:14)
[2017-08-08] MEDS: INSULIN ASPART SUPPLEMENTAL SCALE SQ SCH ×4 (08:00→21:00)
[2017-08-08] MEDS: RESP: ALBUTEROL 2.5 MG/IPRATROPIUM 0.5 MG NEB (SCH) NEB ×3 (08:00→16:00)
[2017-08-08] MEDS: DOCUSATE SODIUM 50 MG/SENNA 8.6 MG TAB PO SCH ×2 (09:00→21:00)
[2017-08-08] MEDS: FUROSEMIDE 40 MG/4 ML VIAL IV PUSH SCH ×2 (09:00→18:15)
[2017-08-08] MEDS: SODIUM CHLORIDE 0.9% FLUSH 10 ML FLUSH IV FLUSH SCH ×2 (09:00→21:00)
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
--- NOTE | 2017-08-08 12:02 | PD.CARD.PN ---
Subjective Subjective Remarks No events overnight Breathing better today, no chest pain Objective Medications Current Medications Medications (Trade) Dose Ordered Sig/Dianelys Route Start Time Stop Time Status Last Admin Heparin Sodium/ Dextrose 250 ml @ 8 mls/hr TITRATE PRN IV 08/06/17 17:00 08/07/17 19:29 (NS Flush) 2 ml UNSCH PRN IV FLUSH 08/06/17 17:45 (NS Flush) 2 ml BID IV FLUSH 08/06/17 21:00 08/08/17 09:00 (Tylenol) 650 mg Q4H PRN PO 08/06/17 17:45 (Zofran Inj) 4 mg Q6H PRN IVP 08/06/17 17:45 (Narcan Inj) 0.4 mg UNSCH PRN IV PUSH 08/06/17 17:45 (Mahogany-Colace) 1 tab BID PO 08/06/17 21:00 (Milk Of Magnesia Liq) 30 ml Q12H PRN PO 08/06/17 17:45 (Senokot) 17.2 mg Q12H PRN PO 08/06/17 17:45 (Dulcolax Supp) 10 mg DAILY PRN RECTAL 08/06/17 17:45 (Lactulose Liq) 30 ml DAILY PRN PO 08/06/17 17:45 (Lasix Inj) 40 mg BID@,18 IV PUSH 08/06/17 18:00 08/08/17 09:00 (Duoneb Neb) 1 ampule Q4HR WHILE AWAKE NEB NEB 08/06/17 20:00 (SoluMEDROL INJ) 40 mg Q6HR IV PUSH 08/06/17 18:00 08/08/17 05:46 (D50w (Vial) Inj) 50 ml UNSCH PRN IV PUSH 08/06/17 18:00 (Glucagon Inj) 1 mg UNSCH PRN OTHER 08/06/17 18:00 (NovoLOG SUPPLEMENTAL SCALE) 1 ACHS SLIDING SCALE SQ 08/06/17 21:00 08/07/17 17:56 (Duoneb Neb) 1 ampule Q4HR NEB PRN NEB 08/07/17 10:30 Vital Signs / I&O Vital Signs Date Time Temp Pulse Resp B/P (MAP) Pulse Ox O2 Delivery O2 Flow Rate FiO2 08/08/17 11:00 98.0 78 16 107/74 (85) 97 08/08/17 11:00 76 08/08/17 11:00 97 Nasal Cannula 3.00 08/08/17 10:00 75 08/08/17 09:04 96 Nasal Cannula 4.00 08/08/17 09:00 78 08/08/17 08:00 79 08/08/17 08:00 97.9 77 14 106/66 (79) 99 08/08/17 07:00 77 08/08/17 07:00 99 Nasal Cannula 4.00 08/08/17 06:00 78 08/08/17 04:11 97.7 86 15 104/67 (79) 95 08/08/17 04:00 84 08/08/17 04:00 78 08/08/17 03:00 80 08/08/17 02:00 80 08/08/17 01:00 80 08/08/17 00:43 97.6 84 16 105/66 (79) 97 08/08/17 00:00 76 08/08/17 00:00 76 08/07/17 23:00 84 08/07/17 22:00 94 08/07/17 21:00 86 08/07/17 20:32 97.6 83 16 109/64 (79) 97 08/07/17 20:32 89 08/07/17 20:00 95 Nasal Cannula 4.00 08/07/17 20:00 82 08/07/17 19:00 94 08/07/17 18:00 88 08/07/17 17:00 86 08/07/17 16:00 88 08/07/17 15:00 90 08/07/17 15:00 98.8 92 18 127/74 (91) 95 08/07/17 14:00 90 08/07/17 13:00 82 I/O 08/07/17 08/07/17 08/07/17 08/08/17 08/08/17 08/08/17 07:00 15:00 23:00 07:00 15:00 23:00 Intake Total 460 ml 740 ml 819 ml Output Total 900 ml 500 ml Balance 460 ml -160 ml 319 ml Intake Oral 460 ml 740 ml 720 ml IV Total 99 ml Output Urine Total 900 ml 500 ml # Voids 1 # Bowel Movements 2 1 Physical Exam GENERAL: NAD, AAOX3 SKIN: Warm and dry. HEAD: Atraumatic. Normocephalic. EYES: Pupils equal and round. No scleral icterus. No injection or drainage. ENT: No nasal bleeding or discharge. Mucous membranes pink and moist. NECK: Trachea midline. No JVD. CARDIOVASCULAR: Regular rate and rhythm. RESPIRATORY: Decreased breath sounds bilaterally GASTROINTESTINAL: Abdomen soft, non-tender, nondistended. Hepatic and splenic margins not palpable. MUSCULOSKELETAL: Extremities without clubbing, cyanosis, or edema. No obvious deformities. NEUROLOGICAL: Awake and alert. No obvious cranial nerve deficits. Motor grossly within normal limits. Five out of 5 muscle strength in the arms and legs. Normal speech. PSYCHIATRIC: Appropriate mood and affect; insight and judgment normal. Laboratory Laboratory Tests Test 08/08/17 04:48 Activated Partial Thromboplast Time 39.3 SEC Assessment and Plan Problem List: (1) CHF (congestive heart failure) ICD Codes: I50.9 - Heart failure, unspecified Status: Acute (2) NSTEMI (non-ST elevated myocardial infarction) ICD Codes: I21.4 - Non-ST elevation (NSTEMI) myocardial infarction Status: Acute (3) Hypoxia ICD Codes: R09.02 - Hypoxemia Status: Acute (4) Acute hypoxemic respiratory failure ICD Codes: J96.01 - Acute respiratory failure with hypoxia Status: Acute (5) Acute diastolic (congestive) heart failure ICD Codes: I50.31 - Acute diastolic (congestive) heart failure (6) Tobacco dependence ICD Codes: F17.200 - Nicotine dependence, unspecified, uncomplicated (7) COPD (chronic obstructive pulmonary disease) ICD Codes: J44.9 - Chronic obstructive pulmonary disease, unspecified Assessment and Plan 1) Elevated troponin Possible Type 1 vs Type 2, suspect Type 2 due to hypoxemia Offered cardiac catheterization, specifically RHC/LHC due to elevated trop and RV dilatation Refuses cath, so will continue medical management 2) Hypoxemia Possible CHF, but more likely due to elevated pulmonary pressures RV dilated and hypokinetic, same as before, most likely chronic disease Does not want RHC Will suggest pulmonary consultation to help as possible 3) EF normal, RV dilated and hypokinetic No change from baseline 4) Tobacco cessation 5) Con't diuresis 6) Stop heparin drip Problem Qualifiers (1) CHF (congestive heart failure): Qualified Codes: I50.9 - Heart failure, unspecified Champagne,Vincent G DO Aug 08, 2017 12:02
--- NOTE | 2017-08-08 16:43 | HHI.PR ---
Subjective Remarks Patient has no specific complaints today, she denies chest pain. She has been unwilling to undergo a cardiac catheterization to determine whether or not she has coronary artery disease. Objective Vitals Vital Signs Date Time Temp Pulse Resp B/P (MAP) Pulse Ox O2 Delivery O2 Flow Rate FiO2 08/08/17 16:00 85 08/08/17 15:00 98 Nasal Cannula 2.00 08/08/17 15:00 89 08/08/17 15:00 98.6 89 18 105/62 (76) 98 08/08/17 14:00 84 08/08/17 13:00 86 08/08/17 12:00 85 08/08/17 11:00 98.0 78 16 107/74 (85) 97 08/08/17 11:00 76 08/08/17 11:00 97 Nasal Cannula 3.00 08/08/17 10:00 75 08/08/17 09:04 96 Nasal Cannula 4.00 08/08/17 09:00 78 08/08/17 08:00 79 08/08/17 08:00 97.9 77 14 106/66 (79) 99 08/08/17 07:00 77 08/08/17 07:00 99 Nasal Cannula 4.00 08/08/17 06:00 78 08/08/17 04:11 97.7 86 15 104/67 (79) 95 08/08/17 04:00 84 08/08/17 04:00 78 08/08/17 03:00 80 08/08/17 02:00 80 08/08/17 01:00 80 08/08/17 00:43 97.6 84 16 105/66 (79) 97 08/08/17 00:00 76 08/08/17 00:00 76 08/07/17 23:00 84 08/07/17 22:00 94 08/07/17 21:00 86 08/07/17 20:32 97.6 83 16 109/64 (79) 97 08/07/17 20:32 89 08/07/17 20:00 95 Nasal Cannula 4.00 08/07/17 20:00 82 08/07/17 19:00 94 08/07/17 18:00 88 08/07/17 17:00 86 I/O 08/07/17 08/07/17 08/07/17 08/08/17/17/18 4/17/18 07:00 15:00 23:00 07:00 15:00 23:00 Intake Total 460 ml 740 ml 819 ml Output Total 900 ml 500 ml Balance 460 ml -160 ml 319 ml Intake Oral 460 ml 740 ml 720 ml IV Total 99 ml Output Urine Total 900 ml 500 ml # Voids 1 # Bowel Movements 2 1 Result Diagram: 08/07/17 0455 08/07/17 0455 Objective Remarks GENERAL: Well-nourished, flat affect, poor historian SKIN: Warm and dry. HEAD: Normocephalic. EYES: No scleral icterus. No injection or drainage. NECK: Supple, trachea midline. No JVD or lymphadenopathy. CARDIOVASCULAR: Regular rate and rhythm without murmurs, gallops, or rubs. RESPIRATORY: Breath sounds equal bilaterally. No accessory muscle use. GASTROINTESTINAL: Abdomen soft, non-tender, nondistended. EXTREMITIES: No cyanosis, or edema. NEUROLOGICAL: Awake, alert, and oriented x 3. Non-focal. A/P Assessment and Plan 57-year-old female with past medical history significant for COPD, ongoing tobaccoism and congestive heart failure admitted with CHF exacerbation and elevated troponins. NSTEMI Troponin on arrival was 1.1 thousand and elevated to 1.74 Patient has refused two offers for heart catheterization Continue heparin drip Following on telemetry Appreciate cardiology consult Hypoxemia with respiratory distress Secondary to NSTEMI, CHF and COPD exacerbation Continue supportive care for COPD Maintaining the 90s on supplemental oxygen Systolic and diastolic CHF exacerbation Echocardiogram 01/08 showed EF 50%, 1 x 4 mm echodensity on ventricular surface of the tricuspid leaflet, difficult to rule out a vegetation Dr. Rivera offered the patient a MAXWELL in the past, but appears patient did not consent for procedure. BNP 1705, will recheck level AMS/hypoxic encephalopathy Toxicology screen only revealed marijuana Patient uses medical marijuana Hyperglycemia Hemoglobin A1c was 7.2 Accu-Cheks and sliding scale insulin coverage DVT prophylaxis Heparin drip Discharge Planning Patient is still recovering from COPD and CHF elements, but is stable to be transferred out of [facility] Felix Drake MD Aug 08, 2017 16:43
[2017-08-08] MEDS: MAGNESIUM HYDROXIDE SUSP 30 ML CUP PO PRN (21:54)
[2017-08-09] VITALS (9 sets, daily range): BP systolic 99–125; BP diastolic 54–67; PULSE 63–107; RESP 17–21; TEMP 97.4–98.3; O2SAT 90–96
[2017-08-09] MEDS: methylPREDNISolone SOD SUCC 40 MG/1 ML VIAL IV PUSH SCH ×5 (05:35→23:00)
[2017-08-09] MEDS: INSULIN ASPART SUPPLEMENTAL SCALE SQ SCH ×4 (08:00→21:59)
[2017-08-09] MEDS: RESP: ALBUTEROL 2.5 MG/IPRATROPIUM 0.5 MG NEB (SCH) NEB ×3 (08:00→19:48)
[2017-08-09] MEDS: DOCUSATE SODIUM 50 MG/SENNA 8.6 MG TAB PO SCH ×2 (08:44→21:00)
[2017-08-09] MEDS: FUROSEMIDE 40 MG/4 ML VIAL IV PUSH SCH ×2 (08:44→18:00)
[2017-08-09] MEDS: ASPIRIN 81 MG CHEW TAB CHEW SCH (08:44)
[2017-08-09] MEDS: SODIUM CHLORIDE 0.9% FLUSH 10 ML FLUSH IV FLUSH SCH ×2 (08:45→21:58)
--- NOTE | 2017-08-09 15:06 | PD.CARD.PN ---
Subjective Subjective Remarks No events overnight Breathing better today, no chest pain Objective Medications Current Medications Medications (Trade) Dose Ordered Sig/Dianelys Route Start Time Stop Time Status Last Admin (NS Flush) 2 ml UNSCH PRN IV FLUSH 08/06/17 17:45 (NS Flush) 2 ml BID IV FLUSH 08/06/17 21:00 08/09/17 08:45 (Tylenol) 650 mg Q4H PRN PO 08/06/17 17:45 (Zofran Inj) 4 mg Q6H PRN IVP 08/06/17 17:45 (Narcan Inj) 0.4 mg UNSCH PRN IV PUSH 08/06/17 17:45 (Mahogany-Colace) 1 tab BID PO 08/06/17 21:00 08/09/17 08:44 (Milk Of Magnesia Liq) 30 ml Q12H PRN PO 08/06/17 17:45 08/08/17 21:54 (Senokot) 17.2 mg Q12H PRN PO 08/06/17 17:45 (Dulcolax Supp) 10 mg DAILY PRN RECTAL 08/06/17 17:45 (Lactulose Liq) 30 ml DAILY PRN PO 08/06/17 17:45 (Lasix Inj) 40 mg BID@,18 IV PUSH 08/06/17 18:00 08/09/17 08:44 (Duoneb Neb) 1 ampule Q4HR WHILE AWAKE NEB NEB 08/06/17 20:00 (SoluMEDROL INJ) 40 mg Q6HR IV PUSH 08/06/17 18:00 08/09/17 12:40 (D50w (Vial) Inj) 50 ml UNSCH PRN IV PUSH 08/06/17 18:00 (Glucagon Inj) 1 mg UNSCH PRN OTHER 08/06/17 18:00 (NovoLOG SUPPLEMENTAL SCALE) 1 ACHS SLIDING SCALE SQ 08/06/17 21:00 08/09/17 12:00 (Duoneb Neb) 1 ampule Q4HR NEB PRN NEB 08/07/17 10:30 (Aspirin Chew) 81 mg DAILY CHEW 08/09/17 09:00 08/09/17 08:44 Vital Signs / I&O Vital Signs Date Time Temp Pulse Resp B/P (MAP) Pulse Ox O2 Delivery O2 Flow Rate FiO2 08/09/17 12:00 97.8 107 17 125/60 (81) 90 08/09/17 08:16 96 Nasal Cannula 2.00 08/09/17 08:00 97.7 63 18 99/57 (71) 96 08/09/17 08:00 81 08/09/17 06:39 97.4 76 21 112/62 (79) 91 08/09/17 01:09 Nasal Cannula 2.00 08/09/17 00:00 98 08/09/17 00:00 97.7 89 18 119/67 (84) 93 08/08/17 20:00 96 08/08/17 20:00 Nasal Cannula 2.00 08/08/17 20:00 98.0 81 19 123/65 (84) 94 08/08/17 17:00 84 08/08/17 16:00 85 I/O 08/08/17 08/08/17 08/08/17 08/09/17 08/09/17 08/09/17 07:00 15:00 23:00 07:00 15:00 23:00 Intake Total 819 ml 840 ml Output Total 500 ml 1300 ml Balance 319 ml -460 ml Intake Oral 720 ml 840 ml IV Total 99 ml Output Urine Total 500 ml 1300 ml # Voids 2 # Bowel Movements 1 1 Physical Exam GENERAL: NAD, AAOX3 SKIN: Warm and dry. HEAD: Atraumatic. Normocephalic. EYES: Pupils equal and round. No scleral icterus. No injection or drainage. ENT: No nasal bleeding or discharge. Mucous membranes pink and moist. NECK: Trachea midline. No JVD. CARDIOVASCULAR: Regular rate and rhythm. RESPIRATORY: Decreased breath sounds bilaterally GASTROINTESTINAL: Abdomen soft, non-tender, nondistended. Hepatic and splenic margins not palpable. MUSCULOSKELETAL: Extremities without clubbing, cyanosis, or edema. No obvious deformities. NEUROLOGICAL: Awake and alert. No obvious cranial nerve deficits. Motor grossly within normal limits. Five out of 5 muscle strength in the arms and legs. Normal speech. PSYCHIATRIC: Appropriate mood and affect; insight and judgment normal. Laboratory Laboratory Tests Test 08/09/17 04:05 Activated Partial Thromboplast Time 25.7 SEC Assessment and Plan Problem List: (1) CHF (congestive heart failure) ICD Codes: I50.9 - Heart failure, unspecified Status: Acute (2) NSTEMI (non-ST elevated myocardial infarction) ICD Codes: I21.4 - Non-ST elevation (NSTEMI) myocardial infarction Status: Acute (3) Hypoxia ICD Codes: R09.02 - Hypoxemia Status: Acute (4) Acute hypoxemic respiratory failure ICD Codes: J96.01 - Acute respiratory failure with hypoxia Status: Acute (5) Acute diastolic (congestive) heart failure ICD Codes: I50.31 - Acute diastolic (congestive) heart failure (6) Tobacco dependence ICD Codes: F17.200 - Nicotine dependence, unspecified, uncomplicated (7) COPD (chronic obstructive pulmonary disease) ICD Codes: J44.9 - Chronic obstructive pulmonary disease, unspecified Assessment and Plan 1) Elevated troponin Possible Type 1 vs Type 2, suspect Type 2 due to hypoxemia Offered cardiac catheterization, specifically RHC/LHC due to elevated trop and RV dilatation Discussed once again, still does not want cath, so will continue medical management 2) Hypoxemia Possible CHF, but more likely due to elevated pulmonary pressures RV dilated and hypokinetic, same as before, most likely chronic disease Does not want RHC Will suggest pulmonary consultation to help as possible, awaiting consultation 3) EF normal, RV dilated and hypokinetic No change from baseline 4) Tobacco cessation 5) Con't diuresis 6) Stop heparin drip Problem Qualifiers (1) CHF (congestive heart failure): Qualified Codes: I50.9 - Heart failure, unspecified Pasha Champagne DO Aug 09, 2017 15:06
--- NOTE | 2017-08-09 17:28 | MB ---
cc: Sanchez Bradford MD DATE: 08/09/2017 REASON FOR CONSULTATION: COPD, pulmonary hypertension. HISTORY OF PRESENT ILLNESS: Mrs. Cohen is a 57-year-old female with a known history of COPD, admitted with severe hypoxemia improved with oxygen therapy. The patient's echocardiogram reveals evidence of a dilated, right ventricle and pulmonary hypertension. There was a question of a vegetation in the right atrium in the past and the patient is followed for same by Cardiology. The patient is on oxygen therapy at present, has shortness of breath. She does not complain of significant shortness of breath at rest, only with exertion. No cough, no expectoration. No fever, no chills, no hemoptysis. PAST MEDICAL HISTORY: COPD, diastolic congestive heart failure, TIA, cellulitis lower extremities. PAST SURGICAL HISTORY: and jaw surgery. SOCIAL HISTORY: Long heavy smoking history, continues to smoke. Drinks alcohol on rare occasion. Smokes marijuana; however, denies history of IV drug use. The patient is homeless. FAMILY HISTORY: Noncontributory. MEDICATIONS: Include: 1. Aspirin. 2. Albuterol. 3. Ipratropium nebulizers. 4. Solu-Medrol. ALLERGIES: NONE KNOWN TO PATIENT. REVIEW OF SYSTEMS: A 12-point review of systems as per HPI and Past History, otherwise negative. PHYSICAL EXAMINATION: GENERAL: The patient is alert. VITAL SIGNS: Temperature 98, pulse 90, respirations 18, blood pressure 120/60, oxygen saturation 92% on 2 liters oxygen per nasal cannula. HEENT: Exam unremarkable. Eyes without icterus. NECK: Without adenopathy, thyroid enlargement. Central trachea. CHEST: Few scattered rhonchi at bases. CARDIAC: PMI not appreciated. S1, S2 audible. A 2/6 ejection systolic murmur at left sternal border. ABDOMEN: Lax. Audible bowel sounds. SKIN: Normal. EXTREMITIES: No clubbing, 1+ edema. LABORATORY DATA: White count 3.1, hemoglobin 16, hematocrit 53, platelets 159,000. Sodium 140, potassium 4.0, BUN 24, creatinine 0.8. IMAGING STUDIES: CT scan of the chest with minimal atelectatic change of the right middle lobe and lingula. No mass lesions identified. Chest x-ray on 08/06/2017 with question nodular density. However, CT scan is reported as above. Arterial blood gas: PH 7.035, PCO2 72, pO2 77. IMPRESSION: 1. Hypoxic and hypercapnic respiratory failure. 2. History of chronic obstructive pulmonary disease. 3. Diastolic heart failure. 4. Pulmonary hypertension. 5. Tobacco abuse. PLAN: The patient is on bronchodilator therapy at present for underlying chronic obstructive pulmonary disease. Her pulmonary hypertension needs further evaluation; however, the patient had declined cardiac catheterization or at least a right heart catheterization. Would continue her bronchodilator therapy, obtain pulmonary function studies to assess severity of chronic obstructive pulmonary disease. Will obtain a CT angiogram as well to assess the possibility of pulmonary embolization on long-term basis to account for the elevated pulmonary artery pressure and dilated right ventricle. I do thank you for asking me to partake in Mrs. Cohen's care. Sanchez Bradford MD WWW/HAWA , 04:51 PM , 05:27 PM
--- NOTE | 2017-08-09 19:06 | HHI.PR ---
Subjective Remarks The patient was seen earlier today. She is at the margin of the bed. Says she feels a little bit improved. Still with shortness of breath. No nausea vomiting no diarrhea or constipation. Cardiology recommends pulmonology consult Objective Vitals Vital Signs Date Time Temp Pulse Resp B/P (MAP) Pulse Ox O2 Delivery O2 Flow Rate FiO2 08/09/17 16:00 97.5 84 19 119/64 (82) 93 08/09/17 12:00 97.8 107 17 125/60 (81) 90 08/09/17 08:16 96 Nasal Cannula 2.00 08/09/17 08:00 97.7 63 18 99/57 (71) 96 08/09/17 08:00 81 08/09/17 06:39 97.4 76 21 112/62 (79) 91 08/09/17 01:09 Nasal Cannula 2.00 08/09/17 00:00 98 08/09/17 00:00 97.7 89 18 119/67 (84) 93 08/08/17 20:00 96 08/08/17 20:00 Nasal Cannula 2.00 08/08/17 20:00 98.0 81 19 123/65 (84) 94 I/O 08/08/17 08/08/17 08/08/17 08/09/17 08/09/17 08/09/17 07:00 15:00 23:00 07:00 15:00 23:00 Intake Total 819 ml 840 ml Output Total 500 ml 1300 ml Balance 319 ml -460 ml Intake Oral 720 ml 840 ml IV Total 99 ml Output Urine Total 500 ml 1300 ml # Voids 2 # Bowel Movements 1 1 Result Diagram: 08/07/17 0455 08/07/17 0455 Imaging Last Impressions Chest X-Ray 08/06/17 1438 Signed Impressions: Service Date/Time: Sunday, August 06, 2017 14:44 - CONCLUSION: Nodular density overlying the lateral left chest Tereso Collier MD Chest CT 08/06/17 0000 Signed Impressions: Service Date/Time: Sunday, August 06, 2017 19:07 - CONCLUSION: 1. No lung mass is seen. 2. Interstitial disease in the upper lungs. 3. Minimal atelectasis or consolidation the right middle lobe and left lingula. Tereso Baez MD Objective Remarks GENERAL: Well-nourished, flat affect, poor historian SKIN: Warm and dry. HEAD: Normocephalic. EYES: No scleral icterus. No injection or drainage. NECK: Supple, trachea midline. No JVD or lymphadenopathy. CARDIOVASCULAR: Regular rate and rhythm without murmurs, gallops, or rubs. RESPIRATORY: Breath sounds equal bilaterally. No accessory muscle use. GASTROINTESTINAL: Abdomen soft, non-tender, nondistended. EXTREMITIES: No cyanosis, or edema. NEUROLOGICAL: Awake, alert, and oriented x 3. Non-focal. Plan A/P Assessment and Plan 57-year-old female with past medical history significant for COPD, ongoing tobaccoism and congestive heart failure admitted with CHF exacerbation and elevated troponins. NSTEMI Troponin on arrival was 1.1 thousand and elevated to 1.74 Patient has refused two offers for heart catheterization Continue heparin drip Following on telemetry Appreciate cardiology consult Hypoxemia with respiratory distress Secondary to NSTEMI, CHF and COPD exacerbation Continue supportive care for COPD Maintaining the 90s on supplemental oxygen Systolic and diastolic CHF exacerbation Echocardiogram 01/08 showed EF 50%, 1 x 4 mm echodensity on ventricular surface of the tricuspid leaflet, difficult to rule out a vegetation Dr. Rivera offered the patient a MAXWELL in the past, but appears patient did not consent for procedure. BNP 1705, will recheck level AMS/hypoxic encephalopathy Toxicology screen only revealed marijuana Patient uses medical marijuana Hyperglycemia Hemoglobin A1c was 7.2 Accu-Cheks and sliding scale insulin coverage DVT prophylaxis Heparin drip Discharge Planning Patient is still recovering from COPD and CHF . Patient was refusing any intervention. Cardiology recommended pulmonology consult. Ivy Castillo MD Aug 09, 2017 19:06
[2017-08-10] VITALS (12 sets, daily range): BP systolic 93–122; BP diastolic 53–69; PULSE 70–91; RESP 17–18; TEMP 97.3–98.5; O2SAT 90–96
[2017-08-10] MEDS: methylPREDNISolone SOD SUCC 40 MG/1 ML VIAL IV PUSH SCH ×4 (05:18→22:53)
[2017-08-10] MEDS: INSULIN ASPART SUPPLEMENTAL SCALE SQ SCH ×4 (08:00→21:33)
[2017-08-10] MEDS: ASPIRIN 81 MG CHEW TAB CHEW SCH (09:12)
[2017-08-10] MEDS: FUROSEMIDE 40 MG/4 ML VIAL IV PUSH SCH ×2 (09:12→16:44)
[2017-08-10] MEDS: SODIUM CHLORIDE 0.9% FLUSH 10 ML FLUSH IV FLUSH SCH ×2 (09:12→21:33)
[2017-08-10] MEDS: DOCUSATE SODIUM 50 MG/SENNA 8.6 MG TAB PO SCH ×2 (09:13→21:00)
--- NOTE | 2017-08-10 11:25 | HHI.PR ---
Subjective Remarks In nad. Eating With sob on O2 No chest pain at this time. Refusing work up Objective Vitals Vital Signs Date Time Temp Pulse Resp B/P (MAP) Pulse Ox O2 Delivery O2 Flow Rate FiO2 08/10/17 10:54 91 Nasal Cannula 2.00 08/10/17 08:27 91 Nasal Cannula 2.50 08/10/17 08:06 97.8 77 18 122/69 (86) 91 08/10/17 08:00 75 08/10/17 04:00 97.3 79 17 93/53 (66) 94 08/10/17 04:00 70 08/10/17 03:59 Nasal Cannula 2.00 08/10/17 00:00 97.8 75 17 114/60 (78) 94 08/10/17 00:00 85 08/10/17 00:00 Nasal Cannula 2.00 08/09/17 21:49 98.3 66 115/54 (74) 94 08/09/17 20:00 Nasal Cannula 2.00 08/09/17 20:00 76 08/09/17 19:49 93 Nasal Cannula 2.00 08/09/17 16:00 97.5 84 19 119/64 (82) 93 08/09/17 16:00 76 08/09/17 12:00 95 08/09/17 12:00 97.8 107 17 125/60 (81) 90 I/O 08/09/17 08/09/17 08/09/17 08/10/17 08/10/17 08/10/17 06:59 14:59 22:59 06:59 14:59 22:59 Intake Total 960 ml 240 ml Balance 960 ml 240 ml Intake Oral 960 ml 240 ml # Voids 2 4 3 # Bowel Movements 1 3 2 Result Diagram: 08/07/17 0455 08/07/17 0455 Objective Remarks GENERAL: Well-nourished, flat affect, poor historian SKIN: Warm and dry. HEAD: Normocephalic. EYES: No scleral icterus. No injection or drainage. NECK: Supple, trachea midline. No JVD or lymphadenopathy. CARDIOVASCULAR: Regular rate and rhythm without murmurs, gallops, or rubs. RESPIRATORY: Breath sounds equal bilaterally. No accessory muscle use. GASTROINTESTINAL: Abdomen soft, non-tender, nondistended. EXTREMITIES: No cyanosis, or edema. NEUROLOGICAL: Awake, alert, and oriented x 3. Non-focal. A/P Assessment and Plan 57-year-old female with past medical history significant for COPD, ongoing tobaccoism and congestive heart failure admitted with CHF exacerbation and elevated troponins. NSTEMI Troponin on arrival was 1.1 thousand and elevated to 1.74 Patient has refused two offers for heart catheterization Continue heparin drip Following on telemetry Appreciate cardiology consult Hypoxemia with respiratory distress Secondary to NSTEMI, CHF and COPD exacerbation Continue supportive care for COPD Maintaining the 90s on supplemental oxygen Systolic and diastolic CHF exacerbation Echocardiogram 01/08 showed EF 50%, 1 x 4 mm echodensity on ventricular surface of the tricuspid leaflet, difficult to rule out a vegetation Dr. Rivera offered the patient a MAXWELL in the past, but appears patient did not consent for procedure. BNP 1705, will recheck level AMS/hypoxic encephalopathy Toxicology screen only revealed marijuana Patient uses medical marijuana Hyperglycemia Hemoglobin A1c was 7.2 Accu-Cheks and sliding scale insulin coverage DVT prophylaxis Heparin drip Discharge Planning Patient is still recovering from COPD and CHF . Patient was refusing any intervention. Cardiology recommended pulmonology consult. Needs O2 at DC . CM ff Discussed with the pt, nurse, Ivy Israel MD Aug 10, 2017 11:25
[2017-08-10] MEDS: MAGNESIUM HYDROXIDE SUSP 30 ML CUP PO PRN (12:30)
[2017-08-10] MEDS: RESP: ALBUTEROL 2.5 MG/IPRATROPIUM 0.5 MG NEB (SCH) NEB ×2 (15:28→19:36)
--- NOTE | 2017-08-10 16:56 | HHI.PR ---
Subjective Remarks ALERT NO SOB AT REST Objective Vital Signs Date Time Temp Pulse Resp B/P (MAP) Pulse Ox O2 Delivery O2 Flow Rate FiO2 08/10/17 15:28 93 Nasal Cannula 2.50 08/10/17 15:27 93 Nasal Cannula 2.00 08/10/17 12:27 91 Nasal Cannula 2.00 08/10/17 12:17 2.50 08/10/17 12:06 97.8 84 18 107/63 (78) 90 08/10/17 10:54 91 Nasal Cannula 2.00 08/10/17 08:27 91 Nasal Cannula 2.50 08/10/17 08:06 97.8 77 18 122/69 (86) 91 08/10/17 08:00 75 08/10/17 04:00 97.3 79 17 93/53 (66) 94 08/10/17 04:00 70 08/10/17 03:59 Nasal Cannula 2.00 08/10/17 00:00 97.8 75 17 114/60 (78) 94 08/10/17 00:00 85 08/10/17 00:00 Nasal Cannula 2.00 08/09/17 21:49 98.3 66 115/54 (74) 94 08/09/17 20:00 Nasal Cannula 2.00 08/09/17 20:00 76 08/09/17 19:49 93 Nasal Cannula 2.00 I/O 08/09/17 08/09/17 08/09/17 08/10/17 08/10/17 08/10/17 07:00 15:00 23:00 07:00 15:00 23:00 Intake Total 960 ml 240 ml Balance 960 ml 240 ml Intake Oral 960 ml 240 ml # Voids 2 4 3 # Bowel Movements 1 3 2 Result Diagram: 08/07/17 0455 08/07/17 0455 Objective Remarks GENERAL: SKIN: Warm and dry. HEAD: Atraumatic. Normocephalic. EYES: Pupils equal and round. No scleral icterus. No injection or drainage. ENT: No nasal bleeding or discharge. Mucous membranes pink and moist. NECK: Trachea midline. No JVD. CARDIOVASCULAR: Regular rate and rhythm. RESPIRATORY: No accessory muscle use. Clear to auscultation. Breath sounds equal bilaterally. GASTROINTESTINAL: Abdomen soft, non-tender, nondistended. Hepatic and splenic margins not palpable. MUSCULOSKELETAL: Extremities without clubbing, cyanosis, or edema. No obvious deformities. NEUROLOGICAL: Awake and alert. No obvious cranial nerve deficits. Motor grossly within normal limits. Five out of 5 muscle strength in the arms and legs. Normal speech. PSYCHIATRIC: Appropriate mood and affect; insight and judgment normal. Assessment and Plan Assessment and Plan IMPRESSION COPD PULM HTN DIASTOLIC HEART FAILURE HYPOXIC, HYPERCAPNIC RESPIRATORY FAILURE PLAN O2 NEEDED BRONCHODILATOR THERAPY. CHECK PFT Sanchez Bradford MD Aug 10, 2017 16:56
--- NOTE | 2017-08-10 18:40 | PD.CARD.PN ---
Subjective Subjective Remarks Patient was seen earlier today, late entry note No events overnight Breathing better today, no chest pain Off oxygen Objective Medications Current Medications Medications (Trade) Dose Ordered Sig/Dianelys Route Start Time Stop Time Status Last Admin (NS Flush) 2 ml UNSCH PRN IV FLUSH 08/06/17 17:45 (NS Flush) 2 ml BID IV FLUSH 08/06/17 21:00 08/10/17 09:12 (Tylenol) 650 mg Q4H PRN PO 08/06/17 17:45 (Zofran Inj) 4 mg Q6H PRN IVP 08/06/17 17:45 (Narcan Inj) 0.4 mg UNSCH PRN IV PUSH 08/06/17 17:45 (Mahogany-Colace) 1 tab BID PO 08/06/17 21:00 08/10/17 09:13 (Milk Of Magnesia Liq) 30 ml Q12H PRN PO 08/06/17 17:45 08/10/17 12:30 (Senokot) 17.2 mg Q12H PRN PO 08/06/17 17:45 (Dulcolax Supp) 10 mg DAILY PRN RECTAL 08/06/17 17:45 (Lactulose Liq) 30 ml DAILY PRN PO 08/06/17 17:45 (Lasix Inj) 40 mg BID@,18 IV PUSH 08/06/17 18:00 08/10/17 16:44 (Duoneb Neb) 1 ampule Q4HR WHILE AWAKE NEB NEB 08/06/17 20:00 (SoluMEDROL INJ) 40 mg Q6HR IV PUSH 08/06/17 18:00 08/10/17 16:43 (D50w (Vial) Inj) 50 ml UNSCH PRN IV PUSH 08/06/17 18:00 (Glucagon Inj) 1 mg UNSCH PRN OTHER 08/06/17 18:00 (NovoLOG SUPPLEMENTAL SCALE) 1 ACHS SLIDING SCALE SQ 08/06/17 21:00 08/10/17 16:44 (Duoneb Neb) 1 ampule Q4HR NEB PRN NEB 08/07/17 10:30 (Aspirin Chew) 81 mg DAILY CHEW 08/09/17 09:00 08/10/17 09:12 Vital Signs / I&O Vital Signs Date Time Temp Pulse Resp B/P (MAP) Pulse Ox O2 Delivery O2 Flow Rate FiO2 08/10/17 16:06 98.5 82 18 106/68 (81) 95 08/10/17 15:28 93 Nasal Cannula 2.50 08/10/17 15:27 93 Nasal Cannula 2.00 08/10/17 12:27 91 Nasal Cannula 2.00 08/10/17 12:17 2.50 08/10/17 12:06 97.8 84 18 107/63 (78) 90 08/10/17 10:54 91 Nasal Cannula 2.00 08/10/17 08:27 91 Nasal Cannula 2.50 08/10/17 08:06 97.8 77 18 122/69 (86) 91 08/10/17 08:00 75 08/10/17 04:00 97.3 79 17 93/53 (66) 94 08/10/17 04:00 70 08/10/17 03:59 Nasal Cannula 2.00 08/10/17 00:00 97.8 75 17 114/60 (78) 94 08/10/17 00:00 85 08/10/17 00:00 Nasal Cannula 2.00 08/09/17 21:49 98.3 66 115/54 (74) 94 08/09/17 20:00 Nasal Cannula 2.00 08/09/17 20:00 76 08/09/17 19:49 93 Nasal Cannula 2.00 I/O 08/09/17 08/09/17 08/09/17 08/10/17 08/10/17 08/10/17 07:00 15:00 23:00 07:00 15:00 23:00 Intake Total 960 ml 240 ml Balance 960 ml 240 ml Intake Oral 960 ml 240 ml # Voids 2 4 3 # Bowel Movements 1 3 2 Physical Exam GENERAL: NAD, AAOX3 SKIN: Warm and dry. HEAD: Atraumatic. Normocephalic. EYES: Pupils equal and round. No scleral icterus. No injection or drainage. ENT: No nasal bleeding or discharge. Mucous membranes pink and moist. NECK: Trachea midline. No JVD. CARDIOVASCULAR: Regular rate and rhythm. RESPIRATORY: Decreased breath sounds bilaterally GASTROINTESTINAL: Abdomen soft, non-tender, nondistended. Hepatic and splenic margins not palpable. MUSCULOSKELETAL: Extremities without clubbing, cyanosis, or edema. No obvious deformities. NEUROLOGICAL: Awake and alert. No obvious cranial nerve deficits. Motor grossly within normal limits. Five out of 5 muscle strength in the arms and legs. Normal speech. PSYCHIATRIC: Appropriate mood and affect; insight and judgment normal. Laboratory Laboratory Tests Test 08/10/17 04:45 Activated Partial Thromboplast Time 25.2 SEC Assessment and Plan Problem List: (1) CHF (congestive heart failure) ICD Codes: I50.9 - Heart failure, unspecified Status: Acute (2) NSTEMI (non-ST elevated myocardial infarction) ICD Codes: I21.4 - Non-ST elevation (NSTEMI) myocardial infarction Status: Acute (3) Hypoxia ICD Codes: R09.02 - Hypoxemia Status: Acute (4) Acute hypoxemic respiratory failure ICD Codes: J96.01 - Acute respiratory failure with hypoxia Status: Acute (5) Acute diastolic (congestive) heart failure ICD Codes: I50.31 - Acute diastolic (congestive) heart failure (6) Tobacco dependence ICD Codes: F17.200 - Nicotine dependence, unspecified, uncomplicated (7) COPD (chronic obstructive pulmonary disease) ICD Codes: J44.9 - Chronic obstructive pulmonary disease, unspecified Assessment and Plan 1) Elevated troponin Possible Type 1 vs Type 2, suspect Type 2 due to hypoxemia Offered cardiac catheterization, specifically RHC/LHC due to elevated trop and RV dilatation Discussed once again, still does not want cath, so will continue medical management 2) Hypoxemia Possible CHF, but more likely due to elevated pulmonary pressures RV dilated and hypokinetic, same as before, most likely chronic disease Does not want RHC Pulmonary following 3) EF normal, RV dilated and hypokinetic No change from baseline 4) Tobacco cessation 5) Con't diuresis 6) No further cardiovascular work up at this time Problem Qualifiers (1) CHF (congestive heart failure): Qualified Codes: I50.9 - Heart failure, unspecified Pasha Champagne DO Aug 10, 2017 18:40
[2017-08-11] VITALS (12 sets, daily range): BP systolic 115–135; BP diastolic 57–80; PULSE 69–86; RESP 18–20; TEMP 97.3–98.3; O2SAT 95–99
[2017-08-11] MEDS: methylPREDNISolone SOD SUCC 40 MG/1 ML VIAL IV PUSH SCH ×3 (05:14→18:02)
[2017-08-11] MEDS: DOCUSATE SODIUM 50 MG/SENNA 8.6 MG TAB PO SCH ×2 (08:31→20:18)
[2017-08-11] MEDS: ASPIRIN 81 MG CHEW TAB CHEW SCH (08:32)
[2017-08-11] MEDS: FUROSEMIDE 40 MG/4 ML VIAL IV PUSH SCH ×2 (08:32→18:00)
[2017-08-11] MEDS: SODIUM CHLORIDE 0.9% FLUSH 10 ML FLUSH IV FLUSH SCH ×2 (08:33→20:18)
[2017-08-11] MEDS ORDERED: NALOXONE HCL 0.4 MG/ML AMP IV PUSH PRN (08:45)
--- NOTE | 2017-08-11 08:51 | HHI.PR ---
Subjective Remarks Without CP. The patient is refusing a cardiac workup. She denies any chest pain. She is requiring oxygen. She is desaturating 84 while not on oxygen. She will need oxygen at home however she is homeless. ABG reviewed patient may need BiPAP as needed. She also appears in not acute distress at this time. CO2 might be at her baseline. Objective Vitals Vital Signs Date Time Temp Pulse Resp B/P (MAP) Pulse Ox O2 Delivery O2 Flow Rate FiO2 08/11/17 05:15 98.0 69 18 120/72 (88) 95 08/11/17 04:00 Nasal Cannula 2.00 08/11/17 04:00 72 08/11/17 00:06 98.3 78 18 127/71 (89) 96 08/11/17 00:00 Nasal Cannula 2.00 08/11/17 00:00 72 08/10/17 21:49 98.3 77 18 118/66 (83) 96 08/10/17 20:00 Nasal Cannula 2.00 08/10/17 20:00 78 08/10/17 16:06 98.5 82 18 106/68 (81) 95 08/10/17 16:00 91 08/10/17 15:28 93 Nasal Cannula 2.50 08/10/17 15:27 93 Nasal Cannula 2.00 08/10/17 12:27 91 Nasal Cannula 2.00 08/10/17 12:17 2.50 08/10/17 12:06 97.8 84 18 107/63 (78) 90 08/10/17 12:00 88 08/10/17 10:54 91 Nasal Cannula 2.00 I/O 08/10/17 08/10/17 08/10/17 08/11/17 08/11/17 08/11/17 07:00 15:00 23:00 07:00 15:00 23:00 Intake Total 240 ml 840 ml 480 ml Balance 240 ml 840 ml 480 ml Intake Oral 240 ml 840 ml 480 ml # Voids 3 3 4 # Bowel Movements 2 2 1 Result Diagram: 08/07/17 0455 08/07/17 0455 Imaging Last Impressions Chest X-Ray 08/06/17 1438 Signed Impressions: Service Date/Time: Sunday, August 06, 2017 14:44 - CONCLUSION: Nodular density overlying the lateral left chest Tereso Collier MD Chest CT 08/06/17 0000 Signed Impressions: Service Date/Time: Sunday, August 06, 2017 19:07 - CONCLUSION: 1. No lung mass is seen. 2. Interstitial disease in the upper lungs. 3. Minimal atelectasis or consolidation the right middle lobe and left lingula. Tereso Baez MD Objective Remarks GENERAL: Well-nourished, flat affect, poor historian SKIN: Warm and dry. HEAD: Normocephalic. EYES: No scleral icterus. No injection or drainage. NECK: Supple, trachea midline. No JVD or lymphadenopathy. CARDIOVASCULAR: Regular rate and rhythm without murmurs, gallops, or rubs. RESPIRATORY: Breath sounds equal bilaterally. No accessory muscle use. GASTROINTESTINAL: Abdomen soft, non-tender, nondistended. EXTREMITIES: No cyanosis, or edema. NEUROLOGICAL: Awake, alert, and oriented x 3. Non-focal. A/P Assessment and Plan 57-year-old female with past medical history significant for COPD, ongoing tobaccoism and congestive heart failure admitted with CHF exacerbation and elevated troponins. NSTEMI Troponin on arrival was 1.1 thousand and elevated to 1.74 Patient has refused two offers for heart catheterization Continue heparin drip Following on telemetry Appreciate cardiology consult Hypoxemia with respiratory distress Acute respiratory failure patient is requiring oxygen. Secondary to NSTEMI, CHF and COPD exacerbation Continue supportive care for COPD Maintaining the 90s on supplemental oxygen Systolic and diastolic CHF exacerbation Echocardiogram 01/08 showed EF 50%, 1 x 4 mm echodensity on ventricular surface of the tricuspid leaflet, difficult to rule out a vegetation Dr. Rivera offered the patient a MAXWELL in the past, but appears patient did not consent for procedure. BNP 1705, will recheck level AMS/hypoxic encephalopathy Toxicology screen only revealed marijuana Patient uses medical marijuana Hyperglycemia Hemoglobin A1c was 7.2 Accu-Cheks and sliding scale insulin coverage DVT prophylaxis Heparin drip Discharge Planning Patient is still recovering from COPD and CHF . Patient was refusing any intervention. Cardiology recommended pulmonology consult. Pul ff , needs PFT and Trilogy per pulm. PFT can be done as OP. Patient needs O2 at DC She will need oxygen at home however she is homeless. CM ff ABG reviewed patient may need BiPAP as needed. CO2 might be at her baseline. Discussed with the patient, cardiology Dr. Champagne, Dr. Segovia pulmonology, nurse, and case management. Ivy Castillo MD Aug 11, 2017 08:51
--- NOTE | 2017-08-11 10:27 | HHI.PR ---
Subjective Remarks ALERT NO SOB AT REST Objective Vital Signs Date Time Temp Pulse Resp B/P (MAP) Pulse Ox O2 Delivery O2 Flow Rate FiO2 08/11/17 07:30 97.3 80 18 126/77 (93) 99 08/11/17 05:15 98.0 69 18 120/72 (88) 95 08/11/17 04:00 Nasal Cannula 2.00 08/11/17 04:00 72 08/11/17 00:06 98.3 78 18 127/71 (89) 96 08/11/17 00:00 Nasal Cannula 2.00 08/11/17 00:00 72 08/10/17 21:49 98.3 77 18 118/66 (83) 96 08/10/17 20:00 Nasal Cannula 2.00 08/10/17 20:00 78 08/10/17 16:06 98.5 82 18 106/68 (81) 95 08/10/17 16:00 91 08/10/17 15:28 93 Nasal Cannula 2.50 08/10/17 15:27 93 Nasal Cannula 2.00 08/10/17 12:27 91 Nasal Cannula 2.00 08/10/17 12:17 2.50 08/10/17 12:06 97.8 84 18 107/63 (78) 90 08/10/17 12:00 88 08/10/17 10:54 91 Nasal Cannula 2.00 I/O 08/10/17 08/10/17 08/10/17 08/11/17 08/11/17 08/11/17 07:00 15:00 23:00 07:00 15:00 23:00 Intake Total 240 ml 840 ml 480 ml Balance 240 ml 840 ml 480 ml Intake Oral 240 ml 840 ml 480 ml # Voids 3 3 4 # Bowel Movements 2 2 1 Result Diagram: 08/07/17 0455 08/07/17 0455 Objective Remarks GENERAL: SKIN: Warm and dry. HEAD: Atraumatic. Normocephalic. EYES: Pupils equal and round. No scleral icterus. No injection or drainage. ENT: No nasal bleeding or discharge. Mucous membranes pink and moist. NECK: Trachea midline. No JVD. CARDIOVASCULAR: Regular rate and rhythm. RESPIRATORY: No accessory muscle use. Clear to auscultation. Breath sounds equal bilaterally. GASTROINTESTINAL: Abdomen soft, non-tender, nondistended. Hepatic and splenic margins not palpable. MUSCULOSKELETAL: Extremities without clubbing, cyanosis, or edema. No obvious deformities. NEUROLOGICAL: Awake and alert. No obvious cranial nerve deficits. Motor grossly within normal limits. Five out of 5 muscle strength in the arms and legs. Normal speech. PSYCHIATRIC: Appropriate mood and affect; insight and judgment normal. Assessment and Plan Assessment and Plan IMPRESSION COPD PULM HTN DIASTOLIC HEART FAILURE HYPOXIC, HYPERCAPNIC RESPIRATORY FAILURE PLAN O2 NEEDED BRONCHODILATOR THERAPY. CHECK PFT CHECK ABG WILL NEED TRELOGY AT HOME Sanchez Bradford MD Aug 11, 2017 10:27
[2017-08-11] MEDS: INSULIN ASPART SUPPLEMENTAL SCALE SQ SCH ×4 (13:36→20:20)
--- NOTE | 2017-08-11 13:36 | PD.CARD.PN ---
Subjective Subjective Remarks No events overnight Breathing better today, no chest pain Off oxygen Objective Medications Current Medications Medications (Trade) Dose Ordered Sig/Dianelys Route Start Time Stop Time Status Last Admin (NS Flush) 2 ml UNSCH PRN IV FLUSH 08/06/17 17:45 (NS Flush) 2 ml BID IV FLUSH 08/06/17 21:00 08/11/17 08:33 (Tylenol) 650 mg Q4H PRN PO 08/06/17 17:45 (Zofran Inj) 4 mg Q6H PRN IVP 08/06/17 17:45 (Narcan Inj) 0.4 mg UNSCH PRN IV PUSH 08/06/17 17:45 (Mahogany-Colace) 1 tab BID PO 08/06/17 21:00 08/11/17 08:31 (Milk Of Magnesia Liq) 30 ml Q12H PRN PO 08/06/17 17:45 08/10/17 12:30 (Senokot) 17.2 mg Q12H PRN PO 08/06/17 17:45 (Dulcolax Supp) 10 mg DAILY PRN RECTAL 08/06/17 17:45 (Lactulose Liq) 30 ml DAILY PRN PO 08/06/17 17:45 (Lasix Inj) 40 mg BID@,18 IV PUSH 08/06/17 18:00 08/11/17 08:32 (SoluMEDROL INJ) 40 mg Q6HR IV PUSH 08/06/17 18:00 08/10/17 22:53 (D50w (Vial) Inj) 50 ml UNSCH PRN IV PUSH 08/06/17 18:00 (Glucagon Inj) 1 mg UNSCH PRN OTHER 08/06/17 18:00 (NovoLOG SUPPLEMENTAL SCALE) 1 ACHS SLIDING SCALE SQ 08/06/17 21:00 08/10/17 21:33 (Duoneb Neb) 1 ampule Q4HR NEB PRN NEB 08/07/17 10:30 (Aspirin Chew) 81 mg DAILY CHEW 08/09/17 09:00 08/11/17 08:32 (Narcan Inj) 0.4 mg UNSCH PRN IV PUSH 08/11/17 08:45 Vital Signs / I&O Vital Signs Date Time Temp Pulse Resp B/P (MAP) Pulse Ox O2 Delivery O2 Flow Rate FiO2 08/11/17 08:00 69 08/11/17 07:30 97.3 80 18 126/77 (93) 99 08/11/17 05:15 98.0 69 18 120/72 (88) 95 08/11/17 04:00 Nasal Cannula 2.00 08/11/17 04:00 72 08/11/17 00:06 98.3 78 18 127/71 (89) 96 08/11/17 00:00 Nasal Cannula 2.00 08/11/17 00:00 72 08/10/17 21:49 98.3 77 18 118/66 (83) 96 08/10/17 20:00 Nasal Cannula 2.00 08/10/17 20:00 78 08/10/17 16:06 98.5 82 18 106/68 (81) 95 08/10/17 16:00 91 08/10/17 15:28 93 Nasal Cannula 2.50 08/10/17 15:27 93 Nasal Cannula 2.00 I/O 08/10/17 08/10/17 08/10/17 08/11/17 08/11/17 08/11/17 07:00 15:00 23:00 07:00 15:00 23:00 Intake Total 240 ml 840 ml 480 ml Balance 240 ml 840 ml 480 ml Intake Oral 240 ml 840 ml 480 ml # Voids 3 3 4 # Bowel Movements 2 2 1 Physical Exam GENERAL: NAD, AAOX3 SKIN: Warm and dry. HEAD: Atraumatic. Normocephalic. EYES: Pupils equal and round. No scleral icterus. No injection or drainage. ENT: No nasal bleeding or discharge. Mucous membranes pink and moist. NECK: Trachea midline. No JVD. CARDIOVASCULAR: Regular rate and rhythm. RESPIRATORY: Decreased breath sounds bilaterally GASTROINTESTINAL: Abdomen soft, non-tender, nondistended. Hepatic and splenic margins not palpable. MUSCULOSKELETAL: Extremities without clubbing, cyanosis, or edema. No obvious deformities. NEUROLOGICAL: Awake and alert. No obvious cranial nerve deficits. Motor grossly within normal limits. Five out of 5 muscle strength in the arms and legs. Normal speech. PSYCHIATRIC: Appropriate mood and affect; insight and judgment normal. Laboratory Laboratory Tests Test 08/11/17 03:54 08/11/17 11:50 Activated Partial Thromboplast Time 24.7 SEC Blood Gas Puncture Site RT RADIAL Blood Gas Patient Temperature 98.6 Blood Gas HCO3 51 mmol/L Blood Gas Base Excess 24.5 mmol/L Blood Gas Oxygen Saturation 87 % Arterial Blood pH 7.45 Arterial Blood Partial Pressure CO2 75 mmHg Arterial Blood Partial Pressure O2 58 mmHg Arterial Blood Oxygen Content 21.0 Vol % Arterial Blood Carboxyhemoglobin 1.7 % Arterial Blood Methemoglobin 0.7 % Blood Gas Hemoglobin 17.2 G/DL Blood Gas Inspired Oxygen 21 % Assessment and Plan Problem List: (1) CHF (congestive heart failure) ICD Codes: I50.9 - Heart failure, unspecified Status: Acute (2) NSTEMI (non-ST elevated myocardial infarction) ICD Codes: I21.4 - Non-ST elevation (NSTEMI) myocardial infarction Status: Acute (3) Hypoxia ICD Codes: R09.02 - Hypoxemia Status: Acute (4) Acute hypoxemic respiratory failure ICD Codes: J96.01 - Acute respiratory failure with hypoxia Status: Acute (5) Acute diastolic (congestive) heart failure ICD Codes: I50.31 - Acute diastolic (congestive) heart failure (6) Tobacco dependence ICD Codes: F17.200 - Nicotine dependence, unspecified, uncomplicated (7) COPD (chronic obstructive pulmonary disease) ICD Codes: J44.9 - Chronic obstructive pulmonary disease, unspecified Assessment and Plan 1) Elevated troponin Possible Type 1 vs Type 2, suspect Type 2 due to hypoxemia Offered cardiac catheterization, specifically RHC/LHC due to elevated trop and RV dilatation Discussed once again, still does not want cath, so will continue medical management 2) Hypoxemia Possible CHF, but more likely due to elevated pulmonary pressures RV dilated and hypokinetic, same as before, most likely chronic disease Does not want RHC Pulmonary following 3) EF normal, RV dilated and hypokinetic No change from baseline 4) Tobacco cessation 5) Con't diuresis 6) No further cardiovascular work up at this time Will see PRN, call with questions Problem Qualifiers (1) CHF (congestive heart failure): Qualified Codes: I50.9 - Heart failure, unspecified Pasha Champagne DO Aug 11, 2017 13:36
[2017-08-12] VITALS (9 sets, daily range): BP systolic 116–133; BP diastolic 61–81; PULSE 49–88; RESP 16–20; TEMP 97.4–98.2; O2SAT 87–99
[2017-08-12] MEDS: methylPREDNISolone SOD SUCC 40 MG/1 ML VIAL IV PUSH SCH ×4 (00:08→23:00)
[2017-08-12] MEDS: INSULIN ASPART SUPPLEMENTAL SCALE SQ SCH ×4 (08:00→21:00)
[2017-08-12] MEDS: FUROSEMIDE 40 MG/4 ML VIAL IV PUSH SCH (08:36)
[2017-08-12] MEDS: SODIUM CHLORIDE 0.9% FLUSH 10 ML FLUSH IV FLUSH SCH ×2 (08:36→21:00)
[2017-08-12] MEDS: DOCUSATE SODIUM 50 MG/SENNA 8.6 MG TAB PO SCH ×2 (08:36→21:51)
[2017-08-12] MEDS: ASPIRIN 81 MG CHEW TAB CHEW SCH (08:37)
[2017-08-12 08:51] LABS: HEMOGLOBIN 17.6 GM/DL (11.6-15.3); MEAN CELL VOLUME 94.5 FL (80.0-100.0); MEAN CORPUSCULAR HEMOGLOBIN 30.3 PG (27.0-34.0); MEAN PLATELET VOLUME 8.9 FL (7.0-11.0); PLATELET COUNT 156 TH/MM3 (150-450); RED BLOOD COUNT 5.82 MIL/MM3 (4.00-5.30); RED CELL DISTRIBUTION WIDTH 14.2 % (11.6-17.2); WHITE BLOOD COUNT 6.4 TH/MM3 (4.0-11.0)
--- NOTE | 2017-08-12 13:11 | HHI.PR ---
Subjective Remarks Patient is lying in bed in NAD. Afebrile. Objective Vital Signs Vital Signs Date Time Temp Pulse Resp B/P (MAP) Pulse Ox O2 Delivery O2 Flow Rate FiO2 08/12/17 12:17 92 Nasal Cannula 3.00 08/12/17 12:17 Nasal Cannula 2.00 08/12/17 09:29 Nasal Cannula 2.00 08/12/17 08:00 97.8 58 20 121/76 (91) 98 08/12/17 08:00 59 08/12/17 05:55 97.4 67 18 119/65 (83) 99 08/12/17 04:00 49 08/12/17 00:18 98.2 69 18 121/61 (81) 96 08/12/17 00:00 74 08/11/17 22:20 97.6 70 18 117/57 (77) 97 08/11/17 20:40 Nasal Cannula 2.00 08/11/17 20:00 82 08/11/17 17:02 77 08/11/17 15:58 98.0 78 18 135/80 (98) 98 08/11/17 15:23 96 Nasal Cannula 2.00 I/O 08/11/17 08/11/17 08/11/17 08/12/17 08/12/17 08/12/17 07:00 15:00 23:00 07:00 15:00 23:00 Intake Total 480 ml 960 ml 720 ml Balance 480 ml 960 ml 720 ml Intake Oral 480 ml 960 ml 720 ml # Voids 4 3 5 # Bowel Movements 1 0 Result Diagram: 08/12/17 0802 Other Results Last Impressions Chest X-Ray 08/06/17 1438 Signed Impressions: Service Date/Time: Sunday, August 06, 2017 14:44 - CONCLUSION: Nodular density overlying the lateral left chest Tereso Collier MD Chest CT 08/06/17 0000 Signed Impressions: Service Date/Time: Sunday, August 06, 2017 19:07 - CONCLUSION: 1. No lung mass is seen. 2. Interstitial disease in the upper lungs. 3. Minimal atelectasis or consolidation the right middle lobe and left lingula. Tereso Baez MD Objective Remarks GENERAL: Patient is 57 yo lying in bed in NAD SKIN: Warm and dry. HEAD: Normocephalic. EYES: No scleral icterus. No injection or drainage. NECK: Supple, trachea midline. No JVD or lymphadenopathy. CARDIOVASCULAR: Regular rate and rhythm without murmurs, gallops, or rubs. RESPIRATORY: Breath sounds equal bilaterally. No accessory muscle use. GASTROINTESTINAL: Abdomen soft, non-tender, nondistended. MUSCULOSKELETAL: No cyanosis, or edema. Neuro: Awake and alert A/P Assessment and Plan 1)Resp Insuff 2)COPD 3)Pulmonary HTN 4)CHF- Diastolic 5)NSTEMI PLAN Oxygen PRN keep sats >92% Bronchodilators Taper steroids- decrease solumederol 40mg Q12 Check PFT Patient is refusing cardiac cath, cards is following. Continue Lasix 40mg BID GI/DVT prophylaxis per primary team Continue treatment plan Sonia Grace MD Aug 12, 2017 13:11
--- NOTE | 2017-08-12 15:32 | HHI.PR ---
Subjective Remarks Pt seen and examined. VS reviewed. Reports breathing is improving some. Denies CP, abdominal pain, N/V. Tolerating PO. Ambulating. Objective Vital Signs Date Time Temp Pulse Resp B/P (MAP) Pulse Ox O2 Delivery O2 Flow Rate FiO2 08/12/17 12:17 92 Nasal Cannula 3.00 08/12/17 12:17 Nasal Cannula 2.00 08/12/17 12:00 79 08/12/17 09:29 Nasal Cannula 2.00 08/12/17 08:00 97.8 58 20 121/76 (91) 98 08/12/17 08:00 59 08/12/17 05:55 97.4 67 18 119/65 (83) 99 08/12/17 04:00 49 08/12/17 00:18 98.2 69 18 121/61 (81) 96 08/12/17 00:00 74 08/11/17 22:20 97.6 70 18 117/57 (77) 97 08/11/17 20:40 Nasal Cannula 2.00 08/11/17 20:00 82 08/11/17 17:02 77 08/11/17 15:58 98.0 78 18 135/80 (98) 98 I/O 08/11/17 08/11/17 08/11/17 08/12/17 08/12/17 08/12/17 07:00 15:00 23:00 07:00 15:00 23:00 Intake Total 480 ml 960 ml 720 ml Balance 480 ml 960 ml 720 ml Intake Oral 480 ml 960 ml 720 ml # Voids 4 3 5 # Bowel Movements 1 0 Result Diagram: 08/12/17801 Objective Remarks GENERAL: female sitting on side of bed in NAD. SKIN: Warm and dry. HEENT: AT/NC. Pupils equal and round. MMM. NECK: Supple no tender LAD or JVD. HEART: RRR no m/r/g. LUNGS: Bilateral wheezing throughout. No crackles. ABDOMEN: +BS, soft, NT, ND. EXTREMITIES: No LE edema. 2+ pedal pulses. NEURO: Awake and alert. Nonfocal. PSYCH: Appropriate mood and affect. A/P Assessment and Plan 57-year-old female with past medical history significant for COPD, tobacco abuse , and congestive heart failure admitted with CHF exacerbation and elevated troponins. 1. NSTEMI - Troponin on arrival was 1.11 and peaked 1.74, questionable elevation from demand ischemia given CHF and elevated pulmonary pressures - Cardiology consulted but patient refusing heart cath; no further work-up and has signed off - Heparin gtt discontinued - Continue ASA - Hesitant to add BB given COPD/asthma - Telemetry 2. Hypoxemia - Likely secondary to elevated pulmonary pressures as RV dilated and hypokinetic on echo but patient refusing RHC - Supplemental O2; wean to maintain sats 90-92% - Bronchodilators - Taper steroids and plan to transition to PO tomorrow in preparation for discharge 3. CHF exacerbation - BNP >1000 on admission - Euvolemic - Change Lasix to PO - Monitor potassium 4. DM - Hemoglobin A1c was 7.2 - Accu-Cheks and sliding scale insulin coverage - Plan to D/C on metformin 5. Tobacco abuse - Nicotine patch DVT prophylaxis: Lovenox Discharge Planning Anticipate D/C in next couple days, will need home O2 walk test. CM assisting as patient is uninsured and homeless Mi Esparza MD Aug 12, 2017 15:32
[2017-08-12] MEDS: ENOXAPARIN SODIUM 40 MG/0.4 ML SYRINGE SQ SCH (17:00)
[2017-08-12] MEDS: REMOVE OLD PATCH T-DERMAL SCH (21:00)
[2017-08-13] VITALS (9 sets, daily range): BP systolic 114–139; BP diastolic 69–96; PULSE 52–97; RESP 16–20; TEMP 97.3–97.9; O2SAT 93–97
[2017-08-13 06:57] LABS: BICARBONATE 40.8 MEQ/L (21.0-32.0); CALCIUM 8.6 MG/DL (8.5-10.1); CREATININE 0.71 MG/DL (0.50-1.00)
[2017-08-13] MEDS: INSULIN ASPART SUPPLEMENTAL SCALE SQ SCH ×4 (08:00→22:45)
[2017-08-13] MEDS: DOCUSATE SODIUM 50 MG/SENNA 8.6 MG TAB PO SCH ×2 (08:10→22:45)
[2017-08-13] MEDS: ASPIRIN 81 MG CHEW TAB CHEW SCH (08:10)
[2017-08-13] MEDS: FUROSEMIDE 40 MG TAB PO SCH (08:10)
[2017-08-13] MEDS: SODIUM CHLORIDE 0.9% FLUSH 10 ML FLUSH IV FLUSH SCH ×2 (08:10→22:45)
[2017-08-13] MEDS: NICOTINE 21 MG/24 HR PATCH T-DERMAL SCH (08:10)
--- NOTE | 2017-08-13 10:35 | HHI.PR ---
Subjective Remarks Patient is lying in bed in NAD. Afebrile. On 2L oxygen Objective Vital Signs Vital Signs Date Time Temp Pulse Resp B/P (MAP) Pulse Ox O2 Delivery O2 Flow Rate FiO2 08/13/17 09:42 Nasal Cannula 2.00 08/13/17 08:00 97.3 59 20 119/78 (92) 96 08/13/17 08:00 52 08/13/17 04:00 97.5 68 16 139/96 (110) 97 08/13/17 00:00 97.6 59 16 134/81 (98) 97 08/12/17 21:30 Nasal Cannula 2.00 08/12/17 20:40 Nasal Cannula 2.00 08/12/17 20:00 98.1 78 16 121/77 (92) 95 08/12/17 17:23 Nasal Cannula 2.00 08/12/17 16:00 72 08/12/17 16:00 97.9 88 20 133/81 (98) 87 08/12/17 12:17 92 Nasal Cannula 3.00 08/12/17 12:17 Nasal Cannula 2.00 08/12/17 12:00 79 08/12/17 12:00 97.9 75 20 116/67 (83) 94 I/O 08/12/17 08/12/17 08/12/17 08/13/17 08/13/17 08/13/17 06:59 14:59 22:59 06:59 14:59 22:59 Intake Total 720 ml 960 ml 480 ml Balance 720 ml 960 ml 480 ml Intake Oral 720 ml 960 ml 480 ml # Voids 5 3 4 # Bowel Movements 0 3 2 Result Diagram: 08/12/17 0802 08/13/17 0545 Other Results Last Impressions Chest X-Ray 08/06/17 1438 Signed Impressions: Service Date/Time: Sunday, August 06, 2017 14:44 - CONCLUSION: Nodular density overlying the lateral left chest Tereso Collier MD Chest CT 08/06/17 0000 Signed Impressions: Service Date/Time: Sunday, August 06, 2017 19:07 - CONCLUSION: 1. No lung mass is seen. 2. Interstitial disease in the upper lungs. 3. Minimal atelectasis or consolidation the right middle lobe and left lingula. Tereso Baez MD Objective Remarks GENERAL: Patient is 57 yo lying in bed in NAD SKIN: Warm and dry. HEAD: Normocephalic. EYES: No scleral icterus. No injection or drainage. NECK: Supple, trachea midline. No JVD or lymphadenopathy. CARDIOVASCULAR: Regular rate and rhythm without murmurs, gallops, or rubs. RESPIRATORY: Breath sounds equal bilaterally. No accessory muscle use. GASTROINTESTINAL: Abdomen soft, non-tender, nondistended. MUSCULOSKELETAL: No cyanosis, or edema. Neuro: Awake and alert A/P Assessment and Plan 1)Resp Insuff 2)COPD 3)Pulmonary HTN 4)CHF- Diastolic 5)NSTEMI PLAN Continue with oxygen keep sats >92% Bronchodilators Taper steroids- solumederol 40mg Q12 Check PFT Patient is refusing cardiac cath, cards is following. On Lasix 40mg daily GI/DVT prophylaxis per primary team Continue treatment plan Sonia Grace MD Aug 13, 2017 10:35
[2017-08-13] MEDS: methylPREDNISolone SOD SUCC 40 MG/1 ML VIAL IV PUSH SCH (11:00)
--- NOTE | 2017-08-13 14:02 | HHI.PR ---
Subjective Remarks Pt seen and examined. VS reviewed. Reports breathing has improved. Denies CP, abdominal pain, N/V. Tolerating PO. Ambulating. She refuses any more IV Solumedrol as she wants a more "natural" approach but states she is willing to take PO prednisone. Per nursing she is also refusing Lovenox and when I discussed with patient the need for DVT prophylaxis she informs me that her blood is flowing just fine. She is hoping to go home tomorrow. Objective Vital Signs Date Time Temp Pulse Resp B/P (MAP) Pulse Ox O2 Delivery O2 Flow Rate FiO2 08/13/17 12:22 Nasal Cannula 2.00 08/13/17 12:00 97 08/13/17 09:42 Nasal Cannula 2.00 08/13/17 08:00 97.3 59 20 119/78 (92) 96 08/13/17 08:00 52 08/13/17 04:00 97.5 68 16 139/96 (110) 97 08/13/17 00:00 97.6 59 16 134/81 (98) 97 08/12/17 21:30 Nasal Cannula 2.00 08/12/17 20:40 Nasal Cannula 2.00 08/12/17 20:00 98.1 78 16 121/77 (92) 95 08/12/17 17:23 Nasal Cannula 2.00 08/12/17 16:00 72 08/12/17 16:00 97.9 88 20 133/81 (98) 87 I/O 08/12/17 08/12/17 08/12/17 08/13/17 08/13/17 08/13/17 07:00 15:00 23:00 07:00 15:00 23:00 Intake Total 720 ml 960 ml 480 ml Balance 720 ml 960 ml 480 ml Intake Oral 720 ml 960 ml 480 ml # Voids 5 3 4 # Bowel Movements 0 3 2 Result Diagram: 08/12/1702 08/13/17 0545 Objective Remarks GENERAL: female sitting on side of bed in NAD. SKIN: Warm and dry. HEENT: AT/NC. Pupils equal and round. MMM. NECK: Supple no tender LAD or JVD. HEART: RRR no m/r/g. LUNGS: Poor respiratory effort with diminished breath sounds and occasional expiratory wheezing. ABDOMEN: +BS, soft, NT, ND. EXTREMITIES: Chronic venous stasis changes. NEURO: Awake and alert. Nonfocal. A/P Assessment and Plan 57-year-old female with past medical history significant for COPD, tobacco abuse , and congestive heart failure admitted with CHF exacerbation and elevated troponins. 1. NSTEMI - Troponin on arrival was 1.11 and peaked 1.74, questionable elevation from demand ischemia given CHF and elevated pulmonary pressures - Cardiology consulted but patient refusing heart cath; no further work-up and has signed off - Heparin gtt discontinued - Continue ASA - Hesitant to add BB given COPD - Telemetry 2. COPD exacerbation with hypoxemia - Pt with elevated pulmonary pressures as RV dilated and hypokinetic on echo but patient refusing RHC - Supplemental O2; wean to maintain sats 90-92% - Bronchodilators - Transition to PO prednisone and plan to D/C home on a taper 3. CHF exacerbation - BNP >1000 on admission - Euvolemic - Lasix 40 mg PO daily - Monitor potassium 4. DM - Hemoglobin A1c was 7.2 - Accu-Cheks and sliding scale insulin coverage - Plan to D/C on metformin 5. Tobacco abuse - Nicotine patch DVT prophylaxis: Lovenox Discharge Planning Anticipate D/C tomorrow, CM assisting with D/C needs as patient is homeless Mi Esparza MD Aug 13, 2017 14:02
[2017-08-13] MEDS: predniSONE 50 MG TAB PO SCH (15:05)
[2017-08-13] MEDS: ENOXAPARIN SODIUM 40 MG/0.4 ML SYRINGE SQ SCH (15:07)
[2017-08-13] MEDS: REMOVE OLD PATCH T-DERMAL SCH (22:46)
[2017-08-14] VITALS (12 sets, daily range): BP systolic 108–133; BP diastolic 62–82; PULSE 51–88; RESP 18–20; TEMP 96.5–98.5; O2SAT 94–95
[2017-08-14] MEDS: INSULIN ASPART SUPPLEMENTAL SCALE SQ SCH ×4 (08:00→20:47)
[2017-08-14] MEDS: NICOTINE 21 MG/24 HR PATCH T-DERMAL SCH (08:14)
[2017-08-14] MEDS: DOCUSATE SODIUM 50 MG/SENNA 8.6 MG TAB PO SCH ×2 (08:14→20:47)
[2017-08-14] MEDS: ASPIRIN 81 MG CHEW TAB CHEW SCH (08:14)
[2017-08-14] MEDS: predniSONE 50 MG TAB PO SCH (08:14)
[2017-08-14] MEDS: FUROSEMIDE 40 MG TAB PO SCH (08:14)
[2017-08-14] MEDS: SODIUM CHLORIDE 0.9% FLUSH 10 ML FLUSH IV FLUSH SCH ×2 (08:15→20:48)
--- NOTE | 2017-08-14 11:33 | HHI.PR ---
Subjective Remarks Pt seen and examined. VS reviewed. Reports breathing has improved. Denies CP, abdominal pain, N/V. Tolerating PO. Ambulating. She is currently homeless but talking with a friend about staying with them. She cannot elaborate on when that will be finalized. Objective Vital Signs Date Time Temp Pulse Resp B/P (MAP) Pulse Ox O2 Delivery O2 Flow Rate FiO2 08/14/17 08:00 Nasal Cannula 2.00 08/14/17 08:00 61 08/14/17 07:25 97.6 71 20 133/65 (87) 94 08/14/17 04:00 98.0 88 19 120/80 (93) 95 08/14/17 04:00 Nasal Cannula 2.00 08/14/17 03:47 51 08/14/17 00:00 96.5 63 18 116/66 (83) 95 08/14/17 00:00 Nasal Cannula 2.00 08/13/17 23:17 80 08/13/17 20:00 Nasal Cannula 2.00 08/13/17 20:00 97.5 83 18 125/71 (89) 93 08/13/17 19:46 87 08/13/17 17:28 93 Nasal Cannula 2.00 08/13/17 17:27 2.00 08/13/17 16:12 Nasal Cannula 2.00 08/13/17 16:00 87 08/13/17 16:00 97.8 76 20 114/69 (84) 95 08/13/17 12:22 Nasal Cannula 2.00 08/13/17 12:00 97.9 85 20 119/80 (93) 96 08/13/17 12:00 97 I/O 08/13/17 08/13/17 08/13/17 08/14/17 08/14/17 08/14/17 07:00 15:00 23:00 07:00 15:00 23:00 Intake Total 480 ml 960 ml 1000 ml Output Total 950 ml Balance 480 ml 960 ml 50 ml Intake Oral 480 ml 960 ml 1000 ml Output Urine Total 950 ml # Voids 4 5 # Bowel Movements 2 3 0 Result Diagram: 08/12/17 0802 08/13/17 0545 Objective Remarks GENERAL: female sitting on side of bed in NAD. SKIN: Warm and dry. HEENT: AT/NC. Pupils equal and round. MMM. HEART: RRR no m/r/g. LUNGS: Poor respiratory effort with diminished breath sounds but otherwise clear. ABDOMEN: +BS, soft, NT, ND. EXTREMITIES: Chronic venous stasis changes. NEURO: Awake and alert. Nonfocal. A/P Assessment and Plan 57-year-old female with past medical history significant for COPD, tobacco abuse , and congestive heart failure admitted with CHF exacerbation and elevated troponins. 1. NSTEMI - Troponin on arrival was 1.11 and peaked 1.74, questionable elevation from demand ischemia given CHF and elevated pulmonary pressures - Cardiology consulted but patient refusing heart cath; no further work-up and has signed off - Heparin gtt discontinued - Continue ASA - Add low-dose Carvedilol to maximize medical therapy - Telemetry 2. COPD exacerbation with hypoxemia - Pt with elevated pulmonary pressures as RV dilated and hypokinetic on echo but patient refusing RHC - Supplemental O2; failed O2 walk test and will need oxygen on discharge - Bronchodilators - Prednisone 50 mg daily, decrease to 40 mg tomorrow 3. CHF exacerbation - BNP >1000 on admission - Euvolemic - Lasix 40 mg PO daily - Monitor potassium 4. DM - Hemoglobin A1c was 7.2 - Accu-Cheks and sliding scale insulin coverage - Pt never been diagnosed with DM - Plan to D/C on metformin 5. Tobacco abuse - Nicotine patch DVT prophylaxis: Lovenox Discharge Planning Clear for discharge but patient homeless, uninsured, and still requiring O2 ( failed O2 walk test), CM assisting with D/C needs Mi Esparza MD Aug 14, 2017 11:33
[2017-08-14] MEDS: ENOXAPARIN SODIUM 40 MG/0.4 ML SYRINGE SQ SCH (16:51)
--- NOTE | 2017-08-14 18:36 | HHI.PR ---
Subjective Remarks ALERT NO SOB AT REST Objective Vital Signs Date Time Temp Pulse Resp B/P (MAP) Pulse Ox O2 Delivery O2 Flow Rate FiO2 08/14/17 16:00 83 08/14/17 15:55 98.5 64 18 121/65 (83) 95 08/14/17 15:34 2.00 08/14/17 13:00 80 08/14/17 12:20 98.1 74 20 108/62 (77) 95 08/14/17 08:00 Nasal Cannula 2.00 08/14/17 08:00 61 08/14/17 07:25 97.6 71 20 133/65 (87) 94 08/14/17 04:00 98.0 88 19 120/80 (93) 95 08/14/17 04:00 Nasal Cannula 2.00 08/14/17 03:47 51 08/14/17 00:00 96.5 63 18 116/66 (83) 95 08/14/17 00:00 Nasal Cannula 2.00 08/13/17 23:17 80 08/13/17 20:00 Nasal Cannula 2.00 08/13/17 20:00 97.5 83 18 125/71 (89) 93 08/13/17 19:46 87 I/O 08/13/17 08/13/17 08/13/17 08/14/17 08/14/17 08/14/17 07:00 15:00 23:00 07:00 15:00 23:00 Intake Total 480 ml 960 ml 1000 ml Output Total 950 ml Balance 480 ml 960 ml 50 ml Intake Oral 480 ml 960 ml 1000 ml Output Urine Total 950 ml # Voids 4 5 # Bowel Movements 2 3 0 Result Diagram: 08/12/17 0802 08/13/17 0545 Objective Remarks GENERAL: SKIN: Warm and dry. HEAD: Atraumatic. Normocephalic. EYES: Pupils equal and round. No scleral icterus. No injection or drainage. ENT: No nasal bleeding or discharge. Mucous membranes pink and moist. NECK: Trachea midline. No JVD. CARDIOVASCULAR: Regular rate and rhythm. RESPIRATORY: No accessory muscle use. Clear to auscultation. Breath sounds equal bilaterally. GASTROINTESTINAL: Abdomen soft, non-tender, nondistended. Hepatic and splenic margins not palpable. MUSCULOSKELETAL: Extremities without clubbing, cyanosis, or edema. No obvious deformities. NEUROLOGICAL: Awake and alert. No obvious cranial nerve deficits. Motor grossly within normal limits. Five out of 5 muscle strength in the arms and legs. Normal speech. PSYCHIATRIC: Appropriate mood and affect; insight and judgment normal. Assessment and Plan Assessment and Plan IMPRESSION COPD PULM HTN DIASTOLIC HEART FAILURE HYPOXIC, HYPERCAPNIC RESPIRATORY FAILURE PLAN O2 NEEDED BRONCHODILATOR THERAPY. CHECK PFT CHECK ABG WILL NEED TRELOGY AT HOME Sanchez Bradford MD Aug 14, 2017 18:36
[2017-08-14] MEDS: CARVEDILOL 3.125 MG TAB PO SCH (20:49)
[2017-08-14] MEDS: REMOVE OLD PATCH T-DERMAL SCH (20:49)
[2017-08-15] VITALS (12 sets, daily range): BP systolic 100–137; BP diastolic 66–87; PULSE 60–94; RESP 17–20; TEMP 97.4–98.1; O2SAT 91–98
[2017-08-15 06:32] LABS: HEMATOCRIT 52.3 % (35.0-46.0); HEMOGLOBIN 16.9 GM/DL (11.6-15.3); MEAN CELL VOLUME 94.3 FL (80.0-100.0); MEAN CORPUSCULAR HEMOGLOBIN 30.5 PG (27.0-34.0); MEAN CORPUSCULAR HGB CONC 32.4 % (32.0-36.0); MEAN PLATELET VOLUME 8.5 FL (7.0-11.0); PLATELET COUNT 145 TH/MM3 (150-450); RED BLOOD COUNT 5.54 MIL/MM3 (4.00-5.30); RED CELL DISTRIBUTION WIDTH 14.1 % (11.6-17.2); WHITE BLOOD COUNT 6.6 TH/MM3 (4.0-11.0)
--- NOTE | 2017-08-15 08:58 | HHI.PR ---
Subjective Remarks ALERT NO SOB AT REST Objective Vital Signs Date Time Temp Pulse Resp B/P (MAP) Pulse Ox O2 Delivery O2 Flow Rate FiO2 08/15/17 08:00 97.9 71 20 100/66 (77) 93 08/15/17 04:00 97.4 72 17 134/73 (93) 92 08/15/17 03:50 75 08/15/17 00:00 Nasal Cannula 2.00 08/15/17 00:00 97.4 60 18 130/87 (101) 94 08/14/17 23:51 54 08/14/17 22:11 Nasal Cannula 2.00 08/14/17 20:50 Nasal Cannula 2.00 08/14/17 20:00 98.0 72 18 114/82 (93) 94 08/14/17 19:50 76 08/14/17 16:00 83 08/14/17 15:55 98.5 64 18 121/65 (83) 95 08/14/17 15:34 2.00 08/14/17 13:00 80 08/14/17 12:20 98.1 74 20 108/62 (77) 95 I/O 08/14/17 08/14/17 08/14/17 08/15/17 08/15/17 08/15/17 07:00 15:00 23:00 07:00 15:00 23:00 Intake Total 1000 ml 600 ml 240 ml Output Total 950 ml 400 ml Balance 50 ml 200 ml 240 ml Intake Oral 1000 ml 600 ml 240 ml Output Urine Total 950 ml 400 ml # Voids 3 # Bowel Movements 0 1 1 Result Diagram: 08/15/17 0505 08/13/17 0545 Objective Remarks GENERAL: SKIN: Warm and dry. HEAD: Atraumatic. Normocephalic. EYES: Pupils equal and round. No scleral icterus. No injection or drainage. ENT: No nasal bleeding or discharge. Mucous membranes pink and moist. NECK: Trachea midline. No JVD. CARDIOVASCULAR: Regular rate and rhythm. RESPIRATORY: No accessory muscle use. Clear to auscultation. Breath sounds equal bilaterally. GASTROINTESTINAL: Abdomen soft, non-tender, nondistended. Hepatic and splenic margins not palpable. MUSCULOSKELETAL: Extremities without clubbing, cyanosis, or edema. No obvious deformities. NEUROLOGICAL: Awake and alert. No obvious cranial nerve deficits. Motor grossly within normal limits. Five out of 5 muscle strength in the arms and legs. Normal speech. PSYCHIATRIC: Appropriate mood and affect; insight and judgment normal. Medications and IVs GENERAL: SKIN: Warm and dry. HEAD: Atraumatic. Normocephalic. EYES: Pupils equal and round. No scleral icterus. No injection or drainage. ENT: No nasal bleeding or discharge. Mucous membranes pink and moist. NECK: Trachea midline. No JVD. CARDIOVASCULAR: Regular rate and rhythm. RESPIRATORY: No accessory muscle use. Clear to auscultation. Breath sounds equal bilaterally. GASTROINTESTINAL: Abdomen soft, non-tender, nondistended. Hepatic and splenic margins not palpable. MUSCULOSKELETAL: Extremities without clubbing, cyanosis, or edema. No obvious deformities. NEUROLOGICAL: Awake and alert. No obvious cranial nerve deficits. Motor grossly within normal limits. Five out of 5 muscle strength in the arms and legs. Normal speech. PSYCHIATRIC: Appropriate mood and affect; insight and judgment normal. Assessment and Plan Assessment and Plan IMPRESSION COPD PULM HTN DIASTOLIC HEART FAILURE HYPOXIC, HYPERCAPNIC RESPIRATORY FAILURE PLAN O2 NEEDED BRONCHODILATOR THERAPY. CHECK ABG Sanchez Bradford MD Aug 15, 2017 08:58
[2017-08-15] MEDS: FUROSEMIDE 40 MG TAB PO SCH (09:00)
[2017-08-15] MEDS: NICOTINE 21 MG/24 HR PATCH T-DERMAL SCH (09:00)
[2017-08-15] MEDS: CARVEDILOL 3.125 MG TAB PO SCH ×2 (09:00→21:00)
[2017-08-15] MEDS: INSULIN ASPART SUPPLEMENTAL SCALE SQ SCH ×4 (09:25→22:10)
[2017-08-15] MEDS: SODIUM CHLORIDE 0.9% FLUSH 10 ML FLUSH IV FLUSH SCH ×2 (09:26→22:11)
[2017-08-15] MEDS: ASPIRIN 81 MG CHEW TAB CHEW SCH (09:26)
[2017-08-15] MEDS: predniSONE 20 MG TAB PO SCH (09:27)
[2017-08-15] MEDS: DOCUSATE SODIUM 50 MG/SENNA 8.6 MG TAB PO SCH ×2 (09:27→21:00)
--- NOTE | 2017-08-15 15:21 | HHI.PR ---
Subjective Remarks Follow-up COPD, respiratory failure and CT. States she is doing okay denies chest pain, palpitations and shortness of breath. Was on [facility] ? 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 Vital Signs Date Time Temp Pulse Resp B/P (MAP) Pulse Ox O2 Delivery O2 Flow Rate FiO2 08/15/17 12:20 97.9 63 18 102/67 (79) 96 08/15/17 09:00 98 Nasal Cannula 2.00 08/15/17 08:00 97.9 71 20 100/66 (77) 93 08/15/17 04:00 97.4 72 17 134/73 (93) 92 08/15/17 03:50 75 08/15/17 00:00 Nasal Cannula 2.00 08/15/17 00:00 97.4 60 18 130/87 (101) 94 08/14/17 23:51 54 08/14/17 22:11 Nasal Cannula 2.00 08/14/17 20:50 Nasal Cannula 2.00 08/14/17 20:00 98.0 72 18 114/82 (93) 94 08/14/17 19:50 76 08/14/17 16:00 83 08/14/17 15:55 98.5 64 18 121/65 (83) 95 08/14/17 15:34 2.00 I/O 08/14/17 08/14/17 08/14/17 08/15/17 08/15/17 08/15/17 07:00 15:00 23:00 07:00 15:00 23:00 Intake Total 1000 ml 600 ml 240 ml Output Total 950 ml 400 ml Balance 50 ml 200 ml 240 ml Intake Oral 1000 ml 600 ml 240 ml Output Urine Total 950 ml 400 ml # Voids 3 # Bowel Movements 0 1 1 Result Diagram: 08/15/17 0505 08/13/17 0545 Imaging Last Impressions Chest X-Ray 08/06/17 1438 Signed Impressions: Service Date/Time: Sunday, August 06, 2017 14:44 - CONCLUSION: Nodular density overlying the lateral left chest Tereso Collier MD Chest CT 08/06/17 0000 Signed Impressions: Service Date/Time: Sunday, August 06, 2017 19:07 - CONCLUSION: 1. No lung mass is seen. 2. Interstitial disease in the upper lungs. 3. Minimal atelectasis or consolidation the right middle lobe and left lingula. Tereso Baez MD Objective Remarks GENERAL: female sitting on side of bed in NAD. SKIN: Warm and dry. HEENT: AT/NC. Pupils equal and round. MMM. HEART: RRR no m/r/g. LUNGS: Poor respiratory effort with diminished breath sounds but otherwise clear. ABDOMEN: +BS, soft, NT, ND. EXTREMITIES: Chronic venous stasis changes. NEURO: Awake and alert. Nonfocal. Procedures none A/P Problem List: (1) Hypoxia ICD Code: R09.02 - Hypoxemia Status: Acute (2) NSTEMI (non-ST elevated myocardial infarction) ICD Code: I21.4 - Non-ST elevation (NSTEMI) myocardial infarction Status: Acute (3) CHF (congestive heart failure) ICD Code: I50.9 - Heart failure, unspecified Status: Acute (4) COPD (chronic obstructive pulmonary disease) ICD Code: J44.9 - Chronic obstructive pulmonary disease, unspecified (5) Acute diastolic (congestive) heart failure ICD Code: I50.31 - Acute diastolic (congestive) heart failure (6) Tobacco dependence ICD Code: F17.200 - Nicotine dependence, unspecified, uncomplicated Assessment and Plan 57-year-old female with past medical history significant for COPD, tobacco abuse , and congestive heart failure admitted with CHF exacerbation and elevated troponins. 1. NSTEMI - Troponin on arrival was 1.11 and peaked 1.74, questionable elevation from demand ischemia given CHF and elevated pulmonary pressures - Cardiology consulted but patient refusing heart cath; no further work-up and has signed off - Heparin gtt discontinued - Continue ASA - Add low-dose Carvedilol to maximize medical therapy. Add statin dw pt she agrees - Telemetry 2. COPD exacerbation with hypoxemia - Pt with elevated pulmonary pressures as RV dilated and hypokinetic on echo but patient refusing RHC - Supplemental O2; failed O2 walk test and will need oxygen on discharge - Bronchodilators - Prednisone 50 mg daily, decrease to 40 mg QD til 08/19 3. CHF exacerbation - BNP >1000 on admission - Euvolemic - Lasix 40 mg PO daily - Monitor potassium 4. DM - Hemoglobin A1c was 7.2 - Accu-Cheks and sliding scale insulin coverage - Pt never been diagnosed with DM - Start metformin 5. Tobacco abuse - Nicotine patch DVT prophylaxis: Lovenox Consult palliative care to clarify goals of care Discharge Planning Clear for discharge but patient homeless, uninsured, and still requiring O2 ( failed O2 walk test), CM assisting with D/C needs Problem Qualifiers (1) CHF (congestive heart failure): Qualified Codes: I50.9 - Heart failure, unspecified Contreras Sol MD Aug 15, 2017 15:21
[2017-08-15] MEDS ORDERED: CARV3.125 PO (15:23)
[2017-08-15] MEDS ORDERED: ATOR20TA15 PO (15:23)
[2017-08-15] MEDS ORDERED: ASPI81 CHEW (15:23)
[2017-08-15] MEDS ORDERED: FURO40TA PO (15:23)
[2017-08-15] MEDS ORDERED: METF500 PO (15:23)
--- NOTE | 2017-08-15 15:24 | HHI.DCPOC ---
Discharge Care Plan Diagnosis: (1) Acute diastolic (congestive) heart failure Your Health Problems Are: Difficulty with ADL Exercise Tolerance Goals to Promote Your Health * To prevent worsening of your condition and complications * To maintain your health at the optimal level Directions to Meet Your Goals Take your medications as prescribed Follow your dietary instruction Follow activity as directed Keep your appointments as scheduled Take your immunizations and boosters as scheduled If your symptoms worsen call your PCP, if no PCP go to Urgent Care Center or Emergency Room Smoking is Dangerous to Your Health. Avoid second hand smoke Call the 24-hour hour crisis hotline for domestic abuse at Contreras Sol MD Aug 15, 2017 15:24
[2017-08-15] MEDS ORDERED: WHEEMIS3 (15:26)
[2017-08-15] MEDS ORDERED: WALKER WHEELS/F1 MIS (15:26)
[2017-08-15] MEDS ORDERED: OXYGENDME NAS.CANULA (15:26)
[2017-08-15] MEDS: ENOXAPARIN SODIUM 40 MG/0.4 ML SYRINGE SQ SCH (17:00)
[2017-08-15] MEDS: metFORMIN HCL 500 MG TAB PO SCH (17:42)
[2017-08-15] MEDS: REMOVE OLD PATCH T-DERMAL SCH (21:00)
[2017-08-15] MEDS: ATORVASTATIN 20 MG TAB PO SCH (22:09)
[2017-08-16] VITALS (9 sets, daily range): BP systolic 93–129; BP diastolic 60–76; PULSE 59–96; RESP 18–20; TEMP 97.4–98.2; O2SAT 94–98
[2017-08-16] MEDS: INSULIN ASPART SUPPLEMENTAL SCALE SQ SCH ×4 (08:00→22:31)
[2017-08-16] MEDS: ASPIRIN 81 MG CHEW TAB CHEW SCH (08:28)
[2017-08-16] MEDS: predniSONE 20 MG TAB PO SCH (08:29)
[2017-08-16] MEDS: CARVEDILOL 3.125 MG TAB PO SCH ×2 (08:29→22:31)
[2017-08-16] MEDS: SODIUM CHLORIDE 0.9% FLUSH 10 ML FLUSH IV FLUSH SCH ×2 (08:29→22:31)
[2017-08-16] MEDS: metFORMIN HCL 500 MG TAB PO SCH ×2 (08:29→17:32)
[2017-08-16] MEDS: NICOTINE 21 MG/24 HR PATCH T-DERMAL SCH (08:30)
[2017-08-16] MEDS: DOCUSATE SODIUM 50 MG/SENNA 8.6 MG TAB PO SCH ×2 (08:30→22:31)
[2017-08-16] MEDS: FUROSEMIDE 40 MG TAB PO SCH (08:30)
--- NOTE | 2017-08-16 11:03 | HHI.PR ---
Subjective Remarks Follow-up COPD. She is doing okay denies shortness of breath. Resting oxygen saturation at room air is 92%. Discussed with nursing will obtain walk test. Objective Vitals Vital Signs Date Time Temp Pulse Resp B/P (MAP) Pulse Ox O2 Delivery O2 Flow Rate FiO2 08/16/17 09:55 95 Nasal Cannula 2.00 08/16/17 08:00 97.9 59 19 105/71 (82) 94 08/16/17 08:00 60 08/16/17 04:19 97.4 66 18 93/62 (72) 98 08/16/17 04:00 Nasal Cannula 2.00 08/16/17 00:53 98.1 72 18 120/60 (80) 95 08/16/17 00:00 Nasal Cannula 2.00 08/15/17 23:43 71 08/15/17 22:10 Nasal Cannula 2.00 08/15/17 20:08 98.1 75 18 118/79 (92) 98 08/15/17 20:00 72 08/15/17 17:18 91 Nasal Cannula 2.00 08/15/17 16:00 97.4 91 18 137/66 (89) 91 08/15/17 16:00 78 08/15/17 12:20 97.9 63 18 102/67 (79) 96 08/15/17 12:00 94 I/O 08/15/17 08/15/17 08/15/17 08/16/17 08/16/17 08/16/17 07:00 15:00 23:00 07:00 15:00 23:00 Intake Total 240 ml 480 ml Balance 240 ml 480 ml Intake Oral 240 ml 480 ml # Voids 3 3 # Bowel Movements 1 0 Result Diagram: 08/15/17 0505 08/13/17 0545 Imaging Last Impressions Chest X-Ray 08/06/17 1438 Signed Impressions: Service Date/Time: Sunday, August 06, 2017 14:44 - CONCLUSION: Nodular density overlying the lateral left chest Tereso Collier MD Chest CT 08/06/17 0000 Signed Impressions: Service Date/Time: Sunday, August 06, 2017 19:07 - CONCLUSION: 1. No lung mass is seen. 2. Interstitial disease in the upper lungs. 3. Minimal atelectasis or consolidation the right middle lobe and left lingula. Tereso Baez MD Objective Remarks GENERAL: female sitting on side of bed in NAD. SKIN: Warm and dry. HEENT: AT/NC. Pupils equal and round. MMM. HEART: RRR no m/r/g. LUNGS: Poor respiratory effort with diminished breath sounds but otherwise clear. ABDOMEN: +BS, soft, NT, ND. EXTREMITIES: Chronic venous stasis changes. NEURO: Awake and alert. Nonfocal. Oriented 3 denies hallucinations Procedures none A/P Problem List: (1) Hypoxia ICD Code: R09.02 - Hypoxemia Status: Acute (2) NSTEMI (non-ST elevated myocardial infarction) ICD Code: I21.4 - Non-ST elevation (NSTEMI) myocardial infarction Status: Acute (3) CHF (congestive heart failure) ICD Code: I50.9 - Heart failure, unspecified Status: Acute (4) COPD (chronic obstructive pulmonary disease) ICD Code: J44.9 - Chronic obstructive pulmonary disease, unspecified (5) Acute diastolic (congestive) heart failure ICD Code: I50.31 - Acute diastolic (congestive) heart failure (6) Tobacco dependence ICD Code: F17.200 - Nicotine dependence, unspecified, uncomplicated Assessment and Plan 57-year-old female with past medical history significant for COPD, tobacco abuse , and congestive heart failure admitted with CHF exacerbation and elevated troponins. 1. NSTEMI - Troponin on arrival was 1.11 and peaked 1.74, questionable elevation from demand ischemia given CHF and elevated pulmonary pressures - Cardiology consulted but patient refusing heart cath; no further work-up and has signed off - Heparin gtt discontinued - Continue ASA, Coreg and statin - Telemetry 2. COPD exacerbation with hypoxemia - Pt with elevated pulmonary pressures as RV dilated and hypokinetic on echo but patient refusing RHC - Supplemental O2; failed O2 walk test and will need oxygen on discharge. Improving hypoxia will repeat walk test - Bronchodilators - Prednisone 50 mg daily, decreased to 40 mg QD til 08/19 3. CHF exacerbation - BNP >1000 on admission - Euvolemic - Lasix 40 mg PO daily - Monitor potassium 4. DM - Hemoglobin A1c was 7.2 - Accu-Cheks and sliding scale insulin coverage - Pt never been diagnosed with DM - Start metformin 5. Tobacco abuse - Nicotine patch DVT prophylaxis: Lovenox Consulted palliative care to clarify goals of care Discharge Planning Clear for discharge but patient homeless, uninsured, and still requiring O2 ( failed O2 walk test), CM assisting with D/C needs Problem Qualifiers (1) CHF (congestive heart failure): Qualified Codes: I50.9 - Heart failure, unspecified Contreras Sol MD Aug 16, 2017 11:03
--- NOTE | 2017-08-16 12:13 | PD.CONS ---
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 complaints of dyspnea. Appears breathing has overall improved post diuresis, nebulizers. She has intermittently refused to some interventions though other times is more cooperative. Pulmonology following. Cardiology following. Patient with underlying COPD as well as NSTEMI this admission. Likely cardiac and pulmonary are both contributing to ongoing respiratory issues, as well as homelessness in the outpatient setting which limits her ability to adhere to recommended treatments. --Pain-patient denies any pain today. --Poor appetite-patient endorses poor appetite prior to admission though unable to qualify why. Appears this may also be lack of ability to obtain food because she tells me that once she is eating that she is hungry and wants to keep eating. No specific GI complaints, abdominal exam benign. Per documentation eating 100% of most meals here. No recommendations at this time continue to monitor. * Palliative care will continue to follow during hospital course as condition evolves, to assist patient/decision-maker with understanding of medical conditions, weighing benefits/burdens of treatment options, for clarification of goals of treatment. Additionally will assist with any symptoms of palliative concern Time Spent Total Floor Time (mins): 70 (chart review, d/w nurse, meeting w pt, PE) Thank you for the opportunity to participate in the care of Ms. Cohen. Attestation To help prompt me to consider important information that might be impacting today's encounter and assessment, information from prior notes written by myself or my colleagues may have been "brought forward" into today's note. My signature on this note, however, is an attestation that I personally performed the exam, history, and/or decision-making noted today, and, unless otherwise indicated, the interactions with patient, family, and staff as well as the review of records all occurred today. I also attest that the listed assessment and stated plan reflect my best clinical judgment today based on the combination of historical information, prior notes, and today's exam/ interactions. When time spent is documented, it refers only to time spent today by the signer, or if indicated, combined time spent today by collaborating physician/nurse practitioner. Marisol Leon Aug 16, 2017 12:13
[2017-08-16] MEDS: ENOXAPARIN SODIUM 40 MG/0.4 ML SYRINGE SQ SCH (17:00)
--- NOTE | 2017-08-16 19:19 | HHI.PR ---
Subjective Remarks ALERT NO SOB AT REST Objective Vital Signs Date Time Temp Pulse Resp B/P (MAP) Pulse Ox O2 Delivery O2 Flow Rate FiO2 08/16/17 17:57 96 08/16/17 16:00 97.8 82 19 107/69 (82) 95 08/16/17 15:14 94 Nasal Cannula 2.00 08/16/17 12:00 91 08/16/17 12:00 97.8 89 19 108/71 (83) 94 08/16/17 11:05 94 Nasal Cannula 2.00 08/16/17 09:55 95 Nasal Cannula 2.00 08/16/17 08:00 97.9 59 19 105/71 (82) 94 08/16/17 08:00 60 08/16/17 04:19 97.4 66 18 93/62 (72) 98 08/16/17 04:00 Nasal Cannula 2.00 08/16/17 00:53 98.1 72 18 120/60 (80) 95 08/16/17 00:00 Nasal Cannula 2.00 08/15/17 23:43 71 08/15/17 22:10 Nasal Cannula 2.00 08/15/17 20:08 98.1 75 18 118/79 (92) 98 08/15/17 20:00 72 I/O 08/15/17 08/15/17 08/15/17 08/16/17 08/16/17 08/16/17 07:00 15:00 23:00 07:00 15:00 23:00 Intake Total 240 ml 480 ml 1200 ml Balance 240 ml 480 ml 1200 ml Intake Oral 240 ml 480 ml 1200 ml # Voids 3 3 # Bowel Movements 1 0 Result Diagram: 08/15/17 0505 08/13/17 0545 Objective Remarks GENERAL: SKIN: Warm and dry. HEAD: Atraumatic. Normocephalic. EYES: Pupils equal and round. No scleral icterus. No injection or drainage. ENT: No nasal bleeding or discharge. Mucous membranes pink and moist. NECK: Trachea midline. No JVD. CARDIOVASCULAR: Regular rate and rhythm. RESPIRATORY: No accessory muscle use. Clear to auscultation. Breath sounds equal bilaterally. GASTROINTESTINAL: Abdomen soft, non-tender, nondistended. Hepatic and splenic margins not palpable. MUSCULOSKELETAL: Extremities without clubbing, cyanosis, or edema. No obvious deformities. NEUROLOGICAL: Awake and alert. No obvious cranial nerve deficits. Motor grossly within normal limits. Five out of 5 muscle strength in the arms and legs. Normal speech. PSYCHIATRIC: Appropriate mood and affect; insight and judgment normal. Assessment and Plan Assessment and Plan IMPRESSION COPD PULM HTN DIASTOLIC HEART FAILURE HYPOXIC, HYPERCAPNIC RESPIRATORY FAILURE PLAN O2 NEEDED BRONCHODILATOR THERAPY. Sanchez Bradford MD Aug 16, 2017 19:19
[2017-08-16] MEDS: REMOVE OLD PATCH T-DERMAL SCH (21:00)
[2017-08-16] MEDS: ATORVASTATIN 20 MG TAB PO SCH (22:31)
[2017-08-17] VITALS (8 sets, daily range): BP systolic 100–129; BP diastolic 58–84; PULSE 53–84; RESP 14–20; TEMP 97.2–98.1; O2SAT 93–100
[2017-08-17] MEDS: INSULIN ASPART SUPPLEMENTAL SCALE SQ SCH ×3 (07:45→17:41)
--- NOTE | 2017-08-17 08:54 | HHI.PR ---
Subjective Remarks ALERT NO SOB AT REST Objective Vital Signs Date Time Temp Pulse Resp B/P (MAP) Pulse Ox O2 Delivery O2 Flow Rate FiO2 08/17/17 04:31 Nasal Cannula 2.00 08/17/17 04:31 97.6 74 18 101/67 (78) 98 08/17/17 03:58 72 08/17/17 00:23 98.1 72 18 129/78 (95) 100 08/17/17 00:23 Nasal Cannula 2.00 08/17/17 00:18 82 08/16/17 20:19 81 08/16/17 20:16 Nasal Cannula 2.00 08/16/17 20:16 98.2 79 20 129/76 (93) 97 08/16/17 17:57 96 08/16/17 16:00 97.8 82 19 107/69 (82) 95 08/16/17 15:14 94 Nasal Cannula 2.00 08/16/17 12:00 91 08/16/17 12:00 97.8 89 19 108/71 (83) 94 08/16/17 11:05 94 Nasal Cannula 2.00 08/16/17 09:55 95 Nasal Cannula 2.00 I/O 08/16/17 08/16/17 08/16/17 08/17/17 08/17/17 08/17/17 07:00 15:00 23:00 07:00 15:00 23:00 Intake Total 1200 ml 810 ml Balance 1200 ml 810 ml Intake Oral 1200 ml 810 ml # Voids 5 # Bowel Movements 2 Result Diagram: 08/15/17 0505 08/13/17 0545 Objective Remarks GENERAL: SKIN: Warm and dry. HEAD: Atraumatic. Normocephalic. EYES: Pupils equal and round. No scleral icterus. No injection or drainage. ENT: No nasal bleeding or discharge. Mucous membranes pink and moist. NECK: Trachea midline. No JVD. CARDIOVASCULAR: Regular rate and rhythm. RESPIRATORY: No accessory muscle use. Clear to auscultation. Breath sounds equal bilaterally. GASTROINTESTINAL: Abdomen soft, non-tender, nondistended. Hepatic and splenic margins not palpable. MUSCULOSKELETAL: Extremities without clubbing, cyanosis, or edema. No obvious deformities. NEUROLOGICAL: Awake and alert. No obvious cranial nerve deficits. Motor grossly within normal limits. Five out of 5 muscle strength in the arms and legs. Normal speech. PSYCHIATRIC: Appropriate mood and affect; insight and judgment normal. Assessment and Plan Assessment and Plan IMPRESSION COPD PULM HTN DIASTOLIC HEART FAILURE HYPOXIC, HYPERCAPNIC RESPIRATORY FAILURE PLAN O2 NEEDED BRONCHODILATOR THERAPY. ARRANGEMENT FOR DISCHARGE UNDERWAY , PATIENT NOT SURE WERE SHE IS COIGN TO E Sanchez Ellison MD Aug 17, 2017 08:54
[2017-08-17] MEDS: FUROSEMIDE 40 MG TAB PO SCH (09:00)
[2017-08-17] MEDS: DOCUSATE SODIUM 50 MG/SENNA 8.6 MG TAB PO SCH (09:00)
[2017-08-17] MEDS: metFORMIN HCL 500 MG TAB PO SCH ×3 (09:00→17:40)
[2017-08-17] MEDS: CARVEDILOL 3.125 MG TAB PO SCH (09:00)
[2017-08-17] MEDS: predniSONE 20 MG TAB PO SCH (09:07)
[2017-08-17] MEDS: ASPIRIN 81 MG CHEW TAB CHEW SCH (09:08)
[2017-08-17] MEDS: SODIUM CHLORIDE 0.9% FLUSH 10 ML FLUSH IV FLUSH SCH (09:08)
[2017-08-17] MEDS: NICOTINE 21 MG/24 HR PATCH T-DERMAL SCH (09:09)
--- NOTE | 2017-08-17 09:58 | HHI.HCPN ---
Left message for friend, Zoraida Davis to obtain additional history. Awaiting return call. Requested [employer] search to attempt to locate 4 children. . Nell Gunn Aug 17, 2017 09:58
--- NOTE | 2017-08-17 14:15 | HHI.PR ---
Subjective Remarks Follow-up COPD and hypoxia. Denies shortness of breath. She passed walk test. Discussed with nursing and psychiatry, patient at this time is capacitated continues to refuse cardiac catheterization Objective Vitals Vital Signs Date Time Temp Pulse Resp B/P (MAP) Pulse Ox O2 Delivery O2 Flow Rate FiO2 08/17/17 12:45 93 Nasal Cannula 2.00 08/17/17 12:00 84 08/17/17 11:00 Room Air 08/17/17 08:00 98.0 53 14 100/58 (72) 100 08/17/17 08:00 Nasal Cannula 2.00 08/17/17 07:00 56 08/17/17 04:31 Nasal Cannula 2.00 08/17/17 04:31 97.6 74 18 101/67 (78) 98 08/17/17 03:58 72 08/17/17 00:23 98.1 72 18 129/78 (95) 100 08/17/17 00:23 Nasal Cannula 2.00 08/17/17 00:18 82 08/16/17 20:19 81 08/16/17 20:16 Nasal Cannula 2.00 08/16/17 20:16 98.2 79 20 129/76 (93) 97 08/16/17 17:57 96 08/16/17 16:00 97.8 82 19 107/69 (82) 95 08/16/17 15:14 94 Nasal Cannula 2.00 I/O 08/16/17 08/16/17 08/16/17 08/17/17 08/17/17 08/17/17 07:00 15:00 23:00 07:00 15:00 23:00 Intake Total 1200 ml 810 ml Balance 1200 ml 810 ml Intake Oral 1200 ml 810 ml # Voids 5 # Bowel Movements 2 Result Diagram: 08/15/17 0505 08/13/17 0545 Imaging Last Impressions Chest X-Ray 08/06/17 1438 Signed Impressions: Service Date/Time: Sunday, August 06, 2017 14:44 - CONCLUSION: Nodular density overlying the lateral left chest Tereso Collier MD Chest CT 08/06/17 0000 Signed Impressions: Service Date/Time: Sunday, August 06, 2017 19:07 - CONCLUSION: 1. No lung mass is seen. 2. Interstitial disease in the upper lungs. 3. Minimal atelectasis or consolidation the right middle lobe and left lingula. Tereso Baez MD Objective Remarks female sitting on side of bed in NAD. SKIN: Warm and dry. HEART: RRR no m/r/g. LUNGS: Poor respiratory effort with diminished breath sounds but otherwise clear. ABDOMEN: +BS, soft, NT, ND. EXTREMITIES: Chronic venous stasis changes. NEURO: Awake and alert. Nonfocal. Oriented 3 denies hallucinations Procedures none A/P Problem List: (1) Hypoxia ICD Code: R09.02 - Hypoxemia Status: Acute (2) NSTEMI (non-ST elevated myocardial infarction) ICD Code: I21.4 - Non-ST elevation (NSTEMI) myocardial infarction Status: Acute (3) CHF (congestive heart failure) ICD Code: I50.9 - Heart failure, unspecified Status: Acute (4) COPD (chronic obstructive pulmonary disease) ICD Code: J44.9 - Chronic obstructive pulmonary disease, unspecified (5) Acute diastolic (congestive) heart failure ICD Code: I50.31 - Acute diastolic (congestive) heart failure (6) Tobacco dependence ICD Code: F17.200 - Nicotine dependence, unspecified, uncomplicated Assessment and Plan 57-year-old female with past medical history significant for COPD, tobacco abuse , and congestive heart failure admitted with CHF exacerbation and elevated troponins. 1. NSTEMI - Troponin on arrival was 1.11 and peaked 1.74, questionable elevation from demand ischemia given CHF and elevated pulmonary pressures - Cardiology consulted but patient refusing heart cath; no further work-up and has signed off - Heparin gtt discontinued - Continue ASA, Coreg and statin - Telemetry 2. COPD exacerbation with hypoxemia - Pt with elevated pulmonary pressures as RV dilated and hypokinetic on echo but patient refusing RHC - Supplemental O2; Improving hypoxia she passed repeat walk test - Bronchodilators - Prednisone 50 mg daily, decreased to 40 mg QD til 08/19 3. Acute diastolic CHF exacerbation. Resolved - BNP >1000 on admission - Euvolemic - Lasix 40 mg PO daily - Monitor potassium 4. DM - Hemoglobin A1c was 7.2 - Accu-Cheks and sliding scale insulin coverage - Pt never been diagnosed with DM - Start metformin 5. Tobacco abuse - Nicotine patch DVT prophylaxis: Lovenox Consulted palliative care to clarify goals of care Discharge Planning Clear for discharge but patient homeless, uninsured, and still requiring O2 ( failed O2 walk test), CM assisting with D/C needs Problem Qualifiers (1) CHF (congestive heart failure): Qualified Codes: I50.9 - Heart failure, unspecified Contreras Sol MD Aug 17, 2017 14:15
--- NOTE | 2017-08-17 14:46 | HHI.HCPN ---
Reason for visit a. To assist with evaluation and management of symptoms including: dyspnea. b. To assist medical decision maker(s) with: better understanding of current medical conditions; weighing benefits/burdens of medical treatment options; making medical treatment decisions. . Subjective/Interval History Patient seen in room. Also present Verenice Cruz LCSW. Discussed with Dr. Sol and nurse. Patient up ambulating in room. Denies pain or shortness of breath. She is getting ready to eat her lunch, upset her salad did not arrive on tray. Assisted her to call to dietary to order her salad. Psych has reportedly deemed patient capacitated to make her own health care decisions. She is being DC later today per Dr. Sol. Conversation with patient regarding designation of health care surrogate, she indicates again she would want her friend, Zoraida Davis to serve as HCS. She is considering other people to list as an alternate however cannot think of anyone during this visit. I spoke with Zoraida Davis who indicates she is trying to find the patient as place to live (a hotel) upon DC. She is happy to serve as HCS as she seems to be the only support person in her life. She makes sure she has a place to live, food, etc. Advised patient has been given the original designation of HCS form, sent to HIM to be scanned into EMR also. Zoraida is very appreciative of the medical update provided. Reviewed patient has been refusing cardiac catheterization and how health conditions will likely worsen leaving her in a position to make difficult decisions in the future, she verbalizes understanding. . Family/friend interactions See interval note. Advance Directives Living Will: Never completed Health Care Surrogate: Never completed Durable Power of Applications System Analyst: Never completed Advance Directive Specifics Health Care Surrogate(s): Patient was deemed capacitated to make her own decision per psych evaluation. Completed designation of health care surrogate, patient designated her friend, Zoraida Davis to serve as primary HCS, no alternate elected. . Significant change in goals: FULL CODE. Patient anxious for DC, declines cardiac cath. Completed designation of HCS. Patient was deemed capacitated to make her own decision per psych evaluation. Completed designation of health care surrogate, patient designated her friend, Zoraida Davis to serve as primary HCS, no alternate elected. . Objective Vital Signs Date Time Temp Pulse Resp B/P (MAP) Pulse Ox O2 Delivery O2 Flow Rate FiO2 4/26/18 12:45 93 Nasal Cannula 2.00 08/17/17 12:00 84 08/17/17 11:00 Room Air 08/17/17 08:00 98.0 53 14 100/58 (72) 100 08/17/17 08:00 Nasal Cannula 2.00 08/17/17 07:00 56 08/17/17 04:31 Nasal Cannula 2.00 08/17/17 04:31 97.6 74 18 101/67 (78) 98 08/17/17 03:58 72 08/17/17 00:23 98.1 72 18 129/78 (95) 100 08/17/17 00:23 Nasal Cannula 2.00 08/17/17 00:18 82 08/16/17 20:19 81 08/16/17 20:16 Nasal Cannula 2.00 08/16/17 20:16 98.2 79 20 129/76 (93) 97 08/16/17 17:57 96 08/16/17 16:00 97.8 82 19 107/69 (82) 95 08/16/17 15:14 94 Nasal Cannula 2.00 Intake & Output 08/17/17 08/17/17 07:00 19:00 Intake Total 810 ml Balance 810 ml Intake Oral 810 ml # Voids 5 # Bowel Movements 2 Physical Exam CONSTITUTIONAL/GENERAL: This is an adequately nourished patient, no apparent distress. TUBES/LINES/DRAINS: PIV SKIN: No jaundice, rashes, or lesions. several areas Ecchymoses on upper extremities. No wounds seen anteriorly. Skin warm/dry EYES: Pupils equal and round and reactive. ENT: Poor dentition- Upper edentulous, lowers with a few broken teeth CARDIOVASCULAR: Regular rate and rhythm, no murmur. No pedal edema. Skin to BLE thickened, chronic vascular discoloration RESPIRATORY/CHEST: Symmetric, unlabored respirations. GASTROINTESTINAL: Abdomen nondistended. GENITOURINARY: Without palpable bladder distension. MUSCULOSKELETAL: Extremities without edema. NEUROLOGICAL: Awake and alert, oriented x3. PSYCHIATRIC: No obvious anxiety/depression. . Diagnostic Tests Laboratory Laboratory Tests Test 08/15/17 05:05 08/15/17 10:15 White Blood Count 6.6 TH/MM3 (4.0-11.0) Red Blood Count 5.54 MIL/MM3 (4.00-5.30) Hemoglobin 16.9 GM/DL (11.6-15.3) Hematocrit 52.3 % (35.0-46.0) Mean Corpuscular Volume 94.3 FL (80.0-100.0) Mean Corpuscular Hemoglobin 30.5 PG (27.0-34.0) Mean Corpuscular Hemoglobin Concent 32.4 % (32.0-36.0) Red Cell Distribution Width 14.1 % (11.6-17.2) Platelet Count 145 TH/MM3 (150-450) Mean Platelet Volume 8.5 FL (7.0-11.0) Activated Partial Thromboplast Time 23.6 SEC (24.3-30.1) Blood Gas Puncture Site R Blood Gas Patient Temperature 98.6 Blood Gas HCO3 41 mmol/L (22-26) Blood Gas Base Excess 15.4 mmol/L (-2-2) Blood Gas Oxygen Saturation 85 % (90-100) Arterial Blood pH 7.41 (7.380-7.420) Arterial Blood Partial Pressure CO2 66 mmHg (38-42) Arterial Blood Partial Pressure O2 55 mmHg (61-120) Arterial Blood Oxygen Content 20.4 Vol % (12.0-20.0) Arterial Blood Carboxyhemoglobin 2.3 % (0-4) Arterial Blood Methemoglobin 0.7 % (0-2) Blood Gas Hemoglobin 17.0 G/DL (12.0-16.0) Oxygen Delivery Device RA Blood Gas Inspired Oxygen 21 % Result Diagram: 08/15/17 0505 08/13/17 0545 Imaging Last Impressions Chest X-Ray 08/06/17 1438 Signed Impressions: Service Date/Time: Sunday, August 06, 2017 14:44 - CONCLUSION: Nodular density overlying the lateral left chest Tereso Collier MD Chest CT 08/06/17 0000 Signed Impressions: Service Date/Time: Sunday, August 06, 2017 19:07 - CONCLUSION: 1. No lung mass is seen. 2. Interstitial disease in the upper lungs. 3. Minimal atelectasis or consolidation the right middle lobe and left lingula. Tereso Baez MD . Assessment and Plan Disease Oriented Problem List: (1) NSTEMI (non-ST elevated myocardial infarction) (2) Tobacco dependence (3) Acute hypoxemic respiratory failure (4) COPD (chronic obstructive pulmonary disease) (5) Acute diastolic (congestive) heart failure Symptom Scale: (1) Dyspnea 0-10 Scale: Unable to quantify (2) Malnutrition 0-10 Scale: Unable to quantify Comment: Patient reports poor appetite Pertinent Non-Medical Issues Psychosocial: . Has 4 estranged children. Spiritual: Attends a local adventist. Legal: Patient was deemed capacitated to make her own decision per psych evaluation. Completed designation of health care surrogate, patient designated her friend, Zoraida Davis to serve as primary HCS, no alternate elected. Ethical issues impacting care: No ethical issues identified . Important Contacts Friend Zoraida Davis [phone] . Prognosis Patient was admitted for complaints of shortness of breath. She has underlying cardiac and pulmonary disease. Conditions appear stable at this time, EF 60%, though the patient has refused further cardiac evaluation including cardiac catheterization. She is expected to survive current acute hospitalization and likely with ongoing aggressive medical management, conditions should remain stable /well-managed. Social difficulties including homelessness and poor food access likely hinder her ability to care for her conditions. . Code Status: Full Code Plan * Legal decision maker: Patient was deemed capacitated to make her own decision per psych evaluation. Completed designation of health care surrogate, patient designated her friend, Zoriada Davis to serve as primary HCS, no alternate elected. Original given to patient and sent to HIM to be scanned into EMR. * FULL CODE. * Goals: Patient declines heart cath and wants to go home. Her friend/ HCS: Zoraida Davis is currently looking for a hotel for patient to live in upon DC. * SYMPTOMS: -- Dyspnea-presented with complaints of dyspnea. Appears breathing has overall improved post diuresis, nebulizers. She has intermittently refused to some interventions though other times is more cooperative. Pulmonology following. Cardiology following. Patient with underlying COPD as well as NSTEMI this admission. Likely cardiac and pulmonary are both contributing to ongoing respiratory issues, as well as homelessness in the outpatient setting which limits her ability to adhere to recommended treatments. Denies dyspnea . -- Pain - patient denies any pain 08/17/17. -- Poor appetite - Per documentation eating 100% of most meals here. No recommendations at this time continue to monitor. * Palliative care will continue to follow during hospital course as condition evolves, to assist patient/decision-maker with understanding of medical conditions, weighing benefits/burdens of treatment options, for clarification of goals of treatment. Additionally will assist with any symptoms of palliative concern Attestation To help prompt me to consider important information that might be impacting today's encounter and assessment, information from prior notes written by myself or my colleagues may have been "brought forward" into today's note. My signature on this note, however, is an attestation that I personally performed the exam, history, and/or decision-making noted today, and, unless otherwise indicated, the interactions with patient, family, and staff as well as the review of records all occurred today. I also attest that the listed assessment and stated plan reflect my best clinical judgment today based on the combination of historical information, prior notes, and today's exam/ interactions. When time spent is documented, it refers only to time spent today by the signer, or if indicated, combined time spent today by collaborating physician/nurse practitioner. Nell Gunn Aug 17, 2017 14:46
--- NOTE | 2017-08-17 15:05 | PD.PSY.CON ---
Provisional Diagnosis Admission Date Aug 11, 2017 at 08:51 [place] I. Psychological factors affecting medical condition [place] II. Deferred History of Present Illness Service Psychiatry Consult Requested By Medical team Reason for Consult To assess decision-making depressed Primary Care Physician Unknown HPI The patient is a 57-year-old woman, domiciled in [facility], single, unemployed, supported by Social Security, she denies previous psychiatric history, denies psychiatric hospitalizations, denies suicidal attempts, she denies the use of illegal drugs and alcohol, with past medical history significant for COPD, tobacco abuse, and congestive heart failure admitted with CHF exacerbation and elevated troponins. Admitted with NSTEMI. Troponin on arrival was 1.11 and peaked 1.74, questionable elevation from demand ischemia given CHF and elevated pulmonary pressures. Also with COPD exacerbation with hypoxemia. Consulted to psychiatry for decision-making capacity. On psychiatric evaluation today the patient is calm, cooperative. The patient reports that at times during the hospitalization she has been confused, but she does feel much better. She denies distress, denies pain. She says that she feels much better now. She is fully oriented 3. The patient reports that she has been compliant with medications, at times she has been kind of concerned about the side effects of steroid "but I know that I need them". The patient is logical, coherent and relevant. She is able to verbalize the choice of continuing taking her medications and follow medical recommendations. Patient is able to verbalize a good understanding and appreciation of current medical conditions. Review of Systems Constitutional: DENIES: Diaphoretic episodes, Fatigue, Fever, Weight gain, Weight loss, Chills, Dizziness, Change in appetite, Night Sweats Endocrine: DENIES: Abnorml menstrual pattern, Heat/cold intolerance, Polydipsia , Polyuria, Polyphagia Eyes: DENIES: Blurred vision, Diplopia, Eye inflammation, Eye pain, Vision loss , Photosensitivity, Double Vision Ears, nose, mouth, throat: DENIES: Tinnitus, Hearing loss, Vertigo, Nasal discharge, Oral lesions, Throat pain, Hoarseness, Ear Pain, Running Nose, Epistaxis, Sinus Pain, Toothache, Odynophagia Respiratory: DENIES: Apneas, Cough, Snoring, Wheezing, Hemoptysis, Sputum production, Shortness of breath Cardiovascular: DENIES: Chest pain, Palpitations, Syncope, Dyspnea on Exertion , PND, Lower Extremity Edema, Orthopnea, Claudication Gastrointestinal: DENIES: Abdominal pain, Black stools, Bloody stools, Constipation, Diarrhea, Nausea, Vomiting, Difficulty Swallowing, Anorexia Genitourinary: DENIES: Abnormal vaginal bleeding, Dysmenorrhea, Dyspareunia, Sexual dysfunction, Urinary frequency, Urinary incontinence, Urgency, Hematuria , Dysuria, Nocturia, Vaginal discharge Musculoskeletal: DENIES: Joint pain, Muscle aches, Stiffness, Joint Swelling, Back pain, Neck pain Integumentary: DENIES: Abnormal pigmentation, Pruritus, Rash, Nail changes, Breast masses, Breast skin changes, Nipple discharge Hematologic/lymphatic: DENIES: Bruising, Lymphadenopathy Immunologic/allergic: DENIES: Eczema, Urticaria Neurologic: DENIES: Abnormal gait, Headache, Localized weakness, Paresthesias, Seizures, Speech Problems, Tremor, Poor Balance Psychiatric: DENIES: Anxiety, Confusion, Mood changes, Depression, Hallucinations, Agitation, Suicidal Ideation, Homicidal Ideation, Delusions Past Family Social History Uncoded Allergies: SOME ANTI INFLAMMATORY MEDS (Allergy, Severe, Swelling, 05/16/05) INHALERS (Allergy, Intermediate, SOB, 01/07/06) Active Scripts Metformin (Glucophage) 500 Mg Tab, 500 MG PO BIDPC for Blood Sugar Management, # 60 TAB Prov:Contreras Sol MD 08/15/17 Furosemide (Furosemide) 40 Mg Tab, 40 MG PO DAILY for Prevent Heart Failure, # 30 TAB Prov:Contreras Sol MD 08/15/17 Aspirin (Tgt Aspirin) 81 Mg Chw, 81 MG CHEW DAILY for Prevent Blood Clot, #30 EA Prov:Contreras Sol MD 08/15/17 Carvedilol (Coreg) 3.125 Mg Tab, 3.125 MG PO Q12HR for Regulate Heart Beat, #60 TAB Prov:Contreras Sol MD 08/15/17 Atorvastatin (Atorvastatin) 20 Mg Tab, 20 MG PO HS for Cholesterol Management, # 30 TAB Prov:Contreras Sol MD 08/15/17 Current Medications Medications (Trade) Dose Ordered Sig/Dianelys Route Start Time Stop Time Status Last Admin (NS Flush) 2 ml UNSCH PRN IV FLUSH 08/06/17 17:45 (NS Flush) 2 ml BID IV FLUSH 08/06/17 21:00 08/17/17 09:08 (Tylenol) 650 mg Q4H PRN PO 08/06/17 17:45 08/15/17 22:10 (Zofran Inj) 4 mg Q6H PRN IVP 08/06/17 17:45 (Mahogany-Colace) 1 tab BID PO 08/06/17 21:00 08/16/17 22:31 (Milk Of Magnesia Liq) 30 ml Q12H PRN PO 08/06/17 17:45 08/10/17 12:30 (Senokot) 17.2 mg Q12H PRN PO 08/06/17 17:45 (Dulcolax Supp) 10 mg DAILY PRN RECTAL 08/06/17 17:45 (Lactulose Liq) 30 ml DAILY PRN PO 08/06/17 17:45 (D50w (Vial) Inj) 50 ml UNSCH PRN IV PUSH 08/06/17 18:00 (Glucagon Inj) 1 mg UNSCH PRN OTHER 08/06/17 18:00 (NovoLOG SUPPLEMENTAL SCALE) 1 ACHS SLIDING SCALE SQ 08/06/17 21:00 08/17/17 12:58 (Duoneb Neb) 1 ampule Q4HR NEB PRN NEB 08/07/17 10:30 (Aspirin Chew) 81 mg DAILY CHEW 08/09/17 09:00 08/17/17 09:08 (Narcan Inj) 0.4 mg UNSCH PRN IV PUSH 08/11/17 08:45 (Lovenox Inj) 40 mg Q24H SQ 08/12/17 17:00 (Lasix) 40 mg DAILY PO 08/13/17 09:00 08/16/17 08:30 (Habitrol 21 Mg Patch.24 Hr) 1 patch DAILY T-DERMAL 08/13/17 09:00 08/17/17 09:09 Miscellaneous Information 1 HS T-DERMAL 08/12/17 21:00 08/16/17 21:00 (Coreg) 3.125 mg Q12HR PO 08/14/17 21:00 08/16/17 22:31 (Deltasone) 40 mg DAILY PO 08/15/17 09:00 08/19/17 08:59 08/17/17 09:07 (Lipitor) 20 mg HS PO 08/15/17 21:00 08/16/17 22:31 (Glucophage) 500 mg BIDPC PO 08/15/17 18:00 08/16/17 17:32 Family Psych History Patient denies family psychiatric history Social History The patient was born and raised in [place], she lives in different motels , at times with friends, no family members, single, supported by [facility] Patient's Strengths (min. 2) No psychiatric history Physical Exam Vital Signs Vital Signs Date Time Temp Pulse Resp B/P (MAP) Pulse Ox O2 Delivery O2 Flow Rate FiO2 08/17/17 12:45 93 Nasal Cannula 2.00 08/17/17 12:00 84 08/17/17 08:00 98.0 14 100/58 (72) I/O 08/17/17 08/17/17 08/18/17 08:00 16:00 00:00 Intake Total 810 ml Balance 810 ml Mental Status Examination Appearance: Appropriate Consciousness: Alert Orientation: x4 Motor Activity: Normal gait Speech: Unremarkable Language: Adequate Fund of Knowledge: Adequate Attention and Concentration: Adequate Memory: Unremarkable Mood: Appropriate Affect: Appropriate Thought Process & Associations: Intact Thought Content: Appropriate Hallucination Type: None Delusion Type: None Suicidal Ideation: No Suicidal Plan: No Suicidal Intention: No Homicidal Ideation: No Homicidal Plan: No Homicidal Intention: No Insight: Adequate Judgment: Adequate Assessment & Plan Problem List: (1) Psychological factors affecting medical condition ICD Codes: F54 - Psychological and behavioral factors associated with disorders or diseases classified elsewhere Assessment & Plan: On psychiatric evaluation today the patient does not present any neuropsychiatric symptoms that required an immediate psychiatric intervention. The patient denies depression, denies anxiety, denies consuelo and psychosis. She denies suicidal enemas ideation, she denies visual and auditory hallucinations. Patient is logical, coherent and relevant, oriented 3. Able to verbalize a fair understanding of medical conditions and a rational choice regarding her medical care. Patient does have decision-making capacity to participate in medical decision at this moment. Extensive support, motivation and psychoeducation provided (2) COPD (chronic obstructive pulmonary disease) ICD Codes: J44.9 - Chronic obstructive pulmonary disease, unspecified (3) CHF (congestive heart failure) ICD Codes: I50.9 - Heart failure, unspecified Status: Acute Assessment & Plan Estimated LOS: days Problem Qualifiers (1) CHF (congestive heart failure): Qualified Codes: I50.9 - Heart failure, unspecified Gilmer Baig MD Aug 17, 2017 15:05
[2017-08-17] MEDS ORDERED: PRED20 PO (15:52)
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
[2017-08-17] MEDS: ENOXAPARIN SODIUM 40 MG/0.4 ML SYRINGE SQ SCH (17:00)
== END 2017-08-17 18:10 | disposition home or self-care (01) | DRG 280 ==
LOC: NEPE 14:15 → NEDA 17:07 → INTOOBSV 17:07 → HCIS 22:16 → N04B 08-08 19:09 → OBSVTOIN 08-11 08:51
PROVIDERS: ADMIT Internal Medicine; ATTEND Internal Medicine
DX: I50.43 Acute on chronic combined systolic (congestive) and diastolic (congestive) heart failure (principal); I21.4 Non-ST elevation (NSTEMI) myocardial infarction; J96.01 Acute respiratory failure with hypoxia; J96.02 Acute respiratory failure with hypercapnia; E46 Unspecified protein-calorie malnutrition; J44.1 Chronic obstructive pulmonary disease with (acute) exacerbation; E11.65 Type 2 diabetes mellitus with hyperglycemia; R30.0 Dysuria; I27.20 Pulmonary hypertension, unspecified; F12.90 Cannabis use, unspecified, uncomplicated; F17.210 Nicotine dependence, cigarettes, uncomplicated; Z51.5 Encounter for palliative care; Z59.0 Homelessness; Z86.14 Personal history of Methicillin resistant Staphylococcus aureus infection; Z86.73 Personal history of transient ischemic attack (TIA), and cerebral infarction without residual deficits
CPT/HCPCS: 36600; 71045; 71260; 80048; 80053; 80061; 80307; 81001; 82550; 82552; 82805; 82948; 83036; 83735; 83880; 84443; 84484; 85007; 85025; 85027; 85610; 85730; 93005; 93306; 94060; 94618; G8987-GP; G8988-GP; J1644; J1815; J1940; J2920; J7512; Q9967

== ENCOUNTER 2017-11-20 13:49 | Inpatient (IN) ==
[2017-11-20] MEDS ORDERED: MethylPREDNISolone Sod Succinate Inj 125 MG/2 ML Vial IV.PUSH ONE (15:18)
--- NOTE | 2017-11-20 15:25 | ED ---
HPI General Chief Complaint: Shortness of Breath/Dyspnea Stated Complaint: General Weakness Time Seen by Provider: 11/20/17 14:50 Source: patient Mode of arrival: ambulatory Limitations: no limitations History of Present Illness Patient is a 57-year-old female presenting to [facility] department for evaluation of shortness of breath and weakness. Patient states her symptoms started a week ago. She presented today because she was too weak to walk. She states that she gets short of breath with any exertion. Patient also reports bilateral lower extremity edema. She states that she was on Lasix previously. She reports a history of COPD. She continues to smoke cigarettes and occasionally marijuana. Patient is not on any home medications at this time. She denies any fever, chills, abdominal pain, nausea, vomiting. She states that occasionally she gets chest pain which is midsternal in nature with no radiation. Patient denies any illicit drug use. MD Complaint: shortness of breath and pain with inspiration Onset (ago): week(s) (1) Context: occurred during exertion and smoke/fume exposure Severity: severe Consistency/Duration: constant Relieving factors: nothing Exacerbating factors: exertion, talking, warm air and humidity Known history of: COPD and congestive heart failure Associated symptoms: chest pain, orthopnea and lightheadedness Treatment prior to arrival: none Related Data Home Medications Medication Instructions Recorded Confirmed Unable to Obtain Home Meds 11/20/17 11/20/17 Allergies Allergy/AdvReac Type Severity Reaction Status Date / Time SOME ANTI INFLAMMATORY MEDS Allergy Severe Swelling Uncoded 05/16/05 13:42 INHALERS Allergy Intermediate SOB Uncoded 01/07/06 10:13 Review of Systems Except as stated in HPI: all other systems reviewed are negative [facility] Medical History Medical History Asthma (Acute) COPD (chronic obstructive pulmonary disease) (Acute) Diastolic heart failure (Acute) Social History Social History Second Hand Smoke Exposure: Yes Smoking Status: Current every day smoker Tobacco Type: Cigarettes How Often Do You Have a Drink Containing Alcohol: Never Recent Travel in [facility] within the Last 8 Weeks: No Recent Out of Country Travel within the Last 8 Weeks: No Immunization History Tetanus Immunization: Unsure Hx Influenza Vaccine This Season: No Exam Narrative Exam Narrative: GENERAL: Thin, alert, acutely ill-appearing female. SKIN: Focused skin assessment warm/dry. HEAD: Atraumatic. Normocephalic. EYES: Pupils equal and round. No scleral icterus. No injection or drainage. ENT: No nasal bleeding or discharge. Mucous membranes pink and moist. NECK: Trachea midline. No JVD. CARDIOVASCULAR: Regular rate and rhythm. No murmur appreciated. RESPIRATORY: Tachypnea, decreased breath sounds throughout. GASTROINTESTINAL: Abdomen soft, non-tender, nondistended. Hepatic and splenic margins not palpable. MUSCULOSKELETAL: No obvious deformities. No clubbing. No cyanosis. 1+ bilateral lower extremity edema. NEUROLOGICAL: Awake and alert. No obvious cranial nerve deficits. Motor grossly within normal limits. Normal speech. PSYCHIATRIC: Appropriate mood and affect; insight and judgment normal. Course Initial Documented Vital Signs Temperature 98.3 F 11/20/17 14:39 Pulse Rate 92 H 11/20/17 14:39 Respiratory Rate 22 11/20/17 14:39 Blood Pressure 123/79 11/20/17 14:39 Pulse Oximetry 84 L 11/20/17 14:39 Last Documented Vital Signs Temperature 98.3 F 11/20/17 14:39 Pulse Rate 86 11/20/17 18:18 Respiratory Rate 18 11/20/17 18:18 Blood Pressure 128/80 11/20/17 17:08 Pulse Oximetry 93 L 11/20/17 17:08 Medical Decision Making MDM Narrative Medical decision making narrative: Patient is a 57-year-old female that presented to emerge from for evaluation of shortness of breath weakness. Patient was hypoxic on arrival. Labs and imaging ordered and pending. Patient was placed on telemetry monitoring continuous pulse oximetry. IV access is established. Labs reviewed, d-dimer was elevated prompting CT pulmonary angiogram to rule out pulmonary embolism. This was negative for pulmonary embolism but showed severe emphysema. Patient's troponin was elevated 0.14, she had no complaints of chest pain. Findings and patient's presentation were discussed with my attending physician prior to admission. EKG was reviewed by my attending physician. Patient will be admitted for COPD exacerbation, elevated troponin. Discussed with Dr. Felix Drake who accepted admission. Differential Diagnosis Differential Diagnosis: COPD exacerbation versus pneumonia versus pulmonary embolism versus metabolic abnormality versus other Medical Records Medical records reviewed: Yes I reviewed the patient's medical records. Lab Data Lab results reviewed: Yes I reviewed the patient's lab results. Result diagrams: 11/20/17 15:30 11/20/17 15:30 Lab Results 11/20/17 11/20/17 11/20/17 Range/Units 15:30 15:30 15:30 WBC 4.8 (4.0-11.0) th/mm3 RBC 5.63 H (4.00-5.30) mil/mm3 Hgb 17.9 H (11.6-15.3) gm/dL Hct 55.1 H (35.0-46.0) % MCV 97.8 (80.0-100.0) fL MCH 31.8 (27.0-34.0) pg MCHC 32.5 (32.0-36.0) % RDW 14.8 (11.6-17.2) % Plt Count 166 (150-450) th/mm3 MPV 8.8 (7.0-11.0) fL Neut % (Auto) 61.5 (16.0-70.0) % Lymph % (Auto) 22.9 (9.0-44.0) % [place] % (Auto) 13.4 H (0.0-8.0) % Eos % (Auto) 1.1 (0.0-4.0) % Baso % (Auto) 1.1 (0.0-2.0) % Neut # (Auto) 3.0 (1.8-7.7) th/mm3 Lymph # (Auto) 1.1 (1.0-4.8) th/mm3 [place] # (Auto) 0.6 (0.0-0.9) th/mm3 Eos # (Auto) 0.1 (0.0-0.4) th/mm3 Baso # (Auto) 0.1 (0.0-0.2) th/mm3 WBC Differential . Differential Comment Auto diff final PT 12.0 H (9.8-11.6) sec INR 1.2 Ratio APTT 27.0 (24.3-30.1) sec D-Dimer Quant (PE/DVT) 1.04 H (0.00-0.50) mg/L FEU Puncture Site Patient Temperature O2 Saturation (90-100) % ABG pH (7.380-7.420) ABG pCO2 (38-42) mmHg ABG pO2 (61-120) mmHg ABG HCO3 (22-26) mmol/L ABG O2 Content (12.0-20.0) Vol % ABG Base Excess (-2-2) mmol/L ABG Methemoglobin (0-2) % Lon Test Hemoglobin (12.0-16.0) G/DL Carboxyhemoglobin (0-4) % O2 Delivery Device Liter Flow L/M Inspired O2 % Critical Value Sodium 139 (136-145) meq/L Potassium 3.8 (3.5-5.1) meq/L Chloride 95 L (98-107) meq/L Carbon Dioxide 40.5 H (21.0-32.0) meq/L Anion Gap 4 L (5-15) meq/L BUN 17 (7-18) mg/dL Creatinine 0.83 (0.50-1.00) mg/dL Estimated GFR 71 L (>89) mL/min Random Glucose 115 H (74-106) mg/dL Calcium 8.7 (8.5-10.1) mg/dL Magnesium 1.7 (1.5-2.5) mg/dL Total Bilirubin 1.0 (0.2-1.0) mg/dL AST 31 (15-37) U/L ALT 20 (10-53) U/L Alkaline Phosphatase 101 (45-117) U/L Total Creatine Kinase 105 (26-192) U/L CK-MB (CK-2) 4.5 H (0.5-3.6) ng/mL Troponin I 0.14 H (0.02-0.05) ng/mL Total Protein 7.3 (6.4-8.2) g/dL Albumin 3.2 L (3.4-5.0) g/dL 11/20/17 Range/Units 15:54 WBC (4.0-11.0) th/mm3 RBC (4.00-5.30) mil/mm3 Hgb (11.6-15.3) gm/dL Hct (35.0-46.0) % MCV (80.0-100.0) fL MCH (27.0-34.0) pg MCHC (32.0-36.0) % RDW (11.6-17.2) % Plt Count (150-450) th/mm3 MPV (7.0-11.0) fL Neut % (Auto) (16.0-70.0) % Lymph % (Auto) (9.0-44.0) % [place] % (Auto) (0.0-8.0) % Eos % (Auto) (0.0-4.0) % Baso % (Auto) (0.0-2.0) % Neut # (Auto) (1.8-7.7) th/mm3 Lymph # (Auto) (1.0-4.8) th/mm3 [place] # (Auto) (0.0-0.9) th/mm3 Eos # (Auto) (0.0-0.4) th/mm3 Baso # (Auto) (0.0-0.2) th/mm3 WBC Differential Differential Comment PT (9.8-11.6) sec INR Ratio APTT (24.3-30.1) sec D-Dimer Quant (PE/DVT) (0.00-0.50) mg/L FEU Puncture Site Right radial Patient Temperature 98.6 O2 Saturation 90 (90-100) % ABG pH 7.40 (7.380-7.420) ABG pCO2 68 H* (38-42) mmHg ABG pO2 78 (61-120) mmHg ABG HCO3 41 H (22-26) mmol/L ABG O2 Content 21.3 H (12.0-20.0) Vol % ABG Base Excess 15.4 H (-2-2) mmol/L ABG Methemoglobin 0.4 (0-2) % Lon Test Present Hemoglobin 16.8 H (12.0-16.0) G/DL Carboxyhemoglobin 5.3 H* (0-4) % O2 Delivery Device Nasal cannula Liter Flow 2.00 L/M Inspired O2 21 % Critical Value Yes Sodium (136-145) meq/L Potassium (3.5-5.1) meq/L Chloride (98-107) meq/L Carbon Dioxide (21.0-32.0) meq/L Anion Gap (5-15) meq/L BUN (7-18) mg/dL Creatinine (0.50-1.00) mg/dL Estimated GFR (>89) mL/min Random Glucose (74-106) mg/dL Calcium (8.5-10.1) mg/dL Magnesium (1.5-2.5) mg/dL Total Bilirubin (0.2-1.0) mg/dL AST (15-37) U/L ALT (10-53) U/L Alkaline Phosphatase (45-117) U/L Total Creatine Kinase (26-192) U/L CK-MB (CK-2) (0.5-3.6) ng/mL Troponin I (0.02-0.05) ng/mL Total Protein (6.4-8.2) g/dL Albumin (3.4-5.0) g/dL Imaging Data Radiologist's impression: Chest X-Ray 11/20/17 15:18 CONCLUSION: Hyperinflation. Chest CTA 11/20/17 16:58 CONCLUSION: 1. No evidence for pulmonary embolism. Reviewed radiology reports. Discharge Plan Discharge Disposition Patient Disposition: 30 Still Patient Discharge Condition Condition: Stable Discharge Details Diagnosis: Acute exacerbation of chronic obstructive pulmonary disease (COPD), Elevated troponin Physicians Team ED Provider: Mitul Rosenbaum ED Midlevel Provider: Annie Vasquez Primary Care Provider: UNKNOWN, Attending Provider: Felix Drake Status ED Status: Admitted Patient
--- NOTE | 2017-11-20 15:51 | XR ---
EXAM DATE: 11/20/2017 3:34 PM EDT AGE/SEX: 57 years / Female INDICATIONS: Short of breath. CLINICAL DATA: This is the patient's initial encounter. Patient reports that signs and symptoms have been present for 3 days and indicates a pain score of 0/10. MEDICAL/SURGICAL HISTORY: Chronic obstructive pulmonary disease. None. COMPARISON: [facility] [place], 08/06/[place]. . FINDINGS: Cardiomegaly. Hyperinflation. Clear lungs. Osseous structures are intact. CONCLUSION: Hyperinflation. Electronically signed by: Keaton Anders MD 11/20/2017 3:50 PM EDT
[2017-11-20 16:01] LABS: ABG Base Excess 15.4 mmol/L (-2-2); ABG PCO2 68 mmHg (38-42); ABG PO2 78 mmHg (61-120)
[2017-11-20 16:24] LABS: Baso # (Auto) 0.1 th/mm3 (0.0-0.2); Baso % (Auto) 1.1 % (0.0-2.0); Eos # (Auto) 0.1 th/mm3 (0.0-0.4); Eos % (Auto) 1.1 % (0.0-4.0); Hematocrit 55.1 % (35.0-46.0); Hemoglobin 17.9 gm/dL (11.6-15.3); Lymph # (Auto) 1.1 th/mm3 (1.0-4.8); Lymph % (Auto) 22.9 % (9.0-44.0); Mean Corpuscular HGB Conc 32.5 % (32.0-36.0); Mean Corpuscular Hemoglobin 31.8 pg (27.0-34.0); Mean Corpuscular Volume 97.8 fL (80.0-100.0); Mean Platelet Volume 8.8 fL (7.0-11.0); Mono # (Auto) 0.6 th/mm3 (0.0-0.9); Mono % (Auto) 13.4 % (0.0-8.0); Neut % (Auto) 61.5 % (16.0-70.0); Platelet Count 166 th/mm3 (150-450); Red Blood Count 5.63 mil/mm3 (4.00-5.30); Red Cell Distribution Width 14.8 % (11.6-17.2); White Blood Count 4.8 th/mm3 (4.0-11.0)
[2017-11-20 16:53] LABS: INR 1.2 Ratio
[2017-11-20 16:54] LABS: D-Dimer 1.04 mg/L FEU (0.00-0.50)
[2017-11-20 17:01] LABS: Albumin 3.2 g/dL (3.4-5.0); Anion Gap 4 meq/L (5-15); Aspartate Aminotransferase 31 U/L (15-37); Blood Urea Nitrogen 17 mg/dL (7-18); Calcium 8.7 mg/dL (8.5-10.1); Carbon Dioxide 40.5 meq/L (21.0-32.0); Chloride 95 meq/L (98-107); Glomerular Filtration Rate 71 mL/min (>89); Glucose,Random 115 mg/dL (74-106); Magnesium 1.7 mg/dL (1.5-2.5); Potassium 3.8 meq/L (3.5-5.1); Sodium 139 meq/L (136-145)
[2017-11-20 17:02] LABS: Alanine Aminotransferase 20 U/L (10-53)
[2017-11-20 17:06] LABS: Alkaline Phosphatase 101 U/L (45-117); Creatine Kinase 105 U/L (26-192); Total Protein 7.3 g/dL (6.4-8.2); Troponin I 0.14 ng/mL (0.02-0.05)
[2017-11-20 17:19] LABS: Creatine Kinase MB 4.5 ng/mL (0.5-3.6)
--- NOTE | 2017-11-20 17:39 | CT ---
EXAM DATE: 11/20/2017 5:34 PM EDT AGE/SEX: 57 years / Female INDICATIONS: Shortness of breath. CLINICAL DATA: This is the patient's initial encounter. Patient reports that signs and symptoms have been present for 1 day and indicates a pain score of 0/10. MEDICAL/SURGICAL HISTORY: Asthma. Chronic obstructive pulmonary disease. None. RADIATION DOSE: 6.89 CTDI (mGy) COMPARISON: [facility], CHEST 1V SINGLE AP, 11/20/2017. . TECHNIQUE: Volumetric scanning was performed using a multi-row detector CT scanner during bolus infu oscar of 75 ml Omnipaque 350 (iohexol) nonionic water-soluble contrast as a single exam dose. The keisha a was post processed with a variety of visualization algorithms including full volume maximum intensi ty projection and sliding thin slab reformation. Using automated exposure control and adjustment of the mA and/or kV according to patient size, radiation dose was kept as low as reasonably achievable t o obtain optimal diagnostic quality images. DICOM format image data is available electronically for review and comparison. FINDINGS: There is severe emphysema. There is linear scarring versus atelectasis in the right middle lobe media l segment. No adenopathy. There is no evidence for pulmonary embolism. Osseous structures are intact. CONCLUSION: 1. No evidence for pulmonary embolism. Electronically signed by: Keaton Anders MD 11/20/2017 5:38 PM EDT
[2017-11-20] MEDS ORDERED: Acetaminophen 325 MG Tablet PO PRN (20:14)
[2017-11-20] MEDS ORDERED: Temazepam 15 MG Capsule PO PRN (20:14)
[2017-11-20] MEDS ORDERED: Bisacodyl 10 MG Supp RECTAL PRN (20:14)
[2017-11-20] MEDS: Heparin - SQ 10,000 UNITS/ML Vial SQ SCH (22:39)
--- NOTE | 2017-11-20 23:01 | P.HPIM ---
History of Present Illness Primary Care Physician: UNKNOWN [facility] - History History Provided By: Patient - Medical History Medical History: Medical History (Last Updated 11/20/17 @ 22:58 by Geo Hutchinson MD) COPD (chronic obstructive pulmonary disease) delivery delivered Asthma Diastolic heart failure - Family History Family History: Family History (Last Updated 11/20/17 @ 22:58 by Geo Hutchinson MD) Other Unknown family medical history - Tobacco History Second Hand Smoke Exposure: No Tobacco Use In Past 30 Days: Yes Smoking Status: Heavy tobacco smoker Tobacco Type: Cigarettes - Alcohol History How Often Do You Have a Drink Containing Alcohol: Never - Substance Use History Substance History: Past History - Travel History Recent Travel in the [place] Within the Last 8 Weeks: No Recent Travel Out of the Country Within the Last 8 Weeks: No - Immunization History Tetanus Immunization: Unsure Hx Influenza Vaccine This Season: No Medications and Allergies Active Medications: Active Medications Acetaminophen (Tylenol) 650 mg PO Q4H PRN PRN Reason: Temp > 100.4 Al Hydroxide/Mg Hydroxide (Milk Of Magnesia Liq) 30 ml PO Q12H PRN PRN Reason: Mild Constipation Albuterol (Duoneb Neb (Prn)) 1 ampul NEB Q2HR NEB PRN PRN Reason: SHORTNESS OF BREATH/WHEEZING Albuterol (Duoneb Neb (Dianelys)) 1 ampul NEB Q4HR WHILE AWAKE NEB DIANELYS Bisacodyl (Dulcolax Supp) 10 mg RECTAL DAILY PRN PRN Reason: SEVERE CONSITIPATION Heparin Sodium (Porcine) (Heparin Inj) 5,000 units SQ Q8H DIANELYS Last Admin: 11/20/17 22:39 Dose: 5,000 units Lactulose (Lactulose Liq) 30 ml PO DAILY PRN PRN Reason: SEVERE CONSITIPATION Methylprednisolone Sodium Succinate (Solumedrol Inj) 40 mg IV.PUSH Q8HR DIANELYS Ondansetron HCl (Zofran Odt) 4 mg PO Q6H PRN PRN Reason: NAUSEA OR VOMITING Sennosides (Senokot) 17.2 mg PO Q12H PRN PRN Reason: Moderate Constipation Sodium Chloride (Ns Flush) 2 ml IV.FLUSH PRN PRN PRN Reason: FLUSH AFTER USING IV ACCESS Last Admin: 11/20/17 16:06 Dose: 2 ml Temazepam (Restoril) 15 mg PO HS PRN PRN Reason: INSOMNIA Allergies Allergy/AdvReac Type Severity Reaction Status Date / Time SOME ANTI INFLAMMATORY MEDS Allergy Severe Swelling Uncoded 05/16/05 13:42 INHALERS Allergy Intermediate SOB Uncoded 01/07/06 10:13 Home Medications Medication Instructions Recorded Confirmed Type Unable to Obtain Home Meds 11/20/17 11/20/17 History Exam Vital signs: Vital Signs 11/20/17 14:39 11/20/17 15:16 11/20/17 15:18 Temperature 98.3 F Pulse Rate 92 H 92 H 65 Respiratory Rate 22 22 Blood Pressure 123/79 124/82 Pulse Oximetry 84 L 96 96 11/20/17 15:48 11/20/17 17:08 11/20/17 18:18 Temperature Pulse Rate 84 80 86 Respiratory Rate 18 16 18 Blood Pressure 128/80 Pulse Oximetry 93 L 11/20/17 19:00 11/20/17 20:00 Temperature Pulse Rate 80 87 Respiratory Rate 20 18 Blood Pressure 124/78 100/65 Pulse Oximetry 95 95 Intake & Output 11/20/17 11/20/17 11/21/17 06:59 18:59 06:59 Weight 59.5 kg Other: Weight On Admission 59.5 kg Narrative: GENERAL: Patient lying in bed sleeping. Wakes up for exam. Alert and oriented 3. SKIN: Warm and dry. HEAD: Atraumatic. Normocephalic. EYES: Pupils equal and round. No scleral icterus. No injection or drainage. ENT: No nasal bleeding or discharge. Mucous membranes pink and moist. NECK: Trachea midline. No JVD. CARDIOVASCULAR: Regular rate and rhythm. RESPIRATORY: No accessory muscle use. Clear to auscultation. Breath sounds equal bilaterally. GASTROINTESTINAL: Abdomen soft, non-tender, nondistended. Hepatic and splenic margins not palpable. MUSCULOSKELETAL: Extremities without clubbing, cyanosis. +1 bilateral lower extremity edema. Bilateral feet with what appears to be a sunburn. No broken skin. No obvious deformities. NEUROLOGICAL: Awake and alert. No obvious cranial nerve deficits. Motor grossly within normal limits. Five out of 5 muscle strength in the arms and legs. Normal speech. PSYCHIATRIC: Appropriate mood and affect; insight and judgment normal. Results - Labs CBC & Chem 7: 11/20/17 15:30 11/20/17 15:30 Labs: Short CBC 11/20/17 Range/Units 15:30 WBC 4.8 (4.0-11.0) th/mm3 Hgb 17.9 H (11.6-15.3) gm/dL Hct 55.1 H (35.0-46.0) % Plt Count 166 (150-450) th/mm3 BMP 11/20/17 15:30 Sodium 139 Potassium 3.8 Chloride 95 L Carbon Dioxide 40.5 H BUN 17 Creatinine 0.83 Calcium 8.7 Cardiac Enzymes 11/20/17 Range/Units 15:30 Total Creatine Kinase 105 (26-192) U/L CK-MB (CK-2) 4.5 H (0.5-3.6) ng/mL Troponin I 0.14 H (0.02-0.05) ng/mL Liver Function 11/20/17 Range/Units 15:30 Total Bilirubin 1.0 (0.2-1.0) mg/dL AST 31 (15-37) U/L ALT 20 (10-53) U/L Alkaline Phosphatase 101 (45-117) U/L Albumin 3.2 L (3.4-5.0) g/dL - Imaging Impressions Chest X-Ray 11/20/17 15:18 CONCLUSION: Hyperinflation. Chest CTA 11/20/17 16:58 CONCLUSION: 1. No evidence for pulmonary embolism. Caprini VTE Risk Assessment Caprini VTE Risk Assessment: No/Low Risk (score <= 1) Caprini Risk Assessment Model: Point Value = 1 Point Value = 2 Point Value = 3 Point Value = 5 Age 41-60 Minor surgery BMI > 25 kg/m2 Swollen legs Varicose veins or History of unexplained or recurrent spontaneous Oral contraceptives or hormone replacement Sepsis (< 1 month) Serious lung disease, including pneumonia (< 1 month) Abnormal pulmonary function Acute myocardial infarction Congestive heart failure (< 1 month) History of inflammatory bowel disease Medical patient at bed rest Age 61-74 Arthroscopic surgery Major open surgery (> 45 min) Laparoscopic surgery (> 45 min) Malignancy Confined to bed (> 72 hours) Immobilizing plaster cast Central venous access Age >= 75 History of VTE Family history of VTE Factor V Leiden Prothrombin [id number] Lupus anticoagulant Anticardiolipin antibodies Elevated serum homocysteine Heparin-induced thrombocytopenia Other congenital or acquired thrombophilia Stroke (< 1 month) Elective arthroplasty Hip, pelvis, or leg fracture Acute spinal cord injury (< 1 month) Prophylaxis Regimen: Total Risk Factor Score Risk Level Prophylaxis Regimen 0-1 Low Early ambulation 2 Moderate Order ONE of the following: *Sequential Compression Device (SCD) *Heparin 5000 units SQ BID 3-4 Higher Order ONE of the following medications: *Heparin 5000 units SQ TID *Enoxaparin/Lovenox 40 mg SQ daily (WT < 150 kg, CrCl > 30 mL/min) *Enoxaparin/Lovenox 30 mg SQ daily (WT < 150 kg, CrCl > 10-29 mL/min) *Enoxaparin/Lovenox 30 mg SQ BID (WT < 150 kg, CrCl > 30 mL/min) AND/OR *Sequential Compression Device (SCD) 5 or more Highest Order ONE of the following medications: *Heparin 5000 units SQ TID (Preferred with Epidurals) *Enoxaparin/Lovenox 40 mg SQ daily (WT < 150 kg, CrCl > 30 mL/min) *Enoxaparin/Lovenox 30 mg SQ daily (WT < 150 kg, CrCl > 10-29 mL/min) *Enoxaparin/Lovenox 30 mg SQ BID (WT < 150 kg, CrCl > 30 mL/min) AND *Sequential Compression Device (SCD) Assessment and Plan - Plan ///COPD exacerbation. CT pulmonary angiogram negative for PE, however shows severe emphysema Duo nebs, IV steroids Assess response to therapy. //Troponin elevation 0.14. //Suspected diastolic CHF exacerbation. BNP elevated at 1000. Bilateral lower extremity edema. BNP could be elevated secondary to COPD exacerbation. No pulmonary edema on chest x-ray. Will trend EKGs and troponins. Echo previously with normal ejection fraction. Elevated pulmonary pressures. //Chronic tobacco abuse. Cessation counseling provided. Discussed Condition With: Patient, nurse, Dr. Drake H&P: Quality - VTE Deep Vein Thrombosis/Pulmonary Embolism Present on Admission: No
[2017-11-20] MEDS ORDERED: acetaZOLAMIDE 250 MG TABLET PO ONE (23:02)
[2017-11-20 23:39] LABS: Troponin I 0.11 ng/mL (0.02-0.05)
[2017-11-21] MEDS: MethylPREDNISolone Sod Succinate Inj 40 MG/ML Vial IV.PUSH SCH ×4 (00:27→22:56)
[2017-11-21] MEDS: Heparin - SQ 10,000 UNITS/ML Vial SQ SCH ×3 (05:17→20:45)
[2017-11-21 08:51] LABS: Baso % (Auto) 0.2 % (0.0-2.0); Eos % (Auto) 0.1 % (0.0-4.0); Hematocrit 50.6 % (35.0-46.0); Hemoglobin 16.3 gm/dL (11.6-15.3); Lymph # (Auto) 0.5 th/mm3 (1.0-4.8); Lymph % (Auto) 13.8 % (9.0-44.0); Mean Corpuscular HGB Conc 32.2 % (32.0-36.0); Mean Corpuscular Hemoglobin 31.3 pg (27.0-34.0); Mean Corpuscular Volume 97.4 fL (80.0-100.0); Mean Platelet Volume 8.7 fL (7.0-11.0); Mono # (Auto) 0.1 th/mm3 (0.0-0.9); Neut # (Auto) 2.9 th/mm3 (1.8-7.7); Neut % (Auto) 82.9 % (16.0-70.0); Platelet Count 152 th/mm3 (150-450); Red Cell Distribution Width 14.6 % (11.6-17.2); White Blood Count 3.5 th/mm3 (4.0-11.0)
--- NOTE | 2017-11-21 09:00 | ECG ---
Date Performed: 11/20/2017 Time Performed: 15:59:32 PTAGE: 57 years EKG: Sinus rhythm RIGHT ATRIAL ENLARGEMENT LEFT ATRIAL ENLARGEMENT INCOMPLETE RIGHT BUNDLE BRANCH BLOCK RIGHT VENTRICU LAR HYPERTROPHY MODERATE T-WAVE ABNORMALITY, CONSIDER ANTERIOR ISCHEMIA ABNORMAL ECG Since the PREVIOUS TRACING , no significant change noted DOCTOR: Giovany Haines Interpretating Date/Time 11/21/2017 08:59:26
[2017-11-21 09:16] LABS: Calcium 8.3 mg/dL (8.5-10.1); Carbon Dioxide 37.9 meq/L (21.0-32.0); Potassium 3.8 meq/L (3.5-5.1)
[2017-11-21 09:21] LABS: Troponin I 0.11 ng/mL (0.02-0.05)
--- NOTE | 2017-11-21 16:30 | P.PN ---
Subjective Interval history: 57-year-old female admitted for COPD exacerbation and borderline elevation of her troponin level. She has been hospitalized a number of times before and previously worked up. She states she is breathing more comfortably this morning but not yet at her baseline. Physical Exam Vital signs: Vital Signs 11/20/17 17:08 11/20/17 18:18 11/20/17 19:00 Temperature Pulse Rate 80 86 80 Respiratory Rate 16 18 20 Blood Pressure 128/80 124/78 Pulse Oximetry 93 L 95 11/20/17 20:00 11/20/17 21:42 11/21/17 00:00 Temperature 98.3 F 98.3 F Pulse Rate 87 83 88 Respiratory Rate 18 19 18 Blood Pressure 100/65 105/59 L 111/68 Pulse Oximetry 95 95 93 L 11/21/17 04:00 11/21/17 05:19 11/21/17 08:00 Temperature 98.9 F 97.4 F L Pulse Rate 82 76 77 Respiratory Rate 20 16 Blood Pressure 95/52 L 101/75 Pulse Oximetry 93 L 92 L 11/21/17 09:00 11/21/17 12:00 Temperature 97.8 F Pulse Rate 86 80 Respiratory Rate 16 Blood Pressure 104/68 Pulse Oximetry 98 Intake & Output 11/20/17 11/21/17 11/21/17 18:59 06:59 18:59 Intake Total 240 / 240 Output Total 650 / 650 Balance -410 / -410 Weight 59 kg Intake: Oral 240 / 240 Output: Urine 650 / 650 Other: # Bowel Movements 1 Weight On Admission 59.5 kg Narrative: GENERAL: AAOx3, no acute distress, disheveled SKIN: Warm and dry. No rashes HEAD: Atruamtic, normocephalic. EYES: No scleral icterus. No injection or drainage. ENT: Moist mucous membranes, patent nares, no erythema of oropharynx. NECK: Supple, trachea midline. No JVD or lymphadenopathy. Normal thyroid. CARDIOVASCULAR: Regular rate and rhythm. No murmurs, gallops, or rubs. RESPIRATORY: Breath sounds clear equal bilaterally. Scattered wheezes. No accessory muscle use. GASTROINTESTINAL: Abdomen soft, non-tender, nondistended, normal active bowel sounds MUSCULOSKELETAL: No cyanosis, or edema. NEURO: CN II-XII grossly intact, no focal deficits, no slurring of speech Results - Labs CBC & Chem 7: 11/21/17 07:20 11/21/17 07:20 Laboratory Results - last 24 hr 11/20/17 11/20/17 11/20/17 15:30 15:30 15:30 WBC 4.8 RBC 5.63 H Hgb 17.9 H Hct 55.1 H MCV 97.8 MCH 31.8 MCHC 32.5 RDW 14.8 Plt Count 166 MPV 8.8 Neut % (Auto) 61.5 Lymph % (Auto) 22.9 [place] % (Auto) 13.4 H Eos % (Auto) 1.1 Baso % (Auto) 1.1 Neut # (Auto) 3.0 Lymph # (Auto) 1.1 [place] # (Auto) 0.6 Eos # (Auto) 0.1 Baso # (Auto) 0.1 WBC Differential . Differential Comment Auto diff final PT 12.0 H INR 1.2 APTT 27.0 D-Dimer Quant (PE/DVT) 1.04 H Puncture Site Patient Temperature O2 Saturation ABG pH ABG pCO2 ABG pO2 ABG HCO3 ABG O2 Content ABG Base Excess ABG Methemoglobin Lon Test Hemoglobin Carboxyhemoglobin O2 Delivery Device Liter Flow Inspired O2 Critical Value Sodium 139 Potassium 3.8 Chloride 95 L Carbon Dioxide 40.5 H Anion Gap 4 L BUN 17 Creatinine 0.83 Estimated GFR 71 L Random Glucose 115 H Calcium 8.7 Magnesium 1.7 Total Bilirubin 1.0 AST 31 ALT 20 Alkaline Phosphatase 101 Total Creatine Kinase 105 CK-MB (CK-2) 4.5 H Troponin I 0.14 H B-Natriuretic Peptide Total Protein 7.3 Albumin 3.2 L 11/20/17 11/20/17 11/20/17 15:30 15:54 22:53 WBC RBC Hgb Hct MCV MCH MCHC RDW Plt Count MPV Neut % (Auto) Lymph % (Auto) [place] % (Auto) Eos % (Auto) Baso % (Auto) Neut # (Auto) Lymph # (Auto) [place] # (Auto) Eos # (Auto) Baso # (Auto) WBC Differential Differential Comment PT INR APTT D-Dimer Quant (PE/DVT) Puncture Site Right radial Patient Temperature 98.6 O2 Saturation 90 ABG pH 7.40 ABG pCO2 68 H* ABG pO2 78 ABG HCO3 41 H ABG O2 Content 21.3 H ABG Base Excess 15.4 H ABG Methemoglobin 0.4 Lon Test Present Hemoglobin 16.8 H Carboxyhemoglobin 5.3 H* O2 Delivery Device Nasal cannula Liter Flow 2.00 Inspired O2 21 Critical Value Yes Sodium Potassium Chloride Carbon Dioxide Anion Gap BUN Creatinine Estimated GFR Random Glucose Calcium Magnesium Total Bilirubin AST ALT Alkaline Phosphatase Total Creatine Kinase 98 CK-MB (CK-2) Troponin I 0.11 H B-Natriuretic Peptide 1031 H Total Protein Albumin 11/21/17 11/21/17 07:20 07:20 WBC 3.5 L RBC 5.20 Hgb 16.3 H Hct 50.6 H MCV 97.4 MCH 31.3 MCHC 32.2 RDW 14.6 Plt Count 152 MPV 8.7 Neut % (Auto) 82.9 H Lymph % (Auto) 13.8 [place] % (Auto) 3.0 Eos % (Auto) 0.1 Baso % (Auto) 0.2 Neut # (Auto) 2.9 Lymph # (Auto) 0.5 L [place] # (Auto) 0.1 Eos # (Auto) 0.0 Baso # (Auto) 0.0 WBC Differential . Differential Comment Auto diff final PT INR APTT D-Dimer Quant (PE/DVT) Puncture Site Patient Temperature O2 Saturation ABG pH ABG pCO2 ABG pO2 ABG HCO3 ABG O2 Content ABG Base Excess ABG Methemoglobin Lon Test Hemoglobin Carboxyhemoglobin O2 Delivery Device Liter Flow Inspired O2 Critical Value Sodium 139 Potassium 3.8 Chloride 96 L Carbon Dioxide 37.9 H Anion Gap 5 BUN 22 H Creatinine 0.79 Estimated GFR 76 L Random Glucose 148 H Calcium 8.3 L Magnesium Total Bilirubin AST ALT Alkaline Phosphatase Total Creatine Kinase 64 CK-MB (CK-2) Troponin I 0.11 H B-Natriuretic Peptide Total Protein Albumin - Imaging Impressions Chest CTA 11/20/17 16:58 CONCLUSION: 1. No evidence for pulmonary embolism. Assessment and Plan - Plan COPD exacerbation CT angiogram negative for PE, severe emphysema present Continue IV Solu-Medrol, duo nebs, supplemental oxygen Patient is improving Elevated troponin level 0.14 and admission, BNP elevated at 1000, trace edema in both ankles Likely from cardiac strain secondary to COPD exacerbation Troponin has been as high as 1.51 on previous admission, offered cardiac catheterization on that admission but she declined I will ask her again if she would like cardiac catheterization if not then will continue medical management DVT prophylaxis Heparin
[2017-11-21] MEDS ORDERED: Benzonatate 100 MG Capsule PO PRN (16:55)
--- NOTE | 2017-11-21 17:55 | ECG ---
Date Performed: 11/21/2017 Time Performed: 06:56:48 PTAGE: 57 years EKG: Sinus rhythm . Possible left atrial abnormality Indeterminate axis Right bundle branch block Lateral T wave change s may be due to myocardial ischemia Abnormal ECG Since the PREVIOUS TRACING , no significant change noted PREVIOUS TRACIN11/20/2017 15.59.32 DOCTOR: Giovany Haines Interpretating Date/Time 11/21/2017 17:54:47
[2017-11-21] MEDS: Phenol 1.4% 180 ML Spray Bottle OROPHARYNG PRN (18:06)
[2017-11-22] MEDS: Heparin - SQ 10,000 UNITS/ML Vial SQ SCH ×3 (04:18→21:11)
[2017-11-22] MEDS: MethylPREDNISolone Sod Succinate Inj 40 MG/ML Vial IV.PUSH SCH ×3 (06:21→21:11)
[2017-11-22] MEDS: Phenol 1.4% 180 ML Spray Bottle OROPHARYNG PRN (15:01)
--- NOTE | 2017-11-22 15:14 | P.PN ---
Subjective Interval history: Patient requested anxiolytic today, she denies alcohol use, she wanted for her breathing but denies anxiety. She states she is breathing a little easier but still needs oxygen. Physical Exam Vital signs: Vital Signs 11/21/17 16:00 11/21/17 20:00 11/21/17 21:49 Temperature 98.1 F 97.6 F Pulse Rate 87 82 77 Respiratory Rate 16 19 18 Blood Pressure 101/56 L 106/67 Pulse Oximetry 98 93 L 97 11/22/17 00:00 11/22/17 04:00 11/22/17 08:00 Temperature 97.7 F 97.6 F 97.3 F L Pulse Rate 78 68 80 Respiratory Rate 20 17 18 Blood Pressure 117/74 114/86 103/75 Pulse Oximetry 98 95 97 11/22/17 12:00 Temperature 97.9 F Pulse Rate Respiratory Rate 18 Blood Pressure 91/54 L Pulse Oximetry 94 L Intake & Output 11/21/17 11/22/17 11/22/17 18:59 06:59 18:59 Intake Total 380 / 380 240 / 240 Output Total 1300 / 1300 400 / 400 Balance -920 / -920 -160 / -160 Weight 60.8 kg Intake: Oral 380 / 380 240 / 240 Output: Urine 1300 / 1300 400 / 400 Other: # Voids 2 # Bowel Movements 0 Narrative: GENERAL: AAOx3, no acute distress, disheveled SKIN: Warm and dry. No rashes HEAD: Atruamtic, normocephalic. EYES: No scleral icterus. No injection or drainage. ENT: Moist mucous membranes, patent nares, no erythema of oropharynx. NECK: Supple, trachea midline. No JVD or lymphadenopathy. Normal thyroid. CARDIOVASCULAR: Regular rate and rhythm. No murmurs, gallops, or rubs. RESPIRATORY: Breath sounds clear equal bilaterally. Scattered wheezes. No accessory muscle use. GASTROINTESTINAL: Abdomen soft, non-tender, nondistended, normal active bowel sounds MUSCULOSKELETAL: No cyanosis, or edema. NEURO: CN II-XII grossly intact, no focal deficits, no slurring of speech Results - Labs CBC & Chem 7: 11/21/17 07:20 11/21/17 07:20 Assessment and Plan - Plan COPD exacerbation CT angiogram negative for PE, severe emphysema present Continue IV Solu-Medrol, duo nebs, supplemental oxygen Patient is improving slowly Elevated troponin level 0.14 and admission, BNP elevated at 1000, trace edema in both ankles Likely from cardiac strain secondary to COPD exacerbation Troponin has been as high as 1.51 on previous admission, offered cardiac catheterization on that admission but she declined I asked patient again today she was interested in a cardiac workup including catheterization, she declined this offer DVT prophylaxis Heparin
[2017-11-23] MEDS: MethylPREDNISolone Sod Succinate Inj 40 MG/ML Vial IV.PUSH SCH ×2 (05:33→14:33)
[2017-11-23] MEDS: Heparin - SQ 10,000 UNITS/ML Vial SQ SCH ×4 (05:34→20:31)
--- NOTE | 2017-11-23 16:57 | P.PN ---
Subjective Interval history: 57-year-old female admitted for COPD exacerbation. She failed an oxygen walk test today, still requiring nasal cannula oxygen. Physical Exam Vital signs: Vital Signs 11/22/17 19:37 11/22/17 20:00 11/22/17 20:25 Temperature 97.9 F Pulse Rate 88 89 102 H Respiratory Rate 20 17 Blood Pressure 118/68 Pulse Oximetry 96 99 Pulse Oximetry [Resting on Room Air] Pulse Oximetry [Resting with Oxygen] 11/23/17 00:00 11/23/17 00:05 11/23/17 04:00 Temperature 98.0 F 97.9 F Pulse Rate 82 82 68 Respiratory Rate 16 17 Blood Pressure 115/64 116/62 Pulse Oximetry 99 94 L Pulse Oximetry [Resting on Room Air] Pulse Oximetry [Resting with Oxygen] 11/23/17 07:59 11/23/17 08:00 11/23/17 09:00 Temperature 97.3 F L Pulse Rate 80 83 100 H Respiratory Rate 16 18 Blood Pressure 130/68 Pulse Oximetry 94 L 85 L Pulse Oximetry [Resting on Room Air] Pulse Oximetry [Resting with Oxygen] 11/23/17 12:00 11/23/17 14:59 11/23/17 16:00 Temperature 97.7 F 98.2 F Pulse Rate 73 84 Respiratory Rate 17 17 Blood Pressure 118/61 121/68 Pulse Oximetry 94 L 96 Pulse Oximetry [Resting on Room Air] 88 L Pulse Oximetry [Resting with Oxygen] 93 L Intake & Output 11/22/17 11/23/17 11/23/17 18:59 06:59 18:59 Other: Post Void Residual 250 Narrative: GENERAL: AAOx3, no acute distress, disheveled SKIN: Warm and dry. No rashes HEAD: Atruamtic, normocephalic. EYES: No scleral icterus. No injection or drainage. ENT: Moist mucous membranes, patent nares, no erythema of oropharynx. NECK: Supple, trachea midline. No JVD or lymphadenopathy. Normal thyroid. CARDIOVASCULAR: Regular rate and rhythm. No murmurs, gallops, or rubs. RESPIRATORY: Breath sounds clear equal bilaterally. Scattered wheezes. No accessory muscle use. GASTROINTESTINAL: Abdomen soft, non-tender, nondistended, normal active bowel sounds MUSCULOSKELETAL: No cyanosis, or edema. NEURO: CN II-XII grossly intact, no focal deficits, no slurring of speech Results - Labs CBC & Chem 7: 11/21/17 07:20 11/21/17 07:20 Assessment and Plan - Plan COPD exacerbation CT angiogram negative for PE, severe emphysema present Continue IV Solu-Medrol, duo nebs, supplemental oxygen Patient failed home oxygen walk test today, saturations at 88% off of oxygen at rest Elevated troponin level 0.14 and admission, BNP elevated at 1000, trace edema in both ankles Likely from cardiac strain secondary to COPD exacerbation Troponin has been as high as 1.51 on previous admission, offered cardiac catheterization on that admission but she declined I asked patient again today she was interested in a cardiac workup including catheterization, she declined this offer DVT prophylaxis Heparin
[2017-11-24] MEDS: MethylPREDNISolone Sod Succinate Inj 40 MG/ML Vial IV.PUSH SCH ×3 (05:42→13:08)
[2017-11-24] MEDS: Heparin - SQ 10,000 UNITS/ML Vial SQ SCH ×2 (05:43→13:13)
--- NOTE | 2017-11-24 14:57 | P.PN ---
Subjective Interval history: Patient has been refusing medications today, particularly IV meds. She requests to have her heparin stopped. She failed home walk test yesterday. Physical Exam Vital signs: Vital Signs 11/23/17 14:59 11/23/17 16:00 11/23/17 17:58 Temperature 98.2 F Pulse Rate 84 83 Respiratory Rate 17 Blood Pressure 121/68 Pulse Oximetry 96 Pulse Oximetry [Resting on Room Air] 88 L Pulse Oximetry [Resting with Oxygen] 93 L 11/23/17 19:45 11/23/17 20:00 11/23/17 20:57 Temperature 98.0 F Pulse Rate 92 H 79 Respiratory Rate 18 Blood Pressure 118/64 Pulse Oximetry 98 95 Pulse Oximetry [Resting on Room Air] Pulse Oximetry [Resting with Oxygen] 11/24/17 00:00 11/24/17 02:34 11/24/17 03:55 Temperature 98.0 F Pulse Rate 89 87 71 Respiratory Rate 18 Blood Pressure 129/71 Pulse Oximetry 95 Pulse Oximetry [Resting on Room Air] Pulse Oximetry [Resting with Oxygen] 11/24/17 04:00 11/24/17 08:00 11/24/17 08:10 Temperature 98.2 F 97.4 F L Pulse Rate 79 67 77 Respiratory Rate 18 18 12 Blood Pressure 116/67 133/77 Pulse Oximetry 93 L 97 94 L Pulse Oximetry [Resting on Room Air] Pulse Oximetry [Resting with Oxygen] 11/24/17 12:00 Temperature 97.7 F Pulse Rate 99 H Respiratory Rate 18 Blood Pressure 158/76 H Pulse Oximetry 94 L Pulse Oximetry [Resting on Room Air] Pulse Oximetry [Resting with Oxygen] Intake & Output 11/23/17 11/24/17 11/24/17 18:59 06:59 18:59 Intake Total 960 / 960 240 / 240 Output Total 1200 / 1200 Balance -240 / -240 239 / 239 Weight 62.1 kg Intake: Oral 960 / 960 240 / 240 Output: Urine 1200 / 1200 Other: Date of Last Bowel Movement 11/23/17 # Bowel Movements 2 1 Narrative: GENERAL: AAOx3, no acute distress, disheveled SKIN: Warm and dry. No rashes HEAD: Atruamtic, normocephalic. EYES: No scleral icterus. No injection or drainage. ENT: Moist mucous membranes, patent nares, no erythema of oropharynx. NECK: Supple, trachea midline. No JVD or lymphadenopathy. Normal thyroid. CARDIOVASCULAR: Regular rate and rhythm. No murmurs, gallops, or rubs. RESPIRATORY: Breath sounds clear equal bilaterally. Scattered wheezes. No accessory muscle use. GASTROINTESTINAL: Abdomen soft, non-tender, nondistended, normal active bowel sounds MUSCULOSKELETAL: No cyanosis, or edema. NEURO: CN II-XII grossly intact, no focal deficits, no slurring of speech Results - Labs CBC & Chem 7: 11/21/17 07:20 11/21/17 07:20 Assessment and Plan - Plan COPD exacerbation CT angiogram negative for PE, severe emphysema present Continue duo nebs, supplemental oxygen Patient failed home oxygen walk test 11/23/17, saturations at 88% off of oxygen at rest Patient refused IV Solu-Medrol, started on p.o. prednisone Incentive spirometer placed at bedside, patient instructed to use Repeat oxygen walk test tomorrow Elevated troponin level 0.14 and admission, BNP elevated at 1000, trace edema in both ankles Likely from cardiac strain secondary to COPD exacerbation Troponin has been as high as 1.51 on previous admission, offered cardiac catheterization on that admission but she declined I asked patient again today she was interested in a cardiac workup including catheterization, she declined this offer DVT prophylaxis Aspirin, patient refused subcutaneous heparin
[2017-11-24] MEDS: Azithromycin 250 MG Tablet PO SCH (17:54)
[2017-11-24] MEDS: predniSONE 20 MG Tablet PO SCH (17:54)
[2017-11-25 07:12] LABS: Hematocrit 48.5 % (35.0-46.0); Hemoglobin 15.6 gm/dL (11.6-15.3); Mean Corpuscular HGB Conc 32.1 % (32.0-36.0); Mean Corpuscular Hemoglobin 31.7 pg (27.0-34.0); Mean Corpuscular Volume 98.6 fL (80.0-100.0); Platelet Count 133 th/mm3 (150-450); Red Blood Count 4.91 mil/mm3 (4.00-5.30); Red Cell Distribution Width 14.9 % (11.6-17.2); White Blood Count 6.3 th/mm3 (4.0-11.0)
[2017-11-25 07:47] LABS: Anion Gap 6 meq/L (5-15); Blood Urea Nitrogen 22 mg/dL (7-18); Calcium 8.7 mg/dL (8.5-10.1); Carbon Dioxide 37.5 meq/L (21.0-32.0); Chloride 94 meq/L (98-107); Glomerular Filtration Rate Greater Than 89 mL/min (>89); Glucose,Random 198 mg/dL (74-106); Potassium 4.5 meq/L (3.5-5.1); Sodium 137 meq/L (136-145)
[2017-11-25] MEDS: Azithromycin 250 MG Tablet PO SCH (08:11)
[2017-11-25] MEDS: predniSONE 20 MG Tablet PO SCH (08:11)
--- NOTE | 2017-11-25 12:37 | P.PNIM ---
Subjective Interval history: Patient remains oxygen dependent for now. Previously she was not using oxygen as an outpatient. Slowly improving through time. Physical Exam Vital signs: Vital Signs 11/24/17 15:34 11/24/17 15:58 11/24/17 16:00 Temperature 98 F Pulse Rate 76 72 Respiratory Rate 18 Blood Pressure 126/78 Pulse Oximetry 95 Pulse Oximetry [Resting on Room Air] 88 L Pulse Oximetry [Resting with Oxygen] 94 L 11/24/17 19:15 11/24/17 19:44 11/24/17 19:51 Temperature Pulse Rate 61 82 72 Respiratory Rate 16 Blood Pressure Pulse Oximetry 96 Pulse Oximetry [Resting on Room Air] Pulse Oximetry [Resting with Oxygen] 11/24/17 20:00 11/24/17 23:40 11/24/17 23:45 Temperature 98 F Pulse Rate 87 91 H Respiratory Rate 16 Blood Pressure 122/71 Pulse Oximetry 90 L 98 Pulse Oximetry [Resting on Room Air] Pulse Oximetry [Resting with Oxygen] 11/25/17 00:00 11/25/17 03:44 11/25/17 04:00 Temperature 98.1 F 97.7 F Pulse Rate 81 76 76 Respiratory Rate 20 20 Blood Pressure 136/74 129/69 Pulse Oximetry 94 L 91 L Pulse Oximetry [Resting on Room Air] Pulse Oximetry [Resting with Oxygen] 11/25/17 08:00 11/25/17 09:00 Temperature 97.5 F L Pulse Rate 81 88 Respiratory Rate 18 Blood Pressure 152/74 H Pulse Oximetry 97 Pulse Oximetry [Resting on Room Air] Pulse Oximetry [Resting with Oxygen] Intake & Output 11/24/17 11/25/17 11/25/17 18:59 06:59 18:59 Intake Total 240 / 240 Output Total 600 / 600 Balance -360 / -360 Intake: Oral 240 / 240 Output: Urine 600 / 600 Other: Date of Last Bowel Movement 11/23/17 # Bowel Movements 1 Narrative: GENERAL: NAD, A&Ox3, patient is winded with ambulation HEAD: Normocephalic. NECK: Supple, trachea midline. No lymphadenopathy. EYES: No scleral icterus. No injection or drainage. CARDIOVASCULAR: Regular rate and rhythm without murmurs, gallops, or rubs. RESPIRATORY: Breath sounds equal bilaterally. No accessory muscle use. GASTROINTESTINAL: Abdomen soft, non-tender, nondistended. MUSCULOSKELETAL: No cyanosis, or edema. SKIN: Warm and dry. NEURO: No focal neurological deficits. Results - Labs CBC & Chem 7: 11/25/17 06:20 11/25/17 06:20 Laboratory Results - last 24 hr 11/25/17 11/25/17 06:20 06:20 WBC 6.3 RBC 4.91 Hgb 15.6 H Hct 48.5 H MCV 98.6 MCH 31.7 MCHC 32.1 RDW 14.9 Plt Count 133 L MPV 9.0 Sodium 137 Potassium 4.5 Chloride 94 L Carbon Dioxide 37.5 H Anion Gap 6 BUN 22 H Creatinine 0.54 Estimated GFR Greater than 89 Random Glucose 198 H Calcium 8.7 Assessment and Plan - Plan 57-year-old female admitted secondary to COPD exacerbation COPD exacerbation Continue oxygen support as needed Continue duo nebs No plan for oxygen at discharge, patient was passed oxywalk test prior to discharge Continue incentive spirometer Elevated troponin level Likely related to COPD Patient declined cardiac workup DVT prophylaxis Aspirin, patient refused subcutaneous heparin
[2017-11-26] MEDS: predniSONE 20 MG Tablet PO SCH (09:08)
[2017-11-26] MEDS: Azithromycin 250 MG Tablet PO SCH (09:08)
--- NOTE | 2017-11-26 12:14 | P.PNIM ---
Subjective Interval history: Oxygen saturation at approximately 86% with ambulation on room air. She not yet stable for discharge. She has no new complaints today other than her previous symptom of shortness of breath Physical Exam Vital signs: Vital Signs 11/25/17 16:00 11/25/17 20:00 11/25/17 20:11 Temperature 98.2 F 98.1 F Pulse Rate 87 93 H 80 Respiratory Rate 18 20 20 Blood Pressure 162/95 H 124/87 Pulse Oximetry 97 96 11/26/17 00:00 11/26/17 02:30 11/26/17 04:00 Temperature 97.5 F L 97.8 F Pulse Rate 83 94 H 77 Respiratory Rate 20 18 Blood Pressure 153/80 H 129/72 Pulse Oximetry 91 L 96 11/26/17 08:00 11/26/17 09:00 Temperature 98.1 F Pulse Rate 94 H 84 Respiratory Rate 18 Blood Pressure 132/80 Pulse Oximetry 94 L Intake & Output 11/25/17 11/26/17 11/26/17 18:59 06:59 18:59 Intake Total 480 / 480 Output Total 600 / 600 Balance -120 / -120 Weight 60.8 kg Intake: Oral 480 / 480 Output: Urine 600 / 600 Other: Date of Last Bowel Movement 11/25/17 11/26/17 # Bowel Movements 1 Narrative: GENERAL: NAD, A&Ox3, patient is winded with ambulation HEAD: Normocephalic. NECK: Supple, trachea midline. No lymphadenopathy. EYES: No scleral icterus. No injection or drainage. CARDIOVASCULAR: Regular rate and rhythm without murmurs, gallops, or rubs. RESPIRATORY: Breath sounds equal bilaterally. No accessory muscle use. GASTROINTESTINAL: Abdomen soft, non-tender, nondistended. MUSCULOSKELETAL: No cyanosis, or edema. SKIN: Warm and dry. NEURO: No focal neurological deficits. Results - Labs CBC & Chem 7: 11/25/17 06:20 11/25/17 06:20 Assessment and Plan - Plan 57-year-old female admitted secondary to COPD exacerbation Hypoxia on room air remains. Continue monitoring with intermittent walk tests as patient's best option is to discharge off of oxygen. COPD exacerbation Continue oxygen support as needed Continue duo nebs No plan for oxygen at discharge Continue incentive spirometer Elevated troponin level Likely related to COPD Patient declined cardiac workup Nicotine dependence Patient counseled to quit smoking NicoDerm DVT prophylaxis Aspirin, patient refused subcutaneous heparin
[2017-11-27] MEDS: predniSONE 20 MG Tablet PO SCH (08:46)
[2017-11-27] MEDS: Azithromycin 250 MG Tablet PO SCH (08:46)
--- NOTE | 2017-11-27 13:20 | P.PNIM ---
Subjective Interval history: Patient not yet able to wean from oxygen. No new complaints. No fevers. Physical Exam Vital signs: Vital Signs 11/26/17 16:00 11/26/17 20:00 11/26/17 20:12 Temperature 97.8 F 98.2 F Pulse Rate 99 H 94 H 101 H Respiratory Rate 18 18 19 Blood Pressure 147/88 H 154/85 H Pulse Oximetry 94 L 90 L 91 L 11/27/17 00:00 11/27/17 04:00 11/27/17 08:00 Temperature 97.8 F 97.8 F 98.1 F Pulse Rate 103 H 93 H 86 Respiratory Rate 18 18 18 Blood Pressure 127/81 154/82 H 141/78 H Pulse Oximetry 90 L 92 L 93 L 11/27/17 08:29 11/27/17 09:00 Temperature Pulse Rate 78 70 Respiratory Rate 12 Blood Pressure Pulse Oximetry 93 L Intake & Output 11/26/17 11/27/17 11/27/17 18:59 06:59 18:59 Weight 60.6 kg Other: Date of Last Bowel Movement 11/26/17 11/26/17 Narrative: GENERAL: NAD, A&Ox3, patient is winded with ambulation HEAD: Normocephalic. NECK: Supple, trachea midline. No lymphadenopathy. EYES: No scleral icterus. No injection or drainage. CARDIOVASCULAR: Regular rate and rhythm without murmurs, gallops, or rubs. RESPIRATORY: Breath sounds equal bilaterally. No accessory muscle use. GASTROINTESTINAL: Abdomen soft, non-tender, nondistended. MUSCULOSKELETAL: No cyanosis, or edema. SKIN: Warm and dry. NEURO: No focal neurological deficits. Results - Labs CBC & Chem 7: 11/25/17 06:20 11/25/17 06:20 Assessment and Plan - Plan 57-year-old female admitted secondary to COPD exacerbation Hypoxia on room air remains. Titrate off oxygen as tolerated. Continue monitoring with intermittent walk tests as patient's best option is to discharge off of oxygen. COPD exacerbation Continue oxygen support as needed Continue duo nebs No plan for oxygen at discharge Continue incentive spirometer Elevated troponin level Likely related to COPD Patient declined cardiac workup Nicotine dependence Patient counseled to quit smoking NicoDerm DVT prophylaxis Aspirin, patient refused subcutaneous heparin
[2017-11-28] MEDS: Azithromycin 250 MG Tablet PO SCH (09:06)
[2017-11-28] MEDS: predniSONE 20 MG Tablet PO SCH (09:06)
--- NOTE | 2017-11-28 11:48 | P.PNIM ---
Subjective Interval history: Improved activity with decreasing shortness of breath through time. Patient still requiring oxygen. No new complaints today. Physical Exam Vital signs: Vital Signs 11/27/17 12:00 11/27/17 15:01 11/27/17 15:49 Temperature 97.9 F 98.1 F Pulse Rate 93 H 86 86 Respiratory Rate 18 12 18 Blood Pressure 124/72 137/63 Pulse Oximetry 95 94 L 11/27/17 16:00 11/27/17 19:23 11/27/17 19:45 Temperature Pulse Rate 101 H 87 95 H Respiratory Rate 16 Blood Pressure Pulse Oximetry 94 L 11/27/17 20:00 11/27/17 23:46 11/28/17 00:00 Temperature 97.6 F 97.7 F Pulse Rate 92 H 87 93 H Respiratory Rate 18 18 Blood Pressure 119/71 119/70 Pulse Oximetry 94 L 94 L 11/28/17 03:42 11/28/17 06:00 11/28/17 07:26 Temperature 97.4 F L Pulse Rate 64 78 54 L Respiratory Rate 18 12 Blood Pressure 122/63 Pulse Oximetry 93 L 99 11/28/17 08:00 11/28/17 09:00 Temperature 97.3 F L Pulse Rate 70 62 Respiratory Rate 20 Blood Pressure 119/67 Pulse Oximetry 96 Intake & Output 11/27/17 11/28/17 11/28/17 18:59 06:59 18:59 Intake Total 860 / 860 240 / 240 Output Total 800 / 800 750 / 750 Balance 60 / 60 -510 / -510 Weight 58.6 kg Intake: Oral 860 / 860 240 / 240 Output: Urine 800 / 800 750 / 750 Other: Date of Last Bowel Movement 11/26/17 11/27/17 # Bowel Movements 2 0 Narrative: GENERAL: NAD, A&Ox3, patient is winded with ambulation HEAD: Normocephalic. NECK: Supple, trachea midline. No lymphadenopathy. EYES: No scleral icterus. No injection or drainage. CARDIOVASCULAR: Regular rate and rhythm without murmurs, gallops, or rubs. RESPIRATORY: Breath sounds equal bilaterally. No accessory muscle use. GASTROINTESTINAL: Abdomen soft, non-tender, nondistended. MUSCULOSKELETAL: No cyanosis, or edema. SKIN: Warm and dry. NEURO: No focal neurological deficits. Results - Labs CBC & Chem 7: 11/25/17 06:20 11/25/17 06:20 Microbiology 11/27/17 15:27 Sputum - Expectorated Sputum Gram Stain - Final Assessment and Plan - Plan 57-year-old female admitted secondary to COPD exacerbation Titrate oxygen as tolerated. Increase in activity is good sign. Plan for discharge once patient able to tolerate room air with activity. COPD exacerbation Continue oxygen support as needed Continue duo nebs No plan for oxygen at discharge Continue incentive spirometer Elevated troponin level Likely related to COPD Patient declined cardiac workup Nicotine dependence Patient counseled to quit smoking NicoDerm DVT prophylaxis Aspirin, patient refused subcutaneous heparin Discharge planning Patient needs to be off of all oxygen and able to tolerate exertion on room air , prior to discharge
[2017-11-29] MEDS: Azithromycin 250 MG Tablet PO SCH (09:00)
[2017-11-29] MEDS: predniSONE 20 MG Tablet PO SCH (09:00)
--- NOTE | 2017-11-29 11:55 | P.PNIM ---
Subjective Interval history: Patient has been weaned to 2 L but has borderline hypoxia on this setting so further aggressive readings are not yet started. She will need to be off oxygen prior to discharge. No complaints from patient. Physical Exam Vital signs: Vital Signs 11/28/17 14:19 11/28/17 16:00 11/28/17 20:00 Temperature 97.7 F 98 F Pulse Rate 78 95 H 92 H Respiratory Rate 04 10 18 Blood Pressure 124/74 137/71 Pulse Oximetry 93 L 93 L 11/28/17 21:35 11/29/17 00:00 11/29/17 04:00 Temperature 97.9 F 97.2 F L Pulse Rate 90 80 90 Respiratory Rate 18 18 Blood Pressure 127/74 130/70 Pulse Oximetry 96 93 L 91 L 11/29/17 08:00 11/29/17 09:12 Temperature Pulse Rate 87 Respiratory Rate 16 Blood Pressure Pulse Oximetry 94 L 94 L Intake & Output 11/28/17 11/29/17 11/29/17 18:59 06:59 18:59 Intake Total 320 / 320 480 / 480 Output Total 900 / 900 Balance 320 / 320 -420 / -420 Weight 57.5 kg Intake: Oral 320 / 320 480 / 480 Output: Urine 900 / 900 Other: # Voids 4 # Bowel Movements 2 1 Narrative: GENERAL: NAD, A&Ox3, patient is winded with ambulation HEAD: Normocephalic. NECK: Supple, trachea midline. No lymphadenopathy. EYES: No scleral icterus. No injection or drainage. CARDIOVASCULAR: Regular rate and rhythm without murmurs, gallops, or rubs. RESPIRATORY: Breath sounds equal bilaterally. No accessory muscle use. GASTROINTESTINAL: Abdomen soft, non-tender, nondistended. MUSCULOSKELETAL: No cyanosis, or edema. SKIN: Warm and dry. NEURO: No focal neurological deficits. Results - Labs CBC & Chem 7: 11/25/17 06:20 11/25/17 06:20 Microbiology 11/27/17 15:27 Sputum - Expectorated Sputum Gram Stain - Final 11/27/17 15:27 Sputum - Expectorated Sputum Sputum Culture - Final Heavy growth normal respiratory rome Assessment and Plan - Plan 57-year-old female admitted secondary to COPD exacerbation Titrate oxygen as tolerated. Continue to monitor oxygen levels. Plan for discharge once patient able to tolerate room air with activity. COPD exacerbation Continue oxygen support as needed Continue duo nebs No plan for oxygen at discharge Continue incentive spirometer Elevated troponin level Likely related to COPD Patient declined cardiac workup Nicotine dependence Patient counseled to quit smoking NicoDerm DVT prophylaxis Aspirin, patient refused subcutaneous heparin Discharge planning Patient needs to be off of all oxygen and able to tolerate exertion on room air , prior to discharge
[2017-11-30] MEDS: predniSONE 20 MG Tablet PO SCH (08:20)
[2017-11-30] MEDS: Azithromycin 250 MG Tablet PO SCH (08:20)
--- NOTE | 2017-11-30 12:58 | P.PNIM ---
Subjective Interval history: Patient is 88% resting on room air today. This is a slow improvement but represent some improvement. No other complaints. Physical Exam Vital signs: Vital Signs 11/29/17 14:34 11/29/17 16:00 11/29/17 20:00 Temperature 97.8 F 97.4 F L Pulse Rate 86 95 H Respiratory Rate 18 20 Blood Pressure 123/67 125/78 Pulse Oximetry 97 93 L 90 L 11/30/17 00:00 11/30/17 04:00 11/30/17 08:00 Temperature 97.8 F 97.4 F L 98.2 F Pulse Rate 88 81 94 H Respiratory Rate 20 18 18 Blood Pressure 127/74 156/83 H 112/68 Pulse Oximetry 92 L 93 L 88 L 11/30/17 09:03 Temperature Pulse Rate Respiratory Rate Blood Pressure Pulse Oximetry 91 L Intake & Output 11/29/17 11/30/17 11/30/17 18:59 06:59 18:59 Intake Total 1096 / 1096 480 / 480 Output Total 1500 / 1500 700 / 700 Balance -404 / -404 -220 / -220 Weight 57.2 kg Intake: Oral 1096 / 1096 480 / 480 Output: Urine 1500 / 1500 700 / 700 Other: # Voids 1 Date of Last Bowel Movement 11/27/17 # Bowel Movements 2 Narrative: GENERAL: NAD, A&Ox3, patient is winded with ambulation HEAD: Normocephalic. NECK: Supple, trachea midline. No lymphadenopathy. EYES: No scleral icterus. No injection or drainage. CARDIOVASCULAR: Regular rate and rhythm without murmurs, gallops, or rubs. RESPIRATORY: Breath sounds equal bilaterally. No accessory muscle use. GASTROINTESTINAL: Abdomen soft, non-tender, nondistended. MUSCULOSKELETAL: No cyanosis, or edema. SKIN: Warm and dry. NEURO: No focal neurological deficits. Results - Labs CBC & Chem 7: 11/25/17 06:20 11/25/17 06:20 Assessment and Plan - Plan 57-year-old female admitted secondary to COPD exacerbation Slowly improving through time. Titrate oxygen as tolerated. Continue to monitor oxygen levels. Plan for discharge once patient able to tolerate room air with activity. COPD exacerbation Continue oxygen support as needed Continue duo nebs No plan for oxygen at discharge Continue incentive spirometer Systemic steroids Elevated troponin level Likely related to COPD Patient declined cardiac workup Nicotine dependence Patient counseled to quit smoking NicoDerm DVT prophylaxis Aspirin, patient refused subcutaneous heparin Discharge planning Patient needs to be off of all oxygen and able to tolerate exertion on room air , prior to discharge
[2017-12-01] MEDS: Azithromycin 250 MG Tablet PO SCH (08:05)
[2017-12-01] MEDS: predniSONE 10 MG Tablet PO SCH (08:06)
--- NOTE | 2017-12-01 13:02 | P.PNIM ---
Subjective Interval history: Some signs of improvement in oxygen overnight, patient is documented to have been on room air. This morning, however, patient is hypoxic again and requires oxygen to be replaced. Physical Exam Vital signs: Vital Signs 11/30/17 16:00 11/30/17 20:00 11/30/17 22:34 Temperature 97.5 F L 97.3 F L Pulse Rate 111 H 100 H Respiratory Rate 18 17 Blood Pressure 145/90 H 118/78 Pulse Oximetry 92 L 92 L 92 L 11/30/17 23:46 12/01/17 03:51 12/01/17 08:00 Temperature 98.3 F 97.2 F L 97.5 F L Pulse Rate 89 101 H 95 H Respiratory Rate 16 17 18 Blood Pressure 124/74 119/72 147/76 H Pulse Oximetry 90 L 93 L 84 L 12/01/17 08:05 12/01/17 12:23 Temperature Pulse Rate Respiratory Rate Blood Pressure Pulse Oximetry 90 L 91 L Intake & Output 11/30/17 12/01/17 12/01/17 18:59 06:59 18:59 Intake Total 320 / 320 Balance 320 / 320 Weight 59.6 kg Intake: Oral 320 / 320 Other: # Voids 3 Date of Last Bowel Movement 11/27/17 # Bowel Movements 1 Narrative: GENERAL: NAD, A&Ox3, patient is winded with ambulation HEAD: Normocephalic. NECK: Supple, trachea midline. No lymphadenopathy. EYES: No scleral icterus. No injection or drainage. CARDIOVASCULAR: Regular rate and rhythm without murmurs, gallops, or rubs. RESPIRATORY: Breath sounds equal bilaterally. No accessory muscle use. GASTROINTESTINAL: Abdomen soft, non-tender, nondistended. MUSCULOSKELETAL: No cyanosis, or edema. SKIN: Warm and dry. NEURO: No focal neurological deficits. Results - Labs CBC & Chem 7: 11/25/17 06:20 11/25/17 06:20 Assessment and Plan - Plan 57-year-old female admitted secondary to COPD exacerbation Patient unable to discharge today due to hypoxia. Slowly improving through time. Titrate oxygen as tolerated. Continue to monitor oxygen levels. Plan for discharge once patient able to tolerate room air with activity. COPD exacerbation Continue oxygen support as needed Continue duo nebs No plan for oxygen at discharge Continue incentive spirometer Systemic steroids Elevated troponin level Likely related to COPD Patient declined cardiac workup Nicotine dependence Patient counseled to quit smoking NicoDerm DVT prophylaxis Aspirin, patient refused subcutaneous heparin Discharge planning Patient needs to be off of all oxygen and able to tolerate exertion on room air , prior to discharge
--- NOTE | 2017-12-01 15:07 | P.DS ---
Date of admission: 11/27/17 10:28 Primary care physician: UNKNOWN Brief History from admission: Admitted secondary to hypoxia with COPD exacerbation, see H&P. DS: Medications - Discharge Medications Prescriptions: albuterol sulfate [Ventolin HFA] 2 puff INH Q4H PRN #1 inh PRN Reason: Dyspnea aspirin 81 mg PO DAILY #30 tab prednisone 10 mg PO DIRECTED #6 tab DS: Summary Hospital Course: Mrs. Cohen is a 57-year-old female. She was admitted secondary to COPD exacerbation. She has COPD at baseline. She continues to smoke. Homeless status prevented options for chronic oxygen use. She was treated with steroids and antibiotics through time and has had a slow gradual improvement. Today she is reaching goals for oxygen saturation on room air. Tomorrow morning she will have an option to discharge with a friend so she will be discharged first thing in the morning tomorrow. - Time Spent with Patient Total time spent providing and/or coordinating discharge services: Less than 30 minutes - Quality: VTE Deep Vein Thrombosis/Pulmonary Embolism Present on Admission: No Exam Vital signs: Vital Signs 11/30/17 16:00 11/30/17 20:00 11/30/17 22:34 Temperature 97.5 F L 97.3 F L Pulse Rate 111 H 100 H Respiratory Rate 18 17 Blood Pressure 145/90 H 118/78 Pulse Oximetry 92 L 92 L 92 L 11/30/17 23:46 12/01/17 03:51 12/01/17 08:00 Temperature 98.3 F 97.2 F L 97.5 F L Pulse Rate 89 101 H 95 H Respiratory Rate 16 17 18 Blood Pressure 124/74 119/72 147/76 H Pulse Oximetry 90 L 93 L 84 L 12/01/17 08:05 12/01/17 12:23 Temperature Pulse Rate Respiratory Rate Blood Pressure Pulse Oximetry 90 L 91 L Intake & Output 11/30/17 12/01/17 12/01/17 18:59 06:59 18:59 Intake Total 320 / 320 Balance 320 / 320 Weight 59.6 kg Intake: Oral 320 / 320 Other: # Voids 3 Date of Last Bowel Movement 11/27/17 # Bowel Movements 1 Results Procedures completed during hospitalization: none - Impressions ITS Impressions Chest X-Ray 11/20/17 15:18 CONCLUSION: Hyperinflation. Chest CTA 11/20/17 16:58 CONCLUSION: 1. No evidence for pulmonary embolism. Discharge Plan - Discharge Disposition Patient Disposition: 01 Discharge Home - Discharge Condition Condition: Stable - Discharge Order Discharge Orders: Discharge Order (Routine); Ordered 12/02/17 Ordered By: Shimon Drake - Discharge Details Anticipated Discharge Date: 12/02/17 - Physicians Team Primary Care Provider: UNKNOWN, Attending Provider: Shimon Drake
[2017-12-02] MEDS: Azithromycin 250 MG Tablet PO SCH (10:14)
[2017-12-02] MEDS: predniSONE 10 MG Tablet PO SCH (10:15)
--- NOTE | 2017-12-02 18:33 | P.PNIM ---
Subjective Interval history: RN reports pt needed O2 overnight. Pt says she doesn't have a place to stay at with electricity. Yet she is not wiling to stay inpatient until oxygenation improves or she untli she gets a home address for home O2 provision. Physical Exam Vital signs: Vital Signs 12/01/17 20:00 12/02/17 00:00 12/02/17 04:00 Temperature 97.5 F L 98 F 97.8 F Pulse Rate 101 H 112 H 80 Respiratory Rate 16 18 19 Blood Pressure 128/81 139/80 106/64 Pulse Oximetry 95 93 L 93 L Pulse Oximetry [Exertion on Room Air] Pulse Oximetry [Exertion with Oxygen] Pulse Oximetry [Resting on Room Air] Pulse Oximetry [Resting with Oxygen] 12/02/17 08:00 12/02/17 11:00 12/02/17 12:00 Temperature 98.1 F 97.7 F Pulse Rate 85 102 H Respiratory Rate 20 20 Blood Pressure 115/61 120/79 Pulse Oximetry 91 L 93 L Pulse Oximetry [Exertion on Room Air] 86 L Pulse Oximetry [Exertion with Oxygen] 92 L Pulse Oximetry [Resting on Room Air] 91 L Pulse Oximetry [Resting with Oxygen] 96 Intake & Output 12/01/17 12/02/17 12/02/17 18:59 06:59 18:59 Intake Total 240 / 240 Output Total 1000 / 1000 Balance -760 / -760 Weight 59.4 kg Intake: Oral 240 / 240 Output: Urine 1000 / 1000 Other: Date of Last Bowel Movement 12/01/17 12/02/17 # Bowel Movements 1 Narrative: unlabored breathing, exp wheezing on NC, AA Results - Labs CBC & Chem 7: 11/25/17 06:20 11/25/17 06:20 - Procedures none Assessment and Plan - Plan Pt not wanting to stay; does not demonstrate any commitment to finding a place for home O2 requirement per home O2 company. Leaving AMA. Addendum: Patient actually decided to stay and is seeking an address so that she can secure home oxygen arrangement. AMA has been rescinded.
[2017-12-03] MEDS: Azithromycin 250 MG Tablet PO SCH (09:24)
[2017-12-03] MEDS: predniSONE 10 MG Tablet PO SCH (09:24)
[2017-12-04] MEDS: Azithromycin 250 MG Tablet PO SCH (09:53)
[2017-12-04] MEDS: predniSONE 10 MG Tablet PO SCH (09:53)
--- NOTE | 2017-12-04 15:04 | P.CONPSY ---
Provisional Diagnosis Admission Date: November 27, 2017 10:28 [place] I.: Delirium History of Present Illness Service: Medicine Primary Care Provider: UNKNOWN Family Provider: UNKNOWN History of Present Illness: The patient is a 57-year-old woman, single, homeless, supported by [facility] , she denies previous psychiatric history, denies suicidal attempts, denies psychiatric hospitalizations, who was admitted secondary to COPD exacerbation. Patient unable to discharge today due to hypoxia. Slowly improving through time. Titrate oxygen as tolerated. Continue to monitor oxygen levels. Plan for discharge once patient able to tolerate room air with activity. Consulted to psychiatry to assess her decision-making capacity to participate in medical treatment. My psychiatric evaluation the patient is calm, cooperative, pleasant. She does seem to be quite confused at times, circumstantial, but redirectable. The patient reports good mood, she denies symptomatology of depression, denies anhedonia, denies hopelessness, denies helplessness, denies worthlessness. She denies suicidal and homicidal ideation, she denies visual and auditory hallucinations. She is fully oriented 3 at the moment, with mild to moderate fluctuation of consciousness and attention deficit, but able to answer all my questions. Her choice is to follow medical recommendations "even know I do know her the potential and going to carry oxygen in the streets". She denies the use of illegal drugs or alcohol. Review of Systems Constitutional: Denies anorexia, Denies body ache(s), Denies chills, Denies daytime sleepiness, Denies excessive sweating, Denies fatigue, Denies fever(s), Denies headache(s), Denies increased appetite, Denies lack of energy, Denies malaise, Denies night sweats, Denies weakness, Denies weight gain, Denies weight loss, Denies other Eyes: Denies blind spots, Denies blurry vision, Denies bulging eyes, Denies change in vision, Denies double vision, Denies discharge, Denies dry eyes, Denies floaters, Denies irritation, Denies itchy eyes, Denies loss of vision, Denies pain, Denies requires corrective lenses, Denies sensitivity to light, Denies other Ears, Nose, Mouth, and Throat: Denies abnormal hearing, Denies bleeding gums, Denies bad breath, Denies change in voice, Denies dental pain, Denies difficulty swallowing, Denies dizziness, Denies dry mouth, Denies ear discharge , Denies ear pain, Denies facial pain, Denies headache(s), Denies hearing loss, Denies hoarseness, Denies lip swelling, Denies nosebleed, Denies mouth lesions, Denies mouth pain, Denies nasal congestion, Denies nasal discharge, Denies nasal obstruction, Denies nasal trauma, Denies neck lump, Denies neck pain, Denies nose pain, Denies pain with swallowing, Denies poor balance, Denies post nasal drip, Denies ringing in the ears, Denies sinus pain, Denies sinus pressure , Denies sore throat, Denies throat swelling, Denies tongue swelling, Denies other Cardiovascular: Denies chest pain, Denies chest pain at rest, Denies chest pain with activity, Denies excessive sweating, Denies fainting, Denies fast heart rate, Denies foot swelling, Denies generalized swelling, Denies irregular heart rhythm, Denies leg pain with activity, Denies leg sores, Denies leg swelling, Denies lightheadedness, Denies radiating jaw, neck or arm pain, Denies rapid, pounding, or irregular heartbeat, Denies shortness of breath, Denies shortness of breath with activity, Denies shortness of breath when lying down, Denies shortness of breath causing sudden awakening, Denies slow heart rate, Denies other Respiratory: Denies change in phlegm color, Denies chest congestion, Denies cough, Denies coughing up blood, Denies excessive phlegm production, Denies pain on inspiration, Denies pain with cough, Denies shortness of breath, Denies shortness of breath with activity, Denies snoring, Denies stridor, Denies wheezing, Denies other Gastrointestinal: Denies abdominal pain, Denies belching, Denies black, tarry stools, Denies bloating, Denies bright, red blood in stools, Denies change in bowel habits, Denies constant urge to pass stool, Denies change in stools, Denies coffee ground vomit, Denies constipation, Denies cramping, Denies difficulty swallowing, Denies excessive passing of gas, Denies feeling full early, Denies heartburn, Denies incontinent of stools, Denies loose stools, Denies nausea, Denies pain with swallowing, Denies vomiting, Denies vomiting blood, Denies other Genitourinary: Denies abnormal periods, Denies abnormal vaginal bleeding, Denies absent period, Denies bleeding between periods, Denies blood in urine, Denies difficulty starting urination, Denies difficulty urinating, Denies dribbling after urination, Denies frequent nighttime urination, Denies genital itching, Denies genital lesions, Denies heavy periods, Denies hot flashes, Denies light periods, Denies nipple discharge, Denies painful intercourse, Denies painful periods, Denies painful urination, Denies pelvic pain, Denies prolapse symptoms, Denies sexual problems, Denies side pain, Denies urinary incontinence, Denies urinary urgency, Denies vaginal discharge, Denies vaginal dryness, Denies vaginal odor, Denies vaginal itching, Denies other Musculoskeletal: Denies abnormal walking, Denies back pain, Denies body aches, Denies decreased muscle mass, Denies deformity, Denies joint pain, Denies joint swelling, Denies limited joint movement, Denies loss of height, Denies muscle cramps, Denies muscle weakness, Denies neck pain, Denies numbness, Denies radiating pain into limb, Denies stiffness, Denies tingling, Denies other Skin/Breast: Denies acne, Denies bleeding lesions, Denies boil, Denies breast swelling, Denies breast skin changes, Denies breast pain, Denies breast lump, Denies change in breast shape, Denies change in hair, Denies change in skin color, Denies changing lesions, Denies dry skin, Denies excessive hair growth, Denies hair loss, Denies itching, Denies lesions, Denies nail changes, Denies new lesions, Denies nipple discharge, Denies non-healing lesions, Denies redness , Denies sensitivity to light, Denies rash, Denies skin pain, Denies skin ulcer , Denies sores, Denies stretch parker, Denies unusual bruising, Denies wounds, Denies yellowing of the skin, Denies other Neurologic: Denies abnormal hearing, Denies abnormal movements, Denies abnormal speech, Denies abnormal walking, Denies behavioral changes, Denies burning sensations, Denies confusion, Denies dizziness, Denies fainting, Denies frequent falls, Denies headache(s), Denies lack of coordination, Denies localized weakness, Denies loss of vision, Denies memory loss, Denies numbness, Denies other visual disturbances, Denies radiating pain, Denies restless legs, Denies convulsions, Denies seizure-like activity, Denies sensory deficit, Denies tingling, Denies tingling/numbness/burning sensations, Denies tremor(s), Denies unsteadiness, Denies weakness, Denies other Psychiatric: Denies abnormal sleep pattern, Denies anxiety, Denies behavioral changes, Denies change in appetite, Denies change in sex drive, Denies confusion , Denies depression, Denies difficulty concentrating, Denies hearing things others do not hear, Denies hopelessness, Denies irritability, Denies lack of enjoyment, Denies memory loss, Denies mood swings, Denies panic attacks, Denies paranoia, Denies seeing things others do not see, Denies sensing things others do not sense, Denies tactile hallucinations, Denies thoughts of hurting/killing others, Denies thoughts of hurting/killing yourself, Denies other Endocrine: Denies cold intolerance, Denies excessive sweating, Denies flushing, Denies heat intolerance, Denies increased hunger, Denies increased thirst, Denies increased urination, Denies rapid, pounding, or irregular heartbeat, Denies other Hematologic/Lymphatic: Denies easy bleeding, Denies easy bruising, Denies enlarged lymph nodes, Denies other PMFSH - History History Provided By: Patient - Medical History Medical History: Medical History (Last Reviewed 11/24/17 @ 07:56 by Vincent Bocanegra) COPD (chronic obstructive pulmonary disease) delivery delivered Asthma Diastolic heart failure - Family History Family History: Family History (Last Updated 11/20/17 @ 22:58 by Geo Hutchinson MD) Other Unknown family medical history - Tobacco History Second Hand Smoke Exposure: No Tobacco Use In Past 30 Days: Yes Smoking Status: Heavy tobacco smoker Tobacco Type: Cigarettes - Alcohol History How Often Do You Have a Drink Containing Alcohol: Never - Substance Use History Substance History: Past History - Travel History Recent Travel in the [place] Within the Last 8 Weeks: No Recent Travel Out of the Country Within the Last 8 Weeks: No - Immunization History Tetanus Immunization: Unsure Hx Influenza Vaccine This Season: No Medications and Allergies Active Medications: Active Medications Acetaminophen (Tylenol) 650 mg PO Q4H PRN PRN Reason: Temp > 100.4 Al Hydroxide/Mg Hydroxide (Milk Of Magnesia Liq) 30 ml PO Q12H PRN PRN Reason: Mild Constipation Albuterol (Ventolin Hfa Inh) 2 puff INH Q4H PRN PRN Reason: DYSPNEA Aspirin (Aspirin Chew) 81 mg PO DAILY [facility] Last Admin: 12/04/17 09:53 Dose: 81 mg Azithromycin (Zithromax) 500 mg PO DAILY [facility] Last Admin: 12/04/17 09:53 Dose: 500 mg Benzonatate (Tessalon Perles) 200 mg PO Q8H PRN PRN Reason: COUGH Last Admin: 11/21/17 18:06 Dose: 200 mg Bisacodyl (Dulcolax Supp) 10 mg RECTAL DAILY PRN PRN Reason: SEVERE CONSITIPATION Lactulose (Lactulose Liq) 30 ml PO DAILY PRN PRN Reason: SEVERE CONSITIPATION Nicotine (Habitrol 7 Mg Patch.24 Hr) 1 patch T-DERMAL DAILY [facility] Last Admin: 12/04/17 09:53 Dose: 1 patch Ondansetron HCl (Zofran Odt) 4 mg PO Q6H PRN PRN Reason: NAUSEA OR VOMITING Patch Removal (Remove Old Patch) 1 each T-DERMAL DAILY [facility] Last Admin: 12/04/17 09:53 Dose: 1 each Prednisone (Deltasone) 10 mg PO DAILY [facility] Last Admin: 12/04/17 09:53 Dose: 10 mg Sennosides (Senokot) 17.2 mg PO Q12H PRN PRN Reason: Moderate Constipation Sodium Chloride (Ns Flush) 2 ml IV.FLUSH PRN PRN PRN Reason: FLUSH AFTER USING IV ACCESS Last Admin: 11/23/17 20:31 Dose: 2 ml Throat Lozenges (Chloraseptic Viola) 2 spray OROPHARYNG Q2H PRN PRN Reason: SORE THROAT Last Admin: 11/22/17 15:01 Dose: 2 spray Allergies Allergy/AdvReac Type Severity Reaction Status Date / Time SOME ANTI INFLAMMATORY MEDS Allergy Severe Swelling Uncoded 05/16/05 13:42 INHALERS Allergy Intermediate SOB Uncoded 01/07/06 10:13 Exam Vital signs: Vital Signs 12/03/17 20:00 12/03/17 22:16 12/04/17 00:00 Temperature 98.0 F 97 F L Pulse Rate 93 H 87 Respiratory Rate 20 18 Blood Pressure 132/84 134/76 Pulse Oximetry 96 94 L 94 L 12/04/17 04:00 12/04/17 08:00 12/04/17 12:00 Temperature 97.9 F 97.4 F L 97.9 F Pulse Rate 62 84 94 H Respiratory Rate 18 18 18 Blood Pressure 111/68 130/71 112/65 Pulse Oximetry 96 92 L 93 L Intake & Output 12/03/17 12/04/17 12/04/17 18:59 06:59 18:59 Intake Total 480 / 480 Output Total 1000 / 1000 Balance -520 / -520 Weight 54 kg Intake: Oral 480 / 480 Output: Urine 1000 / 1000 Other: Date of Last Bowel Movement 12/02/17 # Bowel Movements 0 Mental Status Examination Appearance: Appropriate Consciousness: Alert Orientation: x4 Speech: Unremarkable Language: Adequate Fund of Knowledge: Adequate Memory: Unremarkable Mood: Appropriate Affect: Appropriate Thought Process & Associations: Intact Thought Content: Appropriate Hallucination Type: None Suicidal Ideation: No Suicidal Plan: No Suicidal Intention: No Homicidal Ideation: No Homicidal Plan: No Homicidal Intention: No Insight: Fair Judgment: Impulsive Assessment and Plan - Assessment (1) Delirium Code(s): R41.0 - Disorientation, unspecified Status: Acute - Plan Plan: Estimated LOS: [] days On psychiatric evaluation today the patient denies symptoms of depression, denies anxiety, denies consuelo and psychosis. She denies suicidal and homicidal ideation, she denies visual and auditory hallucinations. She does present periodic confusion, but she is mostly logical, coherent and relevant, oriented 3. She reports that she wants to follow medical recommendations, is able to verbalize good understanding and appreciation of underlying medical conditions, and her choice is to stay in the hospital and taken the treatment, if needed, for this reason the patient keeps her decision-making capacity. Justification for Continued Inpatient Stay: The patient does not meet criteria for involuntary psychiatric admission.
[2017-12-05 06:18] VITALS: RESP 18
[2017-12-05] MEDS: predniSONE 10 MG Tablet PO SCH (09:37)
[2017-12-05] MEDS: Azithromycin 250 MG Tablet PO SCH (09:37)
[2017-12-05 17:29] VITALS: O2SAT 97
[2017-12-05 18:34] VITALS: BP 132/77; PULSE 84; TEMP 97.8
== END 2017-12-05 18:23 | disposition home or self-care (01) ==
LOC: NEPE 13:49 → NEDA 18:34 → INTOOBSV 20:14 → N04 21:46
PROVIDERS: ADMIT Hospitalist; ATTEND Hospitalist

== ENCOUNTER 2018-03-18 14:26 | Inpatient (IN) ==
[2018-03-18] MEDS ORDERED: RESP: Albuterol Concentrated 2.5 MG/0.5 ML Neb NEB ONE (14:37)
[2018-03-18] MEDS ORDERED: MethylPREDNISolone Sod Succinate Inj 125 MG/2 ML Vial IV.PUSH ONE (14:40)
--- NOTE | 2018-03-18 14:55 | ED ---
HPI General Chief complaint: Respiratory Symptoms Stated complaint: Medical Time Seen by Provider: 03/18/18 14:37 Source: patient and EMS Mode of arrival: EMS Limitations: other (clinical acuity) History of Present Illness HPI narrative: 57-year-old female presents by ambulance for shortness of breath. Report was her oxygen saturation was in the 40s by finger probe but when he put it on her ear it was higher. He placed her on oxygen and gave her one breathing treatment. Patient is having difficulty talking and shakes her head yes to shortness of breath but cannot tell me how long Related Data Previous Rx's Medication Instructions Recorded albuterol sulfate [Ventolin HFA] 2 puff INH Q4H PRN #1 inh 12/01/17 budesonide-formoterol 2 puff INHALATION Q12H #1 12/02/17 inhalation Allergies Allergy/AdvReac Type Severity Reaction Status Date / Time SOME ANTI INFLAMMATORY MEDS Allergy Severe Swelling Uncoded 05/16/05 13:42 INHALERS Allergy Intermediate SOB Uncoded 01/07/06 10:13 Review of Systems ROS Unobtainable ROS Unobtainable: other (Clinical acuity) [facility] Medical History Medical History Asthma (Acute) COPD (chronic obstructive pulmonary disease) (Acute) delivery delivered (Acute) Diastolic heart failure (Acute) Family History Family History Other Unknown family medical history Social History Social History Substance History: No History of Abuse Second Hand Smoke Exposure: No Smoking Status: Former smoker Tobacco Type: Cigarettes How Often Do You Have a Drink Containing Alcohol: Never Recent Travel in [facility] within the Last 8 Weeks: No Recent Out of Country Travel within the Last 8 Weeks: No Immunization History Tetanus Immunization: Unsure Exam Narrative Exam Narrative: GENERAL: 57 y/o female who appears ill, thin, limited based on acuity SKIN: Focused skin assessment warm/dry. HEAD: Atraumatic. Normocephalic. EYES: Pupils equal and round. No scleral icterus. No injection or drainage. ENT: No nasal bleeding or discharge. Mucous membranes pink and moist. NECK: Trachea midline. CARDIOVASCULAR: Regular rate and rhythm RESPIRATORY: tripod position, tachypnea noted. decreased aeration bilaterally. GASTROINTESTINAL: Abdomen soft, nondistended. Hepatic and splenic margins not palpable. MUSCULOSKELETAL: No obvious deformities. No clubbing. No cyanosis. NEUROLOGICAL: Awake. Motor grossly within normal limits. Course Reevaluation(s) Reevaluation #1: On reevaluation patient is wanting her mask off. Oxygen saturation is stable on high flow nasal cannula oxygen. Will give small break and try to replace. Advised of troponin and denies chest pain. Will place on heparin and give aspirin. EKG does not show STEMI. Patient again declining cardiac catheterization and care was discussed with communications officer. She will be closely monitored in the ICU Consultations Consultation #1: dr marquez agrees to consult, heparin Consultation #2: dr drake agrees to admit in the icu Initial Documented Vital Signs Temperature 98.3 F 03/18/18 14:38 Pulse Rate 101 H 03/18/18 14:38 Respiratory Rate 29 H 03/18/18 14:38 Blood Pressure 107/57 L 03/18/18 14:38 Pulse Oximetry 56 L 03/18/18 14:38 Last Documented Vital Signs Temperature 98.3 F 03/18/18 14:38 Pulse Rate 83 03/18/18 15:54 Respiratory Rate 18 03/18/18 15:54 Blood Pressure 115/63 03/18/18 15:54 Pulse Oximetry 95 03/18/18 17:03 Critical Care Time Critical Care Time: Yes Total Critical Care Time: 35 Attestation: Aggregate critical care time was 35 minutes. Time to perform other separately billable procedures was not included in the critical care time. My time did not include minutes spent treating any other patients simultaneously or on activities that did not directly contribute to the patient's treatment. The services I provided to this patient were to treat and/or prevent clinically significant deterioration that could result in: respiratory failure, I provided critical care services requiring my management, as noted below: Chart data review, documentation time, medication orders and management, vital sign assessments/reviewing monitor data, ordering and reviewing lab tests, ordering and interpreting/reviewing x-rays and diagnostic studies, care of the patient and discussion of the patient with the admitting physicians. Medical Decision Making MDM Narrative Medical decision making narrative: We will check blood work, chest x-ray and given hypoxic despite nonrebreather placed on BiPAP while dosing with nebs and Solu-Medrol Medical Screen Exam Complete: Yes Emergency Medical Condition: Yes Differential Diagnosis Differential Diagnosis: COPD, pneumothorax, CHF, URI, pneumonia Lab Data Result diagrams: 03/18/18 14:52 03/18/18 14:52 Lab Results 03/18/18 03/18/18 03/18/18 Range/Units 14:43 14:51 14:52 WBC 5.7 (4.0-11.0) th/mm3 RBC 4.95 (4.00-5.30) mil/mm3 Hgb 16.8 H (11.6-15.3) gm/dL Hct 50.0 H (35.0-46.0) % MCV 101.1 H (80.0-100.0) fL MCH 33.9 (27.0-34.0) pg MCHC 33.6 (32.0-36.0) % RDW 14.4 (11.6-17.2) % Plt Count 131 L (150-450) th/mm3 MPV 9.4 (7.0-11.0) fL Prelim Diff (Auto) Slide review pending Neut % (Auto) 70.7 H (16.0-70.0) % Lymph % (Auto) 13.9 (9.0-44.0) % Falls % (Auto) 14.0 H (0.0-8.0) % Eos % (Auto) 0.2 (0.0-4.0) % Baso % (Auto) 1.2 (0.0-2.0) % Neut # (Auto) 4.0 (1.8-7.7) th/mm3 Lymph # (Auto) 0.8 L (1.0-4.8) th/mm3 Falls # (Auto) 0.8 (0.0-0.9) th/mm3 Eos # (Auto) 0.0 (0.0-0.4) th/mm3 Baso # (Auto) 0.1 (0.0-0.2) th/mm3 WBC Differential . Diff Scan Auto diff confirmed Differential Comment . Platelet Estimate Low L (Normal) Platelet Morphology Normal (Normal) PT (9.8-11.6) sec INR Ratio APTT (23.4-31.7) sec Sodium (136-145) meq/L Potassium (3.5-5.1) meq/L Chloride (98-107) meq/L Carbon Dioxide (21.0-32.0) meq/L Anion Gap (5-15) meq/L BUN (7-18) mg/dL Creatinine (0.50-1.00) mg/dL Estimated GFR (>89) mL/min POC Glucose 151 H (68-110) mg/dl Random Glucose (74-106) mg/dL Lactic Acid 2.5 H (0.4-2.0) mmol/L Calcium (8.5-10.1) mg/dL Magnesium (1.5-2.5) mg/dL Total Bilirubin (0.2-1.0) mg/dL AST (15-37) U/L ALT (10-53) U/L Alkaline Phosphatase (45-117) U/L Total Creatine Kinase (26-192) U/L CK-MB (CK-2) (0.5-3.6) ng/mL Troponin I (0.02-0.05) ng/mL B-Natriuretic Peptide (0-100) pg/mL Total Protein (6.4-8.2) g/dL Albumin (3.4-5.0) g/dL 03/18/18 03/18/18 03/18/18 Range/Units 14:52 14:52 14:52 WBC (4.0-11.0) th/mm3 RBC (4.00-5.30) mil/mm3 Hgb (11.6-15.3) gm/dL Hct (35.0-46.0) % MCV (80.0-100.0) fL MCH (27.0-34.0) pg MCHC (32.0-36.0) % RDW (11.6-17.2) % Plt Count (150-450) th/mm3 MPV (7.0-11.0) fL Prelim Diff (Auto) Neut % (Auto) (16.0-70.0) % Lymph % (Auto) (9.0-44.0) % Falls % (Auto) (0.0-8.0) % Eos % (Auto) (0.0-4.0) % Baso % (Auto) (0.0-2.0) % Neut # (Auto) (1.8-7.7) th/mm3 Lymph # (Auto) (1.0-4.8) th/mm3 Falls # (Auto) (0.0-0.9) th/mm3 Eos # (Auto) (0.0-0.4) th/mm3 Baso # (Auto) (0.0-0.2) th/mm3 WBC Differential Diff Scan Differential Comment Platelet Estimate (Normal) Platelet Morphology (Normal) PT 13.2 H (9.8-11.6) sec INR 1.3 Ratio APTT 26.8 (23.4-31.7) sec Sodium 134 L (136-145) meq/L Potassium 4.6 (3.5-5.1) meq/L Chloride 94 L (98-107) meq/L Carbon Dioxide 33.1 H (21.0-32.0) meq/L Anion Gap 7 (5-15) meq/L BUN 33 H (7-18) mg/dL Creatinine 1.06 H (0.50-1.00) mg/dL Estimated GFR 54 L (>89) mL/min POC Glucose (68-110) mg/dl Random Glucose 152 H (74-106) mg/dL Lactic Acid (0.4-2.0) mmol/L Calcium 8.7 (8.5-10.1) mg/dL Magnesium 1.9 (1.5-2.5) mg/dL Total Bilirubin 1.5 H (0.2-1.0) mg/dL AST 287 H (15-37) U/L ALT 211 H (10-53) U/L Alkaline Phosphatase 102 (45-117) U/L Total Creatine Kinase 180 (26-192) U/L CK-MB (CK-2) 18.8 H (0.5-3.6) ng/mL Troponin I 2.38 H* (0.02-0.05) ng/mL B-Natriuretic Peptide 1601 H (0-100) pg/mL Total Protein 7.8 (6.4-8.2) g/dL Albumin 3.9 (3.4-5.0) g/dL Imaging Data Radiologist's impression: Chest X-Ray 03/18/18 14:37 CONCLUSION: 1. No acute abnormality or significant interval change. Discharge Plan Discharge Disposition Patient Disposition: 30 Still Patient Discharge Details Diagnosis: Acute exacerbation of chronic obstructive pulmonary disease (COPD), Non-ST elevation [place] (NSTEMI) Physicians Team ED Provider: Jessica Graves Primary Care Provider: UNKNOWN, Attending Provider: Shimon Drake Other Providers: Lopez Marquez Status ED Status: Admitted Patient
--- NOTE | 2018-03-18 15:01 | XR ---
EXAM DATE: 03/18/2018 2:56 PM EST AGE/SEX: 57 years / Female INDICATIONS: Fever, short of breath CLINICAL DATA: This is the patient's initial encounter. Patient reports that signs and symptoms have been present for 1 day and indicates a pain score of 0/10. MEDICAL/SURGICAL HISTORY: Asthma. Chronic obstructive pulmonary disease. None. COMPARISON: [facility] [place]ST 1V SINGLE AP, 11/20/2017. . FINDINGS: Lungs are hyperexpanded with mild interstitial prominence. No new focal pleural or parenchymal opacit ies. The cardiomediastinal contours are stable. Healed right-sided rib fractures. Osseous structures are otherwise intact. CONCLUSION: 1. No acute abnormality or significant interval change. Electronically signed by: Raymond Berry MD 03/18/2018 3:00 PM EST
[2018-03-18 15:53] LABS: Activated Partial Thrombo Time 26.8 sec (23.4-31.7); Baso # (Auto) 0.1 th/mm3 (0.0-0.2); Baso % (Auto) 1.2 % (0.0-2.0); Eos % (Auto) 0.2 % (0.0-4.0); Hemoglobin 16.8 gm/dL (11.6-15.3); INR 1.3 Ratio; Lymph # (Auto) 0.8 th/mm3 (1.0-4.8); Lymph % (Auto) 13.9 % (9.0-44.0); Mean Corpuscular HGB Conc 33.6 % (32.0-36.0); Mean Corpuscular Hemoglobin 33.9 pg (27.0-34.0); Mean Corpuscular Volume 101.1 fL (80.0-100.0); Mean Platelet Volume 9.4 fL (7.0-11.0); Mono # (Auto) 0.8 th/mm3 (0.0-0.9); Neut % (Auto) 70.7 % (16.0-70.0); Platelet Count 131 th/mm3 (150-450); Prothrombin Time 13.2 sec (9.8-11.6); Red Blood Count 4.95 mil/mm3 (4.00-5.30); Red Cell Distribution Width 14.4 % (11.6-17.2); White Blood Count 5.7 th/mm3 (4.0-11.0)
[2018-03-18] MEDS ORDERED: Piperacil/Tazo 4.5 GM Premix 4.5 GM/100 ML BAG IV.SIG STA (15:56)
[2018-03-18] MEDS ORDERED: Azithromycin Inj 500 MG in Sodium Chlor 0.9% Inj 250 ML IV.SIG ONE (15:56)
[2018-03-18 16:15] LABS: Alanine Aminotransferase 211 U/L (10-53); Albumin 3.9 g/dL (3.4-5.0); Alkaline Phosphatase 102 U/L (45-117); Anion Gap 7 meq/L (5-15); Aspartate Aminotransferase 287 U/L (15-37); Blood Urea Nitrogen 33 mg/dL (7-18); Calcium 8.7 mg/dL (8.5-10.1); Carbon Dioxide 33.1 meq/L (21.0-32.0); Chloride 94 meq/L (98-107); Creatine Kinase 180 U/L (26-192); Glomerular Filtration Rate 54 mL/min (>89); Glucose,Random 152 mg/dL (74-106); Magnesium 1.9 mg/dL (1.5-2.5); Potassium 4.6 meq/L (3.5-5.1); Sodium 134 meq/L (136-145); Total Protein 7.8 g/dL (6.4-8.2)
[2018-03-18 16:18] LABS: Troponin I 2.38 ng/mL (0.02-0.05)
[2018-03-18 16:30] LABS: Creatine Kinase MB 18.8 ng/mL (0.5-3.6)
[2018-03-18] MEDS ORDERED: Heparin 10,000 UNITS/10 ML Vial (for IV use) IV.PUSH STA (16:31)
[2018-03-18] MEDS ORDERED: Aspirin 325 MG Tablet PO ONE (16:38)
[2018-03-18 16:42] LABS: Platelet Morphology Normal (Normal)
[2018-03-18] MEDS: Heparin Drip 25,000 UNIT/250 ML BAG IV.CONT PRN (17:41)
--- NOTE | 2018-03-18 17:53 | P.HPIM ---
History of Present Illness Primary Care Physician: UNKNOWN History of Present Illness: Mrs. Cohen is a 57-year-old female. I know her from a previous admit. She has severe COPD at baseline. Last admit I had problems weaning her off oxygen in order to discharge. At baseline she is homeless and could not utilize home oxygen in the setting. Today she was found unconscious, paramedics found her oxygen saturations to be in the 40s and place her on oxygen. When she arrived to the hospital her oxygen saturation was in the 70s. BiPAP was utilized and patient has improved with the BiPAP. She subsequently removed the BiPAP and requested to not be utilized and currently is maintaining saturations on 5 L/ min oxygen via nasal cannula. She does report she has had chills and a cough. She also reports incontinence. Urinalysis pending. Chest imaging shows no evidence of pneumonia but bronchitis may be present. COPD exacerbation is a likely etiology for her degree of hypoxia and may have been compounded by respiratory infection. Patient has been counseled to avoid smoking at last discharge. She has continued to smoke but did quit smoking 3 days ago. Inpatient Certification: I certify that the inpatient services were ordered in accordance with Medicare regulations governing the order. This includes certification that hospital inpatient services are reasonable and necessary and in the case of services not specified as inpatient-only under 42 CFR 419.22(n), that they are appropriately provided as inpatient services in accordance to with the 2-midnight benchmark under 43 CFR 412.3(e) Estimated Total Length of Stay (Days): 3 Plans for Post Hospital Care: Home Review of Systems Constitutional: No fevers, chills, no night sweats, fatigue, weakness, lethargy Eyes: No eye pain, no blurry vision, no loss of vision ENT: No sore throat, no ear pain, no rhinorrhea Cardiovascular: No chest pain, no tachycardia, no palpitations, no syncope Respiratory: Wheezing, cough, shortness of breath Gastrointestinal: No abdominal pain, no black tarry stools, no bright red blood per rectum, no vomiting, no diarrhea Musculoskeletal: No joint pain, no muscle cramps, no stiffness Integumentary: No rash, no ulcers, no drainage Neurologic: No sensory loss, no loss of motor function, no dizziness Psychiatric: No behavioral changes, no hallucinations, no suicidal ideations PMFSH - History History Provided By: Patient, Office Clerk Assistant / EMT - Medical History Medical History: Medical History (Last Reviewed 03/18/18 @ 14:56 by Jessica Graves MD) Asthma COPD (chronic obstructive pulmonary disease) delivery delivered Diastolic heart failure - Family History Family History: Family History (Last Reviewed 03/18/18 @ 14:56 by Jessica Graves MD) Other Unknown family medical history - Tobacco History Second Hand Smoke Exposure: No Smoking Status: Former smoker Tobacco Type: Cigarettes - Alcohol History How Often Do You Have a Drink Containing Alcohol: Never - Substance Use History Substance History: No History of Abuse - Travel History Recent Travel in the [place] Within the Last 8 Weeks: No Recent Travel Out of the Country Within the Last 8 Weeks: No - Immunization History Tetanus Immunization: Unsure Medications and Allergies Active Medications: Active Medications Acetaminophen (Tylenol) 650 mg PO Q4H PRN PRN Reason: Temp > 100.4 Al Hydroxide/Mg Hydroxide (Milk Of Magnesia Liq) 30 ml PO Q12H PRN PRN Reason: Mild Constipation Albuterol (Albuterol Neb (Prn)) 2.5 mg NEB Q4HR NEB PRN PRN Reason: SHORTNESS OF BREATH Albuterol (Duoneb Neb (Dianelys)) 1 ampul NEB Q6HR WHILE AWAKE NEB DIANELYS Heparin Sodium/Dextrose (Heparin/D5w 25,000 U/250 Ml) 25,000 unit in 250 mls @ 0 mls/hr IV.CONT TITRATE PRN; Protocol PRN Reason: Per Protocol Azithromycin 500 mg/ Sodium (Chloride) 250 mls @ 250 mls/hr IV.SIG Q24H DIANELYS Sodium Chloride (Ns Inj) 1,000 mls @ 50 mls/hr IV.CONT .Q20H DIANELYS Methylprednisolone Sodium Succinate (Solumedrol Inj) 40 mg IV.PUSH Q8H DIANELYS Ondansetron HCl (Zofran Inj) 4 mg IV.PUSH Q6H PRN PRN Reason: NAUSEA OR VOMITING Sodium Chloride (Ns Flush) 2 ml IV.FLUSH BID DIANELYS Sodium Chloride (Ns Flush) 2 ml IV.FLUSH PRN PRN PRN Reason: FLUSH AFTER USING IV ACCESS Allergies Allergy/AdvReac Type Severity Reaction Status Date / Time SOME ANTI INFLAMMATORY MEDS Allergy Severe Swelling Uncoded 05/16/05 13:42 INHALERS Allergy Intermediate SOB Uncoded 01/07/06 10:13 Exam Vital signs: Vital Signs 03/18/18 14:38 03/18/18 14:39 03/18/18 14:42 Temperature 98.3 F Pulse Rate 101 H Respiratory Rate 29 H Blood Pressure 107/57 L Pulse Oximetry 56 L 55 L 90 L 03/18/18 14:43 03/18/18 14:46 03/18/18 15:03 Temperature Pulse Rate 90 Respiratory Rate 18 Blood Pressure Pulse Oximetry 76 L 96 96 03/18/18 15:54 03/18/18 17:03 Temperature Pulse Rate 83 Respiratory Rate 18 Blood Pressure 115/63 Pulse Oximetry 98 95 Intake & Output 03/17/18 03/18/18 03/18/18 18:59 06:59 18:59 Intake Total 100 / 100 Balance 100 / 100 Weight 58.967 kg Intake: IV 100 / 100 Zosyn 4.5 GM Premix 4.5 gm In 100 / 100 100 ml @ 200 mls/hr IV.SIG STAT STA Rx#:[id number] Narrative: GENERAL: NAD, A&Ox3, disheveled HEAD: Normocephalic. NECK: Supple, trachea midline. No lymphadenopathy. EYES: No scleral icterus. No injection or drainage. CARDIOVASCULAR: Regular rate and rhythm without murmurs, gallops, or rubs. RESPIRATORY: Breath sounds equal bilaterally. No accessory muscle use. Bilateral wheezing. Poor excursion. GASTROINTESTINAL: Abdomen soft, non-tender, nondistended. MUSCULOSKELETAL: No cyanosis, or edema. SKIN: Warm and dry. NEURO: No focal neurological deficits. Results - Labs CBC & Chem 7: 03/18/18 14:52 03/18/18 14:52 Labs: Short CBC 03/18/18 Range/Units 14:52 WBC 5.7 (4.0-11.0) th/mm3 Hgb 16.8 H (11.6-15.3) gm/dL Hct 50.0 H (35.0-46.0) % Plt Count 131 L (150-450) th/mm3 BMP 03/18/18 14:52 Sodium 134 L Potassium 4.6 Chloride 94 L Carbon Dioxide 33.1 H BUN 33 H Creatinine 1.06 H Calcium 8.7 Cardiac Enzymes 03/18/18 Range/Units 14:52 Total Creatine Kinase 180 (26-192) U/L CK-MB (CK-2) 18.8 H (0.5-3.6) ng/mL Troponin I 2.38 H* (0.02-0.05) ng/mL Liver Function 03/18/18 Range/Units 14:52 Total Bilirubin 1.5 H (0.2-1.0) mg/dL AST 287 H (15-37) U/L ALT 211 H (10-53) U/L Alkaline Phosphatase 102 (45-117) U/L Albumin 3.9 (3.4-5.0) g/dL - Imaging Impressions Chest X-Ray 03/18/18 14:37 CONCLUSION: 1. No acute abnormality or significant interval change. Caprini VTE Risk Assessment Caprini VTE Risk Assessment: Moderate/High Risk (score >= 2) Caprini Risk Assessment Model: Point Value = 1 Point Value = 2 Point Value = 3 Point Value = 5 Age 41-60 Minor surgery BMI > 25 kg/m2 Swollen legs Varicose veins or History of unexplained or recurrent spontaneous Oral contraceptives or hormone replacement Sepsis (< 1 month) Serious lung disease, including pneumonia (< 1 month) Abnormal pulmonary function Acute myocardial infarction Congestive heart failure (< 1 month) History of inflammatory bowel disease Medical patient at bed rest Age 61-74 Arthroscopic surgery Major open surgery (> 45 min) Laparoscopic surgery (> 45 min) Malignancy Confined to bed (> 72 hours) Immobilizing plaster cast Central venous access Age >= 75 History of VTE Family history of VTE Factor V Leiden Prothrombin [id number] Lupus anticoagulant Anticardiolipin antibodies Elevated serum homocysteine Heparin-induced thrombocytopenia Other congenital or acquired thrombophilia Stroke (< 1 month) Elective arthroplasty Hip, pelvis, or leg fracture Acute spinal cord injury (< 1 month) Prophylaxis Regimen: Total Risk Factor Score Risk Level Prophylaxis Regimen 0-1 Low Early ambulation 2 Moderate Order ONE of the following: *Sequential Compression Device (SCD) *Heparin 5000 units SQ BID 3-4 Higher Order ONE of the following medications: *Heparin 5000 units SQ TID *Enoxaparin/Lovenox 40 mg SQ daily (WT < 150 kg, CrCl > 30 mL/min) *Enoxaparin/Lovenox 30 mg SQ daily (WT < 150 kg, CrCl > 10-29 mL/min) *Enoxaparin/Lovenox 30 mg SQ BID (WT < 150 kg, CrCl > 30 mL/min) AND/OR *Sequential Compression Device (SCD) 5 or more Highest Order ONE of the following medications: *Heparin 5000 units SQ TID (Preferred with Epidurals) *Enoxaparin/Lovenox 40 mg SQ daily (WT < 150 kg, CrCl > 30 mL/min) *Enoxaparin/Lovenox 30 mg SQ daily (WT < 150 kg, CrCl > 10-29 mL/min) *Enoxaparin/Lovenox 30 mg SQ BID (WT < 150 kg, CrCl > 30 mL/min) AND *Sequential Compression Device (SCD) Assessment and Plan - Plan 57-year-old female admitted secondary to hypoxia and COPD exacerbation with a history of severe COPD COPD exacerbation Hypoxia Continue oxygen supplements as needed Schedule duo nebs When necessary albuterol Azithromycin Systemic steroids Follow for improvement in respiratory status Follow for improvement in exertional tolerance next I expect this patient will be a difficult wean, her homeless status makes it difficult to arrange home oxygen, prolonged hospital stay due to very slow wean was a situation last time Admit to ICU overnight for possibility of return to BiPAP, and close monitoring Recent incontinence Possible urinary tract infection Rocephin Probiotics Obtain UA and follow cultures of positive Diastolic heart failure Caution with fluid provisions DVT prophylaxis Lovenox
[2018-03-18] MEDS: MethylPREDNISolone Sod Succinate Inj 40 MG/ML Vial IV.PUSH SCH (18:05)
[2018-03-18 18:14] LABS: ABG Base Excess 7.5 mmol/L (-2-2); ABG PCO2 67 mmHg (38-42); ABG PO2 73 mmHg (61-120)
[2018-03-18] MEDS: Lactobacillus Acidophilus/L. Spores Tablet PO SCH (21:40)
[2018-03-18] MEDS: Budesonide-Formoterol 80/4.5 MCG 6.9 GM Inhaler INH SCH (21:40)
[2018-03-18] MEDS ORDERED: Melatonin 5 MG Tablet PO ONE (21:50)
[2018-03-18] MEDS: Sod Chloride 0.9% Inj 1,000 ML IV.CONT SCH (22:14)
[2018-03-19] MEDS: MethylPREDNISolone Sod Succinate Inj 40 MG/ML Vial IV.PUSH SCH ×3 (02:17→17:07)
[2018-03-19] MEDS ORDERED: Chlorhexidine Gluconate 2% 1 Pack (2 Cloths) TOPICAL PRN (04:00)
[2018-03-19] MEDS: Chlorhexidine Gluconate 2% 1 Pack (2 Cloths) TOPICAL SCH (04:32)
[2018-03-19 08:24] LABS: Baso % (Auto) 0.3 % (0.0-2.0); Hematocrit 46.6 % (35.0-46.0); Hemoglobin 14.9 gm/dL (11.6-15.3); Lymph # (Auto) 0.3 th/mm3 (1.0-4.8); Lymph % (Auto) 8.2 % (9.0-44.0); Mean Corpuscular Hemoglobin 32.6 pg (27.0-34.0); Mono # (Auto) 0.2 th/mm3 (0.0-0.9); Mono % (Auto) 7.4 % (0.0-8.0); Neut # (Auto) 2.7 th/mm3 (1.8-7.7); Neut % (Auto) 84.1 % (16.0-70.0); Platelet Count 109 th/mm3 (150-450); Red Blood Count 4.57 mil/mm3 (4.00-5.30); Red Cell Distribution Width 14.2 % (11.6-17.2); White Blood Count 3.2 th/mm3 (4.0-11.0)
[2018-03-19] MEDS: Lactobacillus Acidophilus/L. Spores Tablet PO SCH ×3 (08:30→17:09)
[2018-03-19] MEDS: Budesonide-Formoterol 80/4.5 MCG 6.9 GM Inhaler INH SCH ×2 (08:32→22:24)
[2018-03-19 08:57] LABS: Alanine Aminotransferase 151 U/L (10-53); Albumin 2.8 g/dL (3.4-5.0); Alkaline Phosphatase 82 U/L (45-117); Anion Gap 3 meq/L (5-15); Aspartate Aminotransferase 173 U/L (15-37); Blood Urea Nitrogen 39 mg/dL (7-18); Calcium 7.9 mg/dL (8.5-10.1); Carbon Dioxide 36.7 meq/L (21.0-32.0); Chloride 98 meq/L (98-107); Glomerular Filtration Rate 58 mL/min (>89); Glucose,Random 204 mg/dL (74-106); Potassium 4.5 meq/L (3.5-5.1); Sodium 138 meq/L (136-145); Total Protein 6.1 g/dL (6.4-8.2)
[2018-03-19] MEDS ORDERED: Enoxaparin Inj 40 MG/0.4 ML Syringe SQ SCH (09:00)
--- NOTE | 2018-03-19 15:07 | MB ---
cc: Lopez Howell MD DATE: 03/19/2018 HISTORY OF PRESENT ILLNESS: This is a very pleasant 57-year-old lady with severe COPD, still smoking, admitted with severe shortness of breath. She has refused heart catheterization in the past. She feels a little better, although she is still on supplemental oxygen. Otherwise, denies any fevers, chills, cough, GI or bleeding, PND, orthopnea, dizziness or chest pain. PAST MEDICAL HISTORY: Includes asthma, COPD, diastolic congestive heart failure. ALLERGIES: "ANTI-INFLAMMATORY MEDICATION" AND INHALERS. SOCIAL HISTORY: She is an active smoker who denies alcohol use. HOSPITAL MEDICATIONS: 1. Albuterol. 2. Azithromycin IV. 3. Budesonide 2 puffs inhaler hours. 4. Ceftriaxone IV. 5. Heparin drip. 6. She received an aspirin 325 x 1 in the ER. PHYSICAL EXAMINATION: VITAL SIGNS: Blood pressure 97/59, pulse 74, respiratory rate 15-18, temperature 97.8. GENERAL: She is alert, oriented x 3, in mild to moderate distress. NECK: Supple. No JVD. No bruit. CARDIOVASCULAR: S1, S2. LUNGS: Clear to auscultation bilaterally. ABDOMEN: Soft, nontender, nondistended with positive bowel sounds. EXTREMITIES: No extremity edema. LABORATORY DATA: Chest x-ray shows no acute abnormality or significant interval change. EKG: Normal sinus rhythm at 99 beats per minute, right bundle branch block, left anterior fascicular block, no ST-T wave changes. Repeat EKG shows T-wave inversion in V4 and V5, which is asymmetric, 0.5-1 mm in depth. White count 3.2, hemoglobin 14.9, initially 16.8, hematocrit 46.6, MCV 102, platelet count 109. Sodium 138, potassium 4.5, BUN 39, creatinine 1.0. Troponin is 2.90, followed by 2.57. BNP is 1601. Creatinine is 1.0. Blood gas pH 7.32, pCO2 of 67, PO2 of 73 on 40% oxygen IPAP 13, EPAP 5. INR is 1.3. PTT is 40.3. DIAGNOSES: 1. [id number] myocardial infarction. 2. Severe chronic obstructive pulmonary disease. 3. Hypoxia. 4. Hypercapnia. 5. Decompensated congestive heart failure. 6. Hyperglycemia. 7. Polycythemia. 8. Neutropenia. 9. Thrombocytopenia. DISCUSSION: The patient adamantly refuses left heart catheterization. In addition, she has multiple comorbidities including neutropenia, polycythemia, thrombocytopenia, severe COPD. She is on a heparin drip and her troponins are trending down. I suspect her troponin elevation is probably a combination of decreased supply from hypoxia as well as probably some degree of primary obstructive disease. Recommend followup 2-D echo. Follow trends and BNP. I am going to hold her aspirin now until we find out what her trends and her platelet count is. I have strongly advised her to stop smoking. We will continue to follow. She is not a candidate for beta blockers given her severe reactive airway disease, asthma, and COPD. Currently, she is hypotensive with a blood pressure 97/59 and SETH inhibitors are being held. She has markedly elevated liver function tests, AST of 173, ALT of 151. Therefore, statins are being held. MD MERI Dove/josé miguel , 02:07 PM , 02:17 PM
--- NOTE | 2018-03-19 15:22 | P.CONID ---
History of Present Illness Service: ID Consult date: 03/19/18 Requesting Physician: Ivy Castillo Reason for Consult: bacteremia Primary Care Provider: UNKNOWN History of Present Illness: 57 yo female, tobacco +, homeless could not get her O2 prtesents with SOB x 2 days No fever WBC is low @ 3200 + prominent lymphopenia blood clx + for gram + cocci 1/4 bottles afebrile VSS with mild hypotension and hypoxia negative CXR Review of Systems All other systems reviewed negative except as stated in HPI PMFSH - History History Provided By: Patient - Medical History Medical History: Medical History (Last Reviewed 03/19/18 @ 15:17 by Chelsey Howell MD) Asthma COPD (chronic obstructive pulmonary disease) delivery delivered Diastolic heart failure - Family History Family History: Family History (Last Reviewed 03/19/18 @ 15:17 by Chelsey Howell MD) Other Unknown family medical history - Social History I have reviewed the patient's Social History: Yes - Tobacco History Second Hand Smoke Exposure: Yes Tobacco Use In Past 30 Days: Yes Smoking Status: Current every day smoker Tobacco Type: Cigarettes - Alcohol History How Often Do You Have a Drink Containing Alcohol: Monthly or less - Substance Use History Substance History: No History of Abuse - Travel History Recent Travel in the [place] Within the Last 8 Weeks: No Recent Travel Out of the Country Within the Last 8 Weeks: No - Immunization History Tetanus Immunization: Unsure Medications and Allergies Active Medications: Active Medications Acetaminophen (Tylenol) 650 mg PO Q4H PRN PRN Reason: Temp > 100.4 Al Hydroxide/Mg Hydroxide (Milk Of Trino Liq) 30 ml PO Q12H PRN PRN Reason: Mild Constipation Albuterol (Albuterol Neb (Prn)) 2.5 mg NEB Q4HR NEB PRN PRN Reason: SHORTNESS OF BREATH Albuterol (Duoneb Neb (Dianelys)) 1 ampul NEB Q6HR WHILE AWAKE NEB DIANELYS Last Admin: 03/19/18 12:14 Dose: 1 ampul Budesonide/Formoterol Fumarate (Symbicort 80/4.5 Mcg Inh) 2 puff INH Q12H DIANELYS Last Admin: 03/19/18 08:32 Dose: 2 puff Chlorhexidine Gluconate (Chlorhexidine 2% Cloth) 3 pack TOPICAL DAILY@0400 [facility] Stop: 03/24/18 03:59 Last Admin: 03/19/18 04:32 Dose: Not Given Chlorhexidine Gluconate (Chlorhexidine 2% Cloth) 3 pack TOPICAL DAILY@0400 PRN PRN Reason: Extra cloth needed Stop: 03/24/18 03:59 Heparin Sodium/Dextrose (Heparin/D5w 25,000 U/250 Ml) 25,000 unit in 250 mls @ 0 mls/hr IV.CONT TITRATE PRN; Protocol PRN Reason: Per Protocol Last Titration: 03/19/18 05:14 Dose: 700 units/hr, 7 mls/hr Azithromycin 500 mg/ Sodium (Chloride) 250 mls @ 250 mls/hr IV.SIG Q24H DIANELYS Sodium Chloride (Ns Inj) 1,000 mls @ 50 mls/hr IV.CONT .Q20H [facility] Last Admin: 03/18/18 22:14 Dose: 50 mls/hr Ceftriaxone Sodium 1,000 mg/ (Sodium Chloride) 100 mls @ 200 mls/hr IV.SIG Q24H [facility] Last Infusion: 03/18/18 21:39 Dose: Infused Lactobacillus Acidophilus (Lactinex) 1 tab PO TID [facility] Last Admin: 03/19/18 12:32 Dose: 1 tab Methylprednisolone Sodium Succinate (Solumedrol Inj) 40 mg IV.PUSH Q8H [facility] Last Admin: 03/19/18 08:30 Dose: 40 mg Ondansetron HCl (Zofran Inj) 4 mg IV.PUSH Q6H PRN PRN Reason: NAUSEA OR VOMITING Sodium Chloride (Ns Flush) 2 ml IV.FLUSH BID [facility] Last Admin: 03/19/18 08:30 Dose: 2 ml Sodium Chloride (Ns Flush) 2 ml IV.FLUSH PRN PRN PRN Reason: FLUSH AFTER USING IV ACCESS Allergies Allergy/AdvReac Type Severity Reaction Status Date / Time SOME ANTI INFLAMMATORY MEDS Allergy Severe Swelling Uncoded 05/16/05 13:42 INHALERS Allergy Intermediate SOB Uncoded 01/07/06 10:13 Exam Vital signs: Vital Signs 03/18/18 15:03 03/18/18 15:54 03/18/18 17:03 Temperature Pulse Rate 90 83 Respiratory Rate 18 18 Blood Pressure 115/63 Pulse Oximetry 96 98 95 03/18/18 17:55 03/18/18 18:16 11/25/18 19:39 Temperature Pulse Rate 84 87 81 Respiratory Rate 20 20 18 Blood Pressure 121/74 110/70 Pulse Oximetry 97 97 94 L 03/18/18 19:46 03/18/18 20:00 03/18/18 21:00 Temperature 98.4 F Pulse Rate 79 79 84 Respiratory Rate 22 15 17 Blood Pressure 106/59 L 102/63 100/60 Pulse Oximetry 96 95 91 L 03/18/18 21:50 03/18/18 22:00 03/18/18 22:41 Temperature Pulse Rate 80 81 77 Respiratory Rate 16 25 H 15 Blood Pressure 88/52 L 84/52 L Pulse Oximetry 94 L 95 95 03/18/18 23:00 03/19/18 00:00 03/19/18 01:00 Temperature 97.9 F Pulse Rate 76 72 70 Respiratory Rate 16 16 16 Blood Pressure 81/53 L 91/52 L 88/53 L Pulse Oximetry 95 96 94 L 03/19/18 02:00 03/19/18 03:00 03/19/18 04:00 Temperature 98.2 F Pulse Rate 68 68 72 Respiratory Rate 15 14 15 Blood Pressure 87/54 L 85/53 L 91/61 L Pulse Oximetry 93 L 89 L 88 L 03/19/18 05:00 03/19/18 05:02 03/19/18 06:00 Temperature Pulse Rate 88 88 72 Respiratory Rate 28 H 25 H 15 Blood Pressure 108/63 97/56 L Pulse Oximetry 100 72 L 96 03/19/18 07:00 03/19/18 08:00 03/19/18 08:26 Temperature 97.6 F Pulse Rate 68 71 75 Respiratory Rate 14 15 23 Blood Pressure 88/53 L 94/56 L Pulse Oximetry 90 L 91 L 92 L 03/19/18 09:00 03/19/18 09:01 03/19/18 10:00 Temperature Pulse Rate 83 83 84 Respiratory Rate 23 22 32 H Blood Pressure 110/59 L Pulse Oximetry 92 L 96 91 L 03/19/18 10:10 03/19/18 11:00 03/19/18 12:00 Temperature 97.8 F Pulse Rate 83 78 74 Respiratory Rate 24 16 15 Blood Pressure 122/69 92/54 L 97/59 L Pulse Oximetry 93 L 95 98 03/19/18 12:15 Temperature Pulse Rate 75 Respiratory Rate 18 Blood Pressure Pulse Oximetry Intake & Output 03/18/18 03/19/18 03/19/18 18:59 06:59 18:59 Intake Total 100 / 100 1070 / 1070 Balance 100 / 100 1070 / 1070 Weight 58.967 kg 58.2 kg Intake: IV 100 / 100 350 / 350 Azithromycin Inj 500 MG In NS 250 / 250 Inj 250 ML @ 250 mls/hr IV.SIG ONCE ONE Rx#:[id number] Zosyn 4.5 GM Premix 4.5 gm In 100 / 100 100 ml @ 200 mls/hr IV.SIG STAT STA Rx#:[id number] Rocephin Inj 1,000 MG In NS Inj 100 / 100 100 ML @ 200 mls/hr IV.SIG Q24H DIANELYS Rx#:[id number] Oral 720 / 720 Other: # Incontinent Voids 3 # Bowel Movements 0 Weight On Admission 58.6 kg - Constitutional mild distress (resp), thin - Routine HEENT Exam Head: Present: normocephalic, atraumatic Eye: Present: EOMI, PERRL. Absent: conjunctival icterus, periorbital swelling ENT: Present: mucous membranes moist, oropharynx clear. Absent: dentition normal (very poor) - Routine Neck Exam Present: supple. Absent: JVD, lymphadenopathy - Routine Chest/Breast/Axilla Exam Axillae: Absent: lymphadenopathy - Routine Respiratory Exam Present: accessory muscle use, decreased breath sounds, CTA bilaterally - Routine Cardiovascular Exam Present: RRR, S1, S2. Absent: murmur, gallop, rubs - Routine Abdominal Exam Present: soft, normoactive bowel sounds. Absent: tenderness, distended, organomegaly, mass - Routine Extremities Exam Present: normal capillary refill. Absent: cyanosis, clubbing, edema - Routine Skin Exam Present: intact, dry. Absent: rash - Routine Neurological Exam Present: alert, oriented X3, CN II-XII intact. Absent: sensory deficit, motor deficit - Routine Psychiatric Exam Present: normal affect, cooperative Results - Labs CBC & Chem 7: 03/19/18 08:10 03/19/18 08:10 Labs: Laboratory Results - last 24 hr 03/18/18 03/18/18 03/18/18 14:51 14:52 14:52 WBC 5.7 RBC 4.95 Hgb 16.8 H Hct 50.0 H MCV 101.1 H MCH 33.9 MCHC 33.6 RDW 14.4 Plt Count 131 L MPV 9.4 Prelim Diff (Auto) Slide review pending Neut % (Auto) 70.7 H Lymph % (Auto) 13.9 [place] % (Auto) 14.0 H Eos % (Auto) 0.2 Baso % (Auto) 1.2 Neut # (Auto) 4.0 Lymph # (Auto) 0.8 L [place] # (Auto) 0.8 Eos # (Auto) 0.0 Baso # (Auto) 0.1 WBC Differential . Diff Scan Auto diff confirmed Differential Comment . Platelet Estimate Low L Platelet Morphology Normal PT 13.2 H INR 1.3 APTT 26.8 Puncture Site Patient Temperature O2 Saturation ABG pH ABG pCO2 ABG pO2 ABG HCO3 ABG O2 Content ABG Base Excess ABG Methemoglobin Lon Test Hemoglobin Carboxyhemoglobin O2 Delivery Device Vent Setting Inspired O2 Critical Value Sodium Potassium Chloride Carbon Dioxide Anion Gap BUN Creatinine Estimated GFR Random Glucose Lactic Acid 2.5 H Calcium Magnesium Total Bilirubin AST ALT Alkaline Phosphatase Total Creatine Kinase CK-MB (CK-2) Troponin I B-Natriuretic Peptide Total Protein Albumin Nasal Screen MRSA (PCR) 03/18/18 03/18/18 03/18/18 14:52 14:52 15:00 WBC RBC Hgb Hct MCV MCH MCHC RDW Plt Count MPV Prelim Diff (Auto) Neut % (Auto) Lymph % (Auto) [place] % (Auto) Eos % (Auto) Baso % (Auto) Neut # (Auto) Lymph # (Auto) [place] # (Auto) Eos # (Auto) Baso # (Auto) WBC Differential Diff Scan Differential Comment Platelet Estimate Platelet Morphology PT INR APTT Puncture Site Left radial Patient Temperature 98.6 O2 Saturation 90 ABG pH 7.32 L ABG pCO2 67 H* ABG pO2 73 ABG HCO3 33 H ABG O2 Content 20.3 H ABG Base Excess 7.5 H ABG Methemoglobin 0.4 Lon Test Present Hemoglobin 16.1 H Carboxyhemoglobin 1.6 O2 Delivery Device Bipap Vent Setting [id number] Inspired O2 40 Critical Value Yes Sodium 134 L Potassium 4.6 Chloride 94 L Carbon Dioxide 33.1 H Anion Gap 7 BUN 33 H Creatinine 1.06 H Estimated GFR 54 L Random Glucose 152 H Lactic Acid Calcium 8.7 Magnesium 1.9 Total Bilirubin 1.5 H AST 287 H ALT 211 H Alkaline Phosphatase 102 Total Creatine Kinase 180 CK-MB (CK-2) 18.8 H Troponin I 2.38 H* B-Natriuretic Peptide 1601 H Total Protein 7.8 Albumin 3.9 Nasal Screen MRSA (PCR) 03/18/18 03/18/18 03/19/18 18:08 18:45 00:55 WBC RBC Hgb Hct MCV MCH MCHC RDW Plt Count MPV Prelim Diff (Auto) Neut % (Auto) Lymph % (Auto) [place] % (Auto) Eos % (Auto) Baso % (Auto) Neut # (Auto) Lymph # (Auto) [place] # (Auto) Eos # (Auto) Baso # (Auto) WBC Differential Diff Scan Differential Comment Platelet Estimate Platelet Morphology PT INR APTT 59.7 H D Puncture Site Patient Temperature O2 Saturation ABG pH ABG pCO2 ABG pO2 ABG HCO3 ABG O2 Content ABG Base Excess ABG Methemoglobin Lno Test Hemoglobin Carboxyhemoglobin O2 Delivery Device Vent Setting Inspired O2 Critical Value Sodium Potassium Chloride Carbon Dioxide Anion Gap BUN Creatinine Estimated GFR Random Glucose Lactic Acid 1.5 Calcium Magnesium Total Bilirubin AST ALT Alkaline Phosphatase Total Creatine Kinase CK-MB (CK-2) Troponin I B-Natriuretic Peptide Total Protein Albumin Nasal Screen MRSA (PCR) Not detected 03/19/18 03/19/18 03/19/18 08:00 08:10 08:10 WBC 3.2 L RBC 4.57 Hgb 14.9 Hct 46.6 H MCV 102.0 H MCH 32.6 MCHC 32.0 RDW 14.2 Plt Count 109 L MPV 9.0 Prelim Diff (Auto) Neut % (Auto) 84.1 H Lymph % (Auto) 8.2 L [place] % (Auto) 7.4 Eos % (Auto) 0.0 Baso % (Auto) 0.3 Neut # (Auto) 2.7 Lymph # (Auto) 0.3 L [place] # (Auto) 0.2 Eos # (Auto) 0.0 Baso # (Auto) 0.0 WBC Differential . Diff Scan Differential Comment Auto diff final Platelet Estimate Platelet Morphology PT INR APTT Puncture Site Patient Temperature O2 Saturation ABG pH ABG pCO2 ABG pO2 ABG HCO3 ABG O2 Content ABG Base Excess ABG Methemoglobin Lon Test Hemoglobin Carboxyhemoglobin O2 Delivery Device Vent Setting Inspired O2 Critical Value Sodium 138 Potassium 4.5 Chloride 98 Carbon Dioxide 36.7 H Anion Gap 3 L BUN 39 H Creatinine 1.00 Estimated GFR 58 L Random Glucose 204 H Lactic Acid 1.1 Calcium 7.9 L D Magnesium Total Bilirubin 0.7 AST 173 H ALT 151 H Alkaline Phosphatase 82 Total Creatine Kinase CK-MB (CK-2) Troponin I B-Natriuretic Peptide Total Protein 6.1 L D Albumin 2.8 L D Nasal Screen MRSA (PCR) 03/19/18 03/19/18 03/19/18 08:10 08:10 11:02 WBC RBC Hgb Hct MCV MCH MCHC RDW Plt Count MPV Prelim Diff (Auto) Neut % (Auto) Lymph % (Auto) [place] % (Auto) Eos % (Auto) Baso % (Auto) Neut # (Auto) Lymph # (Auto) [place] # (Auto) Eos # (Auto) Baso # (Auto) WBC Differential Diff Scan Differential Comment Platelet Estimate Platelet Morphology PT INR APTT 48.3 H Puncture Site Patient Temperature O2 Saturation ABG pH ABG pCO2 ABG pO2 ABG HCO3 ABG O2 Content ABG Base Excess ABG Methemoglobin Lon Test Hemoglobin Carboxyhemoglobin O2 Delivery Device Vent Setting Inspired O2 Critical Value Sodium Potassium Chloride Carbon Dioxide Anion Gap BUN Creatinine Estimated GFR Random Glucose Lactic Acid Calcium Magnesium Total Bilirubin AST ALT Alkaline Phosphatase Total Creatine Kinase CK-MB (CK-2) Troponin I 2.90 H* D 2.57 H* D B-Natriuretic Peptide Total Protein Albumin Nasal Screen MRSA (PCR) - Imaging Impressions Chest X-Ray 03/18/18 14:37 CONCLUSION: 1. No acute abnormality or significant interval change. Assessment and Plan - Plan coag negative stah bacteremia - probably contaminant COPD exacerabation Cytopenia, lymphopenia no need for treatment for bacteremia @ this point fu other clx dc CFTX HIV DAVID, HBV HCV dw RN
--- NOTE | 2018-03-19 16:55 | P.PN ---
Subjective Interval history: On 5L by NC No fevers or chills needs O2 With bacteremia 1/ ID is consulted , repeat blood cx Physical Exam Vital signs: Vital Signs 03/18/18 17:03 03/18/18 17:55 03/18/18 18:16 Temperature Pulse Rate 84 87 Respiratory Rate 20 20 Blood Pressure 121/74 110/70 Pulse Oximetry 95 97 97 03/18/18 19:39 03/18/18 19:46 03/18/18 20:00 Temperature 98.4 F Pulse Rate 81 79 79 Respiratory Rate 18 22 15 Blood Pressure 106/59 L 102/63 Pulse Oximetry 94 L 96 95 03/18/18 21:00 03/18/18 21:50 03/18/18 22:00 Temperature Pulse Rate 84 80 81 Respiratory Rate 17 16 25 H Blood Pressure 100/60 88/52 L Pulse Oximetry 91 L 94 L 95 03/18/18 22:41 03/18/18 23:00 03/19/18 00:00 Temperature 97.9 F Pulse Rate 77 76 72 Respiratory Rate 15 16 16 Blood Pressure 84/52 L 81/53 L 91/52 L Pulse Oximetry 95 95 96 03/19/18 01:00 03/19/18 02:00 03/19/18 03:00 Temperature Pulse Rate 70 68 68 Respiratory Rate 16 15 14 Blood Pressure 88/53 L 87/54 L 85/53 L Pulse Oximetry 94 L 93 L 89 L 03/19/18 04:00 03/19/18 05:00 03/19/18 05:02 Temperature 98.2 F Pulse Rate 72 88 88 Respiratory Rate 15 28 H 25 H Blood Pressure 91/61 L 108/63 Pulse Oximetry 88 L 100 72 L 03/19/18 06:00 03/19/18 07:00 03/19/18 08:00 Temperature 97.6 F Pulse Rate 72 68 71 Respiratory Rate 15 14 15 Blood Pressure 97/56 L 88/53 L 94/56 L Pulse Oximetry 96 90 L 91 L 03/19/18 08:26 03/19/18 09:00 03/19/18 09:01 Temperature Pulse Rate 75 83 83 Respiratory Rate 23 23 22 Blood Pressure 110/59 L Pulse Oximetry 92 L 92 L 96 03/19/18 10:00 03/19/18 10:10 03/19/18 11:00 Temperature Pulse Rate 84 83 78 Respiratory Rate 32 H 24 16 Blood Pressure 122/69 92/54 L Pulse Oximetry 91 L 93 L 95 03/19/18 12:00 03/19/18 12:15 03/19/18 13:00 Temperature 97.8 F Pulse Rate 74 75 92 H Respiratory Rate 15 18 34 H Blood Pressure 97/59 L Pulse Oximetry 98 91 L 03/19/18 13:28 03/19/18 14:00 03/19/18 15:00 Temperature Pulse Rate 87 84 79 Respiratory Rate 18 18 17 Blood Pressure 102/60 105/60 103/60 Pulse Oximetry 93 L 91 L 100 03/19/18 16:00 Temperature 97.8 F Pulse Rate 78 Respiratory Rate 17 Blood Pressure 100/59 L Pulse Oximetry 100 Intake & Output 03/18/18 03/19/18 03/19/18 18:59 06:59 18:59 Intake Total 100 / 100 1070 / 1070 Balance 100 / 100 1070 / 1070 Weight 58.967 kg 58.2 kg Intake: IV 100 / 100 350 / 350 Azithromycin Inj 500 MG In NS 250 / 250 Inj 250 ML @ 250 mls/hr IV.SIG ONCE ONE Rx#:[id number] Zosyn 4.5 GM Premix 4.5 gm In 100 / 100 100 ml @ 200 mls/hr IV.SIG STAT STA Rx#:[id number] Rocephin Inj 1,000 MG In NS Inj 100 / 100 100 ML @ 200 mls/hr IV.SIG Q24H ROBEL Rx#:[id number] Oral 720 / 720 Other: # Incontinent Voids 3 # Bowel Movements 0 Weight On Admission 58.6 kg Narrative: GENERAL: 57 yo frail female, appears in NAD. CARDIOVASCULAR: Regular rate and rhythm without murmurs, gallops, or rubs. RESPIRATORY: Breath sounds equal bilaterally. No accessory muscle use. Bilateral wheezing. Poor excursion. GASTROINTESTINAL: Abdomen soft, non-tender, nondistended. MUSCULOSKELETAL: No cyanosis, or edema. SKIN: Warm and dry. NEURO: No focal neurological deficits. Results - Labs CBC & Chem 7: 03/19/18 08:10 03/19/18 08:10 Laboratory Results - last 24 hr 03/18/18 03/18/18 03/18/18 15:00 18:08 18:45 WBC RBC Hgb Hct MCV MCH MCHC RDW Plt Count MPV Neut % (Auto) Lymph % (Auto) [place] % (Auto) Eos % (Auto) Baso % (Auto) Neut # (Auto) Lymph # (Auto) [place] # (Auto) Eos # (Auto) Baso # (Auto) WBC Differential Differential Comment APTT Puncture Site Left radial Patient Temperature 98.6 O2 Saturation 90 ABG pH 7.32 L ABG pCO2 67 H* ABG pO2 73 ABG HCO3 33 H ABG O2 Content 20.3 H ABG Base Excess 7.5 H ABG Methemoglobin 0.4 Lon Test Present Hemoglobin 16.1 H Carboxyhemoglobin 1.6 O2 Delivery Device Bipap Vent Setting [id number] Inspired O2 40 Critical Value Yes Sodium Potassium Chloride Carbon Dioxide Anion Gap BUN Creatinine Estimated GFR Random Glucose Lactic Acid 1.5 Calcium Total Bilirubin AST ALT Alkaline Phosphatase Troponin I Total Protein Albumin Nasal Screen MRSA (PCR) Not detected 03/19/18 03/19/18 03/19/18 00:55 08:00 08:10 WBC 3.2 L RBC 4.57 Hgb 14.9 Hct 46.6 H MCV 102.0 H MCH 32.6 MCHC 32.0 RDW 14.2 Plt Count 109 L MPV 9.0 Neut % (Auto) 84.1 H Lymph % (Auto) 8.2 L [place] % (Auto) 7.4 Eos % (Auto) 0.0 Baso % (Auto) 0.3 Neut # (Auto) 2.7 Lymph # (Auto) 0.3 L [place] # (Auto) 0.2 Eos # (Auto) 0.0 Baso # (Auto) 0.0 WBC Differential . Differential Comment Auto diff final APTT 59.7 H D Puncture Site Patient Temperature O2 Saturation ABG pH ABG pCO2 ABG pO2 ABG HCO3 ABG O2 Content ABG Base Excess ABG Methemoglobin Lon Test Hemoglobin Carboxyhemoglobin O2 Delivery Device Vent Setting Inspired O2 Critical Value Sodium Potassium Chloride Carbon Dioxide Anion Gap BUN Creatinine Estimated GFR Random Glucose Lactic Acid 1.1 Calcium Total Bilirubin AST ALT Alkaline Phosphatase Troponin I Total Protein Albumin Nasal Screen MRSA (PCR) 03/19/18 03/19/18 03/19/18 08:10 08:10 08:10 WBC RBC Hgb Hct MCV MCH MCHC RDW Plt Count MPV Neut % (Auto) Lymph % (Auto) [place] % (Auto) Eos % (Auto) Baso % (Auto) Neut # (Auto) Lymph # (Auto) [place] # (Auto) Eos # (Auto) Baso # (Auto) WBC Differential Differential Comment APTT 48.3 H Puncture Site Patient Temperature O2 Saturation ABG pH ABG pCO2 ABG pO2 ABG HCO3 ABG O2 Content ABG Base Excess ABG Methemoglobin Lon Test Hemoglobin Carboxyhemoglobin O2 Delivery Device Vent Setting Inspired O2 Critical Value Sodium 138 Potassium 4.5 Chloride 98 Carbon Dioxide 36.7 H Anion Gap 3 L BUN 39 H Creatinine 1.00 Estimated GFR 58 L Random Glucose 204 H Lactic Acid Calcium 7.9 L D Total Bilirubin 0.7 AST 173 H ALT 151 H Alkaline Phosphatase 82 Troponin I 2.90 H* D Total Protein 6.1 L D Albumin 2.8 L D Nasal Screen MRSA (PCR) 03/19/18 11:02 WBC RBC Hgb Hct MCV MCH MCHC RDW Plt Count MPV Neut % (Auto) Lymph % (Auto) [place] % (Auto) Eos % (Auto) Baso % (Auto) Neut # (Auto) Lymph # (Auto) [place] # (Auto) Eos # (Auto) Baso # (Auto) WBC Differential Differential Comment APTT Puncture Site Patient Temperature O2 Saturation ABG pH ABG pCO2 ABG pO2 ABG HCO3 ABG O2 Content ABG Base Excess ABG Methemoglobin Lon Test Hemoglobin Carboxyhemoglobin O2 Delivery Device Vent Setting Inspired O2 Critical Value Sodium Potassium Chloride Carbon Dioxide Anion Gap BUN Creatinine Estimated GFR Random Glucose Lactic Acid Calcium Total Bilirubin AST ALT Alkaline Phosphatase Troponin I 2.57 H* D Total Protein Albumin Nasal Screen MRSA (PCR) Microbiology 03/18/18 14:52 Blood - Peripheral Aerobic Blood Culture - Preliminary Staphylococcus coag negative 03/18/18 14:52 Blood - Peripheral Anaerobic Blood Culture - Preliminary No growth in 1 day 03/18/18 14:52 Blood - Peripheral Aerobic Blood Culture - Preliminary No growth in 1 day 03/18/18 14:52 Blood - Peripheral Anaerobic Blood Culture - Preliminary No growth in 1 day 03/18/18 14:52 Nasal Wash Influenza Types A,B Antigen - Final Negative for FLU A and B antigen Infection due to influenza A or B cannot be ruled out since the antigen present in the sample may be below the detection limit of the test. Assessment and Plan - Plan 57-year-old female admitted secondary to hypoxia and COPD exacerbation with a history of severe COPD COPD exacerbation [place] respiratory failure /Hypoxia requiring 5L O2 supplement by NC Coag negative stah bacteremia 04/27 bottles- probably contaminant Cytopenia, lymphopenia Continue oxygen supplements as needed Schedule duo nebs When necessary albuterol Azithromycin Systemic steroids Follow for improvement in respiratory status Follow for improvement in exertional tolerance next HIV DAVID, HBV HCV Recent incontinence Possible urinary tract infection Rocephin Probiotics Obtain UA and follow cultures of positive Diastolic heart failure Caution with fluid provisions DVT prophylaxis Lovenox Expect this patient will be a difficult wean off O2, her homeless status makes it difficult to arrange home oxygen, prolonged hospital stay due to very slow wean was a situation previous admissions.
[2018-03-19] MEDS: Sod Chloride 0.9% Inj 1,000 ML IV.CONT SCH (17:09)
[2018-03-19] MEDS ORDERED: Azithromycin Inj 500 MG in Sodium Chlor 0.9% Inj 250 ML IV.SIG SCH (18:00)
[2018-03-20] MEDS: MethylPREDNISolone Sod Succinate Inj 40 MG/ML Vial IV.PUSH SCH ×3 (02:52→16:52)
[2018-03-20 06:13] LABS: Hematocrit 43.3 % (35.0-46.0); Hemoglobin 14.3 gm/dL (11.6-15.3); Mean Corpuscular Hemoglobin 33.1 pg (27.0-34.0); Mean Corpuscular Volume 100.3 fL (80.0-100.0); Mean Platelet Volume 9.6 fL (7.0-11.0); Platelet Count 113 th/mm3 (150-450); Red Blood Count 4.32 mil/mm3 (4.00-5.30); Red Cell Distribution Width 14.3 % (11.6-17.2); White Blood Count 7.7 th/mm3 (4.0-11.0)
[2018-03-20] MEDS: Chlorhexidine Gluconate 2% 1 Pack (2 Cloths) TOPICAL SCH (06:17)
[2018-03-20] MEDS: Heparin Drip 25,000 UNIT/250 ML BAG IV.CONT PRN (06:17)
--- NOTE | 2018-03-20 06:36 | ECG ---
Date Performed: 03/19/2018 Time Performed: 09:39:02 PTAGE: 57 years EKG: Sinus rhythm POSSIBLE LEFT ATRIAL ENLARGEMENT INCOMPLETE RIGHT BUNDLE BRANCH BLOCK RIGHT VENTRICULAR HYPERTROPHY ST DEVIATION AND MODERATE T-WAVE ABNORMALITY, CONSIDER ANTERIOR ISCHEMIA ABNORMAL ECG PREVIOUS TRACING : 03/18/2018 14.42 Since the previous tracing, no significant change noted DOCTOR: Harman Perez Interpretating Date/Time 03/20/2018 06:35:07
--- NOTE | 2018-03-20 06:54 | ECG ---
Date Performed: 03/18/2018 Time Performed: 14:42:06 PTAGE: 57 years EKG: Sinus rhythm POSSIBLE RIGHT ATRIAL ENLARGEMENT LEFT ATRIAL ENLARGEMENT MARKED RIGHT AXIS DEVIATION LOW QRS VOLTAG E IN EXTREMITY LEADS ABNORMAL ECG PREVIOUS TRACING : 11/21/2017 06.56 Since the previous tracing, no significant change noted DOCTOR: Harman Perez Interpretating Date/Time 03/20/2018 06:51:11
[2018-03-20] MEDS: Lactobacillus Acidophilus/L. Spores Tablet PO SCH ×3 (08:27→17:00)
[2018-03-20] MEDS: Budesonide-Formoterol 80/4.5 MCG 6.9 GM Inhaler INH SCH ×2 (08:27→20:15)
[2018-03-20 13:24] LABS: Hepatitits B Surface Antigen Nonreactive (Nonreactive)
[2018-03-20 13:52] LABS: Hepatitis A IgM Antibody Nonreactive (Nonreactive)
--- NOTE | 2018-03-20 14:18 | P.PN ---
Subjective Interval history: No chest pain at this time. She is saturating well on nasal cannula. Does not have much cough. No fever or chills. No nausea vomiting no diarrhea constipation. Transfer of the ICU floor. Physical Exam Vital signs: Vital Signs 03/19/18 15:00 03/19/18 16:00 03/19/18 17:00 Temperature 97.8 F Pulse Rate 79 78 80 Respiratory Rate 17 17 14 Blood Pressure 103/60 100/59 L 103/58 L Pulse Oximetry 100 100 90 L 03/19/18 18:00 03/19/18 19:00 03/19/18 20:00 Temperature 98 F Pulse Rate 85 84 80 Respiratory Rate 17 18 14 Blood Pressure 93/63 L 110/68 100/59 L Pulse Oximetry 98 100 98 03/19/18 20:42 03/19/18 21:00 03/19/18 22:00 Temperature Pulse Rate 78 83 88 Respiratory Rate 14 19 17 Blood Pressure 107/62 124/69 Pulse Oximetry 100 94 L 95 03/19/18 23:00 03/20/18 00:00 03/20/18 01:00 Temperature Pulse Rate 85 90 82 Respiratory Rate 28 H 19 14 Blood Pressure 107/62 110/62 109/63 Pulse Oximetry 92 L 90 L 94 L 03/20/18 02:00 03/20/18 03:00 03/20/18 04:00 Temperature Pulse Rate 82 82 82 Respiratory Rate 16 16 14 Blood Pressure 111/66 103/59 L 109/65 Pulse Oximetry 94 L 91 L 92 L 03/20/18 05:00 03/20/18 06:00 03/20/18 07:00 Temperature Pulse Rate 81 78 81 Respiratory Rate 15 16 15 Blood Pressure 116/69 114/67 108/65 Pulse Oximetry 91 L 94 L 94 L 03/20/18 07:51 03/20/18 08:00 03/20/18 09:00 Temperature 97.9 F Pulse Rate 75 76 92 H Respiratory Rate 17 16 27 H Blood Pressure 107/62 113/60 Pulse Oximetry 93 L 95 83 L 03/20/18 10:00 03/20/18 11:00 03/20/18 12:00 Temperature 98.0 F Pulse Rate 92 H 84 86 Respiratory Rate 23 18 17 Blood Pressure 106/57 L 113/59 L 119/66 Pulse Oximetry 86 L 93 L 92 L 03/20/18 12:02 Temperature Pulse Rate 86 Respiratory Rate 15 Blood Pressure Pulse Oximetry Intake & Output 03/19/18 03/20/18 03/20/18 18:59 06:59 18:59 Intake Total 1750 / 1750 300 / 300 Output Total 600 / 600 Balance 1150 / 1150 300 / 300 Weight 58 kg Intake: IV 1000 / 1000 NS Inj 1,000 ML @ 50 mls/hr IV. 1000 / 1000 CONT .Q20H [facility] Rx#:[id number] Oral 750 / 750 300 / 300 Output: Urine 600 / 600 Other: # Incontinent Voids 2 2 Date of Last Bowel Movement 03/20/18 # Bowel Movements 0 Narrative: GENERAL: 57 yo frail female, appears in NAD. CARDIOVASCULAR: Regular rate and rhythm without murmurs, gallops, or rubs. RESPIRATORY: Breath sounds equal bilaterally. No accessory muscle use. Bilateral wheezing. Poor excursion. GASTROINTESTINAL: Abdomen soft, non-tender, nondistended. MUSCULOSKELETAL: No cyanosis, or edema. SKIN: Warm and dry. NEURO: No focal neurological deficits. Results - Labs CBC & Chem 7: 03/20/18 05:36 03/19/18 08:10 Laboratory Results - last 24 hr 03/19/18 03/20/18 03/20/18 15:46 05:36 06:00 WBC 7.7 D RBC 4.32 Hgb 14.3 Hct 43.3 MCV 100.3 H MCH 33.1 MCHC 33.0 RDW 14.3 Plt Count 113 L MPV 9.6 APTT 37.3 H D Hepatitis A IgM Ab Hep Bs Antigen Hep B Core IgM Ab Hep C IgG Ab HIV 1&2 Ab/P24 Ag 4thGn Nonreactive 03/20/18 12:11 WBC RBC Hgb Hct MCV MCH MCHC RDW Plt Count MPV APTT Hepatitis A IgM Ab Nonreactive Hep Bs Antigen Nonreactive Hep B Core IgM Ab Nonreactive Hep C IgG Ab Nonreactive HIV 1&2 Ab/P24 Ag 4thGn Microbiology 03/19/18 11:09 Blood - Peripheral Aerobic Blood Culture - Preliminary No growth in 1 day 03/19/18 11:09 Blood - Peripheral Anaerobic Blood Culture - Preliminary No growth in 1 day 03/19/18 11:02 Blood - Peripheral Aerobic Blood Culture - Preliminary No growth in 1 day 03/19/18 11:02 Blood - Peripheral Anaerobic Blood Culture - Preliminary No growth in 1 day 03/18/18 14:52 Blood - Peripheral Aerobic Blood Culture - Preliminary No growth in 2 days 03/18/18 14:52 Blood - Peripheral Anaerobic Blood Culture - Preliminary No growth in 2 days 03/18/18 14:52 Blood - Peripheral Aerobic Blood Culture - Preliminary Staphylococcus coag negative 03/18/18 14:52 Blood - Peripheral Anaerobic Blood Culture - Preliminary gram positive cocci Assessment and Plan - Plan 57-year-old female admitted secondary to hypoxia and COPD exacerbation with a history of severe COPD COPD exacerbation [place] respiratory failure /Hypoxia requiring 5L O2 supplement by NC Coag negative stah bacteremia 04/27 bottles- probably contaminant per ID Cytopenia, lymphopenia Continue oxygen supplements as needed Schedule duo nebs When necessary albuterol Azithromycin Systemic steroids Follow for improvement in respiratory status Follow for improvement in exertional tolerance next HIV DAVID, HBV HCV Recent incontinence Possible urinary tract infection Rocephin Probiotics Obtain UA and follow cultures of positive Diastolic heart failure Caution with fluid provisions DVT prophylaxis Lovenox Expect this patient will be a difficult wean off O2, her homeless status makes it difficult to arrange home oxygen, prolonged hospital stay due to very slow wean was a situation previous admissions. Transfer off ICU to [facility] floor
--- NOTE | 2018-03-20 15:17 | P.PNCA ---
Subjective Interval history: alert in nad Medications and Allergies Active Medications: Active Medications Acetaminophen (Tylenol) 650 mg PO Q4H PRN PRN Reason: Temp > 100.4 Al Hydroxide/Mg Hydroxide (Milk Of Trino Liq) 30 ml PO Q12H PRN PRN Reason: Mild Constipation Albuterol (Albuterol Neb (Prn)) 2.5 mg NEB Q4HR NEB PRN PRN Reason: SHORTNESS OF BREATH Albuterol (Duoneb Neb ([facility])) 1 ampul NEB Q6HR WHILE AWAKE NEB [facility] Last Admin: 03/20/18 12:02 Dose: 1 ampul Aspirin (Ecotrin) 81 mg PO DAILY [facility] Azithromycin (Zithromax) 250 mg PO Q24H [facility] Budesonide/Formoterol Fumarate (Symbicort 80/4.5 Mcg Inh) 2 puff INH Q12H [facility] Last Admin: 03/20/18 08:27 Dose: 2 puff Chlorhexidine Gluconate (Chlorhexidine 2% Cloth) 3 pack TOPICAL DAILY@0400 [facility] Stop: 03/24/18 03:59 Last Admin: 03/20/18 06:17 Dose: 3 pack Chlorhexidine Gluconate (Chlorhexidine 2% Cloth) 3 pack TOPICAL DAILY@0400 PRN PRN Reason: Extra cloth needed Stop: 03/24/18 03:59 Heparin Sodium/Dextrose (Heparin/D5w 25,000 U/250 Ml) 25,000 unit in 250 mls @ 0 mls/hr IV.CONT TITRATE PRN; Protocol PRN Reason: Per Protocol Last Admin: 03/20/18 06:17 Dose: 700 units/hr, 7 mls/hr Sodium Chloride (Ns Inj) 1,000 mls @ 50 mls/hr IV.CONT .Q20H [facility] Last Admin: 03/19/18 17:09 Dose: 50 mls/hr Lactobacillus Acidophilus (Lactinex) 1 tab PO TID [facility] Last Admin: 03/20/18 12:25 Dose: 1 tab Methylprednisolone Sodium Succinate (Solumedrol Inj) 40 mg IV.PUSH Q8H [facility] Last Admin: 03/20/18 08:27 Dose: 40 mg Ondansetron HCl (Zofran Inj) 4 mg IV.PUSH Q6H PRN PRN Reason: NAUSEA OR VOMITING Sodium Chloride (Ns Flush) 2 ml IV.FLUSH BID [facility] Last Admin: 03/20/18 08:27 Dose: 2 ml Sodium Chloride (Ns Flush) 2 ml IV.FLUSH PRN PRN PRN Reason: FLUSH AFTER USING IV ACCESS Allergies Allergy/AdvReac Type Severity Reaction Status Date / Time SOME ANTI INFLAMMATORY MEDS Allergy Severe Swelling Uncoded 05/16/05 13:42 INHALERS Allergy Intermediate SOB Uncoded 01/07/06 10:13 Physical Exam Vital signs: Vital Signs 03/19/18 16:00 03/19/18 17:00 03/19/18 18:00 Temperature 97.8 F Pulse Rate 78 80 85 Respiratory Rate 17 14 17 Blood Pressure 100/59 L 103/58 L 93/63 L Pulse Oximetry 100 90 L 98 03/19/18 19:00 03/19/18 20:00 03/19/18 20:42 Temperature 98 F Pulse Rate 84 80 78 Respiratory Rate 18 14 14 Blood Pressure 110/68 100/59 L Pulse Oximetry 100 98 100 03/19/18 21:00 03/19/18 22:00 03/19/18 23:00 Temperature Pulse Rate 83 88 85 Respiratory Rate 19 17 28 H Blood Pressure 107/62 124/69 107/62 Pulse Oximetry 94 L 95 92 L 03/20/18 00:00 03/20/18 01:00 03/20/18 02:00 Temperature Pulse Rate 90 82 82 Respiratory Rate 19 14 16 Blood Pressure 110/62 109/63 111/66 Pulse Oximetry 90 L 94 L 94 L 03/20/18 03:00 03/20/18 04:00 03/20/18 05:00 Temperature Pulse Rate 82 82 81 Respiratory Rate 16 14 15 Blood Pressure 103/59 L 109/65 116/69 Pulse Oximetry 91 L 92 L 91 L 03/20/18 06:00 03/20/18 07:00 03/20/18 07:51 Temperature Pulse Rate 78 81 75 Respiratory Rate 16 15 17 Blood Pressure 114/67 108/65 Pulse Oximetry 94 L 94 L 93 L 03/20/18 08:00 03/20/18 09:00 03/20/18 10:00 Temperature 97.9 F Pulse Rate 76 92 H 92 H Respiratory Rate 16 27 H 23 Blood Pressure 107/62 113/60 106/57 L Pulse Oximetry 95 83 L 86 L 03/20/18 11:00 03/20/18 12:00 03/20/18 12:02 Temperature 98.0 F Pulse Rate 84 86 86 Respiratory Rate 18 17 15 Blood Pressure 113/59 L 119/66 Pulse Oximetry 93 L 92 L Intake & Output 03/19/18 03/20/18 03/20/18 18:59 06:59 18:59 Intake Total 1750 / 1750 300 / 300 Output Total 600 / 600 Balance 1150 / 1150 300 / 300 Weight 58 kg Intake: IV 1000 / 1000 NS Inj 1,000 ML @ 50 mls/hr IV. 1000 / 1000 CONT .Q20H [facility] Rx#:[id number] Oral 750 / 750 300 / 300 Output: Urine 600 / 600 Other: # Incontinent Voids 2 2 Date of Last Bowel Movement 03/20/18 # Bowel Movements 0 - Constitutional no acute distress - Routine HEENT Exam Head: Present: normocephalic - Routine Neck Exam Present: supple - Routine Respiratory Exam Present: CTA bilaterally - Routine Cardiovascular Exam Present: S1, S2 - Routine Abdominal Exam Present: soft - Routine Extremities Exam Comments: no justine Results 03/20/18 05:36 03/19/18 08:10 Cardiac Enzymes 03/18/18 03/18/18 03/19/18 Range/Units 14:52 14:52 08:10 AST 287 H 173 H (15-37) U/L CK-MB (CK-2) 18.8 H (0.5-3.6) ng/mL Troponin I 2.38 H* (0.02-0.05) ng/mL B-Natriuretic Peptide 1601 H (0-100) pg/mL 03/19/18 03/19/18 Range/Units 08:10 11:02 AST (15-37) U/L CK-MB (CK-2) (0.5-3.6) ng/mL Troponin I 2.90 H* D 2.57 H* D (0.02-0.05) ng/mL B-Natriuretic Peptide (0-100) pg/mL Coagulation 03/18/18 03/18/18 03/19/18 Range/Units 14:52 14:52 00:55 PT 13.2 H (9.8-11.6) sec APTT 26.8 59.7 H D (23.4-31.7) sec B-Natriuretic Peptide 1601 H (0-100) pg/mL 03/19/18 03/20/18 Range/Units 08:10 06:00 PT (9.8-11.6) sec APTT 48.3 H 37.3 H D (23.4-31.7) sec B-Natriuretic Peptide (0-100) pg/mL CBC 03/18/18 03/19/18 03/20/18 Range/Units 14:52 08:10 05:36 WBC 5.7 3.2 L 7.7 D (4.0-11.0) th/mm3 RBC 4.95 4.57 4.32 (4.00-5.30) mil/mm3 Hgb 16.8 H 14.9 14.3 (11.6-15.3) gm/dL Hct 50.0 H 46.6 H 43.3 (35.0-46.0) % Plt Count 131 L 109 L 113 L (150-450) th/mm3 Neut # (Auto) 4.0 2.7 (1.8-7.7) th/mm3 Lymph # (Auto) 0.8 L 0.3 L (1.0-4.8) th/mm3 [place] # (Auto) 0.8 0.2 (0.0-0.9) th/mm3 Eos # (Auto) 0.0 0.0 (0.0-0.4) th/mm3 Baso # (Auto) 0.1 0.0 (0.0-0.2) th/mm3 Comprehensive Metabolic Panel 03/18/18 03/19/18 Range/Units 14:52 08:10 Sodium 134 L 138 (136-145) meq/L Potassium 4.6 4.5 (3.5-5.1) meq/L Chloride 94 L 98 (98-107) meq/L Carbon Dioxide 33.1 H 36.7 H (21.0-32.0) meq/L BUN 33 H 39 H (7-18) mg/dL Creatinine 1.06 H 1.00 (0.50-1.00) mg/dL Calcium 8.7 7.9 L D (8.5-10.1) mg/dL AST 287 H 173 H (15-37) U/L ALT 211 H 151 H (10-53) U/L Alkaline Phosphatase 102 82 (45-117) U/L Total Protein 7.8 6.1 L D (6.4-8.2) g/dL Albumin 3.9 2.8 L D (3.4-5.0) g/dL Intake and Output 03/20/18 03/20/18 03/20/18 06:59 14:59 22:59 Intake Total 300 / 300 Balance 300 / 300 Intake: Oral 300 / 300 Other: # Incontinent Voids 2 Date of Last Bowel Movement 03/20/18 Weight 58 kg Assessment and Plan - Assessment (1) Acute exacerbation of chronic obstructive pulmonary disease (COPD) Code(s): J44.1 - Chronic obstructive pulmonary disease with (acute) exacerbation Status: Acute (2) Elevated troponin Code(s): R74.8 - Abnormal levels of other serum enzymes Status: Acute (3) Non-ST elevation UT (NSTEMI) Code(s): I21.4 - Non-ST elevation (NSTEMI) myocardial infarction Status: Acute - Plan 1.) NSTEMI - start aspirin 81 mg qd, statin held due to markedly elevated lfts, beta leonila held due to severe rad and copd, stacy held due to hypotension; patient adamantly refuses cath 2.) CHF - start lasix 20 mg iv qd, f/u bnp/bmp
[2018-03-20] MEDS: Sod Chloride 0.9% Inj 1,000 ML IV.CONT SCH (16:50)
[2018-03-20] MEDS: Azithromycin 250 MG Tablet PO SCH (17:00)
--- NOTE | 2018-03-20 17:09 | P.PNID ---
Subjective Remarks: tropnonine high cardiology ff no fever hiv neg Coag neg staph 1/2 clx - both bottles of sdame set Antibiotics: azithromycin Allergies/Adverse Reactions: Allergies SOME ANTI INFLAMMATORY MEDS Allergy (Severe, Uncoded 05/16/05 13:42) Swelling INHALERS Allergy (Intermediate, Uncoded 01/07/06 10:13) SOB Objective Vital Signs 03/19/18 18:00 03/19/18 19:00 03/19/18 20:00 Temperature 98 F Pulse Rate 85 84 80 Respiratory Rate 17 18 14 Blood Pressure 93/63 L 110/68 100/59 L Pulse Oximetry 98 100 98 03/19/18 20:42 03/19/18 21:00 03/19/18 22:00 Temperature Pulse Rate 78 83 88 Respiratory Rate 14 19 17 Blood Pressure 107/62 124/69 Pulse Oximetry 100 94 L 95 03/19/18 23:00 03/20/18 00:00 03/20/18 01:00 Temperature Pulse Rate 85 90 82 Respiratory Rate 28 H 19 14 Blood Pressure 107/62 110/62 109/63 Pulse Oximetry 92 L 90 L 94 L 03/20/18 02:00 03/20/18 03:00 03/20/18 04:00 Temperature Pulse Rate 82 82 82 Respiratory Rate 16 16 14 Blood Pressure 111/66 103/59 L 109/65 Pulse Oximetry 94 L 91 L 92 L 03/20/18 05:00 03/20/18 06:00 03/20/18 07:00 Temperature Pulse Rate 81 78 81 Respiratory Rate 15 16 15 Blood Pressure 116/69 114/67 108/65 Pulse Oximetry 91 L 94 L 94 L 03/20/18 07:51 03/20/18 08:00 03/20/18 09:00 Temperature 97.9 F Pulse Rate 75 76 92 H Respiratory Rate 17 16 27 H Blood Pressure 107/62 113/60 Pulse Oximetry 93 L 95 83 L 03/20/18 10:00 03/20/18 11:00 03/20/18 12:00 Temperature 98.0 F Pulse Rate 92 H 84 86 Respiratory Rate 23 18 17 Blood Pressure 106/57 L 113/59 L 119/66 Pulse Oximetry 86 L 93 L 92 L 03/20/18 12:02 03/20/18 13:00 03/20/18 14:00 Temperature Pulse Rate 86 100 H 100 H Respiratory Rate 15 24 37 H Blood Pressure 130/69 Pulse Oximetry 88 L 90 L 03/20/18 14:01 03/20/18 15:00 03/20/18 16:00 Temperature Pulse Rate 103 H 92 H 96 H Respiratory Rate 29 H 17 29 H Blood Pressure 125/66 117/61 Pulse Oximetry 90 L 92 L 91 L 03/20/18 16:01 Temperature 97.8 F Pulse Rate 97 H Respiratory Rate 27 H Blood Pressure 159/69 H Pulse Oximetry 90 L Intake & Output 03/19/18 03/20/18 03/20/18 18:59 06:59 18:59 Intake Total 1750 / 1750 550 / 550 1000 / 1000 Output Total 600 / 600 Balance 1150 / 1150 550 / 550 1000 / 1000 Weight 58 kg Intake: IV 1000 / 1000 250 / 250 1000 / 1000 NS Inj 1,000 ML @ 50 mls/hr IV. 1000 / 1000 1000 / 1000 CONT .Q20H [facility] Rx#:[id number] Azithromycin Inj 500 MG In NS 250 / 250 Inj 250 ML @ 250 mls/hr IV.SIG Q24H [facility] Rx#:[id number] Oral 750 / 750 300 / 300 Output: Urine 600 / 600 Other: # Incontinent Voids 2 2 Date of Last Bowel Movement 03/20/18 # Bowel Movements 0 03/19/18 11:09 Blood - Peripheral Aerobic Blood Culture - Preliminary No growth in 1 day 03/19/18 11:09 Blood - Peripheral Anaerobic Blood Culture - Preliminary No growth in 1 day 03/19/18 11:02 Blood - Peripheral Aerobic Blood Culture - Preliminary No growth in 1 day 03/19/18 11:02 Blood - Peripheral Anaerobic Blood Culture - Preliminary No growth in 1 day 03/18/18 14:52 Blood - Peripheral Aerobic Blood Culture - Preliminary No growth in 2 days 03/18/18 14:52 Blood - Peripheral Anaerobic Blood Culture - Preliminary No growth in 2 days 03/18/18 14:52 Blood - Peripheral Aerobic Blood Culture - Preliminary Staphylococcus coag negative 03/18/18 14:52 Blood - Peripheral Anaerobic Blood Culture - Preliminary gram positive cocci 03/18/18 14:52 Nasal Wash Influenza Types A,B Antigen - Final Negative for FLU A and B antigen Infection due to influenza A or B cannot be ruled out since the antigen present in the sample may be below the detection limit of the test. Lab - Hematology Results 03/19/18 03/20/18 08:10 05:36 WBC 3.2 L 7.7 D RBC 4.57 4.32 Hgb 14.9 14.3 Hct 46.6 H 43.3 MCV 102.0 H 100.3 H MCH 32.6 33.1 MCHC 32.0 33.0 RDW 14.2 14.3 Plt Count 109 L 113 L MPV 9.0 9.6 Neut % (Auto) 84.1 H Lymph % (Auto) 8.2 L [place] % (Auto) 7.4 Eos % (Auto) 0.0 Baso % (Auto) 0.3 Neut # (Auto) 2.7 Lymph # (Auto) 0.3 L [place] # (Auto) 0.2 Eos # (Auto) 0.0 Baso # (Auto) 0.0 WBC Differential . Differential Comment Auto diff final Lab - Chemistry Results 03/18/18 03/19/18 03/19/18 18:08 08:00 08:10 Sodium 138 Potassium 4.5 Chloride 98 Carbon Dioxide 36.7 H Anion Gap 3 L BUN 39 H Creatinine 1.00 Estimated GFR 58 L Random Glucose 204 H Lactic Acid 1.5 1.1 Calcium 7.9 L D Total Bilirubin 0.7 AST 173 H ALT 151 H Alkaline Phosphatase 82 Troponin I Total Protein 6.1 L D Albumin 2.8 L D 03/19/18 03/19/18 08:10 11:02 Sodium Potassium Chloride Carbon Dioxide Anion Gap BUN Creatinine Estimated GFR Random Glucose Lactic Acid Calcium Total Bilirubin AST ALT Alkaline Phosphatase Troponin I 2.90 H* D 2.57 H* D Total Protein Albumin Imaging: ITS Impressions Chest X-Ray 03/18/18 14:37 CONCLUSION: 1. No acute abnormality or significant interval change. Physical Exam: GENERAL: NAD awake alert SKIN: Warm and dry. HEAD: Atraumatic. Normocephalic. EYES: Pupils equal and round. No scleral icterus. No injection or drainage. ENT: No nasal bleeding or discharge. Mucous membranes pink and moist. poor dentition NECK: Trachea midline. No JVD. CARDIOVASCULAR: Regular rate and rhythm. RESPIRATORY: No accessory muscle use. Clear to auscultation. Breath sounds equal bilaterally. GASTROINTESTINAL: Abdomen soft, non-tender, nondistended. Hepatic and splenic margins not palpable. MUSCULOSKELETAL: Extremities without clubbing, cyanosis, or edema. NEUROLOGICAL: Awake and alert. No obvious cranial nerve deficits. Motor grossly within normal limits. Five out of 5 muscle strength in the arms and legs. Normal speech. PSYCHIATRIC: Appropriate mood and affect; Assessment and Plan - Plan coag negative stah bacteremia, 1/2 (both bottles) - probably contaminant COPD exacerabation Cytopenia, lymphopeniaL: resolved HBV HCV HIV - non reactive no need for treatment for bacteremia @ this point fu repeat BC cards ordered 2 D echo - will follow beckie FARRIS
[2018-03-20 23:36] LABS: Calcium 8.2 mg/dL (8.5-10.1); Carbon Dioxide 36.6 meq/L (21.0-32.0); Magnesium 1.8 mg/dL (1.5-2.5); Potassium 4.7 meq/L (3.5-5.1)
[2018-03-20] MEDS ORDERED: Heparin 10,000 UNITS/10 ML Vial (for IV use) IV.PUSH ONE (23:45)
[2018-03-20 23:49] LABS: Troponin I 1.22 ng/mL (0.02-0.05)
[2018-03-21] MEDS: MethylPREDNISolone Sod Succinate Inj 40 MG/ML Vial IV.PUSH SCH ×3 (00:07→09:47)
[2018-03-21] MEDS: Chlorhexidine Gluconate 2% 1 Pack (2 Cloths) TOPICAL SCH (04:42)
[2018-03-21] MEDS: Heparin Drip 25,000 UNIT/250 ML BAG IV.CONT PRN (05:57)
[2018-03-21] MEDS: Sod Chloride 0.9% Inj 1,000 ML IV.CONT SCH (06:00)
[2018-03-21 08:10] LABS: Hematocrit 44.4 % (35.0-46.0); Hemoglobin 14.2 gm/dL (11.6-15.3); Mean Corpuscular Hemoglobin 32.9 pg (27.0-34.0); Mean Corpuscular Volume 102.8 fL (80.0-100.0); Mean Platelet Volume 9.6 fL (7.0-11.0); Platelet Count 121 th/mm3 (150-450); Red Blood Count 4.32 mil/mm3 (4.00-5.30); Red Cell Distribution Width 14.8 % (11.6-17.2); White Blood Count 7.5 th/mm3 (4.0-11.0)
[2018-03-21] MEDS: Lactobacillus Acidophilus/L. Spores Tablet PO SCH ×3 (09:43→18:07)
[2018-03-21] MEDS: Budesonide-Formoterol 80/4.5 MCG 6.9 GM Inhaler INH SCH ×2 (09:45→20:42)
--- NOTE | 2018-03-21 14:01 | P.PN ---
Subjective Interval history: Follow-up for NSTEMI, COPD exacerbation. Patient is currently eating lunch at bedside. She is on 3-4 L of oxygen via nasal cannula. She denies any chest pain, shortness of breath. During our conversation, she started saying that I am not her regular doctor and thus I should not talk to her. She did not want me to do physical exam. Physical Exam Vital signs: Vital Signs 03/20/18 14:00 03/20/18 14:01 03/20/18 15:00 Temperature Pulse Rate 100 H 103 H 92 H Respiratory Rate 37 H 29 H 17 Blood Pressure 125/66 117/61 Pulse Oximetry 90 L 90 L 92 L 03/20/18 16:00 03/20/18 16:01 03/20/18 18:00 Temperature 97.8 F 97.9 F Pulse Rate 96 H 97 H 70 Respiratory Rate 29 H 27 H 18 Blood Pressure 159/69 H 158/68 H Pulse Oximetry 91 L 90 L 97 03/20/18 20:00 03/21/18 00:00 03/21/18 04:00 Temperature 97.6 F 98.5 F 98.1 F Pulse Rate 90 82 78 Respiratory Rate 18 18 18 Blood Pressure 136/65 123/63 120/72 Pulse Oximetry 96 96 94 L 03/21/18 08:00 03/21/18 09:00 Temperature 98.8 F Pulse Rate 77 75 Respiratory Rate 16 Blood Pressure 120/68 Pulse Oximetry 96 Intake & Output 03/20/18 03/21/18 03/21/18 18:59 06:59 18:59 Intake Total 1550 / 1550 250 / 250 Output Total 1000 / 1000 600 / 600 Balance 550 / 550 -350 / -350 Weight 63.1 kg Intake: IV 1000 / 1000 250 / 250 Heparin/D5W 25,000 U/250 mL 25, 250 / 250 000 unit In 250 ml @ Per Protocol IV.CONT TITRATE PRN Rx #:[id number] NS Inj 1,000 ML @ 50 mls/hr IV. 1000 / 1000 CONT .Q20H [facility] Rx#:[id number] Oral 550 / 550 0 / 0 Output: Urine 1000 / 1000 600 / 600 Other: # Incontinent Voids 1 Date of Last Bowel Movement 03/20/18 03/20/18 # Bowel Movements 2 1 Narrative: GENERAL: Alert, oriented to self, place, month. Very disheveled appearance. Patient did not want me to do any physical exam. Results - Labs CBC & Chem 7: 03/21/18 07:26 03/20/18 23:01 Laboratory Results - last 24 hr 03/20/18 03/20/18 03/20/18 12:11 15:17 20:17 WBC RBC Hgb Hct MCV MCH MCHC RDW Plt Count MPV APTT 38.6 H Sodium Potassium Chloride Carbon Dioxide Anion Gap BUN Creatinine Estimated GFR Random Glucose Calcium Magnesium Troponin I 1.26 H* D B-Natriuretic Peptide Hepatitis A IgM Ab Nonreactive 03/20/18 03/20/18 03/21/18 23:01 23:01 02:07 WBC RBC Hgb Hct MCV MCH MCHC RDW Plt Count MPV APTT 38.9 H Sodium 138 Potassium 4.7 Chloride 98 Carbon Dioxide 36.6 H Anion Gap 3 L BUN 30 H Creatinine 0.77 Estimated GFR 78 L Random Glucose 209 H Calcium 8.2 L Magnesium 1.8 Troponin I 1.22 H* 1.17 H* B-Natriuretic Peptide Hepatitis A IgM Ab 03/21/18 03/21/18 03/21/18 07:26 07:26 07:26 WBC 7.5 RBC 4.32 Hgb 14.2 Hct 44.4 MCV 102.8 H MCH 32.9 MCHC 32.0 RDW 14.8 Plt Count 121 L MPV 9.6 APTT Sodium Potassium Chloride Carbon Dioxide Anion Gap BUN Creatinine Estimated GFR Random Glucose Calcium Magnesium Troponin I 1.04 H* D B-Natriuretic Peptide 951 H Hepatitis A IgM Ab 03/21/18 03/21/18 07:26 10:45 WBC RBC Hgb Hct MCV MCH MCHC RDW Plt Count MPV APTT 63.9 H D Sodium Potassium Chloride Carbon Dioxide Anion Gap BUN Creatinine Estimated GFR Random Glucose Calcium Magnesium Troponin I 1.01 H* B-Natriuretic Peptide Hepatitis A IgM Ab Microbiology 03/18/18 14:52 Blood - Peripheral Aerobic Blood Culture - Final Staphylococcus coag negative 03/18/18 14:52 Blood - Peripheral Anaerobic Blood Culture - Final Staphylococcus aureus 03/19/18 11:09 Blood - Peripheral Aerobic Blood Culture - Preliminary No growth in 2 days 03/19/18 11:09 Blood - Peripheral Anaerobic Blood Culture - Preliminary No growth in 2 days 03/19/18 11:02 Blood - Peripheral Aerobic Blood Culture - Preliminary No growth in 2 days 03/19/18 11:02 Blood - Peripheral Anaerobic Blood Culture - Preliminary No growth in 2 days 03/18/18 14:52 Blood - Peripheral Aerobic Blood Culture - Preliminary No growth in 3 days 03/18/18 14:52 Blood - Peripheral Anaerobic Blood Culture - Preliminary No growth in 3 days - Imaging Chest X-Ray 03/18/18 14:37 CONCLUSION: 1. No acute abnormality or significant interval change. Assessment and Plan - Plan Mr. uribe is a 57-year-old homeless female who presented to the emergency department on 03/18/2018 due to shortness of breath. ED workup indicated elevated troponins as well as chest x-ray finding consistent with COPD. Cardiology, infectious disease were consulted for NSTEMI as well as bacteremia respectively. Non-STEMI Congestive heart failure, unknown whether systolic or diastolic Patient is refusing any workup including echocardiogram or cardiac cath Discussed with mitigation supervisor. Will DC heparin drip and start patient on aspirin and Plavix. -Patient may refuse taking her medications. Switch IV Lasix to p.o. Lasix. COPD exacerbation Continue azithromycin as well as DuoNeb breathing treatments. We will switch IV Solu-Medrol to p.o. prednisone twice a day. Again patient may refuse medications. Continue to wean her oxygen off. Will ask Palliative care for an input as patient is refusing to discuss with me. Full code. Ambulation. Maybe a difficult discharge due to supplemental O2 requirements.
--- NOTE | 2018-03-21 14:36 | P.PNCA ---
Subjective Interval history: alert in nad Medications and Allergies Active Medications: Active Medications Acetaminophen (Tylenol) 650 mg PO Q4H PRN PRN Reason: Temp > 100.4 Al Hydroxide/Mg Hydroxide (Milk Of Trino Bernard) 30 ml PO Q12H PRN PRN Reason: Mild Constipation Albuterol (Albuterol Neb (Prn)) 2.5 mg NEB Q4HR NEB PRN PRN Reason: SHORTNESS OF BREATH Albuterol (Duoneb Neb ([facility])) 1 ampul NEB Q6HR WHILE AWAKE NEB [facility] Last Admin: 03/21/18 12:09 Dose: Not Given Aspirin (Ecotrin) 81 mg PO DAILY [facility] Last Admin: 03/21/18 09:44 Dose: 81 mg Azithromycin (Zithromax) 250 mg PO Q24H [facility] Last Admin: 03/20/18 17:00 Dose: 250 mg Budesonide/Formoterol Fumarate (Symbicort 80/4.5 Mcg Inh) 2 puff INH Q12H [facility] Last Admin: 03/21/18 09:45 Dose: 2 puff Chlorhexidine Gluconate (Chlorhexidine 2% Cloth) 3 pack TOPICAL DAILY@0400 [facility] Stop: 03/24/18 03:59 Last Admin: 03/21/18 04:42 Dose: Not Given Chlorhexidine Gluconate (Chlorhexidine 2% Cloth) 3 pack TOPICAL DAILY@0400 PRN PRN Reason: Extra cloth needed Stop: 03/24/18 03:59 Clopidogrel Bisulfate (Plavix) 75 mg PO DAILY [facility] Furosemide (Lasix) 20 mg PO DAILY [facility] Sodium Chloride (Ns Inj) 1,000 mls @ 50 mls/hr IV.CONT .Q20H [facility] Last Infusion: 03/21/18 10:34 Dose: 10 mls/hr Lactobacillus Acidophilus (Lactinex) 1 tab PO TID [facility] Last Admin: 03/21/18 13:00 Dose: 1 tab Ondansetron HCl (Zofran Inj) 4 mg IV.PUSH Q6H PRN PRN Reason: NAUSEA OR VOMITING Prednisone (Deltasone) 20 mg PO BID [facility] Stop: 03/26/18 20:59 Sodium Chloride (Ns Flush) 2 ml IV.FLUSH BID [facility] Last Admin: 03/21/18 09:44 Dose: 2 ml Sodium Chloride (Ns Flush) 2 ml IV.FLUSH PRN PRN PRN Reason: FLUSH AFTER USING IV ACCESS Allergies Allergy/AdvReac Type Severity Reaction Status Date / Time SOME ANTI INFLAMMATORY MEDS Allergy Severe Swelling Uncoded 05/16/05 13:42 INHALERS Allergy Intermediate SOB Uncoded 01/07/06 10:13 Physical Exam Vital signs: Vital Signs 03/20/18 15:00 03/20/18 16:00 03/20/18 16:01 Temperature 97.8 F Pulse Rate 92 H 96 H 97 H Respiratory Rate 17 29 H 27 H Blood Pressure 117/61 159/69 H Pulse Oximetry 92 L 91 L 90 L 03/20/18 18:00 03/20/18 20:00 03/21/18 00:00 Temperature 97.9 F 97.6 F 98.5 F Pulse Rate 70 90 82 Respiratory Rate 18 18 18 Blood Pressure 158/68 H 136/65 123/63 Pulse Oximetry 97 96 96 03/21/18 04:00 03/21/18 08:00 03/21/18 09:00 Temperature 98.1 F 98.8 F Pulse Rate 78 77 75 Respiratory Rate 18 16 Blood Pressure 120/72 120/68 Pulse Oximetry 94 L 96 Intake & Output 03/20/18 03/21/18 03/21/18 18:59 06:59 18:59 Intake Total 1550 / 1550 250 / 250 Output Total 1000 / 1000 600 / 600 Balance 550 / 550 -350 / -350 Weight 63.1 kg Intake: IV 1000 / 1000 250 / 250 Heparin/D5W 25,000 U/250 mL 25, 250 / 250 000 unit In 250 ml @ Per Protocol IV.CONT TITRATE PRN Rx #:[id number] NS Inj 1,000 ML @ 50 mls/hr IV. 1000 / 1000 CONT .Q20H [facility] Rx#:[id number] Oral 550 / 550 0 / 0 Output: Urine 1000 / 1000 600 / 600 Other: # Incontinent Voids 1 Date of Last Bowel Movement 03/20/18 03/20/18 # Bowel Movements 2 1 - Constitutional no acute distress - Routine HEENT Exam Head: Present: normocephalic - Routine Neck Exam Present: supple - Routine Respiratory Exam Present: CTA bilaterally - Routine Cardiovascular Exam Present: S1, S2 - Routine Abdominal Exam Present: soft - Routine Extremities Exam Comments: no justine Results 03/21/18 07:26 03/20/18 23:01 Cardiac Enzymes 03/20/18 03/20/18 03/21/18 Range/Units 20:17 23:01 02:07 Troponin I 1.26 H* D 1.22 H* 1.17 H* (0.02-0.05) ng/mL B-Natriuretic Peptide (0-100) pg/mL 03/21/18 03/21/18 03/21/18 Range/Units 07:26 07:26 10:45 Troponin I 1.04 H* D 1.01 H* (0.02-0.05) ng/mL B-Natriuretic Peptide 951 H (0-100) pg/mL Coagulation 03/20/18 03/20/18 03/20/18 Range/Units 06:00 15:17 23:01 APTT 37.3 H D 38.6 H 38.9 H (23.4-31.7) sec B-Natriuretic Peptide (0-100) pg/mL 03/21/18 03/21/18 Range/Units 07:26 07:26 APTT 63.9 H D (23.4-31.7) sec B-Natriuretic Peptide 951 H (0-100) pg/mL CBC 03/20/18 03/21/18 Range/Units 05:36 07:26 WBC 7.7 D 7.5 (4.0-11.0) th/mm3 RBC 4.32 4.32 (4.00-5.30) mil/mm3 Hgb 14.3 14.2 (11.6-15.3) gm/dL Hct 43.3 44.4 (35.0-46.0) % Plt Count 113 L 121 L (150-450) th/mm3 Comprehensive Metabolic Panel 03/20/18 Range/Units 23:01 Sodium 138 (136-145) meq/L Potassium 4.7 (3.5-5.1) meq/L Chloride 98 (98-107) meq/L Carbon Dioxide 36.6 H (21.0-32.0) meq/L BUN 30 H (7-18) mg/dL Creatinine 0.77 (0.50-1.00) mg/dL Calcium 8.2 L (8.5-10.1) mg/dL Intake and Output 03/20/18 03/21/18 03/21/18 22:59 06:59 14:59 Intake Total 550 / 550 250 / 250 Output Total 1000 / 1000 600 / 600 Balance -450 / -450 -350 / -350 Intake: IV 250 / 250 Heparin/D5W 25,000 U/250 mL 25, 250 / 250 000 unit In 250 ml @ Per Protocol IV.CONT TITRATE PRN Rx #:[id number] Oral 550 / 550 0 / 0 Output: Urine 1000 / 1000 600 / 600 Other: # Incontinent Voids 1 Date of Last Bowel Movement 03/20/18 03/20/18 # Bowel Movements 2 1 Weight 63.1 kg Assessment and Plan - Assessment (1) Acute exacerbation of chronic obstructive pulmonary disease (COPD) Code(s): J44.1 - Chronic obstructive pulmonary disease with (acute) exacerbation Status: Acute (2) Elevated troponin Code(s): R74.8 - Abnormal levels of other serum enzymes Status: Acute (3) Non-ST elevation [place] (NSTEMI) Code(s): I21.4 - Non-ST elevation (NSTEMI) myocardial infarction Status: Acute - Plan 1.) NSTEMI - start aspirin 81 mg qd, statin held due to markedly elevated lfts, beta leonila held due to severe rad and copd, stacy held due to hypotension; patient adamantly refuses cath 2.) CHF - start lasix 20 mg iv qd, f/u bnp/bmp 3.) Rec palliative care consult due noncompliance with meds and treatment recommendations, d/w Dr Monson
[2018-03-21] MEDS: Azithromycin 250 MG Tablet PO SCH (18:07)
[2018-03-21] MEDS: Acetaminophen 325 MG Tablet PO PRN (18:13)
[2018-03-21] MEDS: predniSONE 20 MG Tablet PO SCH (20:43)
[2018-03-22] MEDS: Sod Chloride 0.9% Inj 1,000 ML IV.CONT SCH (03:11)
[2018-03-22] MEDS: Chlorhexidine Gluconate 2% 1 Pack (2 Cloths) TOPICAL SCH (05:13)
[2018-03-22] MEDS: predniSONE 20 MG Tablet PO SCH ×2 (09:36→20:51)
[2018-03-22] MEDS: Lactobacillus Acidophilus/L. Spores Tablet PO SCH ×3 (09:36→17:39)
[2018-03-22] MEDS: Budesonide-Formoterol 80/4.5 MCG 6.9 GM Inhaler INH SCH ×2 (09:37→20:53)
[2018-03-22] MEDS: Furosemide 20 MG Tablet PO SCH (09:37)
[2018-03-22] MEDS ORDERED: ceFAZolin Inj 2,000 MG in Sodium Chlor 0.9% Inj 80 ML IV.SIG SCH (11:00)
--- NOTE | 2018-03-22 12:18 | P.PNCA ---
Subjective Interval history: asleep in nad Medications and Allergies Active Medications: Active Medications Acetaminophen (Tylenol) 650 mg PO Q4H PRN PRN Reason: Temp > 100.4 Last Admin: 03/21/18 18:13 Dose: 650 mg Al Hydroxide/Mg Hydroxide (Milk Of Trino Liq) 30 ml PO Q12H PRN PRN Reason: Mild Constipation Albuterol (Albuterol Neb (Prn)) 2.5 mg NEB Q4HR NEB PRN PRN Reason: SHORTNESS OF BREATH Albuterol (Duoneb Neb ([facility])) 1 ampul NEB Q6HR WHILE AWAKE NEB [facility] Last Admin: 03/22/18 07:58 Dose: Not Given Aspirin (Ecotrin) 81 mg PO DAILY [facility] Last Admin: 03/22/18 09:37 Dose: 81 mg Azithromycin (Zithromax) 250 mg PO Q24H [facility] Last Admin: 03/21/18 18:07 Dose: 250 mg Budesonide/Formoterol Fumarate (Symbicort 80/4.5 Mcg Inh) 2 puff INH Q12H [facility] Last Admin: 03/22/18 09:37 Dose: 2 puff Chlorhexidine Gluconate (Chlorhexidine 2% Cloth) 3 pack TOPICAL DAILY@0400 [facility] Stop: 03/24/18 03:59 Last Admin: 03/22/18 05:13 Dose: Not Given Chlorhexidine Gluconate (Chlorhexidine 2% Cloth) 3 pack TOPICAL DAILY@0400 PRN PRN Reason: Extra cloth needed Stop: 03/24/18 03:59 Clopidogrel Bisulfate (Plavix) 75 mg PO DAILY [facility] Last Admin: 03/22/18 09:36 Dose: 75 mg Furosemide (Lasix) 20 mg PO DAILY [facility] Last Admin: 03/22/18 09:37 Dose: 20 mg Sodium Chloride (Ns Inj) 1,000 mls @ 50 mls/hr IV.CONT .Q20H [facility] Last Admin: 03/22/18 03:11 Dose: Not Given Cefazolin Sodium/Dextrose (Ancef 2 Gm Premix Inj) 2 gm in 50 mls @ 100 mls/hr IV.SIG Q8H [facility] Lactobacillus Acidophilus (Lactinex) 1 tab PO TID [facility] Last Admin: 03/22/18 09:36 Dose: 1 tab Ondansetron HCl (Zofran Inj) 4 mg IV.PUSH Q6H PRN PRN Reason: NAUSEA OR VOMITING Prednisone (Deltasone) 20 mg PO BID [facility] Stop: 03/26/18 20:59 Last Admin: 03/22/18 09:36 Dose: 20 mg Sodium Chloride (Ns Flush) 2 ml IV.FLUSH BID [facility] Last Admin: 03/22/18 09:37 Dose: 2 ml Sodium Chloride (Ns Flush) 2 ml IV.FLUSH PRN PRN PRN Reason: FLUSH AFTER USING IV ACCESS Allergies Allergy/AdvReac Type Severity Reaction Status Date / Time SOME ANTI INFLAMMATORY MEDS Allergy Severe Swelling Uncoded 05/16/05 13:42 INHALERS Allergy Intermediate SOB Uncoded 01/07/06 10:13 Physical Exam Vital signs: Vital Signs 03/21/18 16:00 03/21/18 20:00 03/21/18 20:02 Temperature 98.9 F 97.8 F Pulse Rate 95 H 87 Respiratory Rate 16 22 Blood Pressure 129/78 125/69 Pulse Oximetry 96 90 L 96 03/21/18 20:03 03/21/18 20:05 03/22/18 00:00 Temperature 98 F Pulse Rate 102 H 90 80 Respiratory Rate 16 22 Blood Pressure 134/74 Pulse Oximetry 90 L 03/22/18 03:47 03/22/18 04:00 03/22/18 08:00 Temperature 98.2 F 97.7 F Pulse Rate 71 76 68 Respiratory Rate 20 20 Blood Pressure 126/74 121/70 Pulse Oximetry 91 L Intake & Output 03/21/18 03/22/18 03/22/18 18:59 06:59 18:59 Intake Total 630 / 630 480 / 480 Output Total 1300 / 1300 450 / 450 Balance -670 / -670 30 / 30 Weight 66.2 kg Intake: IV 70 / 70 Heparin/D5W 25,000 U/250 mL 25, 70 / 70 000 unit In 250 ml @ Per Protocol IV.CONT TITRATE PRN Rx #:[id number] Oral 560 / 560 480 / 480 Output: Urine 1300 / 1300 450 / 450 Other: Date of Last Bowel Movement 03/20/18 03/22/18 03/22/18 # Bowel Movements 2 1 - Constitutional no acute distress - Routine HEENT Exam Head: Present: normocephalic - Routine Neck Exam Present: supple - Routine Cardiovascular Exam Present: S1, S2 - Routine Abdominal Exam Present: soft - Routine Extremities Exam Comments: no justine Results 03/21/18 07:26 03/20/18 23:01 Cardiac Enzymes 03/20/18 03/20/18 03/21/18 Range/Units 20:17 23:01 02:07 Troponin I 1.26 H* D 1.22 H* 1.17 H* (0.02-0.05) ng/mL B-Natriuretic Peptide (0-100) pg/mL 03/21/18 03/21/18 03/21/18 Range/Units 07:26 07:26 10:45 Troponin I 1.04 H* D 1.01 H* (0.02-0.05) ng/mL B-Natriuretic Peptide 951 H (0-100) pg/mL 03/22/18 Range/Units 04:44 Troponin I (0.02-0.05) ng/mL B-Natriuretic Peptide 790 H (0-100) pg/mL Coagulation 03/20/18 03/20/18 03/21/18 Range/Units 15:17 23:01 07:26 APTT 38.6 H 38.9 H (23.4-31.7) sec B-Natriuretic Peptide 951 H (0-100) pg/mL 03/21/18 03/22/18 Range/Units 07:26 04:44 APTT 63.9 H D (23.4-31.7) sec B-Natriuretic Peptide 790 H (0-100) pg/mL CBC 03/21/18 Range/Units 07:26 WBC 7.5 (4.0-11.0) th/mm3 RBC 4.32 (4.00-5.30) mil/mm3 Hgb 14.2 (11.6-15.3) gm/dL Hct 44.4 (35.0-46.0) % Plt Count 121 L (150-450) th/mm3 Comprehensive Metabolic Panel 03/20/18 Range/Units 23:01 Sodium 138 (136-145) meq/L Potassium 4.7 (3.5-5.1) meq/L Chloride 98 (98-107) meq/L Carbon Dioxide 36.6 H (21.0-32.0) meq/L BUN 30 H (7-18) mg/dL Creatinine 0.77 (0.50-1.00) mg/dL Calcium 8.2 L (8.5-10.1) mg/dL Intake and Output 03/21/18 03/22/18 03/22/18 22:59 06:59 14:59 Intake Total 560 / 560 480 / 480 Output Total 1300 / 1300 450 / 450 Balance -740 / -740 Intake: Oral 560 / 560 480 / 480 Output: Urine 1300 / 1300 450 / 450 Other: Date of Last Bowel Movement 03/22/18 03/22/18 # Bowel Movements 2 1 Weight 66.2 kg Assessment and Plan - Assessment (1) Acute exacerbation of chronic obstructive pulmonary disease (COPD) Code(s): J44.1 - Chronic obstructive pulmonary disease with (acute) exacerbation Status: Acute (2) Elevated troponin Code(s): R74.8 - Abnormal levels of other serum enzymes Status: Acute (3) Non-ST elevation [place] (NSTEMI) Code(s): I21.4 - Non-ST elevation (NSTEMI) myocardial infarction Status: Acute - Plan 1.) NSTEMI - start aspirin 81 mg qd, statin held due to markedly elevated lfts, beta leonila held due to severe rad and copd, stacy held due to hypotension; patient adamantly refuses cath 2.) CHF - start lasix 20 mg iv qd, f/u bnp/bmp 3.) Rec palliative care consult due noncompliance with meds and treatment recommendations, d/w Dr Monson
[2018-03-22] MEDS: ceFAZolin 2 GM IV; once IV.SIG SCH ×2 (12:53→20:52)
--- NOTE | 2018-03-22 16:01 | P.PN ---
Subjective Interval history: Follow-up for NSTEMI, COPD exacerbation. Patient is sitting in her bed. Still not enthusiastic about seeing me since I am not her regular doctor. No fever, chills. Remains on nasal cannula. Physical Exam Vital signs: Vital Signs 03/21/18 16:00 03/21/18 20:00 03/21/18 20:02 Temperature 98.9 F 97.8 F Pulse Rate 95 H 87 Respiratory Rate 16 22 Blood Pressure 129/78 125/69 Pulse Oximetry 96 90 L 96 03/21/18 20:03 03/21/18 20:05 03/22/18 00:00 Temperature 98 F Pulse Rate 102 H 90 80 Respiratory Rate 16 22 Blood Pressure 134/74 Pulse Oximetry 90 L 03/22/18 03:47 03/22/18 04:00 03/22/18 08:00 Temperature 98.2 F 97.7 F Pulse Rate 71 76 74 Respiratory Rate 20 20 Blood Pressure 126/74 121/70 Pulse Oximetry 91 L 03/22/18 12:00 Temperature 97.7 F Pulse Rate 87 Respiratory Rate 20 Blood Pressure 121/71 Pulse Oximetry 90 L Intake & Output 03/21/18 03/22/18 03/22/18 18:59 06:59 18:59 Intake Total 630 / 630 480 / 480 Output Total 1300 / 1300 450 / 450 Balance -670 / -670 30 / 30 Weight 66.2 kg Intake: IV 70 / 70 Heparin/D5W 25,000 U/250 mL 25, 70 / 70 000 unit In 250 ml @ Per Protocol IV.CONT TITRATE PRN Rx #:[id number] Oral 560 / 560 480 / 480 Output: Urine 1300 / 1300 450 / 450 Other: Date of Last Bowel Movement 03/20/18 03/22/18 03/22/18 # Bowel Movements 2 1 Narrative: GENERAL: Alert, NAD. Very disheveled appearance. SKIN: Warm and dry. HEAD: Normocephalic. EYES: No scleral icterus. No injection or drainage. NECK: Supple, trachea midline. No JVD or lymphadenopathy. CARDIOVASCULAR: Regular rate and rhythm without murmurs, gallops, or rubs. RESPIRATORY: Breath sounds equal bilaterally. No accessory muscle use. GASTROINTESTINAL: Abdomen soft, non-tender, nondistended. MUSCULOSKELETAL: No cyanosis, or edema. BACK: Nontender without obvious deformity. No CVA tenderness. Results - Labs CBC & Chem 7: 03/21/18 07:26 03/20/18 23:01 Laboratory Results - last 24 hr 03/22/18 04:44 B-Natriuretic Peptide 790 H Microbiology 03/19/18 11:09 Blood - Peripheral Aerobic Blood Culture - Preliminary No growth in 3 days 03/19/18 11:09 Blood - Peripheral Anaerobic Blood Culture - Preliminary No growth in 3 days 03/19/18 11:02 Blood - Peripheral Aerobic Blood Culture - Preliminary No growth in 3 days 03/19/18 11:02 Blood - Peripheral Anaerobic Blood Culture - Preliminary No growth in 3 days 03/18/18 14:52 Blood - Peripheral Aerobic Blood Culture - Preliminary No growth in 4 days 03/18/18 14:52 Blood - Peripheral Anaerobic Blood Culture - Preliminary No growth in 4 days 03/18/18 14:52 Blood - Peripheral Aerobic Blood Culture - Final Staphylococcus coag negative 03/18/18 14:52 Blood - Peripheral Anaerobic Blood Culture - Final Staphylococcus aureus Assessment and Plan - Plan Mr. uribe is a 57-year-old homeless female who presented to the emergency department on 03/18/2018 due to shortness of breath. ED workup indicated elevated troponins as well as chest x-ray finding consistent with COPD. Cardiology, infectious disease were consulted for NSTEMI as well as bacteremia respectively. Non-STEMI Congestive heart failure, unknown whether systolic or diastolic Patient is refusing any workup including echocardiogram or cardiac cath Continue aspirin 81 mg daily, Plavix 75 mg daily. -Patient may refuse taking her medications. Continue Lasix p.o. 20 mg p.o. daily We will consider atorvastatin when liver enzymes come down. COPD exacerbation Continue azithromycin as well as DuoNeb breathing treatments. prednisone 20 mg twice a day. Continue to wean her oxygen off. Will ask Palliative care for an input. Full code. Ambulation. Maybe a difficult discharge due to supplemental O2 requirements.
[2018-03-22] MEDS: Azithromycin 250 MG Tablet PO SCH (17:39)
--- NOTE | 2018-03-22 19:08 | P.PNID ---
Subjective Remarks: no fever now one culture is positive for MSSA no new issues Antibiotics: cefazoline started 03/22 azithromycin Allergies/Adverse Reactions: Allergies SOME ANTI INFLAMMATORY MEDS Allergy (Severe, Uncoded 05/16/05 13:42) Swelling INHALERS Allergy (Intermediate, Uncoded 01/07/06 10:13) SOB Objective Vital Signs 03/21/18 20:00 03/21/18 20:02 03/21/18 20:03 Temperature 97.8 F Pulse Rate 87 102 H Respiratory Rate 22 16 Blood Pressure 125/69 Pulse Oximetry 90 L 96 03/21/18 20:05 03/22/18 00:00 03/22/18 03:47 Temperature 98 F Pulse Rate 90 80 71 Respiratory Rate 22 Blood Pressure 134/74 Pulse Oximetry 90 L 03/22/18 04:00 03/22/18 08:00 03/22/18 12:00 Temperature 98.2 F 97.7 F 97.7 F Pulse Rate 76 74 87 Respiratory Rate 20 20 20 Blood Pressure 126/74 121/70 121/71 Pulse Oximetry 91 L 90 L 03/22/18 16:00 Temperature 97.7 F Pulse Rate 96 H Respiratory Rate 18 Blood Pressure 123/71 Pulse Oximetry 93 L Intake & Output 03/22/18 03/22/18 03/23/18 06:59 18:59 06:59 Intake Total 480 / 480 1010 / 1010 Output Total 450 / 450 1600 / 1600 Balance -590 / -590 Weight 66.2 kg Intake: IV 50 / 50 Ancef 2 GM Premix Inj 2 gm In 50 / 50 50 ml @ 100 mls/hr IV.SIG Q8H [facility] Rx#:[id number] Oral 480 / 480 960 / 960 Output: Urine 450 / 450 1600 / 1600 Other: Date of Last Bowel Movement 03/22/18 03/22/18 # Bowel Movements 1 3 03/19/18 11:09 Blood - Peripheral Aerobic Blood Culture - Preliminary No growth in 3 days 03/19/18 11:09 Blood - Peripheral Anaerobic Blood Culture - Preliminary No growth in 3 days 03/19/18 11:02 Blood - Peripheral Aerobic Blood Culture - Preliminary No growth in 3 days 03/19/18 11:02 Blood - Peripheral Anaerobic Blood Culture - Preliminary No growth in 3 days 03/18/18 14:52 Blood - Peripheral Aerobic Blood Culture - Preliminary No growth in 4 days 03/18/18 14:52 Blood - Peripheral Anaerobic Blood Culture - Preliminary No growth in 4 days 03/18/18 14:52 Blood - Peripheral Aerobic Blood Culture - Final Staphylococcus coag negative 03/18/18 14:52 Blood - Peripheral Anaerobic Blood Culture - Final Staphylococcus aureus Lab - Hematology Results 03/21/18 07:26 WBC 7.5 RBC 4.32 Hgb 14.2 Hct 44.4 MCV 102.8 H MCH 32.9 MCHC 32.0 RDW 14.8 Plt Count 121 L MPV 9.6 Lab - Chemistry Results 03/20/18 03/20/18 03/21/18 20:17 23:01 02:07 Sodium 138 Potassium 4.7 Chloride 98 Carbon Dioxide 36.6 H Anion Gap 3 L BUN 30 H Creatinine 0.77 Estimated GFR 78 L Random Glucose 209 H Calcium 8.2 L Magnesium 1.8 Troponin I 1.26 H* D 1.22 H* 1.17 H* B-Natriuretic Peptide 03/21/18 03/21/18 03/21/18 07:26 07:26 10:45 Sodium Potassium Chloride Carbon Dioxide Anion Gap BUN Creatinine Estimated GFR Random Glucose Calcium Magnesium Troponin I 1.04 H* D 1.01 H* B-Natriuretic Peptide 951 H 03/22/18 04:44 Sodium Potassium Chloride Carbon Dioxide Anion Gap BUN Creatinine Estimated GFR Random Glucose Calcium Magnesium Troponin I B-Natriuretic Peptide 790 H Imaging: ITS Impressions Chest X-Ray 03/18/18 14:37 CONCLUSION: 1. No acute abnormality or significant interval change. Physical Exam: GENERAL: NAD awake alert SKIN: Warm and dry. HEAD: Atraumatic. Normocephalic. EYES: Pupils equal and round. No scleral icterus. No injection or drainage. ENT: No nasal bleeding or discharge. Mucous membranes pink and moist. poor dentition NECK: Trachea midline. No JVD. CARDIOVASCULAR: Regular rate and rhythm. RESPIRATORY: No accessory muscle use. Clear to auscultation. Breath sounds equal bilaterally. GASTROINTESTINAL: Abdomen soft, non-tender, nondistended. Hepatic and splenic margins not palpable. MUSCULOSKELETAL: Extremities without clubbing, cyanosis, o RLE with mild edema, erythema, few scattered crusted lesions NEUROLOGICAL: Awake and alert. No obvious cranial nerve deficits. Motor grossly within normal limits. Five out of 5 muscle strength in the arms and legs. Normal speech. PSYCHIATRIC: Appropriate mood and affect; Assessment and Plan - Plan New issue: low grade MSSA bacteremia, 1/ (same bottle has coag neg staph as well) repeat blood clx negative source ? RLE cellulitis coag negative stah bacteremia, 1/2 (both bottles) - probably contaminant COPD exacerabation Cytopenia, lymphopeniaL: resolved HBV HCV HIV - non reactive start cefazoline cont to Rx PNA cards ordered 2 D echo - will follow beckie FARRIS
[2018-03-23] MEDS: Sod Chloride 0.9% Inj 1,000 ML IV.CONT SCH ×2 (01:20→17:09)
[2018-03-23] MEDS: ceFAZolin 2 GM IV; once IV.SIG SCH ×3 (04:56→20:31)
[2018-03-23] MEDS: Chlorhexidine Gluconate 2% 1 Pack (2 Cloths) TOPICAL SCH (05:21)
[2018-03-23] MEDS: predniSONE 20 MG Tablet PO SCH ×2 (08:16→20:29)
[2018-03-23] MEDS: Budesonide-Formoterol 80/4.5 MCG 6.9 GM Inhaler INH SCH ×2 (08:16→20:29)
[2018-03-23] MEDS: Lactobacillus Acidophilus/L. Spores Tablet PO SCH ×3 (08:16→17:07)
[2018-03-23] MEDS: Furosemide 20 MG Tablet PO SCH (08:16)
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
--- NOTE | 2018-03-23 16:25 | P.PN ---
Subjective Interval history: Follow-up for NSTEMI, COPD exacerbation and bacteremia. Patient is doing well. She is more calm today. Denies any acute concerns. Physical Exam Vital signs: Vital Signs 03/22/18 20:00 03/23/18 00:00 03/23/18 04:00 Temperature 97.2 F L 98.1 F 97.8 F Pulse Rate 93 H 88 105 H Respiratory Rate 18 18 18 Blood Pressure 121/62 122/59 L 135/64 Pulse Oximetry 93 L 93 L 91 L 03/23/18 08:00 03/23/18 08:18 03/23/18 11:59 Temperature 97.7 F 96.6 F L Pulse Rate 86 74 97 H Respiratory Rate 18 18 Blood Pressure 128/80 130/69 Pulse Oximetry 95 89 L 03/23/18 12:00 03/23/18 12:10 Temperature Pulse Rate 98 H Respiratory Rate Blood Pressure Pulse Oximetry 94 L Intake & Output 03/22/18 03/23/18 03/23/18 18:59 06:59 18:59 Intake Total 1010 / 1010 580 / 580 50 / 50 Output Total 1600 / 1600 700 / 700 Balance -590 / -590 -120 / -120 50 / 50 Weight 66 kg Intake: IV 50 / 50 100 / 100 50 / 50 Ancef 2 GM Premix Inj 2 gm In 50 / 50 100 / 100 50 / 50 50 ml @ 100 mls/hr IV.SIG Q8H [facility] Rx#:[id number] Oral 960 / 960 480 / 480 Output: Urine 1600 / 1600 700 / 700 Other: Date of Last Bowel Movement 03/22/18 03/23/18 # Bowel Movements 3 2 Narrative: GENERAL: Alert, NAD. Very disheveled appearance. SKIN: Warm and dry. HEAD: Normocephalic. EYES: No scleral icterus. No injection or drainage. NECK: Supple, trachea midline. No JVD or lymphadenopathy. CARDIOVASCULAR: Regular rate and rhythm without murmurs, gallops, or rubs. RESPIRATORY: Breath sounds equal bilaterally. No accessory muscle use. GASTROINTESTINAL: Abdomen soft, non-tender, nondistended. MUSCULOSKELETAL: No cyanosis, or edema. BACK: Nontender without obvious deformity. No CVA tenderness. Results - Labs CBC & Chem 7: 03/21/18 07:26 03/20/18 23:01 Laboratory Results - last 24 hr 03/23/18 06:20 B-Natriuretic Peptide 844 H Microbiology 03/19/18 11:09 Blood - Peripheral Aerobic Blood Culture - Preliminary No growth in 4 days 03/19/18 11:09 Blood - Peripheral Anaerobic Blood Culture - Preliminary No growth in 4 days 03/19/18 11:02 Blood - Peripheral Aerobic Blood Culture - Preliminary No growth in 4 days 03/19/18 11:02 Blood - Peripheral Anaerobic Blood Culture - Preliminary No growth in 4 days 03/18/18 14:52 Blood - Peripheral Aerobic Blood Culture - Final No growth in 5 days 03/18/18 14:52 Blood - Peripheral Anaerobic Blood Culture - Final No growth in 5 days Assessment and Plan - Plan Mr. uribe is a 57-year-old homeless female who presented to the emergency department on 03/18/2018 due to shortness of breath. ED workup indicated elevated troponins as well as chest x-ray finding consistent with COPD. Cardiology, infectious disease were consulted for NSTEMI as well as bacteremia respectively. Non-STEMI Congestive heart failure, unknown whether systolic or diastolic Patient is refusing any workup including echocardiogram or cardiac cath Continue aspirin 81 mg daily, Plavix 75 mg daily. Continue Lasix p.o. 20 mg p.o. daily We will consider atorvastatin when liver enzymes come down. COPD exacerbation Continue azithromycin as well as DuoNeb breathing treatments. prednisone 20 mg twice a day. Continue to wean her oxygen off. Currently on 3L of O2 via NC. Appreciate input from palliative care team. Full code. Ambulation. Maybe a difficult discharge due to supplemental O2 requirements.
[2018-03-23] MEDS: Azithromycin 250 MG Tablet PO SCH (17:07)
--- NOTE | 2018-03-23 17:15 | P.PNCA ---
Subjective Interval history: alert in nad Medications and Allergies Active Medications: Active Medications Acetaminophen (Tylenol) 650 mg PO Q4H PRN PRN Reason: Temp > 100.4 Last Admin: 03/21/18 18:13 Dose: 650 mg Al Hydroxide/Mg Hydroxide (Milk Of Trino Kimq) 30 ml PO Q12H PRN PRN Reason: Mild Constipation Albuterol (Albuterol Neb (Prn)) 2.5 mg NEB Q4HR NEB PRN PRN Reason: SHORTNESS OF BREATH Aspirin (Ecotrin) 81 mg PO DAILY [facility] Last Admin: 03/23/18 08:16 Dose: 81 mg Azithromycin (Zithromax) 250 mg PO Q24H [facility] Last Admin: 03/23/18 17:07 Dose: 250 mg Budesonide/Formoterol Fumarate (Symbicort 80/4.5 Mcg Inh) 2 puff INH Q12H [facility] Last Admin: 03/23/18 08:16 Dose: 2 puff Chlorhexidine Gluconate (Chlorhexidine 2% Cloth) 3 pack TOPICAL DAILY@0400 [facility] Stop: 03/24/18 03:59 Last Admin: 03/23/18 05:21 Dose: Not Given Chlorhexidine Gluconate (Chlorhexidine 2% Cloth) 3 pack TOPICAL DAILY@0400 PRN PRN Reason: Extra cloth needed Stop: 03/24/18 03:59 Clopidogrel Bisulfate (Plavix) 75 mg PO DAILY [facility] Last Admin: 03/23/18 08:16 Dose: 75 mg Furosemide (Lasix) 20 mg PO DAILY [facility] Last Admin: 03/23/18 08:16 Dose: 20 mg Sodium Chloride (Ns Inj) 1,000 mls @ 50 mls/hr IV.CONT .Q20H [facility] Last Admin: 03/23/18 17:09 Dose: 50 mls/hr Cefazolin Sodium/Dextrose (Ancef 2 Gm Premix Inj) 2 gm in 50 mls @ 100 mls/hr IV.SIG Q8H [facility] Last Infusion: 03/23/18 13:00 Dose: Infused Lactobacillus Acidophilus (Lactinex) 1 tab PO TID [facility] Last Admin: 03/23/18 17:07 Dose: 1 tab Ondansetron HCl (Zofran Inj) 4 mg IV.PUSH Q6H PRN PRN Reason: NAUSEA OR VOMITING Prednisone (Deltasone) 20 mg PO BID [facility] Stop: 03/26/18 20:59 Last Admin: 03/23/18 08:16 Dose: 20 mg Sodium Chloride (Ns Flush) 2 ml IV.FLUSH BID [facility] Last Admin: 03/23/18 08:16 Dose: 2 ml Sodium Chloride (Ns Flush) 2 ml IV.FLUSH PRN PRN PRN Reason: FLUSH AFTER USING IV ACCESS Allergies Allergy/AdvReac Type Severity Reaction Status Date / Time SOME ANTI INFLAMMATORY MEDS Allergy Severe Swelling Uncoded 05/16/05 13:42 INHALERS Allergy Intermediate SOB Uncoded 01/07/06 10:13 Physical Exam Vital signs: Vital Signs 03/22/18 20:00 03/23/18 00:00 03/23/18 04:00 Temperature 97.2 F L 98.1 F 97.8 F Pulse Rate 93 H 88 105 H Respiratory Rate 18 18 18 Blood Pressure 121/62 122/59 L 135/64 Pulse Oximetry 93 L 93 L 91 L 03/23/18 08:00 03/23/18 08:18 03/23/18 11:59 Temperature 97.7 F 96.6 F L Pulse Rate 86 74 97 H Respiratory Rate 18 18 Blood Pressure 128/80 130/69 Pulse Oximetry 95 89 L 03/23/18 12:00 03/23/18 12:10 Temperature Pulse Rate 98 H Respiratory Rate Blood Pressure Pulse Oximetry 94 L Intake & Output 03/22/18 03/23/18 03/23/18 18:59 06:59 18:59 Intake Total 1010 / 1010 580 / 580 1050 / 1050 Output Total 1600 / 1600 700 / 700 Balance -590 / -590 -120 / -120 1050 / 1050 Weight 66 kg Intake: IV 50 / 50 100 / 100 1050 / 1050 NS Inj 1,000 ML @ 50 mls/hr IV. 1000 / 1000 CONT .Q20H [facility] Rx#:[id number] Ancef 2 GM Premix Inj 2 gm In 50 / 50 100 / 100 50 / 50 50 ml @ 100 mls/hr IV.SIG Q8H [facility] Rx#:[id number] Oral 960 / 960 480 / 480 Output: Urine 1600 / 1600 700 / 700 Other: Date of Last Bowel Movement 03/22/18 03/23/18 # Bowel Movements 3 2 - Constitutional no acute distress - Routine HEENT Exam Head: Present: normocephalic - Routine Neck Exam Present: supple - Routine Respiratory Exam Present: CTA bilaterally - Routine Cardiovascular Exam Present: S1, S2 - Routine Abdominal Exam Present: soft - Routine Extremities Exam Comments: no justine Results 03/21/18 07:26 03/20/18 23:01 Cardiac Enzymes 03/22/18 03/23/18 Range/Units 04:44 06:20 B-Natriuretic Peptide 790 H 844 H (0-100) pg/mL Coagulation 03/22/18 03/23/18 Range/Units 04:44 06:20 B-Natriuretic Peptide 790 H 844 H (0-100) pg/mL Intake and Output 03/23/18 03/23/18 03/23/18 06:59 14:59 22:59 Intake Total 530 / 530 50 / 50 1000 / 1000 Output Total 700 / 700 Balance -170 / -170 50 / 50 1000 / 1000 Intake: IV 50 / 50 50 / 50 1000 / 1000 NS Inj 1,000 ML @ 50 mls/hr IV. 1000 / 1000 CONT .Q20H [facility] Rx#:[id number] Ancef 2 GM Premix Inj 2 gm In 50 / 50 50 / 50 50 ml @ 100 mls/hr IV.SIG Q8H [facility] Rx#:[id number] Oral 480 / 480 Output: Urine 700 / 700 Other: Date of Last Bowel Movement 03/23/18 # Bowel Movements 2 Weight 66 kg Assessment and Plan - Assessment (1) Acute exacerbation of chronic obstructive pulmonary disease (COPD) Code(s): J44.1 - Chronic obstructive pulmonary disease with (acute) exacerbation Status: Acute (2) Elevated troponin Code(s): R74.8 - Abnormal levels of other serum enzymes Status: Acute (3) Non-ST elevation [place] (NSTEMI) Code(s): I21.4 - Non-ST elevation (NSTEMI) myocardial infarction Status: Acute - Plan 1.) NSTEMI - start aspirin 81 mg qd, statin held due to markedly elevated lfts, beta leonila held due to severe rad and copd, stacy held due to hypotension; patient adamantly refuses cath 2.) CHF - start aldactone 25 mg bid, continue lasix 20 mg po qd, f/u bnp/bmp 3.) Rec palliative care consult due noncompliance with meds and treatment recommendations, d/w Dr Monson
[2018-03-23] MEDS: Spironolactone 25 MG Tablet PO SCH (18:01)
[2018-03-23] MEDS: Magnesium Oxide 400 MG Tablet PO SCH (21:32)
[2018-03-24] MEDS: ceFAZolin 2 GM IV; once IV.SIG SCH (03:32)
[2018-03-24 07:15] LABS: Anion Gap 2 meq/L (5-15); Blood Urea Nitrogen 18 mg/dL (7-18); Calcium 8.6 mg/dL (8.5-10.1); Carbon Dioxide 44.7 meq/L (21.0-32.0); Chloride 92 meq/L (98-107); Glomerular Filtration Rate Greater Than 89 mL/min (>89); Glucose,Random 233 mg/dL (74-106); Magnesium 1.9 mg/dL (1.5-2.5); Potassium 4.1 meq/L (3.5-5.1); Sodium 139 meq/L (136-145)
[2018-03-24] MEDS: predniSONE 20 MG Tablet PO SCH ×2 (08:32→20:57)
[2018-03-24] MEDS: Lactobacillus Acidophilus/L. Spores Tablet PO SCH ×3 (08:32→17:53)
[2018-03-24] MEDS: Furosemide 20 MG Tablet PO SCH (08:32)
[2018-03-24] MEDS: Budesonide-Formoterol 80/4.5 MCG 6.9 GM Inhaler INH SCH ×2 (08:33→20:56)
[2018-03-24] MEDS: Spironolactone 25 MG Tablet PO SCH ×2 (08:33→17:53)
[2018-03-24] MEDS: Magnesium Oxide 400 MG Tablet PO SCH ×2 (08:33→20:57)
--- NOTE | 2018-03-24 11:04 | P.PNCA ---
Subjective Interval history: alert in nad Medications and Allergies Active Medications: Active Medications Acetaminophen (Tylenol) 650 mg PO Q4H PRN PRN Reason: Temp > 100.4 Last Admin: 03/21/18 18:13 Dose: 650 mg Al Hydroxide/Mg Hydroxide (Milk Of Trino Liq) 30 ml PO Q12H PRN PRN Reason: Mild Constipation Albuterol (Albuterol Neb (Prn)) 2.5 mg NEB Q4HR NEB PRN PRN Reason: SHORTNESS OF BREATH Aspirin (Ecotrin) 81 mg PO DAILY [facility] Last Admin: 03/24/18 08:33 Dose: 81 mg Azithromycin (Zithromax) 250 mg PO Q24H [facility] Last Admin: 03/23/18 17:07 Dose: 250 mg Budesonide/Formoterol Fumarate (Symbicort 80/4.5 Mcg Inh) 2 puff INH Q12H [facility] Last Admin: 03/24/18 08:33 Dose: 2 puff Clopidogrel Bisulfate (Plavix) 75 mg PO DAILY [facility] Last Admin: 03/24/18 08:33 Dose: 75 mg Furosemide (Lasix) 20 mg PO DAILY [facility] Last Admin: 03/24/18 08:32 Dose: 20 mg Sodium Chloride (Ns Inj) 1,000 mls @ 50 mls/hr IV.CONT .Q20H [facility] Last Admin: 03/23/18 17:09 Dose: 50 mls/hr Cefazolin Sodium/Dextrose (Ancef 2 Gm Premix Inj) 2 gm in 50 mls @ 100 mls/hr IV.SIG Q8H [facility] Last Infusion: 03/24/18 04:15 Dose: Infused Lactobacillus Acidophilus (Lactinex) 1 tab PO TID [facility] Last Admin: 03/24/18 08:32 Dose: 1 tab Magnesium Oxide (Mag-Ox) 400 mg PO BID [facility] Last Admin: 03/24/18 08:33 Dose: 400 mg Ondansetron HCl (Zofran Inj) 4 mg IV.PUSH Q6H PRN PRN Reason: NAUSEA OR VOMITING Prednisone (Deltasone) 20 mg PO BID [facility] Stop: 03/26/18 20:59 Last Admin: 03/24/18 08:32 Dose: 20 mg Sodium Chloride (Ns Flush) 2 ml IV.FLUSH BID [facility] Last Admin: 03/24/18 08:34 Dose: 2 ml Sodium Chloride (Ns Flush) 2 ml IV.FLUSH PRN PRN PRN Reason: FLUSH AFTER USING IV ACCESS Spironolactone (Aldactone) 25 mg PO BID@0900,1800 [facility] Last Admin: 03/24/18 08:33 Dose: 25 mg Allergies Allergy/AdvReac Type Severity Reaction Status Date / Time SOME ANTI INFLAMMATORY MEDS Allergy Severe Swelling Uncoded 05/16/05 13:42 INHALERS Allergy Intermediate SOB Uncoded 01/07/06 10:13 Physical Exam Vital signs: Vital Signs 03/23/18 11:59 03/23/18 12:00 03/23/18 12:10 Temperature 96.6 F L Pulse Rate 97 H 98 H Respiratory Rate 18 Blood Pressure 130/69 Pulse Oximetry 89 L 94 L 03/23/18 16:00 03/23/18 17:41 03/23/18 20:00 Temperature 98.0 F 98.1 F Pulse Rate 92 H 103 H Respiratory Rate 14 20 Blood Pressure 137/66 119/87 Pulse Oximetry 100 94 L 93 L 03/24/18 00:00 03/24/18 04:00 03/24/18 08:00 Temperature 97.6 F 97.6 F 97.6 F Pulse Rate 90 59 L 83 Respiratory Rate 20 20 20 Blood Pressure 144/66 H 130/70 129/76 Pulse Oximetry 92 L 97 98 Intake & Output 03/23/18 03/24/18 03/24/18 18:59 06:59 18:59 Intake Total 2009 820 / 820 Output Total 650 / 650 Balance 2009 170 / 170 Weight 62.4 kg Intake: IV 1050 / 1050 100 / 100 NS Inj 1,000 ML @ 50 mls/hr IV. 1000 / 1000 CONT .Q20H [facility] Rx#:[id number] Ancef 2 GM Premix Inj 2 gm In 50 / 50 100 / 100 50 ml @ 100 mls/hr IV.SIG Q8H [facility] Rx#:[id number] Oral 960 / 960 720 / 720 Output: Urine 650 / 650 Other: # Voids 4 Date of Last Bowel Movement 03/23/18 # Bowel Movements 2 - Constitutional no acute distress - Routine HEENT Exam Head: Present: normocephalic - Routine Neck Exam Present: supple - Routine Respiratory Exam Present: CTA bilaterally - Routine Cardiovascular Exam Present: S1, S2 - Routine Abdominal Exam Present: soft - Routine Extremities Exam Comments: no justine Results 03/21/18 07:26 03/24/18 05:36 Cardiac Enzymes 03/23/18 03/24/18 Range/Units 06:20 05:36 B-Natriuretic Peptide 844 H 723 H (0-100) pg/mL Coagulation 03/23/18 03/24/18 Range/Units 06:20 05:36 B-Natriuretic Peptide 844 H 723 H (0-100) pg/mL Comprehensive Metabolic Panel 03/24/18 Range/Units 05:36 Sodium 139 (136-145) meq/L Potassium 4.1 (3.5-5.1) meq/L Chloride 92 L (98-107) meq/L Carbon Dioxide 44.7 H (21.0-32.0) meq/L BUN 18 (7-18) mg/dL Creatinine 0.57 (0.50-1.00) mg/dL Calcium 8.6 (8.5-10.1) mg/dL Intake and Output 03/23/18 03/24/18 03/24/18 22:59 06:59 14:59 Intake Total 2009 770 / 770 Output Total 650 / 650 Balance 2009 120 / 120 Intake: IV 1050 / 1050 50 / 50 NS Inj 1,000 ML @ 50 mls/hr IV. 1000 / 1000 CONT .Q20H [facility] Rx#:[id number] Ancef 2 GM Premix Inj 2 gm In 50 / 50 50 / 50 50 ml @ 100 mls/hr IV.SIG Q8H [facility] Rx#:[id number] Oral 960 / 960 720 / 720 Output: Urine 650 / 650 Other: # Voids 4 Date of Last Bowel Movement 03/23/18 # Bowel Movements 2 Weight 62.4 kg Assessment and Plan - Assessment (1) Acute exacerbation of chronic obstructive pulmonary disease (COPD) Code(s): J44.1 - Chronic obstructive pulmonary disease with (acute) exacerbation Status: Acute (2) Elevated troponin Code(s): R74.8 - Abnormal levels of other serum enzymes Status: Acute (3) Non-ST elevation [place] (NSTEMI) Code(s): I21.4 - Non-ST elevation (NSTEMI) myocardial infarction Status: Acute - Plan 1.) NSTEMI - start aspirin 81 mg qd, statin held due to markedly elevated lfts, beta leonila held due to severe rad and copd, stacy held due to hypotension; patient adamantly refuses cath 2.) CHF - continue aldactone 25 mg bid, continue lasix 20 mg po qd, f/u bnp/bmp 3.) Rec palliative care consult due noncompliance with meds and treatment recommendations, d/w Dr Monson
--- NOTE | 2018-03-24 11:59 | P.PN ---
Subjective Interval history: Follow-up for NSTEMI, COPD exacerbation and bacteremia. Patient is sitting in her bed. Denies any acute concerns. She is tolerating diet well. She is more cooperative and more coherent now. Physical Exam Vital signs: Vital Signs 03/23/18 11:59 03/23/18 12:00 03/23/18 12:10 Temperature 96.6 F L Pulse Rate 97 H 98 H Respiratory Rate 18 Blood Pressure 130/69 Pulse Oximetry 89 L 94 L 03/23/18 16:00 03/23/18 17:41 03/23/18 20:00 Temperature 98.0 F 98.1 F Pulse Rate 92 H 103 H Respiratory Rate 14 20 Blood Pressure 137/66 119/87 Pulse Oximetry 100 94 L 93 L 03/24/18 00:00 03/24/18 04:00 03/24/18 08:00 Temperature 97.6 F 97.6 F 97.6 F Pulse Rate 90 59 L 83 Respiratory Rate 20 20 20 Blood Pressure 144/66 H 130/70 129/76 Pulse Oximetry 92 L 97 98 03/24/18 11:17 Temperature Pulse Rate Respiratory Rate Blood Pressure Pulse Oximetry 95 Intake & Output 03/23/18 03/24/18 03/24/18 18:59 06:59 18:59 Intake Total 2009 820 / 820 Output Total 650 / 650 Balance 2009 170 / 170 Weight 62.4 kg Intake: IV 1050 / 1050 100 / 100 NS Inj 1,000 ML @ 50 mls/hr IV. 1000 / 1000 CONT .Q20H [facility] Rx#:[id number] Ancef 2 GM Premix Inj 2 gm In 50 / 50 100 / 100 50 ml @ 100 mls/hr IV.SIG Q8H [facility] Rx#:[id number] Oral 960 / 960 720 / 720 Output: Urine 650 / 650 Other: # Voids 4 Date of Last Bowel Movement 03/23/18 # Bowel Movements 2 Narrative: GENERAL: Alert, NAD. Very disheveled appearance. SKIN: Warm and dry. HEAD: Normocephalic. EYES: No scleral icterus. No injection or drainage. NECK: Supple, trachea midline. No JVD or lymphadenopathy. CARDIOVASCULAR: Regular rate and rhythm without murmurs, gallops, or rubs. RESPIRATORY: Breath sounds equal bilaterally. No accessory muscle use. GASTROINTESTINAL: Abdomen soft, non-tender, nondistended. MUSCULOSKELETAL: No cyanosis, or edema. BACK: Nontender without obvious deformity. No CVA tenderness. Results - Labs CBC & Chem 7: 03/21/18 07:26 03/24/18 05:36 Laboratory Results - last 24 hr 03/24/18 03/24/18 05:36 05:36 Sodium 139 Potassium 4.1 Chloride 92 L Carbon Dioxide 44.7 H Anion Gap 2 L BUN 18 Creatinine 0.57 Estimated GFR Greater than 89 Random Glucose 233 H Calcium 8.6 Magnesium 1.9 B-Natriuretic Peptide 723 H Microbiology 03/19/18 11:09 Blood - Peripheral Aerobic Blood Culture - Final No growth in 5 days 03/19/18 11:09 Blood - Peripheral Anaerobic Blood Culture - Final No growth in 5 days 03/19/18 11:02 Blood - Peripheral Aerobic Blood Culture - Final No growth in 5 days 03/19/18 11:02 Blood - Peripheral Anaerobic Blood Culture - Final No growth in 5 days 03/18/18 14:52 Blood - Peripheral Aerobic Blood Culture - Final No growth in 5 days 03/18/18 14:52 Blood - Peripheral Anaerobic Blood Culture - Final No growth in 5 days - Imaging Chest X-Ray 03/18/18 14:37 CONCLUSION: 1. No acute abnormality or significant interval change. Assessment and Plan - Plan Mr. uribe is a 57-year-old homeless female who presented to the emergency department on 03/18/2018 due to shortness of breath. ED workup indicated elevated troponins as well as chest x-ray finding consistent with COPD. Cardiology, infectious disease were consulted for NSTEMI as well as bacteremia respectively. Non-STEMI Congestive heart failure, unknown whether systolic or diastolic Patient is refusing any workup including echocardiogram or cardiac cath Continue aspirin 81 mg daily, Plavix 75 mg daily. Continue Lasix p.o. 20 mg p.o. daily We will consider atorvastatin when liver enzymes come down. Bacteremia with MSSA Likely due to cellulitis of the lower extremity. Discussed with infectious disease. Will discontinue cefazolin IV. Continue dicloxacillin 500 mg 4 times daily for 14 days. COPD exacerbation Continue azithromycin as well as DuoNeb breathing treatments. prednisone 20 mg twice a day. Continue to wean her oxygen off. Currently on 3L of O2 via NC and her O2 saturation is around 97-98%. Discussed with RN, will continue to wean her off oxygen. Appreciate input from palliative care team. Full code. Ambulation.
[2018-03-24] MEDS: Sod Chloride 0.9% Inj 1,000 ML IV.CONT SCH ×2 (14:17→17:57)
--- NOTE | 2018-03-24 15:37 | P.CONPSY ---
Provisional Diagnosis Admission Date: March 18, 2018 16:56 History of Present Illness Service: psychiatry Consult date: 03/24/18 Reason for Consult: capacity Primary Care Provider: UNKNOWN Chief Complaint: n/a History of Present Illness: This is a request for a psychiatric consult. Documentation was reviewed, case was discussed with nursing and patient was evaluated. Patient is a 57-year-old homeless female with multiple medical comorbidities. Patient is a poor historian and is quite tangential during the interview. We were consulted today to attempt a capacity evaluation to make medical decisions. Patient has been refusing further testing for her NSTEMI. A Mini-Mental status exam was completed and patient scored a perfect score of 30 out of 30. She is thus oriented x3. She denies any depressive symptoms, complaining of mild anxiety, denies suicidal or homicidal ideation intent or plan. There is a possibility of a psychotic disorder or denial secondary to an adjustment disorder given her admission. Patient refuses to believe that she is having cardiac issues and becomes argumentative and at one point makes a statement that he may be using her body parts as a transplant. Past psych: Patient is a poor historian. Says she has not had outpatient psychiatry in the last 15 years. It is unclear answers about inpatient admissions. She is not sure what other medications she has been on Past medical: See chart Past Famhx: See chart Past Social: Patient has kids. She denies substance use. Occasionally uses the medicinal marijuana PMF - History History Provided By: Patient, Friend (DONTAE Conway), Medical Record - Medical History Medical History: Medical History (Last Updated 03/23/18 @ 14:20 by MARCEL Jenkins) CHF (congestive heart failure) Emphysema of lung Malnutrition Asthma COPD (chronic obstructive pulmonary disease) delivery delivered Diastolic heart failure - Family History Family History: Family History (Last Reviewed 03/23/18 @ 16:40 by MARCEL Jenkins) Other Unknown family medical history - Tobacco History Second Hand Smoke Exposure: Yes Tobacco Use In Past 30 Days: Yes Smoking Status: Current every day smoker Tobacco Type: Cigarettes - Alcohol History How Often Do You Have a Drink Containing Alcohol: Monthly or less - Substance Use History Substance History: No History of Abuse - Travel History Recent Travel in the [place] Within the Last 8 Weeks: No Recent Travel Out of the Country Within the Last 8 Weeks: No - Immunization History Tetanus Immunization: Unsure Hx Influenza Vaccine This Season: No Medications and Allergies Active Medications: Active Medications Acetaminophen (Tylenol) 650 mg PO Q4H PRN PRN Reason: Temp > 100.4 Last Admin: 03/21/18 18:13 Dose: 650 mg Al Hydroxide/Mg Hydroxide (Milk Of Trino Bernard) 30 ml PO Q12H PRN PRN Reason: Mild Constipation Albuterol (Albuterol Neb (Prn)) 2.5 mg NEB Q4HR NEB PRN PRN Reason: SHORTNESS OF BREATH Aspirin (Ecotrin) 81 mg PO DAILY [facility] Last Admin: 03/24/18 08:33 Dose: 81 mg Azithromycin (Zithromax) 250 mg PO Q24H [facility] Last Admin: 03/23/18 17:07 Dose: 250 mg Budesonide/Formoterol Fumarate (Symbicort 80/4.5 Mcg Inh) 2 puff INH Q12H [facility] Last Admin: 03/24/18 08:33 Dose: 2 puff Clopidogrel Bisulfate (Plavix) 75 mg PO DAILY [facility] Last Admin: 03/24/18 08:33 Dose: 75 mg Dicloxacillin Sodium (Dynapen) 500 mg PO Q6HR [facility] Stop: 04/07/18 11:59 Last Admin: 03/24/18 14:16 Dose: 500 mg Furosemide (Lasix) 20 mg PO DAILY [facility] Last Admin: 03/24/18 08:32 Dose: 20 mg Sodium Chloride (Ns Inj) 1,000 mls @ 50 mls/hr IV.CONT .Q20H [facility] Last Admin: 03/24/18 14:17 Dose: Not Given Lactobacillus Acidophilus (Lactinex) 1 tab PO TID [facility] Last Admin: 03/24/18 14:16 Dose: 1 tab Magnesium Oxide (Mag-Ox) 400 mg PO BID [facility] Last Admin: 03/24/18 08:33 Dose: 400 mg Ondansetron HCl (Zofran Inj) 4 mg IV.PUSH Q6H PRN PRN Reason: NAUSEA OR VOMITING Prednisone (Deltasone) 20 mg PO BID [facility] Stop: 03/26/18 20:59 Last Admin: 03/24/18 08:32 Dose: 20 mg Sodium Chloride (Ns Flush) 2 ml IV.FLUSH BID [facility] Last Admin: 03/24/18 08:34 Dose: 2 ml Sodium Chloride (Ns Flush) 2 ml IV.FLUSH PRN PRN PRN Reason: FLUSH AFTER USING IV ACCESS Spironolactone (Aldactone) 25 mg PO BID@0900,1800 [facility] Last Admin: 03/24/18 08:33 Dose: 25 mg Allergies Allergy/AdvReac Type Severity Reaction Status Date / Time SOME ANTI INFLAMMATORY MEDS Allergy Severe Swelling Uncoded 05/16/05 13:42 INHALERS Allergy Intermediate SOB Uncoded 01/07/06 10:13 Exam Vital signs: Vital Signs 03/23/18 16:00 03/23/18 17:41 03/23/18 20:00 Temperature 98.0 F 98.1 F Pulse Rate 92 H 103 H Respiratory Rate 14 20 Blood Pressure 137/66 119/87 Pulse Oximetry 100 94 L 93 L 03/24/18 00:00 03/24/18 04:00 03/24/18 08:00 Temperature 97.6 F 97.6 F 97.6 F Pulse Rate 90 59 L 83 Respiratory Rate 20 20 20 Blood Pressure 144/66 H 130/70 129/76 Pulse Oximetry 92 L 97 98 03/24/18 11:17 Temperature Pulse Rate Respiratory Rate Blood Pressure Pulse Oximetry 95 Intake & Output 03/23/18 03/24/18 03/24/18 18:59 06:59 18:59 Intake Total 2009 820 / 820 Output Total 650 / 650 Balance 2009 170 / 170 Weight 62.4 kg Intake: IV 1050 / 1050 100 / 100 NS Inj 1,000 ML @ 50 mls/hr IV. 1000 / 1000 CONT .Q20H [facility] Rx#:[id number] Ancef 2 GM Premix Inj 2 gm In 50 / 50 100 / 100 50 ml @ 100 mls/hr IV.SIG Q8H [facility] Rx#:[id number] Oral 960 / 960 720 / 720 Output: Urine 650 / 650 Other: # Voids 4 Date of Last Bowel Movement 03/23/18 # Bowel Movements 2 Mental Status Examination Appearance: Dirty, Disheveled Consciousness: Alert Orientation: Person, Place, Date/Time Motor Activity: Normal gait Speech: Hesitant, Slow Language: Adequate Fund of Knowledge: Inadequate Attention and Concentration: Adequate Memory: Unremarkable Mood: Appropriate Affect: Blunt, Anxious Thought Process & Associations: Tangential Thought Content: Appropriate Hallucination Type: None Delusion Type: Other (This she does not have a cardiac problem) Suicidal Ideation: No Suicidal Plan: No Suicidal Intention: No Homicidal Ideation: No Homicidal Plan: No Homicidal Intention: No Insight: Poor Judgment: Poor Assessment and Plan - Assessment (1) Psychosis not due to substance or known physiological condition Code(s): F29 - Unspecified psychosis not due to a substance or known physiological condition Status: Acute - Plan Plan: Patient had a good performance on the Mini-Mental Status exam; however, given her possible psychosis, tangential thought process, evasive behavior during the interview, argumentative attitude I would suggest she does not have capacity to make medical decisions and her guardian should be contacted. Justification for Continued Inpatient Stay: Patient would decompensate in a less restrictive setting
[2018-03-24] MEDS: Azithromycin 250 MG Tablet PO SCH (17:53)
[2018-03-25] MEDS: Lactobacillus Acidophilus/L. Spores Tablet PO SCH ×3 (08:31→17:43)
[2018-03-25] MEDS: predniSONE 20 MG Tablet PO SCH ×2 (08:31→20:34)
[2018-03-25] MEDS: Furosemide 20 MG Tablet PO SCH (08:31)
[2018-03-25] MEDS: Spironolactone 25 MG Tablet PO SCH ×2 (08:31→17:43)
[2018-03-25] MEDS: Budesonide-Formoterol 80/4.5 MCG 6.9 GM Inhaler INH SCH ×2 (08:31→20:35)
[2018-03-25] MEDS: Sod Chloride 0.9% Inj 1,000 ML IV.CONT SCH ×2 (08:32→19:26)
[2018-03-25] MEDS: Magnesium Oxide 400 MG Tablet PO SCH ×2 (08:32→20:34)
--- NOTE | 2018-03-25 10:57 | P.PNCA ---
Subjective Interval history: alert in nad Medications and Allergies Active Medications: Active Medications Acetaminophen (Tylenol) 650 mg PO Q4H PRN PRN Reason: Temp > 100.4 Last Admin: 03/21/18 18:13 Dose: 650 mg Al Hydroxide/Mg Hydroxide (Milk Of Trino Liq) 30 ml PO Q12H PRN PRN Reason: Mild Constipation Albuterol (Albuterol Neb (Prn)) 2.5 mg NEB Q4HR NEB PRN PRN Reason: SHORTNESS OF BREATH Aspirin (Ecotrin) 81 mg PO DAILY [facility] Last Admin: 03/25/18 08:31 Dose: 81 mg Azithromycin (Zithromax) 250 mg PO Q24H [facility] Last Admin: 03/24/18 17:53 Dose: 250 mg Budesonide/Formoterol Fumarate (Symbicort 80/4.5 Mcg Inh) 2 puff INH Q12H [facility] Last Admin: 03/25/18 08:31 Dose: 2 puff Clopidogrel Bisulfate (Plavix) 75 mg PO DAILY [facility] Last Admin: 03/25/18 08:31 Dose: 75 mg Dicloxacillin Sodium (Dynapen) 500 mg PO Q6HR [facility] Stop: 04/07/18 11:59 Last Admin: 03/25/18 05:41 Dose: 500 mg Furosemide (Lasix) 20 mg PO DAILY [facility] Last Admin: 03/25/18 08:31 Dose: 20 mg Sodium Chloride (Ns Inj) 1,000 mls @ 50 mls/hr IV.CONT .Q20H [facility] Last Admin: 03/25/18 08:32 Dose: Not Given Lactobacillus Acidophilus (Lactinex) 1 tab PO TID [facility] Last Admin: 03/25/18 08:31 Dose: 1 tab Magnesium Oxide (Mag-Ox) 400 mg PO BID [facility] Last Admin: 03/25/18 08:32 Dose: 400 mg Ondansetron HCl (Zofran Inj) 4 mg IV.PUSH Q6H PRN PRN Reason: NAUSEA OR VOMITING Prednisone (Deltasone) 20 mg PO BID [facility] Stop: 03/26/18 20:59 Last Admin: 03/25/18 08:31 Dose: 20 mg Sodium Chloride (Ns Flush) 2 ml IV.FLUSH BID [facility] Last Admin: 03/25/18 08:32 Dose: Not Given Sodium Chloride (Ns Flush) 2 ml IV.FLUSH PRN PRN PRN Reason: FLUSH AFTER USING IV ACCESS Spironolactone (Aldactone) 25 mg PO BID@0900,1800 [facility] Last Admin: 03/25/18 08:31 Dose: 25 mg Allergies Allergy/AdvReac Type Severity Reaction Status Date / Time SOME ANTI INFLAMMATORY MEDS Allergy Severe Swelling Uncoded 05/16/05 13:42 INHALERS Allergy Intermediate SOB Uncoded 01/07/06 10:13 Physical Exam Vital signs: Vital Signs 03/24/18 11:17 03/24/18 12:00 03/24/18 16:00 Temperature 97.9 F 97.6 F Pulse Rate 105 H 92 H Respiratory Rate 20 20 Blood Pressure 140/82 125/81 Pulse Oximetry 95 92 L 92 L 03/24/18 20:00 03/24/18 20:47 03/25/18 00:00 Temperature 97.7 F 97.7 F Pulse Rate 101 H 93 H Respiratory Rate 18 18 Blood Pressure 127/74 137/73 Pulse Oximetry 93 L 93 L 93 L 03/25/18 04:00 03/25/18 08:00 Temperature 97.3 F L 98.0 F Pulse Rate 75 71 Respiratory Rate 16 20 Blood Pressure 108/62 104/60 Pulse Oximetry 97 100 Intake & Output 03/24/18 03/25/18 03/25/18 18:59 06:59 18:59 Intake Total 1960 / 1960 840 / 840 Output Total 925 / 925 Balance 1035 / 1035 840 / 840 Weight 58.5 kg Intake: IV 1000 / 1000 600 / 600 NS Inj 1,000 ML @ 50 mls/hr IV. 1000 / 1000 600 / 600 CONT .Q20H [facility] Rx#:[id number] Oral 960 / 960 240 / 240 Output: Urine 925 / 925 Other: # Voids 3 4 Date of Last Bowel Movement 03/24/18 # Bowel Movements 3 4 - Constitutional no acute distress - Routine HEENT Exam Head: Present: normocephalic - Routine Neck Exam Present: supple - Routine Respiratory Exam Present: CTA bilaterally - Routine Cardiovascular Exam Present: S1, S2 - Routine Abdominal Exam Present: soft - Routine Extremities Exam Comments: no justine Results 03/21/18 07:26 03/24/18 05:36 Cardiac Enzymes 03/24/18 03/25/18 Range/Units 05:36 07:40 B-Natriuretic Peptide 723 H 414 H (0-100) pg/mL Coagulation 03/24/18 03/25/18 Range/Units 05:36 07:40 B-Natriuretic Peptide 723 H 414 H (0-100) pg/mL Comprehensive Metabolic Panel 03/24/18 Range/Units 05:36 Sodium 139 (136-145) meq/L Potassium 4.1 (3.5-5.1) meq/L Chloride 92 L (98-107) meq/L Carbon Dioxide 44.7 H (21.0-32.0) meq/L BUN 18 (7-18) mg/dL Creatinine 0.57 (0.50-1.00) mg/dL Calcium 8.6 (8.5-10.1) mg/dL Intake and Output 03/24/18 03/25/18 03/25/18 22:59 06:59 14:59 Intake Total 960 / 960 840 / 840 Output Total 925 / 925 Balance 35 / 35 840 / 840 Intake: IV 600 / 600 NS Inj 1,000 ML @ 50 mls/hr IV. 600 / 600 CONT .Q20H [facility] Rx#:[id number] Oral 960 / 960 240 / 240 Output: Urine 925 / 925 Other: # Voids 3 4 Date of Last Bowel Movement 03/24/18 # Bowel Movements 3 4 Weight 58.5 kg Assessment and Plan - Assessment (1) Acute exacerbation of chronic obstructive pulmonary disease (COPD) Code(s): J44.1 - Chronic obstructive pulmonary disease with (acute) exacerbation Status: Acute (2) Elevated troponin Code(s): R74.8 - Abnormal levels of other serum enzymes Status: Acute (3) Non-ST elevation [place] (NSTEMI) Code(s): I21.4 - Non-ST elevation (NSTEMI) myocardial infarction Status: Acute - Plan 1.) NSTEMI - start aspirin 81 mg qd, statin held due to markedly elevated lfts, beta leonila held due to severe rad and copd, stacy held due to hypotension; patient adamantly refuses cath 2.) CHF - improving, continue aldactone 25 mg bid, continue lasix 20 mg po qd, f /u bnp/bmp 3.) Rec palliative care consult due noncompliance with meds and treatment recommendations, d/w Dr Monson
--- NOTE | 2018-03-25 15:15 | P.PNIM ---
Subjective Interval history: Follow-up for NSTEMI, COPD exacerbation and bacteremia. Patient seen and examined sitting on the side of the bed, patient denies any chest pain pain or shortness of breath. Patient denies any headache or dizziness, denies any abdominal pain, nausea, vomiting, diarrhea or constipation. Patient stated feeling better. Patient stated eating well and sleeping well. Patient patient was getting around her bedside, charging her phones on the chair with no difficulty. We discussed charge about discussed discharge planning patient stated she has a blocker heated metal forms involved about her house, states that she has a house in her [place] and there is a blocker heated metal forms involved. Patient states that she had a hotel to go to for a month in [place]. Discussed discharge planning with social work professor, assisting with SNF placement. Physical Exam Vital signs: Vital Signs 03/24/18 16:00 03/24/18 20:00 03/24/18 20:47 Temperature 97.6 F 97.7 F Pulse Rate 92 H 101 H Respiratory Rate 20 18 Blood Pressure 125/81 127/74 Pulse Oximetry 92 L 93 L 93 L 03/25/18 00:00 03/25/18 04:00 03/25/18 08:00 Temperature 97.7 F 97.3 F L 98.0 F Pulse Rate 93 H 75 71 Respiratory Rate 18 16 20 Blood Pressure 137/73 108/62 104/60 Pulse Oximetry 93 L 97 100 03/25/18 12:00 03/25/18 13:12 Temperature 97.3 F L Pulse Rate 82 Respiratory Rate 20 Blood Pressure 123/60 Pulse Oximetry 94 L 98 Intake & Output 03/24/18 03/25/18 03/25/18 18:59 06:59 18:59 Intake Total 1960 / 1960 840 / 840 450 / 450 Output Total 925 / 925 Balance 1035 / 1035 840 / 840 450 / 450 Weight 58.5 kg Intake: IV 1000 / 1000 600 / 600 450 / 450 NS Inj 1,000 ML @ 50 mls/hr IV. 1000 / 1000 600 / 600 450 / 450 CONT .Q20H [facility] Rx#:[id number] Oral 960 / 960 240 / 240 Output: Urine 925 / 925 Other: # Voids 3 4 Date of Last Bowel Movement 03/24/18 03/24/18 # Bowel Movements 3 4 Narrative: GENERAL: Thin appearing older looking female, alert and oriented x2 in no apparent distress SKIN: Warm and dry. HEAD: Atraumatic. Normocephalic. EYES: Pupils equal and round. No scleral icterus. No injection or drainage. ENT: No nasal bleeding or discharge. Mucous membranes pink and moist. NECK: Trachea midline. No JVD. CARDIOVASCULAR: Regular rate and rhythm. RESPIRATORY: No accessory muscle use. Clear to auscultation. Breath sounds equal bilaterally. GASTROINTESTINAL: Abdomen soft, non-tender, nondistended. Hepatic and splenic margins not palpable. MUSCULOSKELETAL: Extremities without clubbing, cyanosis, or edema. No obvious deformities. NEUROLOGICAL: Awake and alert and oriented x2. No obvious cranial nerve deficits. Motor grossly within normal limits. Five out of 5 muscle strength in the arms and legs. Normal speech. PSYCHIATRIC: Flat mood and affect; insight and judgment poor Results - Labs CBC & Chem 7: 03/21/18 07:26 03/24/18 05:36 Laboratory Results - last 24 hr 03/25/18 07:40 B-Natriuretic Peptide 414 H Microbiology 03/19/18 11:09 Blood - Peripheral Aerobic Blood Culture - Final No growth in 5 days 03/19/18 11:09 Blood - Peripheral Anaerobic Blood Culture - Final No growth in 5 days 03/19/18 11:02 Blood - Peripheral Aerobic Blood Culture - Final No growth in 5 days 03/19/18 11:02 Blood - Peripheral Anaerobic Blood Culture - Final No growth in 5 days Assessment and Plan - Assessment (1) Acute exacerbation of chronic obstructive pulmonary disease (COPD) Code(s): J44.1 - Chronic obstructive pulmonary disease with (acute) exacerbation Status: Acute (2) Delirium Code(s): R41.0 - Disorientation, unspecified Status: Acute (3) Non-ST elevation [place] (NSTEMI) Code(s): I21.4 - Non-ST elevation (NSTEMI) myocardial infarction Status: Acute (4) Psychosis not due to substance or known physiological condition Code(s): F29 - Unspecified psychosis not due to a substance or known physiological condition Status: Acute - Plan This is a 57-year-old homeless female who presented to the emergency department on 03/18/2018 due to shortness of breath. ED workup indicated elevated troponins as well as chest x-ray finding consistent with COPD. Cardiology, infectious disease were consulted for NSTEMI as well as bacteremia respectively. Non-STEMI Congestive heart failure, unknown whether systolic or diastolic Patient is refusing any workup including echocardiogram or cardiac cath Continue aspirin 81 mg daily, Plavix 75 mg daily. Continue Lasix p.o. 20 mg p.o. daily not on atorvastatin due to elevated liver enzymes , we will consider restarting of LFT improve -no chest pain or SOB -[employer] following: Appreciate recommendation, recommended palliative care due to noncompliance with medication and treatments -Palliative care, for symptom management Bacteremia with MSSA Likely due to cellulitis of the lower extremity. Discussed with infectious disease. Will discontinue cefazolin IV. Continue dicloxacillin 500 mg 4 times daily for 14 days. -Monitor signs and symptoms, no fever or chills COPD exacerbation Continue azithromycin as well as DuoNeb breathing treatments. prednisone 20 mg twice a day. wean her oxygen off keep O2 sat greater than 92% No wheezes no shortness of breath Psychosis -Psychiatry consulted: Appreciate recommendation -Noted patient with tangential thought process and evasive behavior/ argumentative attitude -Does not have the capacity to make medical decisions at this time DVT prophylaxis: Patient ambulatory Code Status: Full code Discussed Condition With: Patient, nurse, Dr. Monson, social work professor, [facility] Discharge Planning: Discharge to SNF when placement available
[2018-03-25] MEDS: Azithromycin 250 MG Tablet PO SCH (17:43)
[2018-03-25] MEDS: Acetaminophen 325 MG Tablet PO PRN (20:34)
[2018-03-25] MEDS: Melatonin 5 MG Tablet PO PRN (23:51)
[2018-03-26] MEDS: Sod Chloride 0.9% Inj 1,000 ML IV.CONT SCH ×2 (05:59→18:07)
[2018-03-26] MEDS: Furosemide 20 MG Tablet PO SCH (08:28)
[2018-03-26] MEDS: Magnesium Oxide 400 MG Tablet PO SCH ×2 (08:28→22:01)
[2018-03-26] MEDS: predniSONE 20 MG Tablet PO SCH (08:28)
[2018-03-26] MEDS: Lactobacillus Acidophilus/L. Spores Tablet PO SCH ×3 (08:28→18:04)
[2018-03-26] MEDS: Spironolactone 25 MG Tablet PO SCH ×2 (08:29→18:04)
[2018-03-26] MEDS: Budesonide-Formoterol 80/4.5 MCG 6.9 GM Inhaler INH SCH ×2 (08:29→21:59)
--- NOTE | 2018-03-26 12:08 | P.PNPAL ---
Reason for Visit Reason for visit: a. To assist with evaluation and management of symptoms including:pain, dyspnea , weakness b. To assist medical decision maker(s) with: better understanding of current medical conditions; weighing benefits/burdens of medical treatment options; making medical treatment decisions. Subjective Subjective/Interval History: 57-year-old female who was brought to the emergency by [facility] after found unresponsive with oxygen saturations ion the 40. Hypoxia improved with oxygen and a breathing treatment. She was reporting a few day history of dyspnea prior to being found. She also had complaints of fever, chills, and cough. On arrival to the ED ,she was placed on BiPap with further improvement. According to medical records, she has had several admission this year related to COPD exacerbations and CHF. She is homeless and has not been able to get oxygen in that setting which is contributing to her frequent admissions. Per medical records, she also has been non-complaint with her medications and treatments. Patient is known to palliative care from a previous visit. Additional History * CTA 11/20/2017: Severe emphysema * 2D echo 08/07/17: EF 60-65% * Psych eval 12/04/17: Capacitated to make her own decisions * Tox screen +cannabinoids * Refusing cardiac cath * Patient's been evaluated by psychiatry, she is been deemed incapacitated to make her own decisions. At time of my visit today, she is alert and more coherent, and is able to have a reasonable conversations. Discussed psych eval, she voices frustration with his evaluation and recommendations. Explored her plans after discharge, she states that she plans to stay in a hotel she just needs a place to get her meds refilled. Discussed importance of compliance and attempted to again explore care wishes. Discussed her refusal of recommended treatments limits the medical team from providing beneficial care to her. Explored possible transition to comfort with hospice services and her understanding of hospice care. She is able to give me specific details about her care with hospice. When asked about [facility] attempted to place her in the past, she states "once you go in, you don' t come out." Explored need for constant housing in order to receive oxygen, she reports that she had an agreement with [facility] and they would bring her oxygen when needed. Family/Friend Interactions: Attempted to call [facility] to update, VM left. Advance Directives Health Care Surrogate Name and Number: Zoraida Davis [phone] Objective Vital Signs: Vital Signs 03/25/18 13:12 03/25/18 16:00 03/25/18 19:27 Temperature 97.0 F L 97.5 F L Pulse Rate 84 87 Respiratory Rate 20 18 Blood Pressure 148/71 H 142/71 H Pulse Oximetry 98 98 93 L 03/25/18 20:00 03/26/18 00:00 03/26/18 04:00 Temperature 97.7 F 98.9 F Pulse Rate 82 73 67 Respiratory Rate 20 20 Blood Pressure 132/85 119/58 L Pulse Oximetry 94 L 91 L Intake & Output 03/25/18 03/26/18 03/26/18 18:59 06:59 18:59 Intake Total 1050 / 1050 1680 / 1680 Output Total 1200 / 1200 Balance 1050 / 1050 480 / 480 Weight 56 kg Intake: IV 450 / 450 1000 / 1000 NS Inj 1,000 ML @ 50 mls/hr IV. 450 / 450 1000 / 1000 CONT .Q20H [facility] Rx#:[id number] Oral 600 / 600 680 / 680 Output: Urine 1200 / 1200 Other: # Voids 3 Date of Last Bowel Movement 03/24/18 03/25/18 # Bowel Movements 3 Physical Exam: CONSTITUTIONAL/GENERAL: Fail, cachectic, female who appears older than her stated age TUBES/LINES/DRAINS: PIV, NC SKIN: No jaundice, rashes, or lesions. Ecchymoses on upper extremities. Lower extremity vascular changes, skin dark and purple from toes to knees. Cellulitis right joyner. Scattered abrasions and ecchymotic areas on extremities is different stages of healing. HEAD: Atraumatic. Normocephalic. Excessive facial hair EYES: Pupils equal and round and reactive. Extraocular motions intact. No scleral icterus. No injection or drainage. Fundi not examined. ENT: Hearing grossly normal. Nose without bleeding or purulent drainage. Throat without visible erythema, exudates, masses, or lesions. Poor dentition, NECK: Trachea midline. Supple, nontender. No palpable thyroid enlargement or nodularity. CARDIOVASCULAR: Regular rate and rhythm without murmurs. No JVD. Peripheral pulses diminished. RESPIRATORY/CHEST: Inspiratory wheezing, diminished breath sounds. Moderate amount of respiratory effort though denies SOB. GASTROINTESTINAL: Abdomen soft, non-tender, nondistended. No hepato-splenomegaly , or palpable masses. No guarding. Bowel sounds present. GENITOURINARY: Without palpable bladder distension. MUSCULOSKELETAL: RLE cellulitis. BLE vascular changes, purple toes, skin dark and wrinkled knees to toes. LYMPHATICS: No palpable cervical or supraclavicular adenopathy. NEUROLOGICAL: Awake and alert. Partially oriented with tangental speech. Follows commands. Moves all extremities. PSYCHIATRIC: No obvious anxiety/depression. no apparent hallucinations or other psychotic thought process. Diagnostic Tests Laboratory: Laboratory Results - last 72 hr 03/24/18 03/24/18 03/25/18 05:36 05:36 07:40 Sodium 139 Potassium 4.1 Chloride 92 L Carbon Dioxide 44.7 H Anion Gap 2 L BUN 18 Creatinine 0.57 Estimated GFR Greater than 89 Random Glucose 233 H Calcium 8.6 Magnesium 1.9 B-Natriuretic Peptide 723 H 414 H Result Diagrams: 03/21/18 07:26 03/24/18 05:36 Microbiology: Microbiology 03/19/18 11:09 Aerobic Blood Culture - Final Blood - Peripheral No growth in 5 days Anaerobic Blood Culture - Final No growth in 5 days 03/19/18 11:02 Aerobic Blood Culture - Final Blood - Peripheral No growth in 5 days Anaerobic Blood Culture - Final No growth in 5 days 03/18/18 14:52 Aerobic Blood Culture - Final Blood - Peripheral No growth in 5 days Anaerobic Blood Culture - Final No growth in 5 days Assessment and Plan - Symptom Scale (1) Pain 0-10 Scale: Unable to quantify (2) Dyspnea 0-10 Scale: Unable to quantify (3) Weakness 0-10 Scale: Unable to quantify Pertinent Non-Medical Issues: Psychosocial:Patient is homeless. She has been unable to receive needed oxygen due to living situation. She has a friend from a local [employer] who is her HCS. She reportedly has biological children that she is estranged from. Patient declined to provide contact info or number of actual children. [facility] states she may have possibly been in the , she is unaware of of other family members. Spiritual: She frequents the homeless activities at a local [employer] Legal: Patient seen and evaluated by psychiatry, she has been deemed incapacitated to make her own decisions. She has designated Zoraida Davis as her healthcare surrogate. I confirmed she accepted this role on Abe 11/30/ 18.Will need to update on psych findings. Ethical issues impacting care: patient is in need of oxygen but is homeless and has not been able to receive it. . Important Contacts: [facility] Zoraida Davis [phone] Prognosis: Patient has advanced/terminal COPD and worsening cardiac function. Given her lack of resources for needed medications, oxygen, non-complaince and refusal of recommended interventions, I believe this patient has a limited life expectancy. She would be medically eligible for hospice if goals were appropriate. Per HCS patient was on Hospice in the past but revoked services and refused long -term placement . Code Status: Full Code Plan: Legal decision maker: Patient seen and evaluated by psychiatry, she has been deemed incapacitated to make her own decisions. She has designated Zoraida Davis as her healthcare surrogate. Goals: Goals remain unclear at this time. She does not give direct answers when exploring code status or goals of care. She seems to want to see some Dr.s and receive some treatments though it is unclear which ones. Will need to readdress goals with [facility]. Per last conversation with [facility], she will likely transition to comfort care. CODE STATUS: FULL CODE SYMPTOMS: --Dyspnea: patient has ES COPD requiring oxygen. She has not had resources at home to allow her to receive oxygen in the home setting. She has been non- compliant with recommended treatments and meds. She currently has inspiratory wheezing and requiring 5 liters NC though she denies any SOB. Prior to this admission and her most recent one, she was found with saturations 40-60s on multiple occasions. Given her current status, she is at high risk for future complications and possibly requiring intubation. --Pain: Likely due to general debility. Anticipatory pain as she becomes weaker and more immobile. Also at risk for pain in extremities due to decreased circulation and vascular compromise. She currently denies any pain. Has Tylenol ordered for pain or temp. Recommend low dose morphine for pain or dyspnea. Palliative care will continue to follow during hospital course as condition evolves, to assist patient/decision-maker with understanding of medical conditions, weighing benefits/burdens of treatment options, for clarification of goals of treatment. Additionally will assist with any symptoms of palliative concern
--- NOTE | 2018-03-26 14:18 | P.PNCA ---
Subjective Interval history: alert in nad Medications and Allergies Active Medications: Active Medications Acetaminophen (Tylenol) 650 mg PO Q4H PRN PRN Reason: Temp > 100.4 Last Admin: 03/21/18 18:13 Dose: 650 mg Hydrocodone Bitart/Acetaminophen ([place] 5/325) 1 tab PO Q4H PRN PRN Reason: PAIN 3-5 Al Hydroxide/Mg Hydroxide (Milk Of Magnsilviano Liq) 30 ml PO Q12H PRN PRN Reason: Mild Constipation Albuterol (Albuterol Neb (Prn)) 2.5 mg NEB Q4HR NEB PRN PRN Reason: SHORTNESS OF BREATH Aspirin (Ecotrin) 81 mg PO DAILY [facility] Last Admin: 03/26/18 08:28 Dose: 81 mg Azithromycin (Zithromax) 250 mg PO Q24H [facility] Last Admin: 03/25/18 17:43 Dose: 250 mg Budesonide/Formoterol Fumarate (Symbicort 80/4.5 Mcg Inh) 2 puff INH Q12H [facility] Last Admin: 03/26/18 08:29 Dose: 2 puff Clopidogrel Bisulfate (Plavix) 75 mg PO DAILY [facility] Last Admin: 03/26/18 08:28 Dose: 75 mg Dicloxacillin Sodium (Dynapen) 500 mg PO Q6HR [facility] Stop: 04/07/18 11:59 Last Admin: 03/26/18 12:42 Dose: 500 mg Furosemide (Lasix) 20 mg PO DAILY [facility] Last Admin: 03/26/18 08:28 Dose: 20 mg Sodium Chloride (Ns Inj) 1,000 mls @ 50 mls/hr IV.CONT .Q20H [facility] Last Admin: 03/26/18 05:59 Dose: 100 mls/hr Lactobacillus Acidophilus (Lactinex) 1 tab PO TID [facility] Last Admin: 03/26/18 12:46 Dose: 1 tab Magnesium Oxide (Mag-Ox) 400 mg PO BID [facility] Last Admin: 03/26/18 08:28 Dose: 400 mg Melatonin (Melatonin) 5 mg PO HS PRN PRN Reason: SLEEP Last Admin: 03/25/18 23:51 Dose: 5 mg Morphine Sulfate (Morphine Inj) 2 mg IV.PUSH Q4H PRN PRN Reason: PAIN 6-10 Ondansetron HCl (Zofran Inj) 4 mg IV.PUSH Q6H PRN PRN Reason: NAUSEA OR VOMITING Prednisone (Deltasone) 20 mg PO BID [facility] Stop: 03/26/18 20:59 Last Admin: 03/26/18 08:28 Dose: 20 mg Sodium Chloride (Ns Flush) 2 ml IV.FLUSH BID [facility] Last Admin: 03/26/18 08:29 Dose: 2 ml Sodium Chloride (Ns Flush) 2 ml IV.FLUSH PRN PRN PRN Reason: FLUSH AFTER USING IV ACCESS Spironolactone (Aldactone) 25 mg PO BID@0900,1800 [facility] Last Admin: 03/26/18 08:29 Dose: 25 mg Allergies Allergy/AdvReac Type Severity Reaction Status Date / Time SOME ANTI INFLAMMATORY MEDS Allergy Severe Swelling Uncoded 05/16/05 13:42 INHALERS Allergy Intermediate SOB Uncoded 01/07/06 10:13 Physical Exam Vital signs: Vital Signs 03/25/18 16:00 03/25/18 19:27 03/25/18 20:00 Temperature 97.0 F L 97.5 F L Pulse Rate 84 87 82 Respiratory Rate 20 18 Blood Pressure 148/71 H 142/71 H Pulse Oximetry 98 93 L 03/26/18 00:00 03/26/18 04:00 Temperature 97.7 F 98.9 F Pulse Rate 73 67 Respiratory Rate 20 20 Blood Pressure 132/85 119/58 L Pulse Oximetry 94 L 91 L Intake & Output 03/25/18 03/26/18 03/26/18 18:59 06:59 18:59 Intake Total 1050 / 1050 1680 / 1680 Output Total 1200 / 1200 Balance 1050 / 1050 480 / 480 Weight 56 kg Intake: IV 450 / 450 1000 / 1000 NS Inj 1,000 ML @ 50 mls/hr IV. 450 / 450 1000 / 1000 CONT .Q20H [facility] Rx#:[id number] Oral 600 / 600 680 / 680 Output: Urine 1200 / 1200 Other: # Voids 3 Date of Last Bowel Movement 03/24/18 03/25/18 03/24/18 # Bowel Movements 3 - Constitutional no acute distress - Routine HEENT Exam Head: Present: normocephalic - Routine Neck Exam Present: supple - Routine Respiratory Exam Present: CTA bilaterally - Routine Cardiovascular Exam Present: S1, S2 - Routine Abdominal Exam Present: soft - Routine Extremities Exam Comments: no justine Results 03/21/18 07:26 03/24/18 05:36 Cardiac Enzymes 03/25/18 Range/Units 07:40 B-Natriuretic Peptide 414 H (0-100) pg/mL Coagulation 03/25/18 Range/Units 07:40 B-Natriuretic Peptide 414 H (0-100) pg/mL Intake and Output 03/25/18 03/26/18 03/26/18 22:59 06:59 14:59 Intake Total 600 / 600 1680 / 1680 Output Total 1200 / 1200 Balance 600 / 600 480 / 480 Intake: IV 1000 / 1000 NS Inj 1,000 ML @ 50 mls/hr IV. 1000 / 1000 CONT .Q20H [facility] Rx#:[id number] Oral 600 / 600 680 / 680 Output: Urine 1200 / 1200 Other: # Voids 3 Date of Last Bowel Movement 03/25/18 03/24/18 # Bowel Movements 3 Weight 56 kg Assessment and Plan - Assessment (1) Acute exacerbation of chronic obstructive pulmonary disease (COPD) Code(s): J44.1 - Chronic obstructive pulmonary disease with (acute) exacerbation Status: Acute (2) Elevated troponin Code(s): R74.8 - Abnormal levels of other serum enzymes Status: Acute (3) Non-ST elevation [place] (NSTEMI) Code(s): I21.4 - Non-ST elevation (NSTEMI) myocardial infarction Status: Acute - Plan 1.) NSTEMI - start aspirin 81 mg qd, statin held due to markedly elevated lfts, beta leonila held due to severe rad and copd, stacy held due to hypotension; patient adamantly refuses cath 2.) CHF - improving, continue aldactone 25 mg bid, continue lasix 20 mg po qd, f /u bnp/bmp 3.) Rec palliative care consult due noncompliance with meds and treatment recommendations, d/w Dr Monson
--- NOTE | 2018-03-26 15:22 | P.PNIM ---
Subjective Interval history: Follow-up for NSTEMI, COPD exacerbation and bacteremia. Patient sitting in the bed, denies any chest pain or shortness of breath at this time. Patient stated she is eating well and sleeping well. Patient denies any headache or dizziness, denies any abdominal pain, nausea, vomiting, diarrhea or constipation. Patient denies any fever or chills. Patient states that she is feeling better and she is ready to go home. Does not want to do any invasive procedures. Nurse reported no acute concerns overnight Discussed discharge planning with community mental health social worker Physical Exam Vital signs: Vital Signs 03/25/18 16:00 03/25/18 19:27 03/25/18 20:00 Temperature 97.0 F L 97.5 F L Pulse Rate 84 87 82 Respiratory Rate 20 18 Blood Pressure 148/71 H 142/71 H Pulse Oximetry 98 93 L 03/26/18 00:00 03/26/18 04:00 Temperature 97.7 F 98.9 F Pulse Rate 73 67 Respiratory Rate 20 20 Blood Pressure 132/85 119/58 L Pulse Oximetry 94 L 91 L Intake & Output 03/25/18 03/26/18 03/26/18 18:59 06:59 18:59 Intake Total 1050 / 1050 1680 / 1680 Output Total 1200 / 1200 Balance 1050 / 1050 480 / 480 Weight 56 kg Intake: IV 450 / 450 1000 / 1000 NS Inj 1,000 ML @ 50 mls/hr IV. 450 / 450 1000 / 1000 CONT .Q20H [facility] Rx#:[id number] Oral 600 / 600 680 / 680 Output: Urine 1200 / 1200 Other: # Voids 3 Date of Last Bowel Movement 03/24/18 03/25/18 03/24/18 # Bowel Movements 3 Narrative: GENERAL: Thin appearing older looking female, alert and oriented x2 in no apparent distress SKIN: Warm and dry. HEAD: Atraumatic. Normocephalic. EYES: Pupils equal and round. No scleral icterus. No injection or drainage. ENT: No nasal bleeding or discharge. Mucous membranes pink and moist. NECK: Trachea midline. No JVD. CARDIOVASCULAR: Regular rate and rhythm. RESPIRATORY: No accessory muscle use. Clear to auscultation. Breath sounds equal bilaterally. GASTROINTESTINAL: Abdomen soft, non-tender, nondistended. Hepatic and splenic margins not palpable. MUSCULOSKELETAL: Extremities without clubbing, cyanosis. Bilateral lower extremity trace edema. No obvious deformities. NEUROLOGICAL: Awake and alert and oriented x2. No obvious cranial nerve deficits. Motor grossly within normal limits. Five out of 5 muscle strength in the arms and legs. Normal speech. PSYCHIATRIC: Flat mood and affect; insight and judgment poor Results - Labs CBC & Chem 7: 03/21/18 07:26 03/24/18 05:36 Assessment and Plan - Assessment (1) Acute exacerbation of chronic obstructive pulmonary disease (COPD) Code(s): J44.1 - Chronic obstructive pulmonary disease with (acute) exacerbation Status: Acute (2) Delirium Code(s): R41.0 - Disorientation, unspecified Status: Acute (3) Non-ST elevation [place] (NSTEMI) Code(s): I21.4 - Non-ST elevation (NSTEMI) myocardial infarction Status: Acute (4) Psychosis not due to substance or known physiological condition Code(s): F29 - Unspecified psychosis not due to a substance or known physiological condition Status: Acute - Plan This is a 57-year-old homeless female who presented to the emergency department on 03/18/2018 due to shortness of breath. ED workup indicated elevated troponins as well as chest x-ray finding consistent with COPD. Cardiology, infectious disease were consulted for NSTEMI as well as bacteremia respectively. Non-STEMI Congestive heart failure, unknown whether systolic or diastolic Patient is refusing any workup including echocardiogram or cardiac cath Continue aspirin 81 mg daily, Plavix 75 mg daily. Continue Lasix p.o. 20 mg p.o. daily not on atorvastatin due to elevated liver enzymes , we will consider restarting of LFT improve -Icing Coater following: Appreciate recommendation, recommended palliative care due to noncompliance with medication and treatments -Palliative care, for symptom management -no chest pain or SOB Bacteremia with MSSA Likely due to cellulitis of the lower extremity. -Blood culture on staph coag negative/staph aureus, blood culture on no growth in 5 days Discussed with infectious disease. discontinue cefazolin IV. Continue dicloxacillin 500 mg 4 times daily for 14 days. -Monitor signs and symptoms, no fever or chills -Monitor and follow blood cultures COPD exacerbation Continue azithromycin as well as DuoNeb breathing treatments. prednisone 20 mg twice a day. -Continue Symbicort and DuoNeb treatments wean oxygen off keep O2 sat greater than 92% No wheezes no shortness of breath Psychosis -Psychiatry consulted: Appreciate recommendation -Noted patient with tangential thought process and evasive behavior/ argumentative attitude -Does not have the capacity to make medical decisions at this time -Monitor mental status DVT prophylaxis: Patient ambulatory Code Status: Full code Discussed Condition With: Patient, nurse, MDR Discharge Planning: Discharge to SNF when placement available
[2018-03-26] MEDS: Azithromycin 250 MG Tablet PO SCH (18:04)
[2018-03-26] MEDS: Melatonin 5 MG Tablet PO PRN (22:01)
[2018-03-26] MEDS: Morphine Inj 4 MG/ML Vial IV.PUSH PRN (22:02)
[2018-03-27] MEDS: Sod Chloride 0.9% Inj 1,000 ML IV.CONT SCH ×2 (04:55→15:45)
[2018-03-27 06:08] LABS: Baso % (Auto) 0.1 % (0.0-2.0); Eos # (Auto) 0.1 th/mm3 (0.0-0.4); Eos % (Auto) 2.3 % (0.0-4.0); Hematocrit 42.9 % (35.0-46.0); Hemoglobin 13.9 gm/dL (11.6-15.3); Lymph # (Auto) 1.1 th/mm3 (1.0-4.8); Lymph % (Auto) 20.6 % (9.0-44.0); Mean Corpuscular HGB Conc 32.3 % (32.0-36.0); Mean Corpuscular Hemoglobin 32.7 pg (27.0-34.0); Mean Corpuscular Volume 101.1 fL (80.0-100.0); Mean Platelet Volume 8.4 fL (7.0-11.0); Mono # (Auto) 0.7 th/mm3 (0.0-0.9); Mono % (Auto) 14.1 % (0.0-8.0); Neut # (Auto) 3.3 th/mm3 (1.8-7.7); Neut % (Auto) 62.9 % (16.0-70.0); Platelet Count 147 th/mm3 (150-450); Red Blood Count 4.24 mil/mm3 (4.00-5.30); White Blood Count 5.2 th/mm3 (4.0-11.0)
[2018-03-27] MEDS: Furosemide 20 MG Tablet PO SCH (09:51)
[2018-03-27] MEDS: Lactobacillus Acidophilus/L. Spores Tablet PO SCH ×3 (09:52→18:30)
[2018-03-27] MEDS: Magnesium Oxide 400 MG Tablet PO SCH ×2 (09:52→20:42)
[2018-03-27] MEDS: Spironolactone 25 MG Tablet PO SCH ×2 (09:52→18:31)
[2018-03-27] MEDS: Morphine Inj 4 MG/ML Vial IV.PUSH PRN ×2 (09:53→14:34)
[2018-03-27] MEDS: Budesonide-Formoterol 80/4.5 MCG 6.9 GM Inhaler INH SCH ×2 (09:57→20:41)
--- NOTE | 2018-03-27 14:49 | P.PNCA ---
Subjective Interval history: alert in nad Medications and Allergies Active Medications: Active Medications Acetaminophen (Tylenol) 650 mg PO Q4H PRN PRN Reason: Temp > 100.4 Last Admin: 03/21/18 18:13 Dose: 650 mg Hydrocodone Bitart/Acetaminophen ([place] 5/325) 1 tab PO Q4H PRN PRN Reason: PAIN 3-5 Al Hydroxide/Mg Hydroxide (Milk Of Magnsilviano Liq) 30 ml PO Q12H PRN PRN Reason: Mild Constipation Albuterol (Albuterol Neb (Prn)) 2.5 mg NEB Q4HR NEB PRN PRN Reason: SHORTNESS OF BREATH Aspirin (Ecotrin) 81 mg PO DAILY [facility] Last Admin: 03/27/18 09:52 Dose: 81 mg Azithromycin (Zithromax) 250 mg PO Q24H [facility] Last Admin: 03/26/18 18:04 Dose: 250 mg Budesonide/Formoterol Fumarate (Symbicort 80/4.5 Mcg Inh) 2 puff INH Q12H [facility] Last Admin: 03/27/18 09:57 Dose: 2 puff Clopidogrel Bisulfate (Plavix) 75 mg PO DAILY [facility] Last Admin: 03/27/18 09:51 Dose: 75 mg Dicloxacillin Sodium (Dynapen) 500 mg PO Q6HR [facility] Stop: 04/07/18 11:59 Last Admin: 03/27/18 14:32 Dose: 500 mg Furosemide (Lasix) 20 mg PO DAILY [facility] Last Admin: 03/27/18 09:51 Dose: 20 mg Sodium Chloride (Ns Inj) 1,000 mls @ 50 mls/hr IV.CONT .Q20H [facility] Last Admin: 03/27/18 04:55 Dose: 100 mls/hr Lactobacillus Acidophilus (Lactinex) 1 tab PO TID [facility] Last Admin: 03/27/18 14:33 Dose: 1 tab Magnesium Oxide (Mag-Ox) 400 mg PO BID [facility] Last Admin: 03/27/18 09:52 Dose: 400 mg Melatonin (Melatonin) 5 mg PO HS PRN PRN Reason: SLEEP Last Admin: 03/26/18 22:01 Dose: 5 mg Morphine Sulfate (Morphine Inj) 2 mg IV.PUSH Q4H PRN PRN Reason: PAIN 6-10 Last Admin: 03/27/18 14:34 Dose: 2 mg Ondansetron HCl (Zofran Inj) 4 mg IV.PUSH Q6H PRN PRN Reason: NAUSEA OR VOMITING Sodium Chloride (Ns Flush) 2 ml IV.FLUSH BID [facility] Last Admin: 03/27/18 10:48 Dose: 2 ml Sodium Chloride (Ns Flush) 2 ml IV.FLUSH PRN PRN PRN Reason: FLUSH AFTER USING IV ACCESS Spironolactone (Aldactone) 25 mg PO BID@0900,1800 [facility] Last Admin: 03/27/18 09:52 Dose: 25 mg Allergies Allergy/AdvReac Type Severity Reaction Status Date / Time SOME ANTI INFLAMMATORY MEDS Allergy Severe Swelling Uncoded 05/16/05 13:42 INHALERS Allergy Intermediate SOB Uncoded 01/07/06 10:13 Physical Exam Vital signs: Vital Signs 03/26/18 16:00 03/26/18 20:00 03/26/18 22:05 Temperature 97.5 F L 97.4 F L Pulse Rate 95 H 91 H Respiratory Rate 20 17 18 Blood Pressure 125/71 119/88 Pulse Oximetry 94 L 95 03/26/18 23:36 03/27/18 00:00 03/27/18 04:00 Temperature 98 F 98 F Pulse Rate 81 92 H 67 Respiratory Rate 16 20 14 Blood Pressure 121/82 105/69 Pulse Oximetry 93 L 96 03/27/18 08:00 Temperature 97.9 F Pulse Rate 66 Respiratory Rate 16 Blood Pressure 106/56 L Pulse Oximetry 100 Intake & Output 03/26/18 03/27/18 03/27/18 18:59 06:59 18:59 Intake Total 1959 1420 / 1420 Output Total 950 / 950 Balance 1959 470 / 470 Weight 55.8 kg Intake: IV 1000 / 1000 1000 / 1000 NS Inj 1,000 ML @ 50 mls/hr IV. 1000 / 1000 1000 / 1000 CONT .Q20H [facility] Rx#:[id number] Oral 960 / 960 420 / 420 Output: Urine 950 / 950 Other: # Voids 6 Date of Last Bowel Movement 03/24/18 # Bowel Movements 4 1 - Constitutional no acute distress - Routine HEENT Exam Head: Present: normocephalic - Routine Neck Exam Present: supple - Routine Respiratory Exam Present: CTA bilaterally - Routine Cardiovascular Exam Present: S1, S2 - Routine Abdominal Exam Present: soft - Routine Extremities Exam Comments: no justine Results 03/27/18 04:40 03/24/18 05:36 Cardiac Enzymes 03/27/18 Range/Units 04:40 B-Natriuretic Peptide 362 H (0-100) pg/mL Coagulation 03/27/18 Range/Units 04:40 B-Natriuretic Peptide 362 H (0-100) pg/mL CBC 03/27/18 Range/Units 04:40 WBC 5.2 (4.0-11.0) th/mm3 RBC 4.24 (4.00-5.30) mil/mm3 Hgb 13.9 (11.6-15.3) gm/dL Hct 42.9 (35.0-46.0) % Plt Count 147 L (150-450) th/mm3 Neut # (Auto) 3.3 (1.8-7.7) th/mm3 Lymph # (Auto) 1.1 (1.0-4.8) th/mm3 [place] # (Auto) 0.7 (0.0-0.9) th/mm3 Eos # (Auto) 0.1 (0.0-0.4) th/mm3 Baso # (Auto) 0.0 (0.0-0.2) th/mm3 Intake and Output 03/26/18 03/27/18 03/27/18 22:59 06:59 14:59 Intake Total 1959 1420 / 1420 Output Total 950 / 950 Balance 1959 470 / 470 Intake: IV 1000 / 1000 1000 / 1000 NS Inj 1,000 ML @ 50 mls/hr IV. 1000 / 1000 1000 / 1000 CONT .Q20H [facility] Rx#:[id number] Oral 960 / 960 420 / 420 Output: Urine 950 / 950 Other: # Voids 6 # Bowel Movements 4 1 Weight 55.8 kg Assessment and Plan - Assessment (1) Acute exacerbation of chronic obstructive pulmonary disease (COPD) Code(s): J44.1 - Chronic obstructive pulmonary disease with (acute) exacerbation Status: Acute (2) Elevated troponin Code(s): R74.8 - Abnormal levels of other serum enzymes Status: Acute (3) Non-ST elevation [place] (NSTEMI) Code(s): I21.4 - Non-ST elevation (NSTEMI) myocardial infarction Status: Acute - Plan 1.) NSTEMI - start aspirin 81 mg qd, statin held due to markedly elevated lfts, beta leonila held due to severe rad and copd, stacy held due to hypotension; patient adamantly refuses cath 2.) CHF - improving, continue aldactone 25 mg bid, continue lasix 20 mg po qd, f /u bnp/bmp 3.) Rec palliative care consult due noncompliance with meds and treatment recommendations, d/w Dr Monson
--- NOTE | 2018-03-27 18:14 | P.PNIM ---
Subjective Interval history: patient c/o headache. asking when she will be discharged. Physical Exam Vital signs: Last Vital Signs Temp 98.7 F 03/27/18 16:00 Pulse 89 03/27/18 16:00 Resp 16 03/27/18 16:00 BP 119/55 L 03/27/18 16:00 Pulse Ox 93 L 03/27/18 17:22 Intake & Output 03/25/18 03/26/18 03/27/18 03/28/18 06:59 06:59 06:59 06:59 Intake Total 2800 / 2800 2730 / 2730 3380 / 3380 1000 / 1000 Output Total 925 / 925 1200 / 1200 950 / 950 Balance 1875 / 1875 1530 / 1530 2430 / 2430 1000 / 1000 Weight 58.5 kg 56 kg 55.8 kg Narrative: GENERAL: Thin appearing older looking female, alert and oriented x2 in no apparent distress SKIN: Warm and dry. HEAD: Atraumatic. Normocephalic. EYES: Pupils equal and round. No scleral icterus. No injection or drainage. ENT: No nasal bleeding or discharge. Mucous membranes pink and moist. NECK: Trachea midline. No JVD. CARDIOVASCULAR: Regular rate and rhythm. RESPIRATORY: No accessory muscle use. Clear to auscultation. Breath sounds equal bilaterally. GASTROINTESTINAL: Abdomen soft, non-tender, nondistended. Hepatic and splenic margins not palpable. MUSCULOSKELETAL: Extremities without clubbing, cyanosis. Bilateral lower extremity trace edema. No obvious deformities. NEUROLOGICAL: Awake and alert and oriented x2. No obvious cranial nerve deficits. Motor grossly within normal limits. Five out of 5 muscle strength in the arms and legs. Normal speech. PSYCHIATRIC: Flat mood and affect; insight and judgment poor Results Labs CBC & Chem 7: 03/27/18 04:40 03/24/18 05:36 Assessment and Plan Plan 57-year-old homeless female who presented to the emergency department on 03/18/2018 due to shortness of breath. ED workup indicated elevated troponins as well as chest x-ray finding consistent with COPD. Cardiology, infectious disease were consulted for NSTEMI as well as bacteremia respectively. 03/27--patient seen and examined. Patient determined to lack capacity for medical decision making by psych consult. Has headache,already on Tylenol prn. NO CHANGE IN PLAN BELOW. Non-STEMI Congestive heart failure, unknown whether systolic or diastolic Patient is refusing any workup including echocardiogram or cardiac cath Continue aspirin 81 mg daily, Plavix 75 mg daily. Continue Lasix p.o. 20 mg p.o. daily not on atorvastatin due to elevated liver enzymes , we will consider restarting of LFT improve -Financial Aid Advisor following: Appreciate recommendation, recommended palliative care due to noncompliance with medication and treatments -Palliative care consult appreciated. -no chest pain or SOB Bacteremia with MSSA Likely due to cellulitis of the lower extremity. -Blood culture on staph coag negative/staph aureus, blood culture on no growth in 5 days Discussed with infectious disease. discontinue cefazolin IV. Continue dicloxacillin 500 mg 4 times daily for 14 days. -Monitor signs and symptoms, no fever or chills -Monitor and follow blood cultures COPD exacerbation Continue azithromycin as well as DuoNeb breathing treatments. -Continue Symbicort and DuoNeb treatments wean oxygen off keep O2 sat greater than 92% No wheezes no shortness of breath Psychosis -Psychiatry consulted: Appreciate recommendation -Noted patient with tangential thought process and evasive behavior/ argumentative attitude -Does not have the capacity to make medical decisions at this time -Monitor mental status DVT prophylaxis: Patient ambulatory Progress Note: Quality VTE Deep Vein Thrombosis/Pulmonary Embolism Present on Admission: No
[2018-03-27] MEDS: Azithromycin 250 MG Tablet PO SCH (18:30)
[2018-03-27] MEDS: Melatonin 5 MG Tablet PO PRN (20:42)
[2018-03-28] MEDS: Sod Chloride 0.9% Inj 1,000 ML IV.CONT SCH ×3 (00:54→18:30)
[2018-03-28] MEDS: Furosemide 20 MG Tablet PO SCH (09:20)
[2018-03-28] MEDS: Lactobacillus Acidophilus/L. Spores Tablet PO SCH ×3 (09:21→18:02)
[2018-03-28] MEDS: Spironolactone 25 MG Tablet PO SCH ×2 (09:22→18:01)
[2018-03-28] MEDS: Magnesium Oxide 400 MG Tablet PO SCH ×2 (09:23→21:48)
[2018-03-28] MEDS: Budesonide-Formoterol 80/4.5 MCG 6.9 GM Inhaler INH SCH ×2 (09:26→21:48)
--- NOTE | 2018-03-28 14:00 | P.PNCA ---
Subjective Interval history: alert in nad Medications and Allergies Active Medications: Active Medications Acetaminophen (Tylenol) 650 mg PO Q4H PRN PRN Reason: Temp > 100.4 Last Admin: 03/21/18 18:13 Dose: 650 mg Hydrocodone Bitart/Acetaminophen ([place] 5/325) 1 tab PO Q4H PRN PRN Reason: PAIN 3-5 Last Admin: 03/27/18 20:42 Dose: 1 tab Al Hydroxide/Mg Hydroxide (Milk Of Trino Bernard) 30 ml PO Q12H PRN PRN Reason: Mild Constipation Albuterol (Albuterol Neb (Prn)) 2.5 mg NEB Q4HR NEB PRN PRN Reason: SHORTNESS OF BREATH Aspirin (Ecotrin) 81 mg PO DAILY [facility] Last Admin: 03/28/18 09:21 Dose: 81 mg Azithromycin (Zithromax) 250 mg PO Q24H [facility] Last Admin: 03/27/18 18:30 Dose: 250 mg Budesonide/Formoterol Fumarate (Symbicort 80/4.5 Mcg Inh) 2 puff INH Q12H [facility] Last Admin: 03/28/18 09:26 Dose: 2 puff Clopidogrel Bisulfate (Plavix) 75 mg PO DAILY [facility] Last Admin: 03/28/18 09:21 Dose: 75 mg Dicloxacillin Sodium (Dynapen) 500 mg PO Q6HR [facility] Stop: 04/07/18 11:59 Last Admin: 03/28/18 13:39 Dose: 500 mg Furosemide (Lasix) 20 mg PO DAILY [facility] Last Admin: 03/28/18 09:20 Dose: Not Given Sodium Chloride (Ns Inj) 1,000 mls @ 50 mls/hr IV.CONT .Q20H [facility] Last Admin: 03/28/18 13:39 Dose: 100 mls/hr Lactobacillus Acidophilus (Lactinex) 1 tab PO TID [facility] Last Admin: 03/28/18 13:39 Dose: 1 tab Magnesium Oxide (Mag-Ox) 400 mg PO BID [facility] Last Admin: 03/28/18 09:23 Dose: 400 mg Melatonin (Melatonin) 5 mg PO HS PRN PRN Reason: SLEEP Last Admin: 03/27/18 20:42 Dose: 5 mg Morphine Sulfate (Morphine Inj) 2 mg IV.PUSH Q4H PRN PRN Reason: PAIN 6-10 Last Admin: 03/27/18 14:34 Dose: 2 mg Ondansetron HCl (Zofran Inj) 4 mg IV.PUSH Q6H PRN PRN Reason: NAUSEA OR VOMITING Sodium Chloride (Ns Flush) 2 ml IV.FLUSH BID [facility] Last Admin: 03/28/18 09:25 Dose: Not Given Sodium Chloride (Ns Flush) 2 ml IV.FLUSH PRN PRN PRN Reason: FLUSH AFTER USING IV ACCESS Spironolactone (Aldactone) 25 mg PO BID@0900,1800 [facility] Last Admin: 03/28/18 09:22 Dose: Not Given Allergies Allergy/AdvReac Type Severity Reaction Status Date / Time SOME ANTI INFLAMMATORY MEDS Allergy Severe Swelling Uncoded 05/16/05 13:42 INHALERS Allergy Intermediate SOB Uncoded 01/07/06 10:13 Physical Exam Vital signs: Vital Signs 03/27/18 16:00 03/27/18 17:22 03/27/18 20:00 Temperature 98.7 F 97.5 F L Pulse Rate 101 H 94 H Respiratory Rate 18 16 Blood Pressure 119/55 L 121/59 L Pulse Oximetry 93 L 93 L 93 L 03/28/18 00:00 03/28/18 04:00 03/28/18 08:00 Temperature 97.8 F 98 F 98.3 F Pulse Rate 91 H 80 81 Respiratory Rate 19 17 18 Blood Pressure 122/82 122/59 L 120/65 Pulse Oximetry 93 L 98 94 L 03/28/18 12:00 Temperature 97.9 F Pulse Rate 121 H Respiratory Rate 20 Blood Pressure 101/73 Pulse Oximetry 88 L Intake & Output 03/27/18 03/28/18 03/28/18 18:59 06:59 18:59 Intake Total 2200 / 2200 1480 / 1480 1000 / 1000 Output Total 1900 / 1900 Balance 2200 / 2200 -420 / -420 1000 / 1000 Weight 54.3 kg Intake: IV 1000 / 1000 1000 / 1000 1000 / 1000 NS Inj 1,000 ML @ 50 mls/hr IV. 1000 / 1000 1000 / 1000 1000 / 1000 CONT .Q20H [facility] Rx#:[id number] Oral 480 / 480 Other 1200 / 1200 Output: Urine 1900 / 1900 Other: Date of Last Bowel Movement 03/24/18 03/24/18 # Bowel Movements 2 - Constitutional no acute distress - Routine HEENT Exam Head: Present: normocephalic - Routine Neck Exam Present: supple - Routine Cardiovascular Exam Present: S1, S2 - Routine Abdominal Exam Present: soft - Routine Extremities Exam Comments: no justine Results 03/27/18 04:40 03/24/18 05:36 Cardiac Enzymes 03/27/18 03/28/18 Range/Units 04:40 03:45 B-Natriuretic Peptide 362 H 393 H (0-100) pg/mL Coagulation 03/27/18 03/28/18 Range/Units 04:40 03:45 B-Natriuretic Peptide 362 H 393 H (0-100) pg/mL CBC 03/27/18 Range/Units 04:40 WBC 5.2 (4.0-11.0) th/mm3 RBC 4.24 (4.00-5.30) mil/mm3 Hgb 13.9 (11.6-15.3) gm/dL Hct 42.9 (35.0-46.0) % Plt Count 147 L (150-450) th/mm3 Neut # (Auto) 3.3 (1.8-7.7) th/mm3 Lymph # (Auto) 1.1 (1.0-4.8) th/mm3 [place] # (Auto) 0.7 (0.0-0.9) th/mm3 Eos # (Auto) 0.1 (0.0-0.4) th/mm3 Baso # (Auto) 0.0 (0.0-0.2) th/mm3 Intake and Output 03/27/18 03/28/18 03/28/18 22:59 06:59 14:59 Intake Total 2200 / 2200 1480 / 1480 1000 / 1000 Output Total 1900 / 1900 Balance 2200 / 2200 -420 / -420 1000 / 1000 Intake: IV 1000 / 1000 1000 / 1000 1000 / 1000 NS Inj 1,000 ML @ 50 mls/hr IV. 1000 / 1000 1000 / 1000 1000 / 1000 CONT .Q20H [facility] Rx#:[id number] Oral 480 / 480 Other 1200 / 1200 Output: Urine 1900 / 1900 Other: Date of Last Bowel Movement 03/24/18 # Bowel Movements 2 Weight 54.3 kg Assessment and Plan - Assessment (1) Acute exacerbation of chronic obstructive pulmonary disease (COPD) Code(s): J44.1 - Chronic obstructive pulmonary disease with (acute) exacerbation Status: Acute (2) Elevated troponin Code(s): R74.8 - Abnormal levels of other serum enzymes Status: Acute (3) Non-ST elevation [place] (NSTEMI) Code(s): I21.4 - Non-ST elevation (NSTEMI) myocardial infarction Status: Acute - Plan 1.) NSTEMI - start aspirin 81 mg qd, statin held due to markedly elevated lfts, beta leonila held due to severe rad and copd, stcay held due to hypotension; patient adamantly refuses cath 2.) CHF - improving, continue aldactone 25 mg bid, continue lasix 20 mg po qd, f /u bnp/bmp 3.) Rec palliative care consult due noncompliance with meds and treatment recommendations, d/w Dr Monson
--- NOTE | 2018-03-28 14:47 | P.PNPAL ---
Spoke with PRASANNA Cano. Plans to place at local facility per [facility]
--- NOTE | 2018-03-28 15:35 | P.PNIM ---
Physical Exam Vital signs: Last Vital Signs Temp 97.9 F 03/28/18 12:00 Pulse 121 H 03/28/18 12:00 Resp 20 03/28/18 12:00 BP 101/73 03/28/18 12:00 Pulse Ox 88 L 03/28/18 12:00 Intake & Output 03/26/18 03/27/18 03/28/18 03/29/18 06:59 06:59 06:59 06:59 Intake Total 2730 / 2730 3380 / 3380 3680 / 3680 1000 / 1000 Output Total 1200 / 1200 950 / 950 1900 / 1900 Balance 1530 / 1530 2430 / 2430 1780 / 1780 1000 / 1000 Weight 56 kg 55.8 kg 54.3 kg Narrative: GENERAL: Thin appearing older looking female, alert and oriented x2 in no apparent distress HEENT: No nasal bleeding or discharge. Mucous membranes pink and moist. NECK: Trachea midline. No JVD. CARDIOVASCULAR: Regular rate and rhythm. RESPIRATORY: No accessory muscle use. Clear to auscultation. Breath sounds equal bilaterally. GASTROINTESTINAL: Abdomen soft, non-tender, nondistended. Hepatic and splenic margins not palpable. MUSCULOSKELETAL: Extremities without clubbing, cyanosis. Bilateral lower extremity trace edema. No obvious deformities. SKIN: Warm and dry. NEUROLOGICAL: Awake and alert and oriented x2. No obvious cranial nerve deficits. Motor grossly within normal limits. Five out of 5 muscle strength in the arms and legs. Normal speech. PSYCHIATRIC: Flat mood and affect; insight and judgment poor Results Labs CBC & Chem 7: 03/27/18 04:40 03/29/18 17:40 Assessment and Plan Plan 57-year-old homeless female who presented to the emergency department on 03/18/2018 due to shortness of breath. ED workup indicated elevated troponins as well as chest x-ray finding consistent with COPD. Cardiology, infectious disease were consulted for NSTEMI as well as bacteremia respectively. 03/28--no change in plan. appreciate palliative care involvement. Non-STEMI Congestive heart failure, unknown whether systolic or diastolic Patient is refusing any workup including echocardiogram or cardiac cath Continue aspirin 81 mg daily, Plavix 75 mg daily. Continue Lasix p.o. 20 mg p.o. daily not on atorvastatin due to elevated liver enzymes , we will consider restarting of LFT improve -Medication Nurse following: Appreciate recommendation, recommended palliative care due to noncompliance with medication and treatments -Palliative care consult appreciated. -no chest pain or SOB Bacteremia with MSSA Likely due to cellulitis of the lower extremity. -Blood culture on staph coag negative/staph aureus, blood culture on no growth in 5 days Discussed with infectious disease. discontinue cefazolin IV. Continue dicloxacillin 500 mg 4 times daily for 14 days. -Monitor signs and symptoms, no fever or chills -Monitor and follow blood cultures COPD exacerbation Continue azithromycin as well as DuoNeb breathing treatments. -Continue Symbicort and DuoNeb treatments wean oxygen off keep O2 sat greater than 92% No wheezes no shortness of breath Psychosis -Psychiatry consulted: Appreciate recommendation -Noted patient with tangential thought process and evasive behavior/ argumentative attitude -Does not have the capacity to make medical decisions at this time -Monitor mental status DVT prophylaxis: Patient ambulatory Progress Note: Quality VTE Deep Vein Thrombosis/Pulmonary Embolism Present on Admission: No
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
[2018-03-28] MEDS: Azithromycin 250 MG Tablet PO SCH (17:59)
[2018-03-28] MEDS: Melatonin 5 MG Tablet PO PRN (21:48)
[2018-03-29] MEDS: Sod Chloride 0.9% Inj 1,000 ML IV.CONT SCH ×2 (00:49→12:58)
[2018-03-29] MEDS: Acetaminophen 325 MG Tablet PO PRN (06:19)
[2018-03-29] MEDS: Budesonide-Formoterol 80/4.5 MCG 6.9 GM Inhaler INH SCH ×2 (09:26→21:08)
[2018-03-29] MEDS: Furosemide 20 MG Tablet PO SCH (10:32)
[2018-03-29] MEDS: Magnesium Oxide 400 MG Tablet PO SCH ×2 (10:32→21:08)
[2018-03-29] MEDS: Spironolactone 25 MG Tablet PO SCH ×2 (10:32→17:57)
[2018-03-29] MEDS: Lactobacillus Acidophilus/L. Spores Tablet PO SCH ×3 (10:32→17:57)
--- NOTE | 2018-03-29 15:06 | P.PNCA ---
Subjective Interval history: alert in nad Medications and Allergies Active Medications: Active Medications Acetaminophen (Tylenol) 650 mg PO Q4H PRN PRN Reason: Temp > 100.4 Last Admin: 03/29/18 06:19 Dose: 650 mg Hydrocodone Bitart/Acetaminophen ([place] 5/325) 1 tab PO Q4H PRN PRN Reason: PAIN 3-5 Last Admin: 03/29/18 12:58 Dose: 1 tab Al Hydroxide/Mg Hydroxide (Milk Of Trino Bernard) 30 ml PO Q12H PRN PRN Reason: Mild Constipation Albuterol (Albuterol Neb (Prn)) 2.5 mg NEB Q4HR NEB PRN PRN Reason: SHORTNESS OF BREATH Aspirin (Ecotrin) 81 mg PO DAILY [facility] Last Admin: 03/29/18 10:32 Dose: Not Given Azithromycin (Zithromax) 250 mg PO Q24H [facility] Last Admin: 03/28/18 17:59 Dose: 250 mg Budesonide/Formoterol Fumarate (Symbicort 80/4.5 Mcg Inh) 2 puff INH Q12H [facility] Last Admin: 03/29/18 09:26 Dose: Not Given Clopidogrel Bisulfate (Plavix) 75 mg PO DAILY [facility] Last Admin: 03/29/18 10:33 Dose: Not Given Dicloxacillin Sodium (Dynapen) 500 mg PO Q6HR [facility] Stop: 04/07/18 11:59 Last Admin: 03/29/18 12:57 Dose: 500 mg Furosemide (Lasix) 20 mg PO DAILY [facility] Last Admin: 03/29/18 10:32 Dose: Not Given Sodium Chloride (Ns Inj) 1,000 mls @ 50 mls/hr IV.CONT .Q20H [facility] Last Admin: 03/29/18 12:58 Dose: 100 mls/hr Lactobacillus Acidophilus (Lactinex) 1 tab PO TID [facility] Last Admin: 03/29/18 12:57 Dose: 1 tab Magnesium Oxide (Mag-Ox) 400 mg PO BID [facility] Last Admin: 03/29/18 10:32 Dose: Not Given Melatonin (Melatonin) 5 mg PO HS PRN PRN Reason: SLEEP Last Admin: 03/28/18 21:48 Dose: 5 mg Morphine Sulfate (Morphine Inj) 2 mg IV.PUSH Q4H PRN PRN Reason: PAIN 6-10 Last Admin: 03/27/18 14:34 Dose: 2 mg Ondansetron HCl (Zofran Inj) 4 mg IV.PUSH Q6H PRN PRN Reason: NAUSEA OR VOMITING Sodium Chloride (Ns Flush) 2 ml IV.FLUSH BID [facility] Last Admin: 03/29/18 10:33 Dose: Not Given Sodium Chloride (Ns Flush) 2 ml IV.FLUSH PRN PRN PRN Reason: FLUSH AFTER USING IV ACCESS Spironolactone (Aldactone) 25 mg PO BID@0900,1800 [facility] Last Admin: 03/29/18 10:32 Dose: Not Given Allergies Allergy/AdvReac Type Severity Reaction Status Date / Time SOME ANTI INFLAMMATORY MEDS Allergy Severe Swelling Uncoded 05/16/05 13:42 INHALERS Allergy Intermediate SOB Uncoded 01/07/06 10:13 Physical Exam Vital signs: Vital Signs 03/28/18 16:00 03/28/18 20:00 03/29/18 00:00 Temperature 97.9 F 97.9 F 97.7 F Pulse Rate 92 H 107 H 74 Respiratory Rate 20 21 19 Blood Pressure 119/59 L 137/71 112/65 Pulse Oximetry 97 90 L 91 L 03/29/18 04:00 03/29/18 07:57 03/29/18 08:00 Temperature 98.0 F 97.7 F Pulse Rate 78 73 Respiratory Rate 18 15 Blood Pressure 111/59 L 102/57 L Pulse Oximetry 95 93 L 92 L 03/29/18 12:00 Temperature 97.3 F L Pulse Rate 92 H Respiratory Rate 16 Blood Pressure 143/80 H Pulse Oximetry 93 L Intake & Output 03/28/18 03/29/18 03/29/18 18:59 06:59 18:59 Intake Total 1959 1050 / 1050 1000 / 1000 Balance 1959 1050 / 1050 1000 / 1000 Weight 56.5 kg Intake: IV 1000 / 1000 400 / 400 1000 / 1000 NS Inj 1,000 ML @ 50 mls/hr IV. 1000 / 1000 400 / 400 1000 / 1000 CONT .Q20H [facility] Rx#:[id number] Oral 960 / 960 650 / 650 Other: # Voids 5 4 Date of Last Bowel Movement 03/24/18 03/28/18 # Bowel Movements 2 2 - Constitutional no acute distress - Routine HEENT Exam Head: Present: normocephalic - Routine Neck Exam Present: supple - Routine Respiratory Exam Present: CTA bilaterally - Routine Cardiovascular Exam Present: S1, S2 - Routine Abdominal Exam Present: soft - Routine Extremities Exam Comments: no justine Results 03/27/18 04:40 03/24/18 05:36 Cardiac Enzymes 03/28/18 Range/Units 03:45 B-Natriuretic Peptide 393 H (0-100) pg/mL Coagulation 03/28/18 Range/Units 03:45 B-Natriuretic Peptide 393 H (0-100) pg/mL Intake and Output 03/29/18 03/29/18 03/29/18 06:59 14:59 22:59 Intake Total 650 / 650 1000 / 1000 Balance 650 / 650 1000 / 1000 Intake: IV 1000 / 1000 NS Inj 1,000 ML @ 50 mls/hr IV. 1000 / 1000 CONT .Q20H [facility] Rx#:[id number] Oral 650 / 650 Other: # Voids 4 # Bowel Movements 2 Weight 56.5 kg Assessment and Plan - Assessment (1) Acute exacerbation of chronic obstructive pulmonary disease (COPD) Code(s): J44.1 - Chronic obstructive pulmonary disease with (acute) exacerbation Status: Acute (2) Elevated troponin Code(s): R74.8 - Abnormal levels of other serum enzymes Status: Acute (3) Non-ST elevation [place] (NSTEMI) Code(s): I21.4 - Non-ST elevation (NSTEMI) myocardial infarction Status: Acute - Plan 1.) NSTEMI - start aspirin 81 mg qd, statin held due to markedly elevated lfts, beta leonila held due to severe rad and copd, stacy held due to hypotension; patient adamantly refuses cath 2.) CHF - improving, continue aldactone 25 mg bid, continue lasix 20 mg po qd, f /u bnp/bmp 3.) Rec palliative care consult due noncompliance with meds and treatment recommendations, d/w Dr Monson
[2018-03-29] MEDS: Azithromycin 250 MG Tablet PO SCH (17:57)
[2018-03-29 18:12] LABS: Magnesium 1.9 mg/dL (1.5-2.5); Phosphorus 3.9 mg/dL (2.5-4.9); Potassium 4.5 meq/L (3.5-5.1)
[2018-03-29] MEDS: Morphine Inj 4 MG/ML Vial IV.PUSH PRN (21:08)
[2018-03-30] MEDS: Budesonide-Formoterol 80/4.5 MCG 6.9 GM Inhaler INH SCH ×2 (08:00→21:46)
[2018-03-30] MEDS: Spironolactone 25 MG Tablet PO SCH ×2 (10:04→17:38)
[2018-03-30] MEDS: Lactobacillus Acidophilus/L. Spores Tablet PO SCH ×3 (10:04→17:38)
[2018-03-30] MEDS: Magnesium Oxide 400 MG Tablet PO SCH ×2 (10:04→21:46)
[2018-03-30] MEDS: Furosemide 20 MG Tablet PO SCH (10:04)
[2018-03-30] MEDS: Sod Chloride 0.9% Inj 1,000 ML IV.CONT SCH (10:05)
--- NOTE | 2018-03-30 11:00 | P.PNCA ---
Subjective Interval history: alert in nad Medications and Allergies Active Medications: Active Medications Acetaminophen (Tylenol) 650 mg PO Q4H PRN PRN Reason: Temp > 100.4 Last Admin: 03/29/18 06:19 Dose: 650 mg Hydrocodone Bitart/Acetaminophen ([place] 5/325) 1 tab PO Q4H PRN PRN Reason: PAIN 3-5 Last Admin: 03/30/18 05:46 Dose: 1 tab Al Hydroxide/Mg Hydroxide (Milk Of Trino Bernard) 30 ml PO Q12H PRN PRN Reason: Mild Constipation Albuterol (Albuterol Neb (Prn)) 2.5 mg NEB Q4HR NEB PRN PRN Reason: SHORTNESS OF BREATH Aspirin (Ecotrin) 81 mg PO DAILY [facility] Last Admin: 03/30/18 10:04 Dose: 81 mg Azithromycin (Zithromax) 250 mg PO Q24H [facility] Last Admin: 03/29/18 17:57 Dose: 250 mg Budesonide/Formoterol Fumarate (Symbicort 80/4.5 Mcg Inh) 2 puff INH Q12H [facility] Last Admin: 03/30/18 08:00 Dose: 2 puff Clopidogrel Bisulfate (Plavix) 75 mg PO DAILY [facility] Last Admin: 03/30/18 10:04 Dose: 75 mg Dicloxacillin Sodium (Dynapen) 500 mg PO Q6HR [facility] Stop: 04/07/18 11:59 Last Admin: 03/30/18 05:46 Dose: 500 mg Furosemide (Lasix) 20 mg PO DAILY [facility] Last Admin: 03/30/18 10:04 Dose: 20 mg Sodium Chloride (Ns Inj) 1,000 mls @ 50 mls/hr IV.CONT .Q20H [facility] Last Admin: 03/30/18 10:05 Dose: 50 mls/hr Lactobacillus Acidophilus (Lactinex) 1 tab PO TID [facility] Last Admin: 03/30/18 10:04 Dose: 1 tab Magnesium Oxide (Mag-Ox) 400 mg PO BID [facility] Last Admin: 03/30/18 10:04 Dose: 400 mg Melatonin (Melatonin) 5 mg PO HS PRN PRN Reason: SLEEP Last Admin: 03/28/18 21:48 Dose: 5 mg Morphine Sulfate (Morphine Inj) 2 mg IV.PUSH Q4H PRN PRN Reason: PAIN 6-10 Last Admin: 03/29/18 21:08 Dose: 2 mg Ondansetron HCl (Zofran Inj) 4 mg IV.PUSH Q6H PRN PRN Reason: NAUSEA OR VOMITING Sodium Chloride (Ns Flush) 2 ml IV.FLUSH BID [facility] Last Admin: 03/30/18 10:05 Dose: 2 ml Sodium Chloride (Ns Flush) 2 ml IV.FLUSH PRN PRN PRN Reason: FLUSH AFTER USING IV ACCESS Spironolactone (Aldactone) 25 mg PO BID@0900,1800 [facility] Last Admin: 03/30/18 10:04 Dose: 25 mg Allergies Allergy/AdvReac Type Severity Reaction Status Date / Time SOME ANTI INFLAMMATORY MEDS Allergy Severe Swelling Uncoded 05/16/05 13:42 INHALERS Allergy Intermediate SOB Uncoded 01/07/06 10:13 Physical Exam Vital signs: Vital Signs 03/29/18 12:00 03/29/18 16:00 03/29/18 16:26 Temperature 97.3 F L 98.5 F Pulse Rate 92 H 123 H 116 H Respiratory Rate 16 17 Blood Pressure 143/80 H 117/60 Pulse Oximetry 93 L 96 03/29/18 20:00 03/29/18 20:49 03/30/18 00:00 Temperature 97.8 F 97.5 F L Pulse Rate 102 H 83 Respiratory Rate 20 17 Blood Pressure 150/79 H 120/72 Pulse Oximetry 94 L 96 98 03/30/18 04:00 03/30/18 08:00 Temperature 97.1 F L 97.5 F L Pulse Rate 84 80 Respiratory Rate 18 18 Blood Pressure 101/62 116/65 Pulse Oximetry 99 100 Intake & Output 03/29/18 03/30/18 03/30/18 18:59 06:59 18:59 Intake Total 1000 / 1000 120 / 120 880 / 880 Output Total 1400 / 1400 Balance -400 / -400 120 / 120 880 / 880 Weight 58.1 kg Intake: IV 1000 / 1000 120 / 120 880 / 880 NS Inj 1,000 ML @ 50 mls/hr IV. 1000 / 1000 120 / 120 880 / 880 CONT .Q20H [facility] Rx#:[id number] Output: Urine 1400 / 1400 Other: # Voids 2 Date of Last Bowel Movement 03/29/18 # Bowel Movements 2 2 - Constitutional no acute distress - Routine HEENT Exam Head: Present: normocephalic - Routine Neck Exam Present: supple - Routine Respiratory Exam Present: CTA bilaterally - Routine Cardiovascular Exam Present: S1, S2 - Routine Abdominal Exam Present: soft - Routine Extremities Exam Comments: no justine Results 03/27/18 04:40 03/29/18 17:40 Cardiac Enzymes 03/30/18 Range/Units 05:40 B-Natriuretic Peptide 398 H (0-100) pg/mL Coagulation 03/30/18 Range/Units 05:40 B-Natriuretic Peptide 398 H (0-100) pg/mL Comprehensive Metabolic Panel 03/29/18 Range/Units 17:40 Potassium 4.5 (3.5-5.1) meq/L Intake and Output 03/29/18 03/30/18 03/30/18 22:59 06:59 14:59 Intake Total 120 / 120 880 / 880 Output Total 1400 / 1400 Balance -1400 / -1400 120 / 120 880 / 880 Intake: IV 120 / 120 880 / 880 NS Inj 1,000 ML @ 50 mls/hr IV. 120 / 120 880 / 880 CONT .Q20H [facility] Rx#:[id number] Output: Urine 1400 / 1400 Other: # Voids 2 # Bowel Movements 2 2 Weight 58.1 kg Assessment and Plan - Assessment (1) Acute exacerbation of chronic obstructive pulmonary disease (COPD) Code(s): J44.1 - Chronic obstructive pulmonary disease with (acute) exacerbation Status: Acute (2) Elevated troponin Code(s): R74.8 - Abnormal levels of other serum enzymes Status: Acute (3) Non-ST elevation [place] (NSTEMI) Code(s): I21.4 - Non-ST elevation (NSTEMI) myocardial infarction Status: Acute - Plan 1.) NSTEMI - start aspirin 81 mg qd, statin held due to markedly elevated lfts, beta leonila held due to severe rad and copd, stacy held due to hypotension; patient adamantly refuses cath 2.) CHF - improving, continue aldactone 25 mg bid, continue lasix 20 mg po qd, f /u bnp/bmp 3.) Rec palliative care consult due noncompliance with meds and treatment recommendations, d/w Dr Monson
--- NOTE | 2018-03-30 17:18 | P.PNIM ---
Subjective Interval history: had multiple requests today--yellow pages to search numbers, computer to check some things online. also wanting to know when she can be discharged. Physical Exam Vital signs: Last Vital Signs Temp 98.3 F 03/30/18 12:00 Pulse 87 03/30/18 12:00 Resp 18 03/30/18 12:00 BP 112/60 03/30/18 12:00 Pulse Ox 95 03/30/18 12:00 Intake & Output 03/28/18 03/29/18 03/30/18 03/31/18 06:59 06:59 06:59 06:59 Intake Total 3680 / 3680 3010 / 3010 1120 / 1120 880 / 880 Output Total 1900 / 1900 1400 / 1400 Balance 1780 / 1780 3010 / 3010 -280 / -280 880 / 880 Weight 54.3 kg 56.5 kg 58.1 kg Narrative: GENERAL: Thin appearing older looking female, alert and oriented x2 in no apparent distress HEENT: No nasal bleeding or discharge. Mucous membranes pink and moist. NECK: Trachea midline. No JVD. CARDIOVASCULAR: Regular rate and rhythm. RESPIRATORY: No accessory muscle use. Clear to auscultation. Breath sounds equal bilaterally. GASTROINTESTINAL: Abdomen soft, non-tender, nondistended. Hepatic and splenic margins not palpable. MUSCULOSKELETAL: Extremities without clubbing, cyanosis. Bilateral lower extremity trace edema. No obvious deformities. SKIN: Warm and dry. NEUROLOGICAL: Awake and alert and oriented x2. No obvious cranial nerve deficits. Motor grossly within normal limits. Five out of 5 muscle strength in the arms and legs. Normal speech. PSYCHIATRIC: Flat mood and affect; insight and judgment poor Results Labs CBC & Chem 7: 03/27/18 04:40 03/29/18 17:40 Assessment and Plan Plan 57-year-old homeless female who presented to the emergency department on 03/18/2018 due to shortness of breath. ED workup indicated elevated troponins as well as chest x-ray finding consistent with COPD. Cardiology, infectious disease were consulted for NSTEMI as well as bacteremia respectively. 03/30--no change in plan. appreciate palliative care involvement. Non-STEMI Congestive heart failure, unknown whether systolic or diastolic Patient is refusing any workup including echocardiogram or cardiac cath Continue aspirin 81 mg daily, Plavix 75 mg daily. Continue Lasix p.o. 20 mg p.o. daily not on atorvastatin due to elevated liver enzymes , we will consider restarting of LFT improve -Global Climate Change Analyst following: Appreciate recommendation, recommended palliative care due to noncompliance with medication and treatments -Palliative care consult appreciated. -no chest pain or SOB Bacteremia with MSSA Likely due to cellulitis of the lower extremity. -Blood culture on staph coag negative/staph aureus, blood culture on no growth in 5 days Continue dicloxacillin 500 mg 4 times daily for 14 days. -Monitor signs and symptoms, no fever or chills -Monitor and follow blood cultures COPD exacerbation Continue azithromycin as well as DuoNeb breathing treatments. -Continue Symbicort and DuoNeb treatments wean oxygen off keep O2 sat greater than 92% No wheezes no shortness of breath Psychosis -Psychiatry consulted: Appreciate recommendation -Noted patient with tangential thought process and evasive behavior/ argumentative attitude -Does not have the capacity to make medical decisions at this time -Monitor mental status DVT prophylaxis: Patient ambulatory Progress Note: Quality VTE Deep Vein Thrombosis/Pulmonary Embolism Present on Admission: No
[2018-03-30] MEDS: Azithromycin 250 MG Tablet PO SCH (17:38)
[2018-03-31] MEDS: Melatonin 5 MG Tablet PO PRN ×2 (01:26→23:41)
[2018-03-31] MEDS: Sod Chloride 0.9% Inj 1,000 ML IV.CONT SCH (05:31)
[2018-03-31] MEDS: Furosemide 20 MG Tablet PO SCH (08:43)
[2018-03-31] MEDS: Lactobacillus Acidophilus/L. Spores Tablet PO SCH ×3 (08:43→17:23)
[2018-03-31] MEDS: Magnesium Oxide 400 MG Tablet PO SCH ×2 (08:44→20:31)
[2018-03-31] MEDS: Spironolactone 25 MG Tablet PO SCH (08:44)
[2018-03-31] MEDS: Budesonide-Formoterol 80/4.5 MCG 6.9 GM Inhaler INH SCH ×2 (08:44→20:29)
--- NOTE | 2018-03-31 09:15 | P.PNCA ---
Subjective Interval history: asleep in nad Medications and Allergies Active Medications: Active Medications Acetaminophen (Tylenol) 650 mg PO Q4H PRN PRN Reason: Temp > 100.4 Last Admin: 03/29/18 06:19 Dose: 650 mg Hydrocodone Bitart/Acetaminophen ([place] 5/325) 1 tab PO Q4H PRN PRN Reason: PAIN 3-5 Last Admin: 03/30/18 21:46 Dose: 1 tab Al Hydroxide/Mg Hydroxide (Milk Of Trino Bernard) 30 ml PO Q12H PRN PRN Reason: Mild Constipation Albuterol (Albuterol Neb (Prn)) 2.5 mg NEB Q4HR NEB PRN PRN Reason: SHORTNESS OF BREATH Aspirin (Ecotrin) 81 mg PO DAILY [facility] Last Admin: 03/31/18 08:44 Dose: 81 mg Azithromycin (Zithromax) 250 mg PO Q24H [facility] Last Admin: 03/30/18 17:38 Dose: 250 mg Budesonide/Formoterol Fumarate (Symbicort 80/4.5 Mcg Inh) 2 puff INH Q12H [facility] Last Admin: 03/31/18 08:44 Dose: 2 puff Clopidogrel Bisulfate (Plavix) 75 mg PO DAILY [facility] Last Admin: 03/31/18 08:43 Dose: 75 mg Dicloxacillin Sodium (Dynapen) 500 mg PO Q6HR [facility] Stop: 04/07/18 11:59 Last Admin: 03/31/18 06:48 Dose: 500 mg Furosemide (Lasix) 20 mg PO DAILY [facility] Last Admin: 03/31/18 08:43 Dose: 20 mg Sodium Chloride (Ns Inj) 1,000 mls @ 50 mls/hr IV.CONT .Q20H [facility] Last Infusion: 03/31/18 05:31 Dose: 0 mls/hr Lactobacillus Acidophilus (Lactinex) 1 tab PO TID [facility] Last Admin: 03/31/18 08:43 Dose: 1 tab Magnesium Oxide (Mag-Ox) 400 mg PO BID [facility] Last Admin: 03/31/18 08:44 Dose: 400 mg Melatonin (Melatonin) 5 mg PO HS PRN PRN Reason: SLEEP Last Admin: 03/31/18 01:26 Dose: 5 mg Morphine Sulfate (Morphine Inj) 2 mg IV.PUSH Q4H PRN PRN Reason: PAIN 6-10 Last Admin: 03/29/18 21:08 Dose: 2 mg Ondansetron HCl (Zofran Inj) 4 mg IV.PUSH Q6H PRN PRN Reason: NAUSEA OR VOMITING Sodium Chloride (Ns Flush) 2 ml IV.FLUSH BID [facility] Last Admin: 03/31/18 08:44 Dose: 2 ml Sodium Chloride (Ns Flush) 2 ml IV.FLUSH PRN PRN PRN Reason: FLUSH AFTER USING IV ACCESS Allergies Allergy/AdvReac Type Severity Reaction Status Date / Time SOME ANTI INFLAMMATORY MEDS Allergy Severe Swelling Uncoded 05/16/05 13:42 INHALERS Allergy Intermediate SOB Uncoded 01/07/06 10:13 Physical Exam Vital signs: Vital Signs 03/30/18 12:00 03/30/18 16:00 03/30/18 20:00 Temperature 98.3 F 97.5 F L 98.6 F Pulse Rate 87 108 H 93 H Respiratory Rate 18 18 17 Blood Pressure 112/60 142/76 H 145/63 H Pulse Oximetry 95 95 96 03/31/18 00:00 03/31/18 04:00 03/31/18 08:00 Temperature 97.8 F 97.7 F 98 F Pulse Rate 74 97 H 69 Respiratory Rate 20 18 18 Blood Pressure 110/59 L 108/54 L 93/50 L Pulse Oximetry 96 92 L 98 Intake & Output 03/30/18 03/31/18 03/31/18 18:59 06:59 18:59 Intake Total 1440 / 1440 0 / 0 Output Total 600 / 600 Balance 840 / 840 0 / 0 Weight 58.1 kg Intake: IV 880 / 880 NS Inj 1,000 ML @ 50 mls/hr IV. 880 / 880 CONT .Q20H [facility] Rx#:[id number] Oral 560 / 560 0 / 0 Output: Urine 600 / 600 Other: # Voids 1 # Bowel Movements 3 1 - Constitutional no acute distress - Routine HEENT Exam Head: Present: normocephalic - Routine Neck Exam Present: supple - Routine Respiratory Exam Present: CTA bilaterally - Routine Cardiovascular Exam Present: S1, S2 - Routine Abdominal Exam Present: soft - Routine Extremities Exam Comments: no justine Results 03/27/18 04:40 03/29/18 17:40 Cardiac Enzymes 03/30/18 Range/Units 05:40 B-Natriuretic Peptide 398 H (0-100) pg/mL Coagulation 03/30/18 Range/Units 05:40 B-Natriuretic Peptide 398 H (0-100) pg/mL Comprehensive Metabolic Panel 03/29/18 Range/Units 17:40 Potassium 4.5 (3.5-5.1) meq/L Intake and Output 03/30/18 03/31/18 03/31/18 22:59 06:59 14:59 Intake Total 560 / 560 0 / 0 Output Total 600 / 600 Balance -40 / -40 0 / 0 Intake: Oral 560 / 560 0 / 0 Output: Urine 600 / 600 Other: # Voids 1 # Bowel Movements 3 1 Weight 58.1 kg Assessment and Plan - Assessment (1) Acute exacerbation of chronic obstructive pulmonary disease (COPD) Code(s): J44.1 - Chronic obstructive pulmonary disease with (acute) exacerbation Status: Acute (2) Elevated troponin Code(s): R74.8 - Abnormal levels of other serum enzymes Status: Acute (3) Non-ST elevation [place] (NSTEMI) Code(s): I21.4 - Non-ST elevation (NSTEMI) myocardial infarction Status: Acute - Plan 1.) NSTEMI - start aspirin 81 mg qd, statin held due to markedly elevated lfts, beta leonila held due to severe rad and copd, stacy held due to hypotension; patient adamantly refuses cath 2.) CHF - improving, increase aldactone 50 mg bid, continue lasix 20 mg po qd, f /u bnp/bmp 3.) Rec palliative care consult due noncompliance with meds and treatment recommendations, d/w Dr Monson
--- NOTE | 2018-03-31 14:47 | P.PNIM ---
Subjective Interval history: no new complaints Physical Exam Vital signs: Last Vital Signs Temp 97.9 F 03/31/18 12:00 Pulse 85 03/31/18 12:00 Resp 18 03/31/18 12:00 BP 121/61 03/31/18 12:00 Pulse Ox 98 03/31/18 12:00 Intake & Output 03/29/18 03/30/18 03/31/18 04/01/18 06:59 06:59 06:59 06:59 Intake Total 3010 / 3010 1120 / 1120 1440 / 1440 Output Total 1400 / 1400 600 / 600 Balance 3010 / 3010 -280 / -280 840 / 840 Weight 56.5 kg 58.1 kg 58.1 kg Narrative: GENERAL: Thin appearing older looking female, alert and oriented x2 in no apparent distress HEENT: No nasal bleeding or discharge. Mucous membranes pink and moist. NECK: Trachea midline. No JVD. CARDIOVASCULAR: Regular rate and rhythm. RESPIRATORY: No accessory muscle use. Clear to auscultation. Breath sounds equal bilaterally. GASTROINTESTINAL: Abdomen soft, non-tender, nondistended. Hepatic and splenic margins not palpable. MUSCULOSKELETAL: Extremities without clubbing, cyanosis. Bilateral lower extremity trace edema. No obvious deformities. SKIN: Warm and dry. NEUROLOGICAL: Awake and alert and oriented x2. No obvious cranial nerve deficits. Motor grossly within normal limits. Five out of 5 muscle strength in the arms and legs. Normal speech. PSYCHIATRIC: Flat mood and affect; insight and judgment poor Results Labs CBC & Chem 7: 03/27/18 04:40 04/01/18 06:27 Assessment and Plan Plan 57-year-old homeless female who presented to the emergency department on 03/18/2018 due to shortness of breath. ED workup indicated elevated troponins as well as chest x-ray finding consistent with COPD. Cardiology, infectious disease were consulted for NSTEMI as well as bacteremia respectively. 03/30--no change in plan. appreciate palliative care involvement. Non-STEMI Congestive heart failure, unknown whether systolic or diastolic Patient is refusing any workup including echocardiogram or cardiac cath Continue aspirin 81 mg daily, Plavix 75 mg daily. Continue Lasix p.o. 20 mg p.o. daily not on atorvastatin due to elevated liver enzymes , we will consider restarting of LFT improve -Drywall Sander following: Appreciate recommendation, recommended palliative care due to noncompliance with medication and treatments -Palliative care consult appreciated. -no chest pain or SOB Bacteremia with MSSA Likely due to cellulitis of the lower extremity. -Blood culture on staph coag negative/staph aureus, blood culture on no growth in 5 days Continue dicloxacillin 500 mg 4 times daily for 14 days. -Monitor signs and symptoms, no fever or chills -Monitor and follow blood cultures COPD exacerbation Continue azithromycin as well as DuoNeb breathing treatments. -Continue Symbicort and DuoNeb treatments wean oxygen off keep O2 sat greater than 92% No wheezes no shortness of breath Psychosis -Psychiatry consulted: Appreciate recommendation -Noted patient with tangential thought process and evasive behavior/ argumentative attitude -Does not have the capacity to make medical decisions at this time -Monitor mental status DVT prophylaxis: Patient ambulatory Progress Note: Quality VTE Deep Vein Thrombosis/Pulmonary Embolism Present on Admission: No
[2018-03-31] MEDS: Azithromycin 250 MG Tablet PO SCH (17:22)
[2018-03-31] MEDS: Spironolactone 50 MG Tablet PO SCH (17:22)
[2018-03-31] MEDS: Morphine Inj 4 MG/ML Vial IV.PUSH PRN (21:27)
[2018-04-01] MEDS: Sod Chloride 0.9% Inj 1,000 ML IV.CONT SCH ×2 (00:45→20:28)
[2018-04-01 07:26] LABS: Anion Gap 3 meq/L (5-15); Blood Urea Nitrogen 24 mg/dL (7-18); Calcium 8.8 mg/dL (8.5-10.1); Carbon Dioxide 39.5 meq/L (21.0-32.0); Chloride 95 meq/L (98-107); Glomerular Filtration Rate Greater Than 89 mL/min (>89); Glucose,Random 79 mg/dL (74-106); Potassium 4.1 meq/L (3.5-5.1); Sodium 137 meq/L (136-145)
[2018-04-01] MEDS: Spironolactone 50 MG Tablet PO SCH ×2 (08:24→17:29)
[2018-04-01] MEDS: Budesonide-Formoterol 80/4.5 MCG 6.9 GM Inhaler INH SCH ×2 (08:24→20:26)
[2018-04-01] MEDS: Furosemide 20 MG Tablet PO SCH (08:24)
[2018-04-01] MEDS: Magnesium Oxide 400 MG Tablet PO SCH ×2 (08:24→20:26)
[2018-04-01] MEDS: Lactobacillus Acidophilus/L. Spores Tablet PO SCH ×4 (08:24→17:34)
--- NOTE | 2018-04-01 10:48 | P.PNCA ---
Subjective Interval history: alert in nad Medications and Allergies Active Medications: Active Medications Acetaminophen (Tylenol) 650 mg PO Q4H PRN PRN Reason: Temp > 100.4 Last Admin: 03/29/18 06:19 Dose: 650 mg Hydrocodone Bitart/Acetaminophen ([place] 5/325) 1 tab PO Q4H PRN PRN Reason: PAIN 3-5 Last Admin: 03/31/18 17:23 Dose: 1 tab Al Hydroxide/Mg Hydroxide (Milk Of Trino Bernard) 30 ml PO Q12H PRN PRN Reason: Mild Constipation Albuterol (Albuterol Neb (Prn)) 2.5 mg NEB Q4HR NEB PRN PRN Reason: SHORTNESS OF BREATH Aspirin (Ecotrin) 81 mg PO DAILY [facility] Last Admin: 04/01/18 08:24 Dose: 81 mg Azithromycin (Zithromax) 250 mg PO Q24H [facility] Last Admin: 03/31/18 17:22 Dose: 250 mg Budesonide/Formoterol Fumarate (Symbicort 80/4.5 Mcg Inh) 2 puff INH Q12H [facility] Last Admin: 04/01/18 08:24 Dose: 2 puff Clopidogrel Bisulfate (Plavix) 75 mg PO DAILY [facility] Last Admin: 04/01/18 08:24 Dose: 75 mg Dicloxacillin Sodium (Dynapen) 500 mg PO Q6HR [facility] Stop: 04/07/18 11:59 Last Admin: 04/01/18 05:25 Dose: 500 mg Furosemide (Lasix) 20 mg PO DAILY [facility] Last Admin: 04/01/18 08:24 Dose: 20 mg Sodium Chloride (Ns Inj) 1,000 mls @ 50 mls/hr IV.CONT .Q20H [facility] Last Admin: 04/01/18 00:45 Dose: Not Given Lactobacillus Acidophilus (Lactinex) 1 tab PO TID [facility] Last Admin: 04/01/18 08:24 Dose: 1 tab Magnesium Oxide (Mag-Ox) 400 mg PO BID [facility] Last Admin: 04/01/18 08:24 Dose: 400 mg Melatonin (Melatonin) 5 mg PO HS PRN PRN Reason: SLEEP Last Admin: 03/31/18 23:41 Dose: 5 mg Morphine Sulfate (Morphine Inj) 2 mg IV.PUSH Q4H PRN PRN Reason: PAIN 6-10 Last Admin: 03/31/18 21:27 Dose: 2 mg Ondansetron HCl (Zofran Inj) 4 mg IV.PUSH Q6H PRN PRN Reason: NAUSEA OR VOMITING Sodium Chloride (Ns Flush) 2 ml IV.FLUSH BID [facility] Last Admin: 04/01/18 08:24 Dose: 2 ml Sodium Chloride (Ns Flush) 2 ml IV.FLUSH PRN PRN PRN Reason: FLUSH AFTER USING IV ACCESS Last Admin: 03/31/18 21:29 Dose: 2 ml Spironolactone (Aldactone) 50 mg PO BID@0900,1800 [facility] Last Admin: 04/01/18 08:24 Dose: 50 mg Allergies Allergy/AdvReac Type Severity Reaction Status Date / Time SOME ANTI INFLAMMATORY MEDS Allergy Severe Swelling Uncoded 05/16/05 13:42 INHALERS Allergy Intermediate SOB Uncoded 01/07/06 10:13 Physical Exam Vital signs: Vital Signs 03/31/18 12:00 03/31/18 16:00 03/31/18 20:00 Temperature 97.9 F 97.3 F L 98.3 F Pulse Rate 85 96 H 101 H Respiratory Rate 18 18 22 Blood Pressure 121/61 148/80 H 128/85 Pulse Oximetry 98 98 92 L 04/01/18 00:00 04/01/18 04:00 04/01/18 08:00 Temperature 97.9 F 97.8 F 98 F Pulse Rate 86 77 87 Respiratory Rate 20 14 18 Blood Pressure 94/69 L 101/61 109/69 Pulse Oximetry 94 L 92 L 95 Intake & Output 03/31/18 04/01/18 04/01/18 18:59 06:59 18:59 Intake Total 960 / 960 480 / 480 Output Total 500 / 500 Balance 960 / 960 -20 / -20 Intake: Oral 960 / 960 480 / 480 Output: Urine 500 / 500 Other: # Voids 6 Date of Last Bowel Movement 03/31/18 # Bowel Movements 3 - Constitutional no acute distress - Routine HEENT Exam Head: Present: normocephalic - Routine Neck Exam Present: supple - Routine Respiratory Exam Present: CTA bilaterally - Routine Cardiovascular Exam Present: S1, S2 - Routine Abdominal Exam Present: soft - Routine Extremities Exam Comments: no justine Results 03/27/18 04:40 04/01/18 06:27 Cardiac Enzymes 04/01/18 Range/Units 06:27 B-Natriuretic Peptide 391 H (0-100) pg/mL Coagulation 04/01/18 Range/Units 06:27 B-Natriuretic Peptide 391 H (0-100) pg/mL Comprehensive Metabolic Panel 04/01/18 Range/Units 06:27 Sodium 137 (136-145) meq/L Potassium 4.1 (3.5-5.1) meq/L Chloride 95 L (98-107) meq/L Carbon Dioxide 39.5 H (21.0-32.0) meq/L BUN 24 H (7-18) mg/dL Creatinine 0.58 (0.50-1.00) mg/dL Calcium 8.8 (8.5-10.1) mg/dL Intake and Output 03/31/18 04/01/18 04/01/18 22:59 06:59 14:59 Intake Total 960 / 960 480 / 480 Output Total 500 / 500 Balance 960 / 960 -20 / -20 Intake: Oral 960 / 960 480 / 480 Output: Urine 500 / 500 Other: # Voids 6 Date of Last Bowel Movement 03/31/18 # Bowel Movements 3 Assessment and Plan - Assessment (1) Acute exacerbation of chronic obstructive pulmonary disease (COPD) Code(s): J44.1 - Chronic obstructive pulmonary disease with (acute) exacerbation Status: Acute (2) Elevated troponin Code(s): R74.8 - Abnormal levels of other serum enzymes Status: Acute (3) Non-ST elevation [place] (NSTEMI) Code(s): I21.4 - Non-ST elevation (NSTEMI) myocardial infarction Status: Acute - Plan 1.) NSTEMI - start aspirin 81 mg qd, statin held due to markedly elevated lfts, beta leonila held due to severe rad and copd, stacy held due to hypotension; patient adamantly refuses cath 2.) CHF - improving, continue aldactone 50 mg bid, continue lasix 20 mg po qd, f /u bnp/bmp 3.) Rec palliative care consult due noncompliance with meds and treatment recommendations, d/w Dr Monson
--- NOTE | 2018-04-01 15:58 | P.PNIM ---
Subjective Interval history: no new complaints. asks to be allowed to walk around if someone available to walk with her. asking when she will go home. Physical Exam Vital signs: Last Vital Signs Temp 97.8 F 04/01/18 12:00 Pulse 89 04/01/18 12:00 Resp 18 04/01/18 12:00 BP 116/76 04/01/18 12:00 Pulse Ox 95 04/01/18 12:00 Intake & Output 03/30/18 03/31/18 04/01/18 04/02/18 06:59 06:59 06:59 06:59 Intake Total 1120 / 1120 1440 / 1440 1440 / 1440 Output Total 1400 / 1400 600 / 600 500 / 500 Balance -280 / -280 840 / 840 940 / 940 Weight 58.1 kg 58.1 kg Narrative: GENERAL: Thin appearing older looking female, alert and oriented x2 in no apparent distress HEENT: No nasal bleeding or discharge. Mucous membranes pink and moist. NECK: Trachea midline. No JVD. CARDIOVASCULAR: Regular rate and rhythm. RESPIRATORY: No accessory muscle use. Clear to auscultation. Breath sounds equal bilaterally. GASTROINTESTINAL: Abdomen soft, non-tender, nondistended. Hepatic and splenic margins not palpable. MUSCULOSKELETAL: Extremities without clubbing, cyanosis. Bilateral lower extremity trace edema. No obvious deformities. SKIN: Warm and dry. NEUROLOGICAL: Awake and alert and oriented x2. No obvious cranial nerve deficits. Motor grossly within normal limits. Five out of 5 muscle strength in the arms and legs. Normal speech. PSYCHIATRIC: Flat mood and affect; insight and judgment poor Results Labs CBC & Chem 7: 03/27/18 04:40 04/01/18 06:27 Assessment and Plan Plan 57-year-old homeless female who presented to the emergency department on 03/18/2018 due to shortness of breath. ED workup indicated elevated troponins as well as chest x-ray finding consistent with COPD. Cardiology, infectious disease were consulted for NSTEMI as well as bacteremia respectively. 03/30--no change in plan. appreciate palliative care involvement. Non-STEMI Congestive heart failure, unknown whether systolic or diastolic Patient is refusing any workup including echocardiogram or cardiac cath Continue aspirin 81 mg daily, Plavix 75 mg daily. Continue Lasix p.o. 20 mg p.o. daily not on atorvastatin due to elevated liver enzymes , we will consider restarting of LFT improve -Marketing Project Manager following: Appreciate recommendation, recommended palliative care due to noncompliance with medication and treatments -Palliative care consult appreciated. -no chest pain or SOB Bacteremia with MSSA Likely due to cellulitis of the lower extremity. -Blood culture on staph coag negative/staph aureus, blood culture on no growth in 5 days Continue dicloxacillin 500 mg 4 times daily for 14 days. -Monitor signs and symptoms, no fever or chills -Monitor and follow blood cultures COPD exacerbation Continue azithromycin as well as DuoNeb breathing treatments. -Continue Symbicort and DuoNeb treatments wean oxygen off keep O2 sat greater than 92% No wheezes no shortness of breath Psychosis -Psychiatry consulted: Appreciate recommendation -Noted patient with tangential thought process and evasive behavior/ argumentative attitude -Does not have the capacity to make medical decisions at this time -Monitor mental status DVT prophylaxis: Patient ambulatory Progress Note: Quality VTE Deep Vein Thrombosis/Pulmonary Embolism Present on Admission: No
[2018-04-01] MEDS: Azithromycin 250 MG Tablet PO SCH (17:29)
[2018-04-01] MEDS: Morphine Inj 4 MG/ML Vial IV.PUSH PRN (22:43)
[2018-04-02] MEDS: Melatonin 5 MG Tablet PO PRN ×2 (00:01→21:58)
[2018-04-02] MEDS: Budesonide-Formoterol 80/4.5 MCG 6.9 GM Inhaler INH SCH ×2 (08:38→21:58)
[2018-04-02] MEDS: Spironolactone 50 MG Tablet PO SCH ×2 (08:39→17:27)
[2018-04-02] MEDS: Lactobacillus Acidophilus/L. Spores Tablet PO SCH ×3 (08:39→17:27)
[2018-04-02] MEDS: Magnesium Oxide 400 MG Tablet PO SCH ×2 (08:39→21:58)
[2018-04-02] MEDS: Furosemide 20 MG Tablet PO SCH (08:39)
[2018-04-02] MEDS: Morphine Inj 4 MG/ML Vial IV.PUSH PRN ×3 (11:39→21:58)
--- NOTE | 2018-04-02 13:52 | P.PNIM ---
Subjective Interval history: Patient declined to be seen by me today, saying she is requesting for another doctor. I asked her why, she says she has her own reasons that she cannot specify. Physical Exam Vital signs: Last Vital Signs Temp 97.6 F 04/02/18 12:00 Pulse 83 04/02/18 12:00 Resp 18 04/02/18 12:00 BP 118/71 04/02/18 12:00 Pulse Ox 95 04/02/18 12:00 Intake & Output 03/31/18 04/01/18 04/02/18 04/03/18 06:59 06:59 06:59 06:59 Intake Total 1440 / 1440 1440 / 1440 960 / 960 Output Total 600 / 600 500 / 500 Balance 840 / 840 940 / 940 960 / 960 Weight 58.1 kg 55.2 kg Results Labs CBC & Chem 7: 03/27/18 04:40 04/01/18 06:27 Assessment and Plan Plan 57-year-old homeless female who presented to the emergency department on 03/18/2018 due to shortness of breath. ED workup indicated elevated troponin as well as chest x-ray finding consistent with COPD. Cardiology, infectious disease were consulted for NSTEMI as well as bacteremia respectively. Patient refusing treatment. She was evaluated by psych and deemed to have no capacity. She is currently pending placement. 04/02--patient declined for me to see her today,requests for another doctor, says she has her own reasons. I did not perform a physical exam today. I have reviewed her vitals on the chart which remain stable Non-STEMI Congestive heart failure, unknown whether systolic or diastolic Patient is refusing any workup including echocardiogram or cardiac cath Continue aspirin 81 mg daily, Plavix 75 mg daily. Continue Lasix p.o. 20 mg p.o. daily not on atorvastatin due to elevated liver enzymes , we will consider restarting of LFT improve -Barber Shop Manager following: Appreciate recommendation, recommended palliative care due to noncompliance with medication and treatments -Palliative care consult appreciated. -no chest pain or SOB Bacteremia with MSSA Likely due to cellulitis of the lower extremity. -Blood culture on staph coag negative/staph aureus, blood culture on no growth in 5 days Continue dicloxacillin 500 mg 4 times daily for 14 days--end 04/07/18. -Monitor signs and symptoms, no fever or chills -Monitor and follow blood cultures COPD exacerbation Continue azithromycin as well as DuoNeb breathing treatments. -Continue Symbicort and DuoNeb treatments wean oxygen off keep O2 sat greater than 92% No wheezes no shortness of breath Psychosis -Psychiatry consulted: Appreciate recommendation -Noted patient with tangential thought process and evasive behavior/ argumentative attitude -Does not have the capacity to make medical decisions at this time -Monitor mental status DVT prophylaxis: Patient ambulatory Progress Note: Quality VTE Deep Vein Thrombosis/Pulmonary Embolism Present on Admission: No
--- NOTE | 2018-04-02 16:59 | P.PNCA ---
Subjective Interval history: alert in nad Medications and Allergies Active Medications: Active Medications Acetaminophen (Tylenol) 650 mg PO Q4H PRN PRN Reason: Temp > 100.4 Last Admin: 03/29/18 06:19 Dose: 650 mg Hydrocodone Bitart/Acetaminophen ([place] 5/325) 1 tab PO Q4H PRN PRN Reason: PAIN 3-5 Last Admin: 03/31/18 17:23 Dose: 1 tab Al Hydroxide/Mg Hydroxide (Milk Of Trino Bernard) 30 ml PO Q12H PRN PRN Reason: Mild Constipation Albuterol (Albuterol Neb (Prn)) 2.5 mg NEB Q4HR NEB PRN PRN Reason: SHORTNESS OF BREATH Last Admin: 04/02/18 15:25 Dose: 2.5 mg Aspirin (Ecotrin) 81 mg PO DAILY [facility] Last Admin: 04/02/18 08:39 Dose: 81 mg Azithromycin (Zithromax) 250 mg PO Q24H [facility] Last Admin: 04/01/18 17:29 Dose: 250 mg Budesonide/Formoterol Fumarate (Symbicort 80/4.5 Mcg Inh) 2 puff INH Q12H [facility] Last Admin: 04/02/18 08:38 Dose: 2 puff Clopidogrel Bisulfate (Plavix) 75 mg PO DAILY [facility] Last Admin: 04/02/18 08:39 Dose: 75 mg Dicloxacillin Sodium (Dynapen) 500 mg PO Q6HR [facility] Stop: 04/07/18 11:59 Last Admin: 04/02/18 12:14 Dose: 500 mg Furosemide (Lasix) 20 mg PO DAILY [facility] Last Admin: 04/02/18 08:39 Dose: 20 mg Sodium Chloride (Ns Inj) 1,000 mls @ 50 mls/hr IV.CONT .Q20H [facility] Last Admin: 04/01/18 20:28 Dose: Not Given Lactobacillus Acidophilus (Lactinex) 1 tab PO TID [facility] Last Admin: 04/02/18 12:14 Dose: 1 tab Magnesium Oxide (Mag-Ox) 400 mg PO BID [facility] Last Admin: 04/02/18 08:39 Dose: 400 mg Melatonin (Melatonin) 5 mg PO HS PRN PRN Reason: SLEEP Last Admin: 04/02/18 00:01 Dose: 5 mg Morphine Sulfate (Morphine Inj) 2 mg IV.PUSH Q4H PRN PRN Reason: PAIN 6-10 Last Admin: 04/02/18 11:39 Dose: 2 mg Ondansetron HCl (Zofran Inj) 4 mg IV.PUSH Q6H PRN PRN Reason: NAUSEA OR VOMITING Sodium Chloride (Ns Flush) 2 ml IV.FLUSH BID [facility] Last Admin: 04/02/18 08:39 Dose: 2 ml Sodium Chloride (Ns Flush) 2 ml IV.FLUSH PRN PRN PRN Reason: FLUSH AFTER USING IV ACCESS Last Admin: 03/31/18 21:29 Dose: 2 ml Spironolactone (Aldactone) 50 mg PO BID@0900,1800 [facility] Last Admin: 04/02/18 08:39 Dose: 50 mg Allergies Allergy/AdvReac Type Severity Reaction Status Date / Time SOME ANTI INFLAMMATORY MEDS Allergy Severe Swelling Uncoded 05/16/05 13:42 INHALERS Allergy Intermediate SOB Uncoded 01/07/06 10:13 Physical Exam Vital signs: Vital Signs 04/01/18 19:50 04/01/18 20:00 04/02/18 00:00 Temperature 98.3 F 98.0 F Pulse Rate 95 H 97 H 79 Respiratory Rate 22 22 19 Blood Pressure 100/63 95/63 L Pulse Oximetry 94 L 93 L 96 04/02/18 04:00 04/02/18 08:00 04/02/18 11:42 Temperature 97.8 F 97.8 F Pulse Rate 69 107 H Respiratory Rate 18 16 Blood Pressure 96/58 L 102/68 Pulse Oximetry 97 91 L 92 L 04/02/18 12:00 04/02/18 15:26 04/02/18 16:00 Temperature 97.6 F Pulse Rate 88 78 97 H Respiratory Rate 18 18 Blood Pressure 118/71 Pulse Oximetry 94 L Intake & Output 04/01/18 04/02/18 04/02/18 18:59 06:59 18:59 Intake Total 720 / 720 240 / 240 Balance 720 / 720 240 / 240 Weight 55.2 kg Intake: Oral 720 / 720 240 / 240 Other: # Voids 4 0 Date of Last Bowel Movement 04/01/18 # Bowel Movements 4 1 - Constitutional no acute distress - Routine HEENT Exam Head: Present: normocephalic - Routine Neck Exam Present: supple - Routine Respiratory Exam Present: CTA bilaterally - Routine Cardiovascular Exam Present: S1, S2 - Routine Abdominal Exam Present: soft - Routine Extremities Exam Comments: no justine Results 03/27/18 04:40 04/01/18 06:27 Cardiac Enzymes 04/01/18 Range/Units 06:27 B-Natriuretic Peptide 391 H (0-100) pg/mL Coagulation 04/01/18 Range/Units 06:27 B-Natriuretic Peptide 391 H (0-100) pg/mL Comprehensive Metabolic Panel 04/01/18 Range/Units 06:27 Sodium 137 (136-145) meq/L Potassium 4.1 (3.5-5.1) meq/L Chloride 95 L (98-107) meq/L Carbon Dioxide 39.5 H (21.0-32.0) meq/L BUN 24 H (7-18) mg/dL Creatinine 0.58 (0.50-1.00) mg/dL Calcium 8.8 (8.5-10.1) mg/dL Intake and Output 04/02/18 04/02/18 04/02/18 06:59 14:59 22:59 Intake Total 240 / 240 Balance 240 / 240 Intake: Oral 240 / 240 Other: # Voids 0 Weight 55.2 kg Assessment and Plan - Assessment (1) Acute exacerbation of chronic obstructive pulmonary disease (COPD) Code(s): J44.1 - Chronic obstructive pulmonary disease with (acute) exacerbation Status: Acute (2) Elevated troponin Code(s): R74.8 - Abnormal levels of other serum enzymes Status: Acute (3) Non-ST elevation [place] (NSTEMI) Code(s): I21.4 - Non-ST elevation (NSTEMI) myocardial infarction Status: Acute - Plan 1.) NSTEMI - start aspirin 81 mg qd, statin held due to markedly elevated lfts, beta leonila held due to severe rad and copd, stacy held due to hypotension; patient adamantly refuses cath 2.) CHF - improving, continue aldactone 50 mg bid, continue lasix 20 mg po qd, f /u bnp/bmp 3.) Rec palliative care consult due noncompliance with meds and treatment recommendations, d/w Dr Monson
[2018-04-02] MEDS: Sod Chloride 0.9% Inj 1,000 ML IV.CONT SCH (17:26)
[2018-04-02] MEDS: Azithromycin 250 MG Tablet PO SCH (17:27)
--- NOTE | 2018-04-02 21:20 | ECHRPT ---
Indication: shortness of breath CONCLUSIONS Technically very difficult study making assessment of left and right ventricular systolic function suboptimal. Normal left ventricular size. Wall thickness is measured at the upper limits of normal. Left ventricular systolic function is moderately reduced with an estimated ejection fraction in the range of 35- 40%. The posterobasal wall is mildly hypokinetic; all other segments appear at least moderately hypo kinetic though assessment of wall motion is very difficult. The right ventricle was not well visualized. The right ventricle appears at least mildly dilated wit h moderately reduced systolic function. Mild mitral valve regurgitation. The estimated pulmonary arterial pressure is 57 mmHg. There is mild tricuspid regurgitation. BP: / HR: Rhythm: MEASUREMENTS (Male / Female) Normal Values Technical Quality: 2D ECHO LV Diastolic Diameter PLAX 4.2 cm 4.2 - 5.9 / 3.9 - 5.3 cm LV Systolic Diameter PLAX 3.5 cm IVS Diastolic Thickness 1.1 cm 0.6 - 1.0 / 0.6 - 0.9 cm LVPW Diastolic Thickness 1.3 cm 0.6 - 1.0 / 0.6 - 0.9 cm LV Relative Wall Thickness 0.6 RV Internal Dim ED PLAX 2.8 cm LVOT Diameter 1.8 cm Aortic Root Diameter 2.1 cm LA Systolic Diameter LX 2.7 cm 3.0 - 4.0 / 2.7 - 3.8 cm M-MODE Aortic Root Diameter MM 3.1 cm LA Systolic Diameter MM 4.1 cm LA Ao Ratio MM 1.3 AV Cusp Separation MM 1.8 cm DOPPLER AV Peak Velocity 142.0 cm/s AV Peak Gradient 8.1 mmHg LVOT Peak Velocity 56.3 cm/s LVOT Peak Gradient 1.3 mmHg AV Area Cont Eq pk 1.0 cm Mitral E Point Velocity 61.2 cm/s Mitral A Point Velocity 64.7 cm/s Mitral E to A Ratio 0.9 LV E' Lateral Velocity 3.9 cm/s Mitral E to LV E' Lateral Ratio 15.7 LV E' Septal Velocity 3.4 cm/s Mitral E to LV E' Septal Ratio 17.9 TR Peak Velocity 342.0 cm/s TR Peak Gradient 46.8 mmHg Right Atrial Pressure 10.0 mmHg Pulmonary Artery Systolic Pressu 56.8 mmHg Right Ventricular Systolic Press 56.8 mmHg PV Peak Velocity 85.1 cm/s PV Peak Gradient 2.9 mmHg FINDINGS LEFT VENTRICLE Technically very difficult study making assessment of left and right ventricular systolic function suboptimal. Normal left ventricular size. Wall thickness is measured at the upper limits of normal. Left ventricular systolic function is moderately reduced with an estimated ejection fraction in the range of 35- 40%. The posterobasal wall is mildly hypokinetic; all other segments appear at least moderately hypo kinetic though assessment of wall motion is very difficult. RIGHT VENTRICLE The right ventricle was not well visualized. The right ventricle appear at least mildly dilated with moderately reduced systolic function. LEFT ATRIUM The left atrial size is normal. RIGHT ATRIUM The right atrial size is normal. ATRIAL SEPTUM Normal atrial septal thickness without atrial level shunting by limited color doppler interrogation. AORTA The aortic root and proximal ascending aorta are normal in size on limited imaging. MITRAL VALVE Mild mitral valve regurgitation. AORTIC VALVE Trileaflet aortic valve. No aortic valve stenosis or regurgitation. TRICUSPID VALVE The estimated pulmonary arterial pressure is 57 mmHg. There is mild tricuspid regurgitation. PULMONARY VALVE No pulmonary valve regurgitation or stenosis. VESSELS The inferior vena cava is normal in size. PERICARDIUM No pericardial effusion. Ronnell Vences MD (Electronically Signed) Final Date:02 April 2018 21:19
[2018-04-03 06:01] LABS: Hematocrit 42.2 % (35.0-46.0); Hemoglobin 13.9 gm/dL (11.6-15.3); Mean Corpuscular HGB Conc 32.9 % (32.0-36.0); Mean Corpuscular Volume 100.3 fL (80.0-100.0); Mean Platelet Volume 8.8 fL (7.0-11.0); Platelet Count 170 th/mm3 (150-450); Red Cell Distribution Width 13.4 % (11.6-17.2); White Blood Count 5.5 th/mm3 (4.0-11.0)
[2018-04-03 06:28] LABS: Anion Gap 7 meq/L (5-15); Blood Urea Nitrogen 29 mg/dL (7-18); Calcium 8.6 mg/dL (8.5-10.1); Chloride 95 meq/L (98-107); Glomerular Filtration Rate Greater Than 89 mL/min (>89); Glucose,Random 95 mg/dL (74-106); Potassium 3.9 meq/L (3.5-5.1); Sodium 138 meq/L (136-145)
[2018-04-03] MEDS: Magnesium Oxide 400 MG Tablet PO SCH ×2 (08:36→20:47)
[2018-04-03] MEDS: Lactobacillus Acidophilus/L. Spores Tablet PO SCH ×3 (08:36→17:11)
[2018-04-03] MEDS: Budesonide-Formoterol 80/4.5 MCG 6.9 GM Inhaler INH SCH ×2 (08:36→20:47)
[2018-04-03] MEDS: Furosemide 20 MG Tablet PO SCH (08:36)
[2018-04-03] MEDS: Spironolactone 50 MG Tablet PO SCH ×2 (08:37→17:12)
[2018-04-03] MEDS: Sod Chloride 0.9% Inj 1,000 ML IV.CONT SCH (12:36)
--- NOTE | 2018-04-03 14:37 | P.PNCA ---
Subjective Interval history: alert in nad Medications and Allergies Active Medications: Active Medications Acetaminophen (Tylenol) 650 mg PO Q4H PRN PRN Reason: Temp > 100.4 Last Admin: 03/29/18 06:19 Dose: 650 mg Hydrocodone Bitart/Acetaminophen ([place] 5/325) 1 tab PO Q4H PRN PRN Reason: PAIN 3-5 Last Admin: 03/31/18 17:23 Dose: 1 tab Al Hydroxide/Mg Hydroxide (Milk Of Trino Bernard) 30 ml PO Q12H PRN PRN Reason: Mild Constipation Albuterol (Albuterol Neb (Prn)) 2.5 mg NEB Q4HR NEB PRN PRN Reason: SHORTNESS OF BREATH Last Admin: 04/02/18 15:25 Dose: 2.5 mg Aspirin (Ecotrin) 81 mg PO DAILY [facility] Last Admin: 04/03/18 08:36 Dose: 81 mg Azithromycin (Zithromax) 250 mg PO Q24H [facility] Last Admin: 04/02/18 17:27 Dose: 250 mg Budesonide/Formoterol Fumarate (Symbicort 80/4.5 Mcg Inh) 2 puff INH Q12H [facility] Last Admin: 04/03/18 08:36 Dose: 2 puff Clopidogrel Bisulfate (Plavix) 75 mg PO DAILY [facility] Last Admin: 04/03/18 08:36 Dose: 75 mg Dicloxacillin Sodium (Dynapen) 500 mg PO Q6HR [facility] Stop: 04/07/18 11:59 Last Admin: 04/03/18 12:35 Dose: 500 mg Furosemide (Lasix) 20 mg PO DAILY [facility] Last Admin: 04/03/18 08:36 Dose: 20 mg Sodium Chloride (Ns Inj) 1,000 mls @ 50 mls/hr IV.CONT .Q20H [facility] Last Admin: 04/03/18 12:36 Dose: Not Given Lactobacillus Acidophilus (Lactinex) 1 tab PO TID [facility] Last Admin: 04/03/18 12:35 Dose: 1 tab Magnesium Oxide (Mag-Ox) 400 mg PO BID [facility] Last Admin: 04/03/18 08:36 Dose: 400 mg Melatonin (Melatonin) 5 mg PO HS PRN PRN Reason: SLEEP Last Admin: 04/02/18 21:58 Dose: 5 mg Morphine Sulfate (Morphine Inj) 2 mg IV.PUSH Q4H PRN PRN Reason: PAIN 6-10 Last Admin: 04/02/18 21:58 Dose: 2 mg Ondansetron HCl (Zofran Inj) 4 mg IV.PUSH Q6H PRN PRN Reason: NAUSEA OR VOMITING Sodium Chloride (Ns Flush) 2 ml IV.FLUSH BID [facility] Last Admin: 04/03/18 08:37 Dose: 2 ml Sodium Chloride (Ns Flush) 2 ml IV.FLUSH PRN PRN PRN Reason: FLUSH AFTER USING IV ACCESS Last Admin: 03/31/18 21:29 Dose: 2 ml Spironolactone (Aldactone) 50 mg PO BID@0900,1800 [facility] Last Admin: 04/03/18 08:37 Dose: 50 mg Allergies Allergy/AdvReac Type Severity Reaction Status Date / Time SOME ANTI INFLAMMATORY MEDS Allergy Severe Swelling Uncoded 05/16/05 13:42 INHALERS Allergy Intermediate SOB Uncoded 01/07/06 10:13 Physical Exam Vital signs: Vital Signs 04/02/18 15:26 04/02/18 16:00 04/02/18 18:35 Temperature 97.8 F Pulse Rate 78 96 H Respiratory Rate 18 18 Blood Pressure 113/78 Pulse Oximetry 96 94 L 04/02/18 20:00 04/03/18 00:00 04/03/18 04:00 Temperature 97.6 F 97.7 F 97.6 F Pulse Rate 111 H 77 81 Respiratory Rate 20 16 20 Blood Pressure 118/73 117/69 94/54 L Pulse Oximetry 93 L 99 93 L 04/03/18 08:00 04/03/18 12:00 Temperature 97.7 F 98.2 F Pulse Rate 74 73 Respiratory Rate 18 20 Blood Pressure 121/80 102/51 L Pulse Oximetry 95 98 Intake & Output 04/02/18 04/03/18 04/03/18 18:59 06:59 18:59 Weight 55.2 kg Other: # Voids 7 3 # Bowel Movements 2 - Constitutional no acute distress - Routine HEENT Exam Head: Present: normocephalic - Routine Neck Exam Present: supple - Routine Respiratory Exam Present: CTA bilaterally - Routine Cardiovascular Exam Present: S1, S2 - Routine Abdominal Exam Present: soft - Routine Extremities Exam Comments: no justine Results 04/03/18 03:57 04/03/18 03:57 Cardiac Enzymes 04/03/18 Range/Units 03:57 B-Natriuretic Peptide 231 H (0-100) pg/mL Coagulation 04/03/18 Range/Units 03:57 B-Natriuretic Peptide 231 H (0-100) pg/mL CBC 04/03/18 Range/Units 03:57 WBC 5.5 (4.0-11.0) th/mm3 RBC 4.20 (4.00-5.30) mil/mm3 Hgb 13.9 (11.6-15.3) gm/dL Hct 42.2 (35.0-46.0) % Plt Count 170 (150-450) th/mm3 Comprehensive Metabolic Panel 04/03/18 Range/Units 03:57 Sodium 138 (136-145) meq/L Potassium 3.9 (3.5-5.1) meq/L Chloride 95 L (98-107) meq/L Carbon Dioxide 36.0 H (21.0-32.0) meq/L BUN 29 H (7-18) mg/dL Creatinine 0.58 (0.50-1.00) mg/dL Calcium 8.6 (8.5-10.1) mg/dL Intake and Output 04/02/18 04/03/18 04/03/18 22:59 06:59 14:59 Other: # Voids 7 3 # Bowel Movements 2 Weight 55.2 kg Assessment and Plan - Assessment (1) Acute exacerbation of chronic obstructive pulmonary disease (COPD) Code(s): J44.1 - Chronic obstructive pulmonary disease with (acute) exacerbation Status: Acute (2) Elevated troponin Code(s): R74.8 - Abnormal levels of other serum enzymes Status: Acute (3) Non-ST elevation [place] (NSTEMI) Code(s): I21.4 - Non-ST elevation (NSTEMI) myocardial infarction Status: Acute - Plan 1.) NSTEMI - start aspirin 81 mg qd, statin held due to markedly elevated lfts, beta leonila held due to severe rad and copd, stacy held due to hypotension; patient adamantly refuses cath 2.) CHF - improving, continue aldactone 50 mg bid, continue lasix 20 mg po qd, f /u bnp/bmp 3.) Rec palliative care consult due noncompliance with meds and treatment recommendations, d/w Dr Monson
--- NOTE | 2018-04-03 14:51 | P.PNIM ---
Subjective Interval history: Patient sitting upright in bed. Complains of on and off shortness of breath. No other complaints. Physical Exam Vital signs: Vital Signs 04/02/18 15:26 04/02/18 16:00 04/02/18 18:35 Temperature 97.8 F Pulse Rate 78 96 H Respiratory Rate 18 18 Blood Pressure 113/78 Pulse Oximetry 96 94 L 04/02/18 20:00 04/03/18 00:00 04/03/18 04:00 Temperature 97.6 F 97.7 F 97.6 F Pulse Rate 111 H 77 81 Respiratory Rate 20 16 20 Blood Pressure 118/73 117/69 94/54 L Pulse Oximetry 93 L 99 93 L 04/03/18 08:00 04/03/18 12:00 Temperature 97.7 F 98.2 F Pulse Rate 74 72 Respiratory Rate 18 20 Blood Pressure 121/80 102/51 L Pulse Oximetry 95 98 Intake & Output 04/02/18 04/03/18 04/03/18 18:59 06:59 18:59 Weight 55.2 kg Other: # Voids 7 3 # Bowel Movements 2 Narrative: General patient in no acute distress HEENT extraocular movements are intact, clear oropharyngeal mucosa, no JVD Cardiovascular S1-S2 audible, RRR, no murmurs rubs or gallops Respiratory clear to auscultation bilaterally Abdomen soft, nontender, nondistended, normal bowel sounds Extremities erythema of left joyner improving Neuro cranial nerves II through XII intact Results - Labs CBC & Chem 7: 04/03/18 03:57 04/03/18 03:57 Laboratory Results - last 24 hr 04/03/18 04/03/18 04/03/18 03:57 03:57 03:57 WBC 5.5 RBC 4.20 Hgb 13.9 Hct 42.2 MCV 100.3 H MCH 33.0 MCHC 32.9 RDW 13.4 Plt Count 170 MPV 8.8 Sodium 138 Potassium 3.9 Chloride 95 L Carbon Dioxide 36.0 H Anion Gap 7 BUN 29 H Creatinine 0.58 Estimated GFR Greater than 89 Random Glucose 95 Calcium 8.6 B-Natriuretic Peptide 231 H Assessment and Plan - Assessment (1) Acute exacerbation of chronic obstructive pulmonary disease (COPD) Code(s): J44.1 - Chronic obstructive pulmonary disease with (acute) exacerbation Status: Acute (2) Delirium Code(s): R41.0 - Disorientation, unspecified Status: Acute (3) Non-ST elevation [place] (NSTEMI) Code(s): I21.4 - Non-ST elevation (NSTEMI) myocardial infarction Status: Acute (4) Psychosis not due to substance or known physiological condition Code(s): F29 - Unspecified psychosis not due to a substance or known physiological condition Status: Acute - Plan This patient is a 57-year-old homeless female with a diagnosis of COPD who presented to the emergency department with complaints of shortness of breath. In the emergency department the patient was found to have an elevated troponin and was admitted for COPD exacerbation as well as non-ST segment elevation [place]. She was also found to have positive blood cultures which grew MSSA. 1. Non-ST segment elevation [place] Troponins peaked at 2.9 then down trended. Continue aspirin, Plavix. No statin due to elevated LFTs. As per cardiology beta-leonila is currently being held due to severe COPD. Patient has low blood pressure SETH inhibitor also being held. Patient is refusing cardiac catheterization, 2D echocardiogram shows ejection fraction 35-40%. 2. MSSA bacteremia Blood cultures grew MSSA, repeat blood cultures are negative. Continue dicloxacillin 500 mg 4 times a day for total of 14 days which will end on 04/07/2018 as per infectious disease recognitions. Patient has remained afebrile. No vegetations noted on the 2D echocardiogram. 3. Acute hypoxic hypercapnic respiratory failure secondary to COPD exacerbation Continue azithromycin Continue breathing treatments, continue Symbicort. Patient currently requiring supplemental oxygen, will wean the patient off supplemental O2. If we are unable to titrate patient off of oxygen will do a walk test. DVT prophylaxis, patient is currently ambulatory.
[2018-04-03] MEDS: Azithromycin 250 MG Tablet PO SCH (17:12)
[2018-04-03] MEDS: Morphine Inj 4 MG/ML Vial IV.PUSH PRN (23:39)
[2018-04-04] MEDS: Magnesium Oxide 400 MG Tablet PO SCH ×2 (08:36→20:22)
[2018-04-04] MEDS: Lactobacillus Acidophilus/L. Spores Tablet PO SCH ×3 (08:36→18:04)
[2018-04-04] MEDS: Budesonide-Formoterol 80/4.5 MCG 6.9 GM Inhaler INH SCH ×2 (08:36→20:21)
[2018-04-04] MEDS: Spironolactone 50 MG Tablet PO SCH ×2 (08:36→18:04)
[2018-04-04] MEDS: Furosemide 20 MG Tablet PO SCH (08:36)
[2018-04-04] MEDS: Sod Chloride 0.9% Inj 1,000 ML IV.CONT SCH (08:37)
--- NOTE | 2018-04-04 11:19 | P.PNIM ---
Subjective Interval history: Patient is in no acute distress this morning. She says she feels comfortable while on supplemental oxygen. Physical Exam Vital signs: Vital Signs 04/03/18 12:00 04/03/18 16:00 04/03/18 20:00 Temperature 98.2 F 97.5 F L 97.5 F L Pulse Rate 73 105 H 92 H Respiratory Rate 20 20 20 Blood Pressure 102/51 L 121/77 149/83 H Pulse Oximetry 98 95 95 04/03/18 20:01 04/03/18 23:55 04/04/18 00:00 Temperature 98.2 F Pulse Rate 94 H 77 73 Respiratory Rate 20 Blood Pressure 126/82 Pulse Oximetry 96 04/04/18 03:56 04/04/18 04:00 04/04/18 08:00 Temperature 97.9 F 98.2 F Pulse Rate 77 85 63 Respiratory Rate 18 16 Blood Pressure 99/61 L 94/56 L Pulse Oximetry 93 L 98 Intake & Output 04/03/18 04/04/18 04/04/18 18:59 06:59 18:59 Intake Total 680 / 680 Output Total 2400 / 2400 Balance -2400 / -2400 680 / 680 Weight 55.8 kg Intake: Oral 680 / 680 Output: Urine 2400 / 2400 Other: # Voids 4 # Bowel Movements 3 Narrative: General patient in no acute distress HEENT extraocular movements are intact, clear oropharyngeal mucosa, no JVD Cardiovascular S1-S2 audible, RRR, no murmurs rubs or gallops Respiratory clear to auscultation bilaterally Abdomen soft, nontender, nondistended, normal bowel sounds Extremities erythema of left joyner improving Neuro cranial nerves II through XII intact Results - Labs CBC & Chem 7: 04/03/18 03:57 04/03/18 03:57 Laboratory Results - last 24 hr 04/04/18 05:50 B-Natriuretic Peptide 193 H Assessment and Plan - Assessment (1) Acute exacerbation of chronic obstructive pulmonary disease (COPD) Code(s): J44.1 - Chronic obstructive pulmonary disease with (acute) exacerbation Status: Acute (2) Delirium Code(s): R41.0 - Disorientation, unspecified Status: Acute (3) Non-ST elevation [place] (NSTEMI) Code(s): I21.4 - Non-ST elevation (NSTEMI) myocardial infarction Status: Acute (4) Psychosis not due to substance or known physiological condition Code(s): F29 - Unspecified psychosis not due to a substance or known physiological condition Status: Acute - Plan This patient is a 57-year-old homeless female with a diagnosis of COPD who presented to the emergency department with complaints of shortness of breath. In the emergency department the patient was found to have an elevated troponin and was admitted for COPD exacerbation as well as non-ST segment elevation [place]. She was also found to have positive blood cultures which grew MSSA. 1. Non-ST segment elevation [place] Troponins peaked at 2.9 then down trended. Continue aspirin, Plavix. No statin due to elevated LFTs. As per cardiology beta-leonila is currently being held due to severe COPD. Patient has low blood pressure ESTH inhibitor also being held. Patient is refusing cardiac catheterization, 2D echocardiogram shows ejection fraction 35-40%. 2. MSSA bacteremia Blood cultures grew MSSA, repeat blood cultures are negative. Continue dicloxacillin 500 mg 4 times a day for total of 14 days which will end on 04/07/2018 as per infectious disease recognitions. Patient has remained afebrile. No vegetations noted on the 2D echocardiogram. 3. Acute hypoxic hypercapnic respiratory failure secondary to COPD exacerbation Continue azithromycin Continue breathing treatments, continue Symbicort. Patient currently requiring supplemental oxygen, will wean the patient off supplemental O2. If we are unable to titrate patient off of oxygen will do a walk test. Patient was seen by psychiatry nearly 12 days ago and the patient was found to not be able to make her own medical decisions. Case management has been attempting to reach a family member or guardian for the patient unsuccessfully. On my evaluation patient is alert and oriented x3 and respond to my questions and commands appropriately. Psych will be reconsulted to evaluate the patient. I would appreciate their recommendations as well as their opinion on whether the patient is capable of making her own medical decisions. She will also likely need follow-up with psychiatry after discharge. Case discussed in detail with case management. Patient is a difficult discharge given her inability to make medical decisions as per psychiatry documentation, she is homeless and will likely need supplemental oxygen on discharge. DVT prophylaxis, patient is currently ambulatory.
--- NOTE | 2018-04-04 13:11 | P.PNCA ---
Subjective Interval history: alert in nad Medications and Allergies Active Medications: Active Medications Acetaminophen (Tylenol) 650 mg PO Q4H PRN PRN Reason: Temp > 100.4 Last Admin: 03/29/18 06:19 Dose: 650 mg Hydrocodone Bitart/Acetaminophen ([place] 5/325) 1 tab PO Q4H PRN PRN Reason: PAIN 3-5 Last Admin: 04/03/18 17:11 Dose: 1 tab Al Hydroxide/Mg Hydroxide (Milk Of Trino Bernard) 30 ml PO Q12H PRN PRN Reason: Mild Constipation Albuterol (Albuterol Neb (Prn)) 2.5 mg NEB Q4HR NEB PRN PRN Reason: SHORTNESS OF BREATH Last Admin: 04/02/18 15:25 Dose: 2.5 mg Aspirin (Ecotrin) 81 mg PO DAILY [facility] Last Admin: 04/04/18 08:36 Dose: 81 mg Azithromycin (Zithromax) 250 mg PO Q24H [facility] Last Admin: 04/03/18 17:12 Dose: 250 mg Budesonide/Formoterol Fumarate (Symbicort 80/4.5 Mcg Inh) 2 puff INH Q12H [facility] Last Admin: 04/04/18 08:36 Dose: 2 puff Clopidogrel Bisulfate (Plavix) 75 mg PO DAILY [facility] Last Admin: 04/04/18 08:36 Dose: 75 mg Dicloxacillin Sodium (Dynapen) 500 mg PO Q6HR [facility] Stop: 04/07/18 11:59 Last Admin: 04/04/18 12:13 Dose: 500 mg Furosemide (Lasix) 20 mg PO DAILY [facility] Last Admin: 04/04/18 08:36 Dose: 20 mg Sodium Chloride (Ns Inj) 1,000 mls @ 50 mls/hr IV.CONT .Q20H [facility] Last Admin: 04/04/18 08:37 Dose: Not Given Lactobacillus Acidophilus (Lactinex) 1 tab PO TID [facility] Last Admin: 04/04/18 12:13 Dose: 1 tab Magnesium Oxide (Mag-Ox) 400 mg PO BID [facility] Last Admin: 04/04/18 08:36 Dose: 400 mg Melatonin (Melatonin) 5 mg PO HS PRN PRN Reason: SLEEP Last Admin: 04/02/18 21:58 Dose: 5 mg Morphine Sulfate (Morphine Inj) 2 mg IV.PUSH Q4H PRN PRN Reason: PAIN 6-10 Last Admin: 04/03/18 23:39 Dose: 2 mg Ondansetron HCl (Zofran Inj) 4 mg IV.PUSH Q6H PRN PRN Reason: NAUSEA OR VOMITING Sodium Chloride (Ns Flush) 2 ml IV.FLUSH BID [facility] Last Admin: 04/04/18 08:37 Dose: 2 ml Sodium Chloride (Ns Flush) 2 ml IV.FLUSH PRN PRN PRN Reason: FLUSH AFTER USING IV ACCESS Last Admin: 03/31/18 21:29 Dose: 2 ml Spironolactone (Aldactone) 50 mg PO BID@0900,1800 [facility] Last Admin: 04/04/18 08:36 Dose: 50 mg Allergies Allergy/AdvReac Type Severity Reaction Status Date / Time SOME ANTI INFLAMMATORY MEDS Allergy Severe Swelling Uncoded 05/16/05 13:42 INHALERS Allergy Intermediate SOB Uncoded 01/07/06 10:13 Physical Exam Vital signs: Vital Signs 04/03/18 16:00 04/03/18 20:00 04/03/18 20:01 Temperature 97.5 F L 97.5 F L Pulse Rate 105 H 92 H 94 H Respiratory Rate 20 20 Blood Pressure 121/77 149/83 H Pulse Oximetry 95 95 04/03/18 23:55 04/04/18 00:00 04/04/18 03:56 Temperature 98.2 F Pulse Rate 77 73 77 Respiratory Rate 20 Blood Pressure 126/82 Pulse Oximetry 96 04/04/18 04:00 04/04/18 08:00 Temperature 97.9 F 98.2 F Pulse Rate 85 63 Respiratory Rate 18 16 Blood Pressure 99/61 L 94/56 L Pulse Oximetry 93 L 98 Intake & Output 04/03/18 04/04/18 04/04/18 18:59 06:59 18:59 Intake Total 680 / 680 Output Total 2400 / 2400 Balance -2400 / -2400 680 / 680 Weight 55.8 kg Intake: Oral 680 / 680 Output: Urine 2400 / 2400 Other: # Voids 4 # Bowel Movements 3 - Constitutional no acute distress - Routine HEENT Exam Head: Present: normocephalic - Routine Neck Exam Present: supple - Routine Respiratory Exam Present: CTA bilaterally - Routine Cardiovascular Exam Present: S1, S2 - Routine Abdominal Exam Present: soft - Routine Extremities Exam Comments: no justine Results 04/03/18 03:57 04/03/18 03:57 Cardiac Enzymes 04/03/18 04/04/18 Range/Units 03:57 05:50 B-Natriuretic Peptide 231 H 193 H (0-100) pg/mL Coagulation 04/03/18 04/04/18 Range/Units 03:57 05:50 B-Natriuretic Peptide 231 H 193 H (0-100) pg/mL CBC 04/03/18 Range/Units 03:57 WBC 5.5 (4.0-11.0) th/mm3 RBC 4.20 (4.00-5.30) mil/mm3 Hgb 13.9 (11.6-15.3) gm/dL Hct 42.2 (35.0-46.0) % Plt Count 170 (150-450) th/mm3 Comprehensive Metabolic Panel 04/03/18 Range/Units 03:57 Sodium 138 (136-145) meq/L Potassium 3.9 (3.5-5.1) meq/L Chloride 95 L (98-107) meq/L Carbon Dioxide 36.0 H (21.0-32.0) meq/L BUN 29 H (7-18) mg/dL Creatinine 0.58 (0.50-1.00) mg/dL Calcium 8.6 (8.5-10.1) mg/dL Intake and Output 04/03/18 04/04/18 04/04/18 22:59 06:59 14:59 Intake Total 680 / 680 Output Total 2400 / 2400 Balance -2400 / -2400 680 / 680 Intake: Oral 680 / 680 Output: Urine 2400 / 2400 Other: # Voids 4 # Bowel Movements 3 Weight 55.8 kg Assessment and Plan - Assessment (1) Acute exacerbation of chronic obstructive pulmonary disease (COPD) Code(s): J44.1 - Chronic obstructive pulmonary disease with (acute) exacerbation Status: Acute (2) Elevated troponin Code(s): R74.8 - Abnormal levels of other serum enzymes Status: Acute (3) Non-ST elevation [place] (NSTEMI) Code(s): I21.4 - Non-ST elevation (NSTEMI) myocardial infarction Status: Acute - Plan 1.) NSTEMI - start aspirin 81 mg qd, statin held due to markedly elevated lfts, beta leonila held due to severe rad and copd, stacy held due to hypotension; patient adamantly refuses cath 2.) CHF - improving, continue aldactone 50 mg bid, continue lasix 20 mg po qd, f /u bnp/bmp; echo results d/w patient 04/04/18 3.) Rec palliative care consult due noncompliance with meds and treatment recommendations, d/w Dr Monson
--- NOTE | 2018-04-04 13:18 | P.PNPSY ---
Subjective Remarks: I have seen and examined this patient for psychiatric reevaluation. The patient is found speaking by phone with a friend. Patient is calm, cooperative , reports feeling much better today. The patient is able to tell me that the reason she is here is because she has been having breathing and cardiac problems. She says that she has been taking her medications, she is in agreement with medical treatment and recommendations. The patient is fully oriented x3. No attention deficit, no fluctuation of consciousness is present. No gross cognitive impairment. She denies symptoms of depression, anxiety, consuelo and psychosis. She denies suicidal and homicidal ideation at the moment. No agitation, no aggressive behavior present. Mental Status Examination Appearance: Dirty, Disheveled Consciousness: Alert Orientation: x4 Motor Activity: Normal gait Speech: Hesitant, Slow Language: Adequate Fund of Knowledge: Inadequate Attention and Concentration: Adequate Memory: Unremarkable Mood: Appropriate Affect: Appropriate, Blunt Thought Process & Associations: Intact Thought Content: Appropriate Hallucination Type: None Delusion Type: None Suicidal Ideation: No Suicidal Plan: No Suicidal Intention: No Homicidal Ideation: No Homicidal Plan: No Homicidal Intention: No Insight: Fair Judgment: Impulsive Assessment and Plan - Assessment (1) Psychosis not due to substance or known physiological condition Code(s): F29 - Unspecified psychosis not due to a substance or known physiological condition Status: Acute - Plan Plan: On my psychiatric evaluation today the patient is calm, cooperative, logical, coherent and relevant. Oriented x3. Able to tell me the reason of hospitalization, nature of medical illnesses. In agreement with treatment and recommendations. Due to fluctuation of consciousness the patient has been deprived of capacity in the past. But, at this moment the patient does have decision-making capacity to participate medical decisions. No admission recommended. If you have any question please contact me to ext [phone]. Justification for Continued Inpatient Stay: No admission indicated
[2018-04-04] MEDS: Azithromycin 250 MG Tablet PO SCH (18:04)
[2018-04-05] MEDS: Sod Chloride 0.9% Inj 1,000 ML IV.CONT SCH (04:52)
[2018-04-05] MEDS: Furosemide 20 MG Tablet PO SCH (09:47)
[2018-04-05] MEDS: Lactobacillus Acidophilus/L. Spores Tablet PO SCH ×3 (09:47→17:06)
[2018-04-05] MEDS: Magnesium Oxide 400 MG Tablet PO SCH ×2 (09:47→20:29)
[2018-04-05] MEDS: Spironolactone 50 MG Tablet PO SCH ×2 (09:48→17:06)
[2018-04-05] MEDS: Budesonide-Formoterol 80/4.5 MCG 6.9 GM Inhaler INH SCH ×2 (09:48→21:18)
--- NOTE | 2018-04-05 12:30 | P.PNCA ---
Subjective Interval history: asleep in nad Medications and Allergies Active Medications: Active Medications Acetaminophen (Tylenol) 650 mg PO Q4H PRN PRN Reason: Temp > 100.4 Last Admin: 03/29/18 06:19 Dose: 650 mg Hydrocodone Bitart/Acetaminophen ([place] 5/325) 1 tab PO Q4H PRN PRN Reason: PAIN 3-5 Last Admin: 04/04/18 22:17 Dose: 1 tab Al Hydroxide/Mg Hydroxide (Milk Of Trino Bernard) 30 ml PO Q12H PRN PRN Reason: Mild Constipation Albuterol (Albuterol Neb (Prn)) 2.5 mg NEB Q4HR NEB PRN PRN Reason: SHORTNESS OF BREATH Last Admin: 04/04/18 20:25 Dose: 2.5 mg Aspirin (Ecotrin) 81 mg PO DAILY [facility] Last Admin: 04/05/18 09:48 Dose: 81 mg Azithromycin (Zithromax) 250 mg PO Q24H [facility] Last Admin: 04/04/18 18:04 Dose: 250 mg Budesonide/Formoterol Fumarate (Symbicort 80/4.5 Mcg Inh) 2 puff INH Q12H [facility] Last Admin: 04/05/18 09:48 Dose: 2 puff Clopidogrel Bisulfate (Plavix) 75 mg PO DAILY [facility] Last Admin: 04/05/18 09:47 Dose: 75 mg Dicloxacillin Sodium (Dynapen) 500 mg PO Q6HR [facility] Stop: 04/07/18 11:59 Last Admin: 04/05/18 05:09 Dose: 500 mg Furosemide (Lasix) 20 mg PO DAILY [facility] Last Admin: 04/05/18 09:47 Dose: 20 mg Sodium Chloride (Ns Inj) 1,000 mls @ 50 mls/hr IV.CONT .Q20H [facility] Last Admin: 04/05/18 04:52 Dose: Not Given Lactobacillus Acidophilus (Lactinex) 1 tab PO TID [facility] Last Admin: 04/05/18 09:47 Dose: 1 tab Magnesium Oxide (Mag-Ox) 400 mg PO BID [facility] Last Admin: 04/05/18 09:47 Dose: 400 mg Melatonin (Melatonin) 5 mg PO HS PRN PRN Reason: SLEEP Last Admin: 04/02/18 21:58 Dose: 5 mg Morphine Sulfate (Morphine Inj) 2 mg IV.PUSH Q4H PRN PRN Reason: PAIN 6-10 Last Admin: 04/03/18 23:39 Dose: 2 mg Ondansetron HCl (Zofran Inj) 4 mg IV.PUSH Q6H PRN PRN Reason: NAUSEA OR VOMITING Sodium Chloride (Ns Flush) 2 ml IV.FLUSH BID [facility] Last Admin: 04/05/18 09:47 Dose: 2 ml Sodium Chloride (Ns Flush) 2 ml IV.FLUSH PRN PRN PRN Reason: FLUSH AFTER USING IV ACCESS Last Admin: 03/31/18 21:29 Dose: 2 ml Spironolactone (Aldactone) 50 mg PO BID@0900,1800 [facility] Last Admin: 04/05/18 09:48 Dose: 50 mg Allergies Allergy/AdvReac Type Severity Reaction Status Date / Time SOME ANTI INFLAMMATORY MEDS Allergy Severe Swelling Uncoded 05/16/05 13:42 INHALERS Allergy Intermediate SOB Uncoded 01/07/06 10:13 Physical Exam Vital signs: Vital Signs 04/04/18 16:00 04/04/18 20:00 04/04/18 20:10 Temperature 98 F 97.5 F L Pulse Rate 112 H 97 H 96 H Respiratory Rate 18 20 Blood Pressure 110/61 118/78 Pulse Oximetry 99 98 04/04/18 20:27 04/04/18 23:47 04/05/18 00:00 Temperature 98.1 F Pulse Rate 90 81 69 Respiratory Rate 15 17 Blood Pressure 108/66 Pulse Oximetry 97 94 L 04/05/18 03:51 04/05/18 04:00 04/05/18 08:00 Temperature 97.7 F 97.3 F L Pulse Rate 75 77 60 Respiratory Rate 17 14 Blood Pressure 107/60 109/67 Pulse Oximetry 97 100 Intake & Output 04/04/18 04/05/18 04/05/18 18:59 06:59 18:59 Intake Total 700 / 700 380 / 380 Balance 700 / 700 380 / 380 Weight 56 kg Intake: Oral 700 / 700 380 / 380 Other: # Voids 4 3 # Bowel Movements 0 1 - Constitutional no acute distress - Routine HEENT Exam Head: Present: normocephalic - Routine Neck Exam Present: supple - Routine Respiratory Exam Present: CTA bilaterally - Routine Cardiovascular Exam Present: S1, S2 - Routine Abdominal Exam Present: soft - Routine Extremities Exam Comments: no justine Results 04/03/18 03:57 04/03/18 03:57 Cardiac Enzymes 04/04/18 04/05/18 Range/Units 05:50 06:44 B-Natriuretic Peptide 193 H 162 H (0-100) pg/mL Coagulation 04/04/18 04/05/18 Range/Units 05:50 06:44 B-Natriuretic Peptide 193 H 162 H (0-100) pg/mL Intake and Output 04/04/18 04/05/18 04/05/18 22:59 06:59 14:59 Intake Total 700 / 700 380 / 380 Balance 700 / 700 380 / 380 Intake: Oral 700 / 700 380 / 380 Other: # Voids 4 3 # Bowel Movements 0 1 Weight 56 kg Assessment and Plan - Assessment (1) Acute exacerbation of chronic obstructive pulmonary disease (COPD) Code(s): J44.1 - Chronic obstructive pulmonary disease with (acute) exacerbation Status: Acute (2) Elevated troponin Code(s): R74.8 - Abnormal levels of other serum enzymes Status: Acute (3) Non-ST elevation [place] (NSTEMI) Code(s): I21.4 - Non-ST elevation (NSTEMI) myocardial infarction Status: Acute - Plan 1.) NSTEMI - start aspirin 81 mg qd, statin held due to markedly elevated lfts, beta leonila held due to severe rad and copd, stacy held due to hypotension; patient adamantly refuses cath 2.) CHF - improving, near euvolemic status, continue aldactone 50 mg bid, continue lasix 20 mg po qd, f/u bnp/bmp; echo results d/w patient 04/04/18 3.) Rec palliative care consult due noncompliance with meds and treatment recommendations, d/w Dr Monson
--- NOTE | 2018-04-05 15:46 | P.PNIM ---
Subjective Interval history: Patient denies any chest pain. She is in no acute distress. Physical Exam Vital signs: Vital Signs 04/04/18 16:00 04/04/18 20:00 04/04/18 20:10 Temperature 98 F 97.5 F L Pulse Rate 112 H 97 H 96 H Respiratory Rate 18 20 Blood Pressure 110/61 118/78 Pulse Oximetry 99 98 04/04/18 20:27 04/04/18 23:47 04/05/18 00:00 Temperature 98.1 F Pulse Rate 90 81 69 Respiratory Rate 15 17 Blood Pressure 108/66 Pulse Oximetry 97 94 L 04/05/18 03:51 04/05/18 04:00 04/05/18 08:00 Temperature 97.7 F 97.3 F L Pulse Rate 75 77 60 Respiratory Rate 17 14 Blood Pressure 107/60 109/67 Pulse Oximetry 97 100 Intake & Output 04/04/18 04/05/18 04/05/18 18:59 06:59 18:59 Intake Total 700 / 700 380 / 380 Balance 700 / 700 380 / 380 Weight 56 kg Intake: Oral 700 / 700 380 / 380 Other: # Voids 4 3 # Bowel Movements 0 1 Narrative: General patient in no acute distress HEENT extraocular movements are intact, clear oropharyngeal mucosa, no JVD Cardiovascular S1-S2 audible, RRR, no murmurs rubs or gallops Respiratory clear to auscultation bilaterally Abdomen soft, nontender, nondistended, normal bowel sounds Extremities erythema of left joyner improving Neuro cranial nerves II through XII intact Results - Labs CBC & Chem 7: 04/03/18 03:57 04/03/18 03:57 Laboratory Results - last 24 hr 04/05/18 06:44 B-Natriuretic Peptide 162 H Assessment and Plan - Assessment (1) Acute exacerbation of chronic obstructive pulmonary disease (COPD) Code(s): J44.1 - Chronic obstructive pulmonary disease with (acute) exacerbation Status: Acute (2) Delirium Code(s): R41.0 - Disorientation, unspecified Status: Acute (3) Non-ST elevation [place] (NSTEMI) Code(s): I21.4 - Non-ST elevation (NSTEMI) myocardial infarction Status: Acute (4) Psychosis not due to substance or known physiological condition Code(s): F29 - Unspecified psychosis not due to a substance or known physiological condition Status: Acute - Plan This patient is a 57-year-old homeless female with a diagnosis of COPD who presented to the emergency department with complaints of shortness of breath. In the emergency department the patient was found to have an elevated troponin and was admitted for COPD exacerbation as well as non-ST segment elevation [place]. She was also found to have positive blood cultures which grew MSSA. 1. Non-ST segment elevation [place] No chest pain. Troponins peaked at 2.9 then down trended. Continue aspirin, Plavix. No statin due to elevated LFTs. As per cardiology beta-leonila is currently being held due to severe COPD. Patient has low blood pressure SETH inhibitor also being held. Patient is refusing cardiac catheterization, 2D echocardiogram shows ejection fraction 35-40%. 2. MSSA bacteremia Blood cultures grew MSSA, repeat blood cultures are negative. Continue dicloxacillin 500 mg 4 times a day for total of 14 days which will end on 04/07/2018 as per infectious disease recognitions. Patient has remained afebrile. No vegetations noted on the 2D echocardiogram. 3. Acute hypoxic hypercapnic respiratory failure secondary to COPD exacerbation Continue azithromycin Continue breathing treatments, continue Symbicort. Patient currently requiring supplemental oxygen, will wean the patient off supplemental O2. Walk test will be performed today to see if the patient needs home O2. Patient was seen by psychiatry nearly 12 days ago and the patient was found to not be able to make her own medical decisions. Case management has been attempting to reach a family member or guardian for the patient unsuccessfully. On my evaluation patient is alert and oriented x3 and respond to my questions and commands appropriately. Psychiatry was reconsulted yesterday and evaluated the patient and believes the patient has the capacity to make her own decisions. Case discussed in detail with case management. Will perform a walk test today to see if the patient needs home oxygen and then I will talk to case management regarding this patient's discharge. DVT prophylaxis, patient is currently ambulatory.
[2018-04-05] MEDS: Azithromycin 250 MG Tablet PO SCH (17:06)
[2018-04-06] MEDS: Sod Chloride 0.9% Inj 1,000 ML IV.CONT SCH ×2 (01:42→20:53)
[2018-04-06] MEDS: Spironolactone 50 MG Tablet PO SCH ×2 (08:19→17:20)
[2018-04-06] MEDS: Magnesium Oxide 400 MG Tablet PO SCH ×2 (08:19→20:52)
[2018-04-06] MEDS: Lactobacillus Acidophilus/L. Spores Tablet PO SCH ×3 (08:19→17:19)
[2018-04-06] MEDS: Furosemide 20 MG Tablet PO SCH (08:19)
[2018-04-06] MEDS: Budesonide-Formoterol 80/4.5 MCG 6.9 GM Inhaler INH SCH ×2 (08:20→20:52)
--- NOTE | 2018-04-06 10:27 | P.PNCA ---
Subjective Interval history: alert in nad Medications and Allergies Active Medications: Active Medications Acetaminophen (Tylenol) 650 mg PO Q4H PRN PRN Reason: Temp > 100.4 Last Admin: 03/29/18 06:19 Dose: 650 mg Hydrocodone Bitart/Acetaminophen ([place] 5/325) 1 tab PO Q4H PRN PRN Reason: PAIN 3-5 Last Admin: 04/05/18 20:34 Dose: 1 tab Al Hydroxide/Mg Hydroxide (Milk Of Trino Bernard) 30 ml PO Q12H PRN PRN Reason: Mild Constipation Albuterol (Albuterol Neb (Prn)) 2.5 mg NEB Q4HR NEB PRN PRN Reason: SHORTNESS OF BREATH Last Admin: 04/04/18 20:25 Dose: 2.5 mg Aspirin (Ecotrin) 81 mg PO DAILY [facility] Last Admin: 04/06/18 08:19 Dose: 81 mg Azithromycin (Zithromax) 250 mg PO Q24H [facility] Last Admin: 04/05/18 17:06 Dose: 250 mg Budesonide/Formoterol Fumarate (Symbicort 80/4.5 Mcg Inh) 2 puff INH Q12H [facility] Last Admin: 04/06/18 08:20 Dose: 2 puff Clopidogrel Bisulfate (Plavix) 75 mg PO DAILY [facility] Last Admin: 04/06/18 08:19 Dose: 75 mg Dicloxacillin Sodium (Dynapen) 500 mg PO Q6HR [facility] Stop: 04/07/18 11:59 Last Admin: 04/06/18 05:21 Dose: 500 mg Furosemide (Lasix) 20 mg PO DAILY [facility] Last Admin: 04/06/18 08:19 Dose: 20 mg Sodium Chloride (Ns Inj) 1,000 mls @ 50 mls/hr IV.CONT .Q20H [facility] Last Admin: 04/06/18 01:42 Dose: Not Given Lactobacillus Acidophilus (Lactinex) 1 tab PO TID [facility] Last Admin: 04/06/18 08:19 Dose: 1 tab Magnesium Oxide (Mag-Ox) 400 mg PO BID [facility] Last Admin: 04/06/18 08:19 Dose: 400 mg Melatonin (Melatonin) 5 mg PO HS PRN PRN Reason: SLEEP Last Admin: 04/02/18 21:58 Dose: 5 mg Morphine Sulfate (Morphine Inj) 2 mg IV.PUSH Q4H PRN PRN Reason: PAIN 6-10 Last Admin: 04/03/18 23:39 Dose: 2 mg Ondansetron HCl (Zofran Inj) 4 mg IV.PUSH Q6H PRN PRN Reason: NAUSEA OR VOMITING Sodium Chloride (Ns Flush) 2 ml IV.FLUSH BID [facility] Last Admin: 04/06/18 08:19 Dose: 2 ml Sodium Chloride (Ns Flush) 2 ml IV.FLUSH PRN PRN PRN Reason: FLUSH AFTER USING IV ACCESS Last Admin: 03/31/18 21:29 Dose: 2 ml Spironolactone (Aldactone) 50 mg PO BID@0900,1800 [facility] Last Admin: 04/06/18 08:19 Dose: 50 mg Allergies Allergy/AdvReac Type Severity Reaction Status Date / Time SOME ANTI INFLAMMATORY MEDS Allergy Severe Swelling Uncoded 05/16/05 13:42 INHALERS Allergy Intermediate SOB Uncoded 01/07/06 10:13 Physical Exam Vital signs: Vital Signs 04/05/18 12:00 04/05/18 16:00 04/05/18 20:00 Temperature 98.0 F 97.8 F 97.7 F Pulse Rate 68 89 87 Respiratory Rate 13 13 16 Blood Pressure 115/70 111/72 106/63 Pulse Oximetry 97 97 98 04/06/18 00:00 04/06/18 04:00 Temperature 98.5 F 97 F L Pulse Rate 75 57 L Respiratory Rate 16 16 Blood Pressure 107/60 100/57 L Pulse Oximetry 98 98 Intake & Output 04/05/18 04/06/18 04/06/18 18:59 06:59 18:59 Intake Total 720 / 720 Output Total 700 / 700 Balance Weight 56.2 kg Intake: Oral 720 / 720 Output: Urine 700 / 700 Other: Date of Last Bowel Movement 04/05/18 # Bowel Movements 1 - Constitutional no acute distress - Routine HEENT Exam Head: Present: normocephalic - Routine Neck Exam Present: supple - Routine Respiratory Exam Present: CTA bilaterally - Routine Cardiovascular Exam Present: S1, S2 - Routine Abdominal Exam Present: soft - Routine Extremities Exam Comments: no justine Results 04/03/18 03:57 04/03/18 03:57 Cardiac Enzymes 04/05/18 04/06/18 Range/Units 06:44 06:09 B-Natriuretic Peptide 162 H 153 H (0-100) pg/mL Coagulation 04/05/18 04/06/18 Range/Units 06:44 06:09 B-Natriuretic Peptide 162 H 153 H (0-100) pg/mL Intake and Output 04/05/18 04/06/18 04/06/18 22:59 06:59 14:59 Intake Total 720 / 720 Output Total 700 / 700 Balance Intake: Oral 720 / 720 Output: Urine 700 / 700 Other: Date of Last Bowel Movement 04/01/18 04/05/18 # Bowel Movements 1 Weight 56.2 kg Assessment and Plan - Assessment (1) Acute exacerbation of chronic obstructive pulmonary disease (COPD) Code(s): J44.1 - Chronic obstructive pulmonary disease with (acute) exacerbation Status: Acute (2) Elevated troponin Code(s): R74.8 - Abnormal levels of other serum enzymes Status: Acute (3) Non-ST elevation [place] (NSTEMI) Code(s): I21.4 - Non-ST elevation (NSTEMI) myocardial infarction Status: Acute - Plan 1.) NSTEMI - start aspirin 81 mg qd, statin held due to markedly elevated lfts, beta leonila held due to severe rad and copd, stacy held due to hypotension; patient adamantly refuses cath 2.) CHF - improving, near euvolemic status, continue aldactone 50 mg bid, continue lasix 20 mg po qd, f/u bnp/bmp; echo results d/w patient 04/04/18 3.) Rec palliative care consult due noncompliance with meds and treatment recommendations, d/w Dr Monson
--- NOTE | 2018-04-06 15:17 | P.PNIM ---
Subjective Interval history: Patient complains of shortness of breath with ambulation. Otherwise no other complaints. Physical Exam Vital signs: Vital Signs 04/05/18 16:00 04/05/18 20:00 04/06/18 00:00 Temperature 97.8 F 97.7 F 98.5 F Pulse Rate 89 87 75 Respiratory Rate 13 16 16 Blood Pressure 111/72 106/63 107/60 Pulse Oximetry 97 98 98 Pulse Oximetry [Exertion on Room Air] Pulse Oximetry [Exertion with Oxygen] Pulse Oximetry [Resting on Room Air] Pulse Oximetry [Resting with Oxygen] 04/06/18 04:00 04/06/18 08:00 04/06/18 10:25 Temperature 97 F L 97.5 F L Pulse Rate 57 L 64 Respiratory Rate 16 17 Blood Pressure 100/57 L 103/52 L Pulse Oximetry 98 100 96 Pulse Oximetry [Exertion on Room Air] 86 L Pulse Oximetry [Exertion with Oxygen] 94 L Pulse Oximetry [Resting on Room Air] 90 L Pulse Oximetry [Resting with Oxygen] 96 04/06/18 12:00 Temperature 97.5 F L Pulse Rate 78 Respiratory Rate 18 Blood Pressure 120/60 Pulse Oximetry 98 Pulse Oximetry [Exertion on Room Air] Pulse Oximetry [Exertion with Oxygen] Pulse Oximetry [Resting on Room Air] Pulse Oximetry [Resting with Oxygen] Intake & Output 04/05/18 04/06/18 04/06/18 18:59 06:59 18:59 Intake Total 720 / 720 Output Total 700 / 700 Balance 20 / 20 Weight 56.2 kg Intake: Oral 720 / 720 Output: Urine 700 / 700 Other: Date of Last Bowel Movement 04/05/18 # Bowel Movements 1 Narrative: General patient in no acute distress, complains of shortness of breath with ambulation. HEENT extraocular movements are intact, clear oropharyngeal mucosa, no JVD Cardiovascular S1-S2 audible, RRR, no murmurs rubs or gallops Respiratory clear to auscultation bilaterally Abdomen soft, nontender, nondistended, normal bowel sounds Extremities erythema of left joyner improving Neuro cranial nerves II through XII intact Results - Labs CBC & Chem 7: 04/03/18 03:57 04/03/18 03:57 Laboratory Results - last 24 hr 04/06/18 06:09 B-Natriuretic Peptide 153 H Assessment and Plan - Assessment (1) Acute exacerbation of chronic obstructive pulmonary disease (COPD) Code(s): J44.1 - Chronic obstructive pulmonary disease with (acute) exacerbation Status: Acute (2) Delirium Code(s): R41.0 - Disorientation, unspecified Status: Acute (3) Non-ST elevation [place] (NSTEMI) Code(s): I21.4 - Non-ST elevation (NSTEMI) myocardial infarction Status: Acute (4) Psychosis not due to substance or known physiological condition Code(s): F29 - Unspecified psychosis not due to a substance or known physiological condition Status: Acute - Plan This patient is a 57-year-old homeless female with a diagnosis of COPD who presented to the emergency department with complaints of shortness of breath. In the emergency department the patient was found to have an elevated troponin and was admitted for COPD exacerbation as well as non-ST segment elevation [place]. She was also found to have positive blood cultures which grew MSSA. 04/06/18 Patient had a walk test done which she failed yesterday. Patient will need supplemental oxygen on discharge. Unsafe discharge as the patient is homeless and has nowhere to go and needs supplemental O2. Case discussed in detail with case management and they are working on a solution and planning her discharge. 1. Non-ST segment elevation [place] No chest pain. Troponins peaked at 2.9 then down trended. Continue aspirin, Plavix. No statin due to elevated LFTs. As per cardiology beta-leonila is currently being held due to severe COPD. Patient has low blood pressure SETH inhibitor also being held. Patient is refusing cardiac catheterization, 2D echocardiogram shows ejection fraction 35-40%. 2. MSSA bacteremia Blood cultures grew MSSA, repeat blood cultures are negative. Continue dicloxacillin 500 mg 4 times a day for total of 14 days which will end on 04/07/2018 as per infectious disease recognitions. Patient has remained afebrile. No vegetations noted on the 2D echocardiogram. 3. Acute hypoxic hypercapnic respiratory failure secondary to COPD exacerbation Continue azithromycin Continue breathing treatments, continue Symbicort. Patient currently requiring supplemental oxygen, will wean the patient off supplemental O2. Walk test will be performed today to see if the patient needs home O2. DVT prophylaxis, patient is currently ambulatory.
[2018-04-06] MEDS: Azithromycin 250 MG Tablet PO SCH (17:19)
--- NOTE | 2018-04-07 09:31 | P.PNCA ---
Subjective Interval history: asleep in nad Medications and Allergies Active Medications: Active Medications Acetaminophen (Tylenol) 650 mg PO Q4H PRN PRN Reason: Temp > 100.4 Last Admin: 03/29/18 06:19 Dose: 650 mg Hydrocodone Bitart/Acetaminophen ([place] 5/325) 1 tab PO Q4H PRN PRN Reason: PAIN 3-5 Last Admin: 04/06/18 20:52 Dose: 1 tab Al Hydroxide/Mg Hydroxide (Milk Of Trino Bernard) 30 ml PO Q12H PRN PRN Reason: Mild Constipation Albuterol (Albuterol Neb (Prn)) 2.5 mg NEB Q4HR NEB PRN PRN Reason: SHORTNESS OF BREATH Last Admin: 04/06/18 20:41 Dose: 2.5 mg Aspirin (Ecotrin) 81 mg PO DAILY [facility] Last Admin: 04/06/18 08:19 Dose: 81 mg Azithromycin (Zithromax) 250 mg PO Q24H [facility] Last Admin: 04/06/18 17:19 Dose: 250 mg Budesonide/Formoterol Fumarate (Symbicort 80/4.5 Mcg Inh) 2 puff INH Q12H [facility] Last Admin: 04/06/18 20:52 Dose: 2 puff Clopidogrel Bisulfate (Plavix) 75 mg PO DAILY [facility] Last Admin: 04/06/18 08:19 Dose: 75 mg Dicloxacillin Sodium (Dynapen) 500 mg PO Q6HR [facility] Stop: 04/07/18 11:59 Last Admin: 04/07/18 08:14 Dose: 500 mg Furosemide (Lasix) 20 mg PO DAILY [facility] Last Admin: 04/06/18 08:19 Dose: 20 mg Sodium Chloride (Ns Inj) 1,000 mls @ 50 mls/hr IV.CONT .Q20H [facility] Last Admin: 04/06/18 20:53 Dose: Not Given Lactobacillus Acidophilus (Lactinex) 1 tab PO TID [facility] Last Admin: 04/06/18 17:19 Dose: 1 tab Magnesium Oxide (Mag-Ox) 400 mg PO BID [facility] Last Admin: 04/06/18 20:52 Dose: 400 mg Melatonin (Melatonin) 5 mg PO HS PRN PRN Reason: SLEEP Last Admin: 04/02/18 21:58 Dose: 5 mg Morphine Sulfate (Morphine Inj) 2 mg IV.PUSH Q4H PRN PRN Reason: PAIN 6-10 Last Admin: 04/03/18 23:39 Dose: 2 mg Ondansetron HCl (Zofran Inj) 4 mg IV.PUSH Q6H PRN PRN Reason: NAUSEA OR VOMITING Sodium Chloride (Ns Flush) 2 ml IV.FLUSH BID [facility] Last Admin: 04/06/18 20:52 Dose: 2 ml Sodium Chloride (Ns Flush) 2 ml IV.FLUSH PRN PRN PRN Reason: FLUSH AFTER USING IV ACCESS Last Admin: 03/31/18 21:29 Dose: 2 ml Spironolactone (Aldactone) 50 mg PO BID@0900,1800 [facility] Last Admin: 04/06/18 17:20 Dose: 50 mg Allergies Allergy/AdvReac Type Severity Reaction Status Date / Time SOME ANTI INFLAMMATORY MEDS Allergy Severe Swelling Uncoded 05/16/05 13:42 INHALERS Allergy Intermediate SOB Uncoded 01/07/06 10:13 Physical Exam Vital signs: Vital Signs 04/06/18 10:25 04/06/18 12:00 04/06/18 16:00 Temperature 97.5 F L 97.2 F L Pulse Rate 82 107 H Respiratory Rate 18 18 Blood Pressure 120/60 124/60 Pulse Oximetry 96 98 99 Pulse Oximetry [Exertion on Room Air] 86 L Pulse Oximetry [Exertion with Oxygen] 94 L Pulse Oximetry [Resting on Room Air] 90 L Pulse Oximetry [Resting with Oxygen] 96 04/06/18 20:00 04/06/18 20:41 04/07/18 00:00 Temperature 97.5 F L 98.2 F Pulse Rate 117 H 94 H 97 H Respiratory Rate 18 20 18 Blood Pressure 118/57 L 118/56 L Pulse Oximetry 94 L 97 98 Pulse Oximetry [Exertion on Room Air] Pulse Oximetry [Exertion with Oxygen] Pulse Oximetry [Resting on Room Air] Pulse Oximetry [Resting with Oxygen] 04/07/18 04:00 04/07/18 08:00 Temperature 97.4 F L 97.9 F Pulse Rate 79 65 Respiratory Rate 18 18 Blood Pressure 100/58 L 95/50 L Pulse Oximetry 92 L 98 Pulse Oximetry [Exertion on Room Air] Pulse Oximetry [Exertion with Oxygen] Pulse Oximetry [Resting on Room Air] Pulse Oximetry [Resting with Oxygen] Intake & Output 04/06/18 04/07/18 04/07/18 18:59 06:59 18:59 Intake Total 520 / 520 480 / 480 Output Total 350 / 350 Balance 520 / 520 130 / 130 Weight 58.9 kg Intake: Oral 520 / 520 480 / 480 Output: Urine 350 / 350 Other: # Voids 3 Date of Last Bowel Movement 04/06/18 # Bowel Movements 2 0 - Constitutional no acute distress - Routine HEENT Exam Head: Present: normocephalic - Routine Neck Exam Present: supple - Routine Respiratory Exam Present: CTA bilaterally - Routine Cardiovascular Exam Present: S1, S2 - Routine Abdominal Exam Present: soft - Routine Extremities Exam Comments: no justine Results 04/03/18 03:57 04/03/18 03:57 Cardiac Enzymes 04/06/18 Range/Units 06:09 B-Natriuretic Peptide 153 H (0-100) pg/mL Coagulation 04/06/18 Range/Units 06:09 B-Natriuretic Peptide 153 H (0-100) pg/mL Intake and Output 04/06/18 04/07/18 04/07/18 22:59 06:59 14:59 Intake Total 520 / 520 480 / 480 Output Total 350 / 350 Balance 520 / 520 130 / 130 Intake: Oral 520 / 520 480 / 480 Output: Urine 350 / 350 Other: # Voids 3 Date of Last Bowel Movement 04/06/18 # Bowel Movements 2 0 Weight 58.9 kg Assessment and Plan - Assessment (1) Acute exacerbation of chronic obstructive pulmonary disease (COPD) Code(s): J44.1 - Chronic obstructive pulmonary disease with (acute) exacerbation Status: Acute (2) Elevated troponin Code(s): R74.8 - Abnormal levels of other serum enzymes Status: Acute (3) Non-ST elevation [place] (NSTEMI) Code(s): I21.4 - Non-ST elevation (NSTEMI) myocardial infarction Status: Acute - Plan 1.) NSTEMI - start aspirin 81 mg qd, statin held due to markedly elevated lfts, beta leonila held due to severe rad and copd, stacy held due to hypotension; patient adamantly refuses cath 2.) CHF - improving, near euvolemic status, continue aldactone 50 mg bid, continue lasix 20 mg po qd, f/u bnp/bmp; echo results d/w patient 04/04/18 3.) Rec palliative care consult due noncompliance with meds and treatment recommendations, d/w Dr Monson
[2018-04-07] MEDS: Furosemide 20 MG Tablet PO SCH (09:35)
[2018-04-07] MEDS: Magnesium Oxide 400 MG Tablet PO SCH ×2 (09:35→20:59)
[2018-04-07] MEDS: Spironolactone 50 MG Tablet PO SCH ×2 (09:35→18:46)
[2018-04-07] MEDS: Lactobacillus Acidophilus/L. Spores Tablet PO SCH ×3 (09:35→18:46)
[2018-04-07] MEDS: Budesonide-Formoterol 80/4.5 MCG 6.9 GM Inhaler INH SCH ×2 (14:57→20:59)
--- NOTE | 2018-04-07 17:11 | P.PNIM ---
Subjective Interval history: Patient has no specific complaints today. Physical Exam Vital signs: Vital Signs 04/06/18 20:00 04/06/18 20:41 04/07/18 00:00 Temperature 97.5 F L 98.2 F Pulse Rate 117 H 94 H 97 H Respiratory Rate 18 20 18 Blood Pressure 118/57 L 118/56 L Pulse Oximetry 94 L 97 98 04/07/18 04:00 04/07/18 08:00 04/07/18 10:10 Temperature 97.4 F L 97.9 F Pulse Rate 79 65 Respiratory Rate 18 18 Blood Pressure 100/58 L 95/50 L Pulse Oximetry 92 L 98 97 04/07/18 12:00 Temperature 97.4 F L Pulse Rate 79 Respiratory Rate 18 Blood Pressure 109/53 L Pulse Oximetry 97 Intake & Output 04/06/18 04/07/18 04/07/18 18:59 06:59 18:59 Intake Total 520 / 520 480 / 480 Output Total 350 / 350 Balance 520 / 520 130 / 130 Weight 58.9 kg Intake: Oral 520 / 520 480 / 480 Output: Urine 350 / 350 Other: # Voids 3 Date of Last Bowel Movement 04/06/18 04/06/18 # Bowel Movements 2 0 Narrative: General patient in no acute distress, complains of shortness of breath with ambulation. HEENT extraocular movements are intact, clear oropharyngeal mucosa, no JVD Cardiovascular S1-S2 audible, RRR, no murmurs rubs or gallops Respiratory clear to auscultation bilaterally Abdomen soft, nontender, nondistended, normal bowel sounds Extremities erythema of left joyner improving Neuro cranial nerves II through XII intact Results - Labs CBC & Chem 7: 04/03/18 03:57 04/03/18 03:57 Laboratory Results - last 24 hr 04/07/18 09:04 B-Natriuretic Peptide 221 H Assessment and Plan - Assessment (1) Acute exacerbation of chronic obstructive pulmonary disease (COPD) Code(s): J44.1 - Chronic obstructive pulmonary disease with (acute) exacerbation Status: Acute (2) Delirium Code(s): R41.0 - Disorientation, unspecified Status: Acute (3) Non-ST elevation [place] (NSTEMI) Code(s): I21.4 - Non-ST elevation (NSTEMI) myocardial infarction Status: Acute (4) Psychosis not due to substance or known physiological condition Code(s): F29 - Unspecified psychosis not due to a substance or known physiological condition Status: Acute - Plan This patient is a 57-year-old homeless female with a diagnosis of COPD who presented to the emergency department with complaints of shortness of breath. In the emergency department the patient was found to have an elevated troponin and was admitted for COPD exacerbation as well as non-ST segment elevation RI. She was also found to have positive blood cultures which grew MSSA. 04/07/18 Patient had a walk test done which she failed. Patient will need supplemental oxygen on discharge. Unsafe discharge as the patient is homeless and has nowhere to go and needs supplemental O2. Case discussed in detail with case management and they are working on a solution and planning her discharge. No change in management. Patient is ambulatory walking around the unit. 1. Non-ST segment elevation RI No chest pain. Troponins peaked at 2.9 then down trended. Continue aspirin, Plavix. No statin due to elevated LFTs. As per cardiology beta-leonila is currently being held due to severe COPD. Patient has low blood pressure SETH inhibitor also being held. Patient is refusing cardiac catheterization, 2D echocardiogram shows ejection fraction 35-40%. 2. MSSA bacteremia Blood cultures grew MSSA, repeat blood cultures are negative. Continue dicloxacillin 500 mg 4 times a day for total of 14 days which will end on 04/07/2018 as per infectious disease recognitions. Patient has remained afebrile. No vegetations noted on the 2D echocardiogram. 3. Acute hypoxic hypercapnic respiratory failure secondary to COPD exacerbation Continue azithromycin Continue breathing treatments, continue Symbicort. Patient currently requiring supplemental oxygen, will wean the patient off supplemental O2. Walk test will be performed today to see if the patient needs home O2. DVT prophylaxis, patient is currently ambulatory.
[2018-04-07] MEDS: Sod Chloride 0.9% Inj 1,000 ML IV.CONT SCH (18:46)
[2018-04-07] MEDS: Azithromycin 250 MG Tablet PO SCH (18:46)
[2018-04-08] MEDS: Lactobacillus Acidophilus/L. Spores Tablet PO SCH ×3 (08:41→18:02)
[2018-04-08] MEDS: Spironolactone 50 MG Tablet PO SCH ×2 (08:41→18:02)
[2018-04-08] MEDS: Furosemide 20 MG Tablet PO SCH (08:42)
[2018-04-08] MEDS: Magnesium Oxide 400 MG Tablet PO SCH ×2 (08:42→22:33)
--- NOTE | 2018-04-08 11:28 | P.PNCA ---
Subjective Interval history: alert in nad Medications and Allergies Active Medications: Active Medications Acetaminophen (Tylenol) 650 mg PO Q4H PRN PRN Reason: Temp > 100.4 Last Admin: 03/29/18 06:19 Dose: 650 mg Hydrocodone Bitart/Acetaminophen ([place] 5/325) 1 tab PO Q4H PRN PRN Reason: PAIN 3-5 Last Admin: 04/06/18 20:52 Dose: 1 tab Al Hydroxide/Mg Hydroxide (Milk Of Trino Lipietro) 30 ml PO Q12H PRN PRN Reason: Mild Constipation Albuterol (Albuterol Neb (Prn)) 2.5 mg NEB Q4HR NEB PRN PRN Reason: SHORTNESS OF BREATH Last Admin: 04/06/18 20:41 Dose: 2.5 mg Aspirin (Ecotrin) 81 mg PO DAILY [facility] Last Admin: 04/08/18 08:41 Dose: 81 mg Azithromycin (Zithromax) 250 mg PO Q24H [facility] Last Admin: 04/07/18 18:46 Dose: 250 mg Budesonide/Formoterol Fumarate (Symbicort 80/4.5 Mcg Inh) 2 puff INH Q12H [facility] Last Admin: 04/07/18 20:59 Dose: 2 puff Clopidogrel Bisulfate (Plavix) 75 mg PO DAILY [facility] Last Admin: 04/08/18 08:42 Dose: 75 mg Furosemide (Lasix) 20 mg PO DAILY [facility] Last Admin: 04/08/18 08:42 Dose: Not Given Sodium Chloride (Ns Inj) 1,000 mls @ 50 mls/hr IV.CONT .Q20H [facility] Last Admin: 04/07/18 18:46 Dose: Not Given Lactobacillus Acidophilus (Lactinex) 1 tab PO TID [facility] Last Admin: 04/08/18 08:41 Dose: 1 tab Magnesium Oxide (Mag-Ox) 400 mg PO BID [facility] Last Admin: 04/08/18 08:42 Dose: 400 mg Melatonin (Melatonin) 5 mg PO HS PRN PRN Reason: SLEEP Last Admin: 04/02/18 21:58 Dose: 5 mg Morphine Sulfate (Morphine Inj) 2 mg IV.PUSH Q4H PRN PRN Reason: PAIN 6-10 Last Admin: 04/03/18 23:39 Dose: 2 mg Ondansetron HCl (Zofran Inj) 4 mg IV.PUSH Q6H PRN PRN Reason: NAUSEA OR VOMITING Sodium Chloride (Ns Flush) 2 ml IV.FLUSH BID [facility] Last Admin: 04/08/18 08:42 Dose: 2 ml Sodium Chloride (Ns Flush) 2 ml IV.FLUSH PRN PRN PRN Reason: FLUSH AFTER USING IV ACCESS Last Admin: 03/31/18 21:29 Dose: 2 ml Spironolactone (Aldactone) 50 mg PO BID@0900,1800 [facility] Last Admin: 04/08/18 08:41 Dose: Not Given Allergies Allergy/AdvReac Type Severity Reaction Status Date / Time SOME ANTI INFLAMMATORY MEDS Allergy Severe Swelling Uncoded 05/16/05 13:42 INHALERS Allergy Intermediate SOB Uncoded 01/07/06 10:13 Physical Exam Vital signs: Vital Signs 04/07/18 12:00 04/07/18 16:00 04/07/18 20:00 Temperature 97.4 F L 98.2 F 98.3 F Pulse Rate 79 85 88 Respiratory Rate 18 18 18 Blood Pressure 109/53 L 97/56 L 110/64 Pulse Oximetry 97 95 96 04/07/18 20:04 04/08/18 00:00 04/08/18 04:00 Temperature 98.7 F 97.9 F Pulse Rate 68 79 78 Respiratory Rate 18 18 Blood Pressure 121/58 L 109/54 L Pulse Oximetry 98 95 04/08/18 08:00 04/08/18 10:01 Temperature 98.0 F Pulse Rate 70 Respiratory Rate 18 Blood Pressure 97/55 L Pulse Oximetry 95 95 Intake & Output 04/07/18 04/08/18 04/08/18 18:59 06:59 18:59 Intake Total 380 / 380 Output Total 2700 / 2700 800 / 800 Balance -2700 / -2700 -420 / -420 Weight 59.1 kg Intake: Oral 380 / 380 Output: Urine 2700 / 2700 800 / 800 Other: Date of Last Bowel Movement 04/06/18 04/07/18 # Bowel Movements 1 2 - Constitutional no acute distress - Routine HEENT Exam Head: Present: normocephalic - Routine Neck Exam Present: supple - Routine Respiratory Exam Present: CTA bilaterally - Routine Cardiovascular Exam Present: S1, S2 - Routine Abdominal Exam Present: soft - Routine Extremities Exam Comments: no justine Results 04/03/18 03:57 04/03/18 03:57 Cardiac Enzymes 04/07/18 04/08/18 Range/Units 09:04 07:06 B-Natriuretic Peptide 221 H 241 H (0-100) pg/mL Coagulation 04/07/18 04/08/18 Range/Units 09:04 07:06 B-Natriuretic Peptide 221 H 241 H (0-100) pg/mL Intake and Output 04/07/18 04/08/18 04/08/18 22:59 06:59 14:59 Intake Total 380 / 380 Output Total 2700 / 2700 800 / 800 Balance -2700 / -2700 -420 / -420 Intake: Oral 380 / 380 Output: Urine 2700 / 2700 800 / 800 Other: Date of Last Bowel Movement 04/07/18 # Bowel Movements 1 2 Weight 59.1 kg Assessment and Plan - Assessment (1) Acute exacerbation of chronic obstructive pulmonary disease (COPD) Code(s): J44.1 - Chronic obstructive pulmonary disease with (acute) exacerbation Status: Acute (2) Elevated troponin Code(s): R74.8 - Abnormal levels of other serum enzymes Status: Acute (3) Non-ST elevation [place] (NSTEMI) Code(s): I21.4 - Non-ST elevation (NSTEMI) myocardial infarction Status: Acute - Plan 1.) NSTEMI - start aspirin 81 mg qd, statin held due to markedly elevated lfts, beta leonila held due to severe rad and copd, stacy held due to hypotension; patient adamantly refuses cath 2.) CHF - bnp with slight upward trend, near euvolemic status, continue aldactone 50 mg bid, continue lasix 20 mg po qd, f/u bnp/bmp; echo results d/w patient 04/08/18 3.) Rec palliative care consult due noncompliance with meds and treatment recommendations, d/w Dr Monson
[2018-04-08] MEDS: Budesonide-Formoterol 80/4.5 MCG 6.9 GM Inhaler INH SCH ×2 (12:12→22:36)
[2018-04-08] MEDS: Sod Chloride 0.9% Inj 1,000 ML IV.CONT SCH (14:43)
--- NOTE | 2018-04-08 14:45 | P.PNIM ---
Subjective Interval history: No acute distress while at rest. No complaints from the pt. Physical Exam Vital signs: Vital Signs 04/07/18 16:00 04/07/18 20:00 04/07/18 20:04 Temperature 98.2 F 98.3 F Pulse Rate 85 88 68 Respiratory Rate 18 18 Blood Pressure 97/56 L 110/64 Pulse Oximetry 95 96 04/08/18 00:00 04/08/18 04:00 04/08/18 08:00 Temperature 98.7 F 97.9 F 98.0 F Pulse Rate 79 78 70 Respiratory Rate 18 18 18 Blood Pressure 121/58 L 109/54 L 97/55 L Pulse Oximetry 98 95 95 04/08/18 10:01 04/08/18 12:00 Temperature 98.1 F Pulse Rate 94 H Respiratory Rate 18 Blood Pressure 124/69 Pulse Oximetry 95 95 Intake & Output 04/07/18 04/08/18 04/08/18 18:59 06:59 18:59 Intake Total 380 / 380 Output Total 2700 / 2700 800 / 800 Balance -2700 / -2700 -420 / -420 Weight 59.1 kg Intake: Oral 380 / 380 Output: Urine 2700 / 2700 800 / 800 Other: Date of Last Bowel Movement 04/06/18 04/07/18 # Bowel Movements 1 2 Narrative: General patient in no acute distress, complains of shortness of breath with ambulation. HEENT extraocular movements are intact, clear oropharyngeal mucosa, no JVD Cardiovascular S1-S2 audible, RRR, no murmurs rubs or gallops Respiratory clear to auscultation bilaterally Abdomen soft, nontender, nondistended, normal bowel sounds Extremities erythema of left joyner improving Neuro cranial nerves II through XII intact Results - Labs CBC & Chem 7: 04/03/18 03:57 04/03/18 03:57 Laboratory Results - last 24 hr 04/08/18 07:06 B-Natriuretic Peptide 241 H Assessment and Plan - Assessment (1) Acute exacerbation of chronic obstructive pulmonary disease (COPD) Code(s): J44.1 - Chronic obstructive pulmonary disease with (acute) exacerbation Status: Acute (2) Delirium Code(s): R41.0 - Disorientation, unspecified Status: Acute (3) Non-ST elevation [place] (NSTEMI) Code(s): I21.4 - Non-ST elevation (NSTEMI) myocardial infarction Status: Acute (4) Psychosis not due to substance or known physiological condition Code(s): F29 - Unspecified psychosis not due to a substance or known physiological condition Status: Acute - Plan This patient is a 57-year-old homeless female with a diagnosis of COPD who presented to the emergency department with complaints of shortness of breath. In the emergency department the patient was found to have an elevated troponin and was admitted for COPD exacerbation as well as non-ST segment elevation LA. She was also found to have positive blood cultures which grew MSSA. 04/08/18 Patient had a walk test done which she failed. Patient will need supplemental oxygen on discharge. Unsafe discharge as the patient is homeless and has nowhere to go and needs supplemental O2. Case discussed in detail with case management and they are working on a solution and planning her discharge. No change in management. Patient is ambulatory walking around the unit. Cardiology following the patient given her recent NSTEMI and refusal for cardiac cath. I will continue to follow with their recs. 1. Non-ST segment elevation LA No chest pain. Troponins peaked at 2.9 then down trended. Continue aspirin, Plavix. No statin due to elevated LFTs. As per cardiology beta-leonila is currently being held due to severe COPD. Patient has low blood pressure SETH inhibitor also being held. Patient is refusing cardiac catheterization, 2D echocardiogram shows ejection fraction 35-40%. 2. MSSA bacteremia Blood cultures grew MSSA, repeat blood cultures are negative. Continue dicloxacillin 500 mg 4 times a day for total of 14 days which will end on 04/07/2018 as per infectious disease recognitions. Patient has remained afebrile. No vegetations noted on the 2D echocardiogram. 3. Acute hypoxic hypercapnic respiratory failure secondary to COPD exacerbation Continue azithromycin Continue breathing treatments, continue Symbicort. Patient currently requiring supplemental oxygen, will wean the patient off supplemental O2. Walk test will be performed today to see if the patient needs home O2. DVT prophylaxis, patient is currently ambulatory.
[2018-04-08] MEDS: Azithromycin 250 MG Tablet PO SCH (18:02)
[2018-04-08] MEDS: Acetaminophen 325 MG Tablet PO PRN (22:39)
[2018-04-09] MEDS: Lactobacillus Acidophilus/L. Spores Tablet PO SCH ×3 (10:21→17:55)
[2018-04-09] MEDS: Spironolactone 50 MG Tablet PO SCH ×2 (10:21→17:55)
[2018-04-09] MEDS: Magnesium Oxide 400 MG Tablet PO SCH ×2 (10:21→20:32)
[2018-04-09] MEDS: Furosemide 20 MG Tablet PO SCH (10:22)
[2018-04-09] MEDS: Sod Chloride 0.9% Inj 1,000 ML IV.CONT SCH (10:22)
[2018-04-09] MEDS: Budesonide-Formoterol 80/4.5 MCG 6.9 GM Inhaler INH SCH ×2 (10:23→20:33)
--- NOTE | 2018-04-09 14:15 | P.PNCA ---
Subjective Interval history: alert in nad Medications and Allergies Active Medications: Active Medications Acetaminophen (Tylenol) 650 mg PO Q4H PRN PRN Reason: Temp > 100.4 Last Admin: 04/08/18 22:39 Dose: 650 mg Hydrocodone Bitart/Acetaminophen ([place] 5/325) 1 tab PO Q4H PRN PRN Reason: PAIN 3-5 Last Admin: 04/06/18 20:52 Dose: 1 tab Al Hydroxide/Mg Hydroxide (Milk Of Trino Lipietro) 30 ml PO Q12H PRN PRN Reason: Mild Constipation Albuterol (Albuterol Neb (Prn)) 2.5 mg NEB Q4HR NEB PRN PRN Reason: SHORTNESS OF BREATH Last Admin: 04/09/18 13:14 Dose: 2.5 mg Aspirin (Ecotrin) 81 mg PO DAILY [facility] Last Admin: 04/09/18 10:22 Dose: 81 mg Azithromycin (Zithromax) 250 mg PO Q24H [facility] Last Admin: 04/08/18 18:02 Dose: 250 mg Budesonide/Formoterol Fumarate (Symbicort 80/4.5 Mcg Inh) 2 puff INH Q12H [facility] Last Admin: 04/09/18 10:23 Dose: 2 puff Clopidogrel Bisulfate (Plavix) 75 mg PO DAILY [facility] Last Admin: 04/09/18 10:21 Dose: 75 mg Furosemide (Lasix) 20 mg PO DAILY [facility] Last Admin: 04/09/18 10:22 Dose: 20 mg Sodium Chloride (Ns Inj) 1,000 mls @ 50 mls/hr IV.CONT .Q20H [facility] Last Admin: 04/09/18 10:22 Dose: Not Given Lactobacillus Acidophilus (Lactinex) 1 tab PO TID [facility] Last Admin: 04/09/18 13:29 Dose: 1 tab Magnesium Oxide (Mag-Ox) 400 mg PO BID [facility] Last Admin: 04/09/18 10:21 Dose: 400 mg Melatonin (Melatonin) 5 mg PO HS PRN PRN Reason: SLEEP Last Admin: 04/02/18 21:58 Dose: 5 mg Morphine Sulfate (Morphine Inj) 2 mg IV.PUSH Q4H PRN PRN Reason: PAIN 6-10 Last Admin: 04/03/18 23:39 Dose: 2 mg Ondansetron HCl (Zofran Inj) 4 mg IV.PUSH Q6H PRN PRN Reason: NAUSEA OR VOMITING Sodium Chloride (Ns Flush) 2 ml IV.FLUSH BID [facility] Last Admin: 04/09/18 10:22 Dose: 2 ml Sodium Chloride (Ns Flush) 2 ml IV.FLUSH PRN PRN PRN Reason: FLUSH AFTER USING IV ACCESS Last Admin: 03/31/18 21:29 Dose: 2 ml Spironolactone (Aldactone) 50 mg PO BID@0900,1800 [facility] Last Admin: 04/09/18 10:21 Dose: 50 mg Allergies Allergy/AdvReac Type Severity Reaction Status Date / Time SOME ANTI INFLAMMATORY MEDS Allergy Severe Swelling Uncoded 05/16/05 13:42 INHALERS Allergy Intermediate SOB Uncoded 01/07/06 10:13 Physical Exam Vital signs: Vital Signs 04/08/18 16:00 04/08/18 20:00 04/08/18 21:06 Temperature 98.6 F 98.0 F Pulse Rate 100 H 79 Respiratory Rate 16 20 Blood Pressure 129/65 107/62 Pulse Oximetry 93 L 95 97 04/09/18 00:00 04/09/18 04:00 04/09/18 08:00 Temperature 97.8 F 98.1 F 97.7 F Pulse Rate 87 73 72 Respiratory Rate 20 20 20 Blood Pressure 117/70 106/52 L 101/51 L Pulse Oximetry 100 95 98 04/09/18 12:00 04/09/18 13:15 Temperature 97.8 F Pulse Rate 82 92 H Respiratory Rate 16 24 Blood Pressure 102/59 L Pulse Oximetry 97 97 Intake & Output 04/08/18 04/09/18 04/09/18 18:59 06:59 18:59 Intake Total 0 / 0 380 / 380 Output Total 2600 / 2600 1000 / 1000 Balance -2600 / -2600 -620 / -620 Intake: Oral 380 / 380 Other 0 / 0 Output: Urine 2600 / 2600 1000 / 1000 Other: Date of Last Bowel Movement 04/07/18 04/07/18 # Bowel Movements 2 2 - Constitutional no acute distress - Routine HEENT Exam Head: Present: normocephalic - Routine Neck Exam Present: supple - Routine Respiratory Exam Present: CTA bilaterally - Routine Cardiovascular Exam Present: S1, S2 - Routine Abdominal Exam Present: soft - Routine Extremities Exam Comments: no justine Results 04/03/18 03:57 04/03/18 03:57 Cardiac Enzymes 04/08/18 04/09/18 Range/Units 07:06 07:26 B-Natriuretic Peptide 241 H 236 H (0-100) pg/mL Coagulation 04/08/18 04/09/18 Range/Units 07:06 07:26 B-Natriuretic Peptide 241 H 236 H (0-100) pg/mL Intake and Output 04/08/18 04/09/18 04/09/18 22:59 06:59 14:59 Intake Total 0 / 0 380 / 380 Output Total 2600 / 2600 1000 / 1000 Balance -2600 / -2600 -620 / -620 Intake: Oral 380 / 380 Other 0 / 0 Output: Urine 2600 / 2600 1000 / 1000 Other: Date of Last Bowel Movement 04/07/18 # Bowel Movements 2 2 Assessment and Plan - Assessment (1) Acute exacerbation of chronic obstructive pulmonary disease (COPD) Code(s): J44.1 - Chronic obstructive pulmonary disease with (acute) exacerbation Status: Acute (2) Elevated troponin Code(s): R74.8 - Abnormal levels of other serum enzymes Status: Acute (3) Non-ST elevation [place] (NSTEMI) Code(s): I21.4 - Non-ST elevation (NSTEMI) myocardial infarction Status: Acute - Plan 1.) NSTEMI - start aspirin 81 mg qd, statin held due to markedly elevated lfts, beta leonila held due to severe rad and copd, stacy held due to hypotension; patient adamantly refuses cath 2.) CHF - bnp with slight upward trend, near euvolemic status, continue aldactone 50 mg bid, continue lasix 20 mg po qd, f/u bnp/bmp; echo results d/w patient 04/08/18 3.) Rec palliative care consult due noncompliance with meds and treatment recommendations, d/w Dr Monson
--- NOTE | 2018-04-09 14:51 | P.PNIM ---
Subjective Interval history: No current complaints. Patient ambulating on supplemental oxygen around the unit. Physical Exam Vital signs: Vital Signs 04/08/18 16:00 04/08/18 20:00 04/08/18 21:06 Temperature 98.6 F 98.0 F Pulse Rate 100 H 79 Respiratory Rate 16 20 Blood Pressure 129/65 107/62 Pulse Oximetry 93 L 95 97 04/09/18 00:00 04/09/18 04:00 04/09/18 08:00 Temperature 97.8 F 98.1 F 97.7 F Pulse Rate 87 73 72 Respiratory Rate 20 20 20 Blood Pressure 117/70 106/52 L 101/51 L Pulse Oximetry 100 95 98 04/09/18 12:00 04/09/18 13:15 Temperature 97.8 F Pulse Rate 82 92 H Respiratory Rate 16 24 Blood Pressure 102/59 L Pulse Oximetry 97 97 Intake & Output 04/08/18 04/09/18 04/09/18 18:59 06:59 18:59 Intake Total 0 / 0 380 / 380 Output Total 2600 / 2600 1000 / 1000 Balance -2600 / -2600 -620 / -620 Intake: Oral 380 / 380 Other 0 / 0 Output: Urine 2600 / 2600 1000 / 1000 Other: Date of Last Bowel Movement 04/07/18 04/07/18 # Bowel Movements 2 2 Narrative: General patient in no acute distress, complains of shortness of breath with ambulation. HEENT extraocular movements are intact, clear oropharyngeal mucosa, no JVD Cardiovascular S1-S2 audible, RRR, no murmurs rubs or gallops Respiratory clear to auscultation bilaterally Abdomen soft, nontender, nondistended, normal bowel sounds Extremities erythema of left joyner improving Neuro cranial nerves II through XII intact Results - Labs CBC & Chem 7: 04/03/18 03:57 04/03/18 03:57 Laboratory Results - last 24 hr 04/09/18 07:26 B-Natriuretic Peptide 236 H Assessment and Plan - Assessment (1) Acute exacerbation of chronic obstructive pulmonary disease (COPD) Code(s): J44.1 - Chronic obstructive pulmonary disease with (acute) exacerbation Status: Acute (2) Delirium Code(s): R41.0 - Disorientation, unspecified Status: Acute (3) Non-ST elevation [place] (NSTEMI) Code(s): I21.4 - Non-ST elevation (NSTEMI) myocardial infarction Status: Acute (4) Psychosis not due to substance or known physiological condition Code(s): F29 - Unspecified psychosis not due to a substance or known physiological condition Status: Acute - Plan This patient is a 57-year-old homeless female with a diagnosis of COPD who presented to the emergency department with complaints of shortness of breath. In the emergency department the patient was found to have an elevated troponin and was admitted for COPD exacerbation as well as non-ST segment elevation [place]. She was also found to have positive blood cultures which grew MSSA. 04/09/18 Patient had a walk test a few days ago which she failed. Patient will need supplemental oxygen on discharge. Unsafe discharge as the patient is homeless and has nowhere to go and needs supplemental O2. Case discussed in detail with case management and they are working on a solution and planning her discharge. No change in management. Patient is ambulatory walking around the unit. Cardiology following the patient given her recent NSTEMI and refusal for cardiac cath. I will continue to follow with their recs. 1. Non-ST segment elevation [place] No chest pain. Troponins peaked at 2.9 then down trended. Continue aspirin, Plavix. No statin due to elevated LFTs. As per cardiology beta-leonila is currently being held due to severe COPD. Patient has low blood pressure SETH inhibitor also being held. Patient is refusing cardiac catheterization, 2D echocardiogram shows ejection fraction 35-40%. 2. MSSA bacteremia Blood cultures grew MSSA, repeat blood cultures are negative. Continue dicloxacillin 500 mg 4 times a day for total of 14 days which will end on 04/07/2018 as per infectious disease recognitions. Patient has remained afebrile. No vegetations noted on the 2D echocardiogram. 3. Acute hypoxic hypercapnic respiratory failure secondary to COPD exacerbation Continue azithromycin Continue breathing treatments, continue Symbicort. Patient currently requiring supplemental oxygen, will wean the patient off supplemental O2. Walk test will be performed today to see if the patient needs home O2. DVT prophylaxis, patient is currently ambulatory.
[2018-04-09] MEDS: Azithromycin 250 MG Tablet PO SCH (17:55)
[2018-04-09] MEDS: Acetaminophen 325 MG Tablet PO PRN (20:37)
[2018-04-10] MEDS: Sod Chloride 0.9% Inj 1,000 ML IV.CONT SCH (04:23)
[2018-04-10] MEDS: Furosemide 20 MG Tablet PO SCH (08:37)
[2018-04-10] MEDS: Budesonide-Formoterol 80/4.5 MCG 6.9 GM Inhaler INH SCH (08:37)
[2018-04-10] MEDS: Magnesium Oxide 400 MG Tablet PO SCH (08:37)
[2018-04-10] MEDS: Spironolactone 50 MG Tablet PO SCH (08:37)
[2018-04-10] MEDS: Lactobacillus Acidophilus/L. Spores Tablet PO SCH ×2 (08:37→12:12)
--- NOTE | 2018-04-10 13:09 | P.DS ---
DS: Providers Date of admission: 03/18/18 16:56 Primary care physician: UNKNOWN Consults: 03/18/18 16:42 Consult to Cardiology Routine Consulting Provider: Lopez Marquez Does the patient have a Electronics Instructor who follows them?: No Preferred Lead Software Test Engineer:: Lopez Marquez Reason for Consultation: nstemi, talked with dr marquez Notified:: Physician Spoke with:: Date Notified:: 03/18/18 Time Notified:: 17:10 Ordering Provider: MEGHANA 03/19/18 10:18 Consult to Infectious Diseases Routine Consulting Provider: Chelsey Marquez Reason for Consultation: BACTEREMIA Notified:: Service Spoke with:: Nisha Date Notified:: 03/19/18 Time Notified:: 10:26 Ordering Provider: KULDIP 03/22/18 15:57 Consult to Palliative Care Routine Consulting Provider: Kelvin Tobin Reason for Consultation: Homeless patient came in with NSTEMI, COPD exacerbation. Has been refusing treatments although slightly better today. Dr. Marquez ( Cardiology) recommended and I agree with an eval by palliative care. Notified:: Service Spoke with:: VICTORIA Date Notified:: 03/22/18 Time Notified:: 16:01 Ordering Provider: JOSE 03/23/18 13:11 Consult to Psychiatry Routine Consulting Provider: Tyler Phan Reason for Consultation: eval for capacity for medical decision making Notified:: Office Spoke with:: Paulina Date Notified:: 03/23/18 Time Notified:: 13:16 Ordering Provider: GINGER 03/28/18 16:32 HUB Only Consult Order [facility]ine [facility] 04/04/18 11:18 Consult to Psychiatry Routine Consulting Provider: Gilmer Baig Preferred Parts Runner:: Tyler Phan Reason for Consultation: Evasive, argumental behavior, questionable ability to make decisions for herself. Notified:: Office Spoke with:: BREEZY Date Notified:: 04/04/18 Time Notified:: 11:23 Ordering Provider: ASTON 04/04/18 11:25 HUB Only Consult Order Routine Consulting Provider: José Miguel Yoder,Gregory Brief History from admission: HPI as documented by the admitting physician: Mrs. Cohen is a 57-year-old female. I know her from a previous admit. She has severe COPD at baseline. Last admit I had problems weaning her off oxygen in order to discharge. At baseline she is homeless and could not utilize home oxygen in the setting. Today she was found unconscious, paramedics found her oxygen saturations to be in the 40s and place her on oxygen. When she arrived to the hospital her oxygen saturation was in the 70s. BiPAP was utilized and patient has improved with the BiPAP. She subsequently removed the BiPAP and requested to not be utilized and currently is maintaining saturations on 5 L/ min oxygen via nasal cannula. She does report she has had chills and a cough. She also reports incontinence. Urinalysis pending. Chest imaging shows no evidence of pneumonia but bronchitis may be present. COPD exacerbation is a likely etiology for her degree of hypoxia and may have been compounded by respiratory infection. Patient has been counseled to avoid smoking at last discharge. She has continued to smoke but did quit smoking 3 days ago. Update on the day of discharge: The patient passed her oxygen walk test. She is eager to be discharged. She states she will stay temporarily at a hotel and is planning to find housing. DS: Diagnosis Discharge Diagnosis (1) Acute exacerbation of chronic obstructive pulmonary disease (COPD): Status: Acute (2) Delirium: Status: Acute (3) Non-ST elevation OR (NSTEMI): Status: Acute (4) Psychosis not due to substance or known physiological condition: Status: Acute DS: Summary 57-year-old homeless female with a diagnosis of COPD who presented to the emergency department with complaints of shortness of breath. In the emergency department the patient was found to have an elevated troponin and was admitted for COPD exacerbation as well as non-ST segment elevation OR. She was also found to have positive blood cultures which grew MSSA. Her respiratory status eventually improved and she passed home oxygen walk test. 1. Non-ST segment elevation OR No chest pain. Troponins peaked at 2.9 then down trended. Continue aspirin, Plavix. No statin due to elevated LFTs. As per cardiology beta-leonila is currently being held due to severe COPD. Patient has low blood pressure SETH inhibitor also being held. Patient is refusing cardiac catheterization, 2D echocardiogram shows ejection fraction 35-40%. She is discharged on aspirin and Plavix. 2. MSSA bacteremia Blood cultures grew MSSA, repeat blood cultures are negative. Continue dicloxacillin 500 mg 4 times a day for total of 14 days which ended on 04/07/2018 as per infectious disease recognitions. Patient has remained afebrile. No vegetations noted on the 2D echocardiogram. 3. Acute hypoxic hypercapnic respiratory failure secondary to COPD exacerbation Status post azithromycin Continue breathing treatments, continue Symbicort. Patient eventually passed a walk test. She is advised to follow-up outpatient with PCP and pulmonology. Time Spent with Patient Total time spent providing and/or coordinating discharge services: Quality: VTE Deep Vein Thrombosis/Pulmonary Embolism Present on Admission: No Exam Narrative Exam Narrative: GENERAL: Patient appears older than stated age, in no apparent distress. CARDIOVASCULAR: Normal rate and regular rhythm without murmurs, gallops, or rubs. RESPIRATORY: Good respiratory efforts. Air movement is fair. Clear to auscultation bilaterally. No wheezing. GASTROINTESTINAL: Abdomen soft, non-tender, non-distended. Normal active bowel sounds MUSCULOSKELETAL: Extremities without cyanosis, or edema. NEURO: Alert & Oriented x4 to person, place, time, situation. Moves all ext x4 PSYCH: Appropriate mood and affect. Results Labs on day of discharge: Labs from last 24 hours 04/10/18 05:37 B-Natriuretic Peptide 191 H Impressions ITS Impressions Chest X-Ray 03/18/18 14:37 CONCLUSION: 1. No acute abnormality or significant interval change. Discharge Plan Discharge Disposition Patient Disposition: 01 Discharge Home Discharge Order Discharge Orders: Discharge Order (Routine); Ordered 04/10/18 Ordered By: Gerhard Connor Physicians Team ED Provider: Jessica Graves Primary Care Provider: UNKNOWN, Attending Provider: Adriane Sutherland Other Providers: Lopez Marquez ; Chelsey Marquez ; Kelvin Tobin ; Tyler Phan ; [facility] ; Gilmer Baig ; [facility] Rxs /Orders / Referrals /Forms Prescriptions: New clopidogrel [Plavix] 75 mg Tablet 75 mg PO DAILY Qty: 30 RF: 0 aspirin 81 mg Tablet,Delayed Release (Dr/Ec) 81 mg PO DAILY Qty: 30 RF: 0 furosemide 20 mg Tablet 20 mg PO DAILY Qty: 30 RF: 0 spironolactone 50 mg Tablet 50 mg PO BID@0900,1800 Qty: 60 RF: 0 Continue albuterol sulfate [Ventolin HFA] 90 mcg/actuation Hfa Aerosol Inhaler 2 puff INH Q4H PRN (Reason: Dyspnea) Qty: 1 RF: 0 budesonide-formoterol 80-4.5 mcg/actuation Hfa Aerosol Inhaler 2 puff INHALATION Q12H Qty: 1 RF: 0 Referrals: UNKNOWN, [Primary Care Provider] - See Instructions Discharge Instructions Patient Printed Instructions: Spironolactone (By mouth), Furosemide (By mouth) , Aspirin (By mouth), Clopidogrel (By mouth), Heart Attack (GEN), Transthoracic Echocardiogram (GEN), Heart Catheterization (GEN) Post Discharge Care Plan Care Plan Goals: Discharge Care Plan Goals for COPD You have been diagnosed with chronic obstructive pulmonary disease (COPD). This is a name given to a group of diseases that limit the flow of air in and out of your lungs. This makes it harder to breathe. With COPD, you are also more likely to get lung infections. COPD includes chronic bronchitis and emphysema. COPD is most often caused by heavy, long-term cigarette smoking. Directions to Meet your Goals: 1. Quit smoking: * If you smoke, quit. It is the best thing you can do for your COPD and your overall health. * Join a stop-smoking program. There are even telephone, text message, and Internet programs to help you quit. * Ask your doctor about medicines or other methods to help you quit. * Ask family members to quit smoking as well. * Don't allow people to smoke in your home, in your car, or when they are around you. 2. Protect yourself from infection: * Wash your hands often. Do your best to keep your hands away from your face. Most germs are spread from your hands to your mouth. * Get a flu shot every year. Also ask your provider about pneumonia vaccines. * Avoid crowds. It's especially important to do this in the winter when more people have colds and flu. * To stay healthy, get enough sleep, exercise regularly, and eat a balanced diet. You should: -Get about 8 hours of sleep every night. -Try to exercise for at least 30 minutes on most days. -Have healthy foods including fruits and vegetables, 100% whole grains, lean meats and fish, and low-fat dairy products. -Try to stay away from foods high in fats and sugar. 3. Take your medicines: * Take your medicines exactly as directed. Don't skip doses. 4. Manage you stress: Stress can make COPD worse. Use this stress management technique: * Find a quiet place and sit or lie in a comfortable position. * Close your eyes and perform breathing exercises for several minutes. 5. Pulmonary rehabilitation: * Pulmonary rehab can help you feel better. These programs include exercise, breathing techniques, information about COPD, counseling, and help for smokers. * Ask your doctor or your local hospital about programs in your area. 6. When to call your doctor: Call doctor immediately if you have any of the following: Shortness of breath, wheezing, or coughing Increased mucus Yellow, green, bloody, or smelly mucus Fever or chills Tightness in your chest that does not go away with rest or medicine An irregular heartbeat or a feeling that your heart is beating very fast Swollen ankles 7. Follow-up: Do Not miss your follow-up appointment. Keep up with all your appointments and yearly check ups Status ED Status: Left Department Discharge Information Discharge Date/Time: 04/10/18 17:24
--- NOTE | 2018-04-10 13:24 | P.PNCA ---
Subjective Interval history: alert in nad Medications and Allergies Active Medications: Active Medications Acetaminophen (Tylenol) 650 mg PO Q4H PRN PRN Reason: Temp > 100.4 Last Admin: 04/09/18 20:37 Dose: 650 mg Al Hydroxide/Mg Hydroxide (Milk Of Trino Liq) 30 ml PO Q12H PRN PRN Reason: Mild Constipation Albuterol (Albuterol Neb (Prn)) 2.5 mg NEB Q4HR NEB PRN PRN Reason: SHORTNESS OF BREATH Last Admin: 04/09/18 13:14 Dose: 2.5 mg Aspirin (Ecotrin) 81 mg PO DAILY [facility] Last Admin: 04/10/18 08:37 Dose: 81 mg Azithromycin (Zithromax) 250 mg PO Q24H [facility] Last Admin: 04/09/18 17:55 Dose: 250 mg Budesonide/Formoterol Fumarate (Symbicort 80/4.5 Mcg Inh) 2 puff INH Q12H [facility] Last Admin: 04/10/18 08:37 Dose: 2 puff Clopidogrel Bisulfate (Plavix) 75 mg PO DAILY [facility] Last Admin: 04/10/18 08:37 Dose: 75 mg Furosemide (Lasix) 20 mg PO DAILY [facility] Last Admin: 04/10/18 08:37 Dose: 20 mg Sodium Chloride (Ns Inj) 1,000 mls @ 50 mls/hr IV.CONT .Q20H [facility] Last Admin: 04/10/18 04:23 Dose: Not Given Lactobacillus Acidophilus (Lactinex) 1 tab PO TID [facility] Last Admin: 04/10/18 12:12 Dose: 1 tab Magnesium Oxide (Mag-Ox) 400 mg PO BID [facility] Last Admin: 04/10/18 08:37 Dose: 400 mg Melatonin (Melatonin) 5 mg PO HS PRN PRN Reason: SLEEP Last Admin: 04/02/18 21:58 Dose: 5 mg Ondansetron HCl (Zofran Inj) 4 mg IV.PUSH Q6H PRN PRN Reason: NAUSEA OR VOMITING Sodium Chloride (Ns Flush) 2 ml IV.FLUSH BID [facility] Last Admin: 04/10/18 08:38 Dose: 2 ml Sodium Chloride (Ns Flush) 2 ml IV.FLUSH PRN PRN PRN Reason: FLUSH AFTER USING IV ACCESS Last Admin: 04/10/18 08:37 Dose: 2 ml Spironolactone (Aldactone) 50 mg PO BID@0900,1800 ROBEL Last Admin: 04/10/18 08:37 Dose: 50 mg Allergies Allergy/AdvReac Type Severity Reaction Status Date / Time SOME ANTI INFLAMMATORY MEDS Allergy Severe Swelling Uncoded 05/16/05 13:42 INHALERS Allergy Intermediate SOB Uncoded 01/07/06 10:13 Physical Exam Vital signs: Vital Signs 04/09/18 16:00 04/09/18 20:00 04/10/18 00:00 Temperature 98.1 F 98 F 97.6 F Pulse Rate 96 H 94 H 85 Respiratory Rate 16 18 18 Blood Pressure 108/51 L 114/61 104/58 L Pulse Oximetry 97 95 97 Pulse Oximetry [Exertion on Room Air] Pulse Oximetry [Resting on Room Air] Pulse Oximetry [Resting with Oxygen] 04/10/18 04:00 04/10/18 08:00 04/10/18 10:59 Temperature 97.7 F 97.5 F L Pulse Rate 73 68 Respiratory Rate 18 14 Blood Pressure 95/53 L 97/61 L Pulse Oximetry 95 98 Pulse Oximetry [Exertion on Room Air] 88 L Pulse Oximetry [Resting on Room Air] 94 L Pulse Oximetry [Resting with Oxygen] 97 Intake & Output 04/09/18 04/10/18 04/10/18 18:59 06:59 18:59 Intake Total 480 / 480 480 / 480 Balance 480 / 480 480 / 480 Weight 58.4 kg Intake: Oral 480 / 480 480 / 480 Other: # Voids 3 2 Date of Last Bowel Movement 04/09/18 04/09/18 - Constitutional no acute distress - Routine HEENT Exam Head: Present: normocephalic - Routine Neck Exam Present: supple - Routine Respiratory Exam Present: CTA bilaterally - Routine Cardiovascular Exam Present: S1, S2 - Routine Abdominal Exam Present: soft - Routine Extremities Exam Comments: no justine Results 04/03/18 03:57 04/03/18 03:57 Cardiac Enzymes 04/09/18 04/10/18 Range/Units 07:26 05:37 B-Natriuretic Peptide 236 H 191 H (0-100) pg/mL Coagulation 04/09/18 04/10/18 Range/Units 07:26 05:37 B-Natriuretic Peptide 236 H 191 H (0-100) pg/mL Intake and Output 04/09/18 04/10/18 04/10/18 22:59 06:59 14:59 Intake Total 480 / 480 480 / 480 Balance 480 / 480 480 / 480 Intake: Oral 480 / 480 480 / 480 Other: # Voids 3 2 Date of Last Bowel Movement 04/09/18 Weight 58.4 kg Assessment and Plan - Assessment (1) Acute exacerbation of chronic obstructive pulmonary disease (COPD) Code(s): J44.1 - Chronic obstructive pulmonary disease with (acute) exacerbation Status: Acute (2) Elevated troponin Code(s): R74.8 - Abnormal levels of other serum enzymes Status: Acute (3) Non-ST elevation MT (NSTEMI) Code(s): I21.4 - Non-ST elevation (NSTEMI) myocardial infarction Status: Acute - Plan 1.) NSTEMI - start aspirin 81 mg qd, statin held due to markedly elevated lfts, beta leonila held due to severe rad and copd, stacy held due to hypotension; patient adamantly refuses cath 2.) CHF - bnp with slight downward trend, near euvolemic status, continue aldactone 50 mg bid, continue lasix 20 mg po qd, f/u bnp/bmp; echo results d/w patient 04/08/18 3.) Rec palliative care consult due noncompliance with meds and treatment recommendations, d/w Dr Monson
[2018-04-10 14:00] VITALS: BP 114/71; RESP 15; TEMP 97.8; O2SAT 99
[2018-04-10 20:09] VITALS: PULSE 90
== END 2018-04-10 17:24 | disposition home or self-care (01) ==
LOC: NEPC 14:26 → NEDA 16:56 → HIMC 18:35 → N04 03-20 17:37
PROVIDERS: ADMIT Family Medicine; ATTEND Family Medicine
DX: D69.6 Thrombocytopenia, unspecified; F17.210 Nicotine dependence, cigarettes, uncomplicated; B95.61 Methicillin susceptible Staphylococcus aureus infection as the cause of diseases classified elsewhere; R78.81 Bacteremia; Z91.19 Patient's noncompliance with other medical treatment and regimen; Z79.2 Long term (current) use of antibiotics; D75.9 Disease of blood and blood-forming organs, unspecified; R41.0 Disorientation, unspecified; J96.02 Acute respiratory failure with hypercapnia; B95.7 Other staphylococcus as the cause of diseases classified elsewhere; Z51.5 Encounter for palliative care; Z59.0 Homelessness; Z79.51 Long term (current) use of inhaled steroids; R73.9 Hyperglycemia, unspecified; D75.1 Secondary polycythemia; Z79.899 Other long term (current) drug therapy; I50.31 Acute diastolic (congestive) heart failure; D70.9 Neutropenia, unspecified; J96.01 Acute respiratory failure with hypoxia; L03.115 Cellulitis of right lower limb; J44.1 Chronic obstructive pulmonary disease with (acute) exacerbation; I21.4 Non-ST elevation (NSTEMI) myocardial infarction; F29 Unspecified psychosis not due to a substance or known physiological condition; Z66 Do not resuscitate